=== PATIENT | male | born 1945 | race Caucasian/White ===

== ENCOUNTER 2021-05-04 02:17 | Emergency (ER) | payer MEDICARE, SELFPAY ==
[2021-05-04 02:23] VITALS: BP 150/52; PULSE 67; RESP 19; TEMP 36.2; O2SAT 97
--- NOTE | 2021-05-04 02:42 | ED.WOUNDLAC ---
HPI - Wound/Laceration General Chief Complaint: Wound/Laceration Stated Complaint: left leg lac Time Seen by Provider: 05/04/21 02:27 Source: patient Mode of arrival: ambulatory Limitations: no limitations History of Present Illness HPI narrative: This is a 75 year old male who presents for evaluation of left lower leg laceration. He states he was cleaning knives and he accidentally dropped one. The knife created a tiny laceration to his leg but he states he has been unable to get it to stop bleeding. He denies lightheadedness or dizziness. His tetanus is up to date. Related Data Allergies Allergy/AdvReac Type Severity Reaction Status Date / Time No Known Allergies Allergy Unverified 02/09/19 16:33 Review of Systems Review of Systems: All systems reviewed & are unremarkable except as noted in HPI and below PMFSH Past Medical History Medical History (Updated 05/04/21 @ 03:47 by Suzy Ford MD) Coronary artery disease Diabetes mellitus Hyperlipidemia Hypertension Myocardial infarction Exam Const: General: no acute distress and alert Orientation/consciousness: patient oriented x3 Eyes: EOM: EOMs intact bilaterally Resp: Effort & Inspection: normal respiratory effort Skin: Other: left lower anterior leg with 1 cm laceration with some bleeding. Neuro: General: patient oriented x3 Gait exam (Neuro): Normal gait present Psych: Mental Status: mental status grossly normal Affect: normal affect Course Reevaluation(s) Reevaluation #1: I placed a stitch in wound and applied dressing. He was able to ambulate and he has no bleeding after 30 minutes. Date: 05/04/21 Time: 03:31 Vital Signs Vital signs: Vital Signs Temperature 97.1 F L 05/04/21 02:23 Pulse Rate 67 05/04/21 02:23 Respiratory Rate 19 05/04/21 02:23 Blood Pressure 150/52 H 05/04/21 02:23 Pulse Oximetry 97 05/04/21 02:23 Temperature 97.1 F L 05/04/21 02:23 Pulse Rate 67 05/04/21 02:23 Respiratory Rate 19 05/04/21 02:23 Blood Pressure 150/52 H 05/04/21 02:23 Pulse Oximetry 97 05/04/21 02:23 Procedures Laceration Laceration 1: Date: 05/04/21 Time: 02:50 Site: lower extremity (left lower leg) Side (If applicable): left Size (cm): 1.5 Description: linear Depth: simple, single layer Local Anesthetic: with epi Amount of anesthesia used (mL): 1 Pre-repair: irrigated ====== Skin Level ====== Skin layer closed with: prolene Size (cm): 4-0 Number of sutures: 1 Technique: horizontal mattress ====== Subcutaneous Layer ====== ====== Muscle Layer ====== ====== Tendon Layer ====== Discharge Plan Discharge Clinical Impression: Laceration of left lower leg Qualifiers: Encounter type: initial encounter Qualified Code(s): S81.812A - Laceration without foreign body, left lower leg, initial encounter Patient Disposition: Home, Self-Care Condition: Stable Instructions: Antibiotic Form, Care For Your Stitches (ED), Laceration (ED) Additional Instructions: Today you were treated for a leg wound. Keep your dressing on for 24 hours. If you developed rebleeding change dressing and apply pressure. Your stitches will need to be removed in 10-14 days. Follow-up/Referrals: UNKNOWN,DOCTOR [Primary Care Provider] -
--- NOTE | 2021-05-04 03:09 | PC.NURSE ---
Per ERP VRBO, ambulatory assessment done with pt. No signs of hemorrhage to site.
== END 2021-05-04 03:45 | disposition home or self-care (01) ==
PROVIDERS: Emergency Provider General Practice
DX: S81.812A Laceration without foreign body, left lower leg, initial encounter (principal); I25.10 Atherosclerotic heart disease of native coronary artery without angina pectoris; E78.5 Hyperlipidemia, unspecified; E11.9 Type 2 diabetes mellitus without complications; I10 Essential (primary) hypertension; I25.2 Old myocardial infarction; W26.0XXA Contact with knife, initial encounter
CPT/HCPCS: 12001; 99282

== ENCOUNTER 2021-06-13 17:30 | Emergency (ER) | payer MEDICARE, SELFPAY ==
--- NOTE | ~2021-06-13 | XR_ITS ---
EXAMINATION: XR chest 1V portable EXAM DATE: 06/13/2021 18:05 INDICATION: Generalized weakness, slurred speech. TECHNIQUE: Portable AP frontal chest x-ray was obtained. Comparison is made to prior examination from 11/23/2017. FINDINGS: Cardiomegaly and pulmonary vascular congestion. Indistinct reticulation suspicious for pulm onary edema. Interstitial type pneumonia not excludable. Findings most consistent with CHF exacerbati on. No pneumothorax. Possible small pleural effusions. There are mild bony degenerative changes. IMPRESSION: 1. Findings consistent with mild CHF exacerbation. Reviewed, dictated and finalized at location A. AGE PICK UP MAN
--- NOTE | ~2021-06-13 | CT_ITS ---
EXAMINATION: CT brain wo con EXAM DATE: 06/13/2021 18:39 INDICATION: Stroke . Slurred speech, confusion, weakness. TECHNIQUE: Spiral CT of the head was performed without contrast. Axial, coronal and sagittal images were reviewed. The dose-length product (DLP) for this examination was 605.33 mGy-cm. The exposure w as tailored according to patient size, and iterative reconstruction (ASIR) was used as additional dos e reduction technique. There is no prior study for comparison. FINDINGS: There is no acute intraparenchymal hemorrhage. No evidence of intraparenchymal brain mass lesion. No evidence of acute infarction. Please note that initial head CT has limited sensitivity f or small or acute infarctions. There is mild to moderate periventricular and subcortical hypodensity , nonspecific but probably related to small vessel ischemic disease. There is moderate prominence o f the sulci and ventricles related to cerebral atrophy. There is intracranial carotid arteriosclero sis. There are no extra-axial collections. There is no mass effect or midline shift. Patient has h ad bilateral ocular lens surgery. Soft tissue is unremarkable. The visualized sinuses and mastoid a ir cells are well aerated. IMPRESSION: 1. No acute intracranial findings. 2. Chronic age related findings. Reviewed, dictated and finalized at location A. NQUENT TAX COLLECTOR ASSISTANT
[2021-06-13 17:35] VITALS: TEMP 36.7
[2021-06-13 17:41] VITALS: BP 175/94; PULSE 83; RESP 16; O2SAT 98
--- NOTE | 2021-06-13 17:45 | ECG_ITS ---
Measurements Intervals [place] Rate: 73 P: NE: 0 QRS: -32 QRSD: 93 T: 47 QT: 411 QTc: 455 Interpretive Statements SINUS RHYTHM WITH FIRST DEGREE AV BLOCK LEFT AXIS DEVIATION DELAYED PRECORDIAL R/S TRANSITION BASELINE ARTIFACT- I, II, III, AVR, AVL, AVF, V1-V2 ABNORMAL ECG Electronically Signed On 06-13-2021 20:22:26 ANCHORER by Aaron Smith D.O.
[2021-06-13 17:58] LABS: Glucose Point of Care 79 mg/dl (65-105)
[2021-06-13 18:18] LABS: Basophils Percent Auto 0.7 % (0.2-1.2); Eosinophils Absolute Auto 0.2 K/mm3 (0-0.3); Eosinophils Percent Auto 3.3 % (0-4.4); Hematocrit 33.1 % (42.0-52.0); Immature Granulocyte Absolute 0.02 K/mm3 (0.00-0.031); Immature Granulocyte Percent A 0.3 % (0-0.5); Lymphocytes Absolute Auto 1.28 K/mm3 (0.9-3.2); Lymphocytes Percent Auto 20.9 % (18.3-44.2); Mean Corpuscular HGB Conc 33.2 g/dl (32-36); Mean Corpuscular Hemoglobin 30.3 pg (26-34); Mean Corpuscular Volume 91.2 fl (80-100); Mean Platelet Volume 9.7 fl (7.4-10.4); Monocytes Absolute Auto 0.5 K/mm3 (0.1-0.6); Monocytes Percent Auto 8.3 % (2.6-8.5); Neutrophils Absolute Auto 4.1 K/mm3 (1.3-6.7); Neutrophils Percent Auto 66.5 % (45.5-73.1); Platelet Count Result 256 k/mm3 (150-375); Red Blood Count 3.63 M/mm3 (4.6-6.20); Red Cell Distribution Width 14.5 % (11.5-14.5); White Blood Count 6.1 K/mm3 (4.5-10.0)
[2021-06-13 18:24] LABS: Alanine Aminotransferase 22 U/L (4-50); Albumin Level 3.7 g/dL (3.5-5.1); Alkaline Phosphatase 150 U/L (38-126); Anion Gap 6 mmol/L (8-16); Aspartate Amino Transferase 25 U/L (17-59); Bilirubin,Total 0.7 mg/dL (0.2-1.3); Blood Urea Nitrogen 9 mg/dL (9-20); Calcium 8.6 mg/dL (8.4-10.2); Carbon Dioxide 23 mmol/L (22-30); Chloride 105 mmol/L (98-107); Estimated Glomerular Filt Rate > 60; Glucose 101 mg/dL (65-110); Potassium 3.2 mmol/L (3.4-5.0); Sodium 134 mmol/L (137-145)
[2021-06-13 18:35] LABS: NT Pro B Type Natriuretic Pept 1280 pg/mL (5-100); Troponin I 0.027 ng/mL (0.000-0.034)
[2021-06-13 19:24] LABS: INR 1.3; Prothrombin Time 15.8 Seconds (11.1-14.7)
--- NOTE | 2021-06-13 19:39 | ED.GENADULT ---
HPI - General Adult General Chief complaint: Recheck/Abnormal Lab/Rx Stated complaint: LOW BLOOD SUGAR Time Seen by Provider: 06/13/21 17:34 Source: patient Mode of arrival: EMS Limitations: no limitations History of Present Illness HPI narrative: 75-year-old with a history of hypertension, diabetes, CAD with few stents here with complaints of slurred speech. As per the EMS her daughter called earlier this afternoon the head that his speech was found to be slurred. Patient states that he was unable to get out of the bed this since this morning as he was feeling weak. As per the EMS his blood sugar upon their arrival was 56. Patient was given oral glucose and glucagon. Upon arrival to the ER patient is wide awake alert speech was clear. Currently denies any headache or chest pain or shortness of breath, nausea or vomiting. Onset (ago): hour(s) (4) Associated symptoms: denies other symptoms Related Data Home Medications Medication Instructions Recorded Confirmed amlodipine 06/13/21 apixaban [Eliquis] mg 06/13/21 carvedilol 06/13/21 empagliflozin [Jardiance] mg 06/13/21 fesoterodine [Toviaz] mg PO 06/13/21 fluoxetine mg 06/13/21 furosemide 06/13/21 insulin glargine [Lantus Solostar SUBCUT 06/13/21 U-100 Insulin] irbesartan mg 06/13/21 pramipexole mg 06/13/21 rosuvastatin mg 06/13/21 spironolactone 06/13/21 terazosin mg 06/13/21 ticagrelor [Brilinta] mg 06/13/21 trazodone 06/13/21 Allergies Allergy/AdvReac Type Severity Reaction Status Date / Time No Known Allergies Allergy Unverified 02/09/19 16:33 Review of Systems Review of Systems: All systems reviewed & are unremarkable except as noted in HPI and below Constitutional: Constitutional: Reports no additional constitutional complaints Eyes: Eyes: Reports no additional eye complaints ENT: Reports system reviewed and no additional complaints, except as documented Cardiovascular: Cardiovascular: Reports no additional cardiovascular complaints Respiratory: Respiratory: Reports no additional respiratory complaints Musculoskeletal: Musculoskeletal: Reports no additional musculoskeletal complaints Integumentary/Breasts: Skin/Breast: Reports system reviewed and no additional complaints, except as docu Neurologic: Reports system reviewed and no additional complaints, except as documented PMFSH Past Medical History Medical History Coronary artery disease Diabetes mellitus Hyperlipidemia Hypertension Myocardial infarction Exam Narrative: GENERAL: Well-appearing, well-nourished, and in no acute distress. Very hard of hearing HEAD: Normocephalic, atraumatic. EYES: PERRLA and EOMI. ENT: Nares clear, no rhinorrhea or epistaxis. Mucous membranes moist. NECK: Supple. CHEST: Clear to auscultation. No respiratory distress. HEART: Regular rate and rhythm. No murmur heard. Normal peripheral pulses. ABDOMEN: Soft, nontender, nondistended, normal active bowel sounds. EXTREMITIES: Normal range of motion. No edema. SKIN: Warm, dry, no rash. NEURO: No focal deficits. Alert and oriented x3. PSYCH: Normal mood and affect. Course Course Emergency Course: Patient lying comfortable on the stretcher in no discomfort. He was able to ambulate to the bathroom. I did inform him about his lab work, CT scan. Advised him to eat frequently. He does feel comfortable going home. Vital Signs Vital signs: Vital Signs Temperature 36.7 C 06/13/21 17:35 Temperature 36.7 C 06/13/21 17:35 Pulse Rate 83 06/13/21 17:41 Respiratory Rate 16 06/13/21 17:41 Blood Pressure 175/94 H 06/13/21 17:41 Pulse Oximetry 98 06/13/21 17:41 Medical Decision Making MDM Narrative Medical decision making narrative: With a history of altered mental status most likely from hypoglycemia will do CBC chemistry for the benefit of the doubt will do a CT of the head to make sure there is no stroke. Meanw
[2021-06-13 19:55] VITALS: BP 166/76; PULSE 67; RESP 19; O2SAT 96
[2021-06-13 20:04] LABS: Glucose Point of Care 112 mg/dl (65-105)
== END 2021-06-13 20:06 | disposition home or self-care (01) ==
PROVIDERS: Emergency Provider Family Medicine
DX: E11.65 Type 2 diabetes mellitus with hyperglycemia (principal); R41.82 Altered mental status, unspecified; I25.10 Atherosclerotic heart disease of native coronary artery without angina pectoris; I10 Essential (primary) hypertension; Z79.01 Long term (current) use of anticoagulants; Z79.4 Long term (current) use of insulin; I25.2 Old myocardial infarction; E78.5 Hyperlipidemia, unspecified; R94.31 Abnormal electrocardiogram [ECG] [EKG]; R91.8 Other nonspecific abnormal finding of lung field
CPT/HCPCS: 36415; 70450; 71045; 80053; 82948; 83880; 84484; 85025; 85610; 93005; 99284

== ENCOUNTER 2021-12-16 08:26 | Emergency (ER) | payer MEDICARE, SELFPAY ==
[2021-12-16 08:27] VITALS: BP 128/57; PULSE 59; RESP 18; TEMP 36.2; O2SAT 100
[2021-12-16 09:14] LABS: Hematocrit 33.5 % (42.0-52.0); Hemoglobin 10.8 g/dL (14.0-18.0)
[2021-12-16 09:31] LABS: INR 1.7; Prothrombin Time 19.4 Seconds (11.1-14.7)
--- NOTE | 2021-12-16 09:39 | ED.WOUNDLAC ---
HPI - Wound/Laceration General Chief Complaint: Wound/Laceration Stated Complaint: bleeding arms Time Seen by Provider: 12/16/21 08:34 History of Present Illness HPI narrative: 76-year-old male currently on Eliquis presents here with bleeding cuts to both arms, he had noticed it yesterday, and did seem to be getting worse today so he wrapped it up and came here. Denies any trauma that he can remember other than sometimes he will bump into the farmer, denies pain or injury anywhere else. No head lightheadedness, difficulty breathing, chest pain tetanus shot is up-to-date. Related Data Home Medications Medication Instructions Recorded Confirmed amlodipine 5 mg tablet 5 mg PO 1XD 06/13/21 12/16/21 apixaban 5 mg tablet (Eliquis) 5 mg 06/13/21 carvedilol 3.125 mg tablet 3.125 mg 06/13/21 empagliflozin 25 mg tablet 25 mg 06/13/21 (Jardiance) fesoterodine 4 mg tablet,extended 4 mg PO 06/13/21 release 24 hr (Toviaz) fluoxetine 20 mg capsule 20 mg 06/13/21 insulin glargine 100 unit/mL (3 subcut 06/13/21 mL) subcutaneous pen (Lantus Solostar U-100 Insulin) irbesartan 300 mg tablet mg 06/13/21 pramipexole 1 mg tablet 1 mg 06/13/21 rosuvastatin 20 mg tablet 20 mg 06/13/21 spironolactone 25 mg tablet 06/13/21 terazosin 5 mg capsule mg 06/13/21 ticagrelor 90 mg tablet (Brilinta) mg 06/13/21 trazodone 100 mg tablet 06/13/21 Allergies Allergy/AdvReac Type Severity Reaction Status Date / Time No Known Allergies Allergy Verified 12/16/21 08:40 Review of Systems Review of Systems: CONST: No malaise HEENT: No head trauma C/V: No chest pain RESP: No difficulty breathing GI: No nausea or vomiting : No dysuria. M/S: Bleeding/abrasions both arms SKIN: Bleeding/abrasions both forearms NEURO: [No headache or focal numbness or weakness] PSYCH: [No depression] [facility] Past Medical History Medical History Coronary artery disease Diabetes mellitus Hyperlipidemia Hypertension Myocardial infarction Exam Narrative: EXAMINATION OF ORGAN SYSTEMS/BODY AREAS: Constitutional: Vital signs per nursing GENERAL:[No acute distress, non-toxic appearing.] HEAD: Normal with no signs of head trauma. EYES: EOMI, conjunctiva normal ENT: Hearing grossly intact LUNGS: Nonlabored breathing. HEART: [Regular rate and rhythm] ABD: [Soft], nontender to palpation EXT: Normal range of motion SKIN: 2 small abrasions to right forearm, with dried blood not actively bleeding, 1 tiny abrasion to left forearm, not actively bleeding NEURO: [Alert and oriented x 3. No gross focal sensory or strength deficits.] PSYCH: Normal affect Course Vital Signs Vital signs: Vital Signs Temperature 97.2 F L 12/16/21 08:27 Pulse Rate 59 L 12/16/21 08:27 Respiratory Rate 18 12/16/21 08:27 Blood Pressure 128/57 L 12/16/21 08:27 Pulse Oximetry 100 12/16/21 08:27 Oxygen Delivery Room Air 12/16/21 08:27 Temperature 97.2 F L 12/16/21 08:27 Pulse Rate 59 L 12/16/21 08:27 Respiratory Rate 18 12/16/21 08:27 Blood Pressure 128/57 L 12/16/21 08:27 Pulse Oximetry 100 12/16/21 08:27 Oxygen Delivery Room Air 12/16/21 08:27 MDM - Wound/Laceration MDM Narrative Medical decision making narrative: 76-year-old male presenting with abrasions to both forearms, vital stable, exam shows no active bleeding at this time, clean wounds are well dressed, I will obtain H&H and coags to ensure no obvious abnormality, these are within acceptable limits, he is stable for discharge home with follow-up with his primary care doctor as needed. Lab Data Result diagrams: 12/16/21 09:08 Labs: Lab Results 12/16/21 12/16/21 Range/Units 09:08 09:09 Hgb 10.8 L (14.0-18.0) g/dL Hct 33.5 L (42.0-52.0) % PT 19.4 H (11.1-14.7) Seconds INR 1.7 APTT 40.0 H (22.3-36.8) SECONDS Discharge Plan Discharge Clinical Impression: Avulsion of s
[2021-12-16 09:56] VITALS: BP 124/84; PULSE 65; RESP 18; O2SAT 97
== END 2021-12-16 09:57 | disposition home or self-care (01) ==
PROVIDERS: Emergency Provider Emergency Medicine
DX: S50.812A Abrasion of left forearm, initial encounter (principal); S50.811A Abrasion of right forearm, initial encounter; I25.10 Atherosclerotic heart disease of native coronary artery without angina pectoris; E11.9 Type 2 diabetes mellitus without complications; E78.5 Hyperlipidemia, unspecified; I10 Essential (primary) hypertension; I25.2 Old myocardial infarction; Z79.4 Long term (current) use of insulin; Z79.01 Long term (current) use of anticoagulants; Z79.02 Long term (current) use of antithrombotics/antiplatelets; W22.01XA Walked into wall, initial encounter
CPT/HCPCS: 36415; 85014; 85018; 85610; 85730; 99283

== ENCOUNTER 2022-04-08 23:01 | Emergency (ER) | payer MEDICARE, SELFPAY ==
[2022-04-08 23:19] VITALS: BP 146/54; PULSE 67; RESP 16; TEMP 36.4; O2SAT 100
[2022-04-09 01:03] VITALS: BP 158/68; PULSE 67; RESP 20; O2SAT 99
--- NOTE | 2022-04-09 02:18 | ED.EAR ---
HPI - Ear Problem General Chief complaint: Ear <RANDAL Zhu Last Filed: 04/09/22 03:08> Stated complaint: earache <RANDAL Zhu Last Filed: 04/09/22 03:08> Time Seen by Provider: 04/09/22 01:42 <RANDAL Zhu Last Filed: 04/09/22 03:08> Source: patient <RANDAL Zhu Last Filed: 04/09/22 03:08> Mode of arrival: ambulatory <RANDAL Zhu Last Filed: 04/09/22 03:08> Limitations: no limitations <RANDAL Zhu Last Filed: 04/09/22 03:08> History of Present Illness HPI Narrative: Patient is a 76-year-old male who presents the ED with report of left ear pain. Patient reports he was at the [facility] earlier today and developed pain in his left ear around 5 PM. He took 2 Tylenol at home with minimal relief. Denies any trauma to the ear or foreign body. Denies pain in right ear, ringing in ear, fevers, drainage. <RANDAL Zhu Last Filed: 04/09/22 03:08> Related Data Home medications: Home Medications Medication Instructions Recorded Confirmed amlodipine 5 mg tablet 5 mg PO 1XD 06/13/21 12/16/21 apixaban 5 mg tablet (Eliquis) 5 mg 06/13/21 carvedilol 3.125 mg tablet 3.125 mg 06/13/21 empagliflozin 25 mg tablet 25 mg 06/13/21 (Jardiance) fesoterodine 4 mg tablet,extended 4 mg PO 06/13/21 release 24 hr (Toviaz) fluoxetine 20 mg capsule 20 mg 06/13/21 insulin glargine 100 unit/mL (3 subcut 06/13/21 mL) subcutaneous pen (Lantus Solostar U-100 Insulin) irbesartan 300 mg tablet mg 06/13/21 pramipexole 1 mg tablet 1 mg 06/13/21 rosuvastatin 20 mg tablet 20 mg 06/13/21 spironolactone 25 mg tablet 06/13/21 terazosin 5 mg capsule mg 06/13/21 ticagrelor 90 mg tablet (Brilinta) mg 06/13/21 trazodone 100 mg tablet 06/13/21 <Eugenie Briones PA-C - Last Filed: 04/09/22 03:08> Allergies/adverse reactions: Allergies Allergy/AdvReac Type Severity Reaction Status Date / Time No Known Allergies Allergy Verified 04/09/22 01:01 <Eugenie Briones PA-C - Last Filed: 04/09/22 03:08> Review of Systems Review of Systems: CONSTITUTIONAL: Denies fever, chills, or sweats. EYES: Denies visual changes. ENT: Reports left ear pain. Denies right ear pain, ear drainage, rhinorrhea, congestion, sore throat. <Eugenie Briones PA-C - Last Filed: 04/09/22 03:08> All systems reviewed & are unremarkable except as noted in HPI and below <Eugenie Briones PA-C - Last Filed: 04/09/22 03:08> ON LICENSE OF [facility] Past Medical History Medical History: Medical History (Updated 04/10/22 @ 00:00 by Yamileth Andres) Coronary artery disease Diabetes mellitus Hyperlipidemia Hypertension Myocardial infarction <Eugenie Briones PA-C - Last Filed: 04/09/22 03:08> Surgical History Surgical History: Surgical History (Updated 04/09/22 @ 02:23 by Eugenie Briones PA-C) No pertinent past surgical history <Eugenie Briones PA-C - Last Filed: 04/09/22 03:08> Social History Social History: Social History (Updated 04/09/22 @ 02:23 by Eugenie Briones PA-C) Smoking status: Never smoker <Eugenie Briones PA-C - Last Filed: 04/09/22 03:08> Exam Narrative: GENERAL: Well appearing, well-nourished, non-toxic, in no acute distress. HEAD: Normocephalic, atraumatic. EYES: PERRL/EOMI, conjunctivae clear bilaterally. NOSE: Normal, no drainage. EARS: R TM clear, with good light reflex. No erythema or bulging. Some wax present in right ear, but no impaction. L cerumen impaction. No swelling or redness of L EAC. No pain with manipulation of pinna or pressing on tragus. NECK: Supple. No adenopathy, no masses. RESPIRATORY: Airway patent, respirations nonlabored. CARDIOVASCULAR: Regular rate and rhythm without murmurs, rubs, or gallops. Radial pulses 2+ and equal bilaterally. MUSCULOSKELETAL: Moves all extremities. Strength/ROM int
--- NOTE | 2022-04-09 02:29 | PC.NURSE ---
Irrigated left ear with whole bottle of elephant ear irrigation, patient tolerated well. No cerumen removed. Patient requested to have her take it out if she can. ERP notified.
== END 2022-04-09 03:15 | disposition home or self-care (01) ==
PROVIDERS: Emergency Provider Emergency Medicine
DX: H61.22 Impacted cerumen, left ear (principal); I25.10 Atherosclerotic heart disease of native coronary artery without angina pectoris; E11.9 Type 2 diabetes mellitus without complications; E78.5 Hyperlipidemia, unspecified; I10 Essential (primary) hypertension; I25.2 Old myocardial infarction; Z79.01 Long term (current) use of anticoagulants; Z79.4 Long term (current) use of insulin; Z79.84 Long term (current) use of oral hypoglycemic drugs
CPT/HCPCS: 69210; 99282

== ENCOUNTER 2022-07-15 20:37 | Inpatient (IN) | payer MEDICARE, SELFPAY ==
[2022-07-15] VITALS (16 sets, daily range): BP systolic 116–150; BP diastolic 50–72; PULSE 80–108; RESP 13–28; TEMP 36.8; O2SAT 94–100
--- NOTE | ~2022-07-15 | XR_ITS ---
XR lumbar spine 2-3V DATE: 07/20/2022 17:29 INDICATION: Back pain TECHNIQUE: AP, lateral, coned lateral lumbosacral views COMPARISON: None FINDINGS: There is approximately 22 degrees rotatory levoscoliosis of the lower thoracic and lumbar s pine. There is diffuse idiopathic skeletal hyperostosis of the thoracolumbar spine. Lumbar interspaces are relatively preserved. Mild loss of height and moderate degenerative spurring a t L5-S1. No fracture or bone destruction is evident. The lumbar pedicles appear intact. The sacroiliac joints are preserved. There is calcification of the abdominal aorta and iliac arteries. IMPRESSION: Rotatory levoscoliosis of lumbar spine Osteopenia Multilevel moderate degenerative disc disease Reviewed, dictated and finalized at location A. N FURNISHINGS INSTALLER
--- NOTE | ~2022-07-15 | XR_ITS ---
EXAMINATION: XR hip LT 2V w AP pelvis INDICATION: Worsening left hip pain TECHNIQUE: AP view of the pelvis and two views of the left hip are obtained. COMPARISON: None available FINDINGS: Bone alignment is normal. There is no fracture. 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 Phleboliths are noted in the pelvis. IMPRESSION: 1. No acute osseous abnormality. Reviewed, dictated and finalized at location B. NESS DEVELOPMENT SALES EXECUTIVE
--- NOTE | ~2022-07-15 | MR_ITS ---
EXAMINATION: MR lumbar spine wo con DATE: 07/22/2022 11:57 INDICATION: Radiculopathy TECHNIQUE: Magnetic resonance imaging (MRI) of the lumbar spine was performed without intravenous con trast. Sequences included sagittal T2-weighted FSE, sagittal T2-weighted FS FSE, sagittal T1-weighted FSE, and axial T2-weighted FSE. COMPARISON: MR spine radiographs dated 07/20/2022 FINDINGS: 23 degree lumbar levoscoliosis. Sagittal alignment is normal. Relatively acute L2 burst fracture with 40% right-sided vertebral body height loss and 4 mm central retropulsion. There is a linear coronall y oriented fracture plane extending across the left half of the vertebral body. There is prominent as sociated marrow edema. Chronic likely physiologic wedging at T11 and T12 with 20% anterior vertebral body height loss. Marrow signal is otherwise normal. Moderate disc height loss at L5-S1. Mild disc he ight loss at T10-T11 and ADC through T12-L1 and at L4-L5. Mild Central ballooning of the L1-L2 and L2 -L3 disc space resulting from the L2 burst fracture. The conus medullaris terminates at L1-L2. There is normal signal in the caudal spinal cord. Paravertebral soft tissues are unremarkable. The followin g disc levels are specifically discussed: T12-L1: The disc does not extend beyond the endplate margin. There is mild bilateral facet joint oste oarthritis. There is mild right neural foraminal stenosis. There is no central canal stenosis. L1-L2: Disc is minimally bulging. There is also mild retropulsion of the cephalad aspect of the poste rior wall of L2. There is hypertrophy of the ligamentum flavum. There is mild bilateral facet joint osteoarthritis. There is mild left and and mild to moderate right neural foraminal stenosis. There is mild central canal stenosis. L2-L3: There are bilateral foraminal zone disc protrusions. There is hypertrophy of the ligamentum fl avum. There is mild left and moderate right facet joint osteoarthritis. There is mild to moderate lef t and moderate right neural foraminal stenosis. There is mild central canal stenosis. L3-L4: Minimal bilateral foraminal zone disc protrusions. There is mild to moderate bilateral facet j oint osteoarthritis. There is moderate bilateral neural foraminal stenosis. There is mild central can al stenosis. L4-L5: Disc is bulging. There is hypertrophy of the ligamentum flavum. There is moderate left and mod erate to severe right facet joint osteoarthritis. There is moderate to severe bilateral neural forami nal stenosis. There is mild to moderate central canal stenosis as well as at the left and right later al recesses. L5-S1: Annular fissure and posterior disc extrusion with disc material extending a few millimeters ce phalad to the level of the inferior endplate of L5. There is moderate left and severe right facet silvestre nt osteoarthritis. There is moderate right and moderate to severe left neural foraminal stenosis. The re is mild central canal stenosis as well as at the left and right lateral recesses. IMPRESSION: 1. Relatively acute L2 burst fracture with 40% right-sided vertebral body height loss and 4 mm retrop ulsion. 2. 23 degrees lumbar levoscoliosis with mild to moderate spondylosis. Reviewed, dictated and finalized at location A. YARD CRANE OPERATOR IMPRESSION: 1. Relatively acute L2 burst fracture with 40% right-sided vertebral body heigh t loss and 4 mm retropulsion. 2. 23 degrees lumbar levoscoliosis with mild to moderate spondylosis.
--- NOTE | ~2022-07-15 | XR_ITS ---
EXAMINATION: XR chest 1V portable DATE: 07/15/2022 21:41 INDICATION: Hypoglycemia. TECHNIQUE: A single frontal view of the chest was obtained. COMPARISON: Chest single view 06/13/2021, chest CT 01/01/2019 FINDINGS: The lung volumes are normal. There is an interstitial pattern in the lungs. No pleural effu ross or pneumothorax. The heart size is normal. IMPRESSION: 1. Interstitial pattern in the lungs, likely mild pulmonary edema. Reviewed, dictated and finalized at location A. ICAL EXERCISE SPECIALIST
--- NOTE | ~2022-07-15 | CT_ITS ---
EXAMINATION: CT brain wo con DATE: 07/16/2022 03:28 INDICATION: Altered mental status. Hypoglycemia. TECHNIQUE: Computed tomography (CT) of the head was performed without intravenous contrast. The mA wa s adjusted according to patient size. Iterative reconstruction technique was employed. The dose-lengt h product was 681.00 mGy-cm. COMPARISON: Head CT 06/13/2021 FINDINGS: There are scattered areas of low attenuation in the cerebral white matter. There is no intr acranial hemorrhage, acute infarction, or abnormal intracranial mass lesion. The ventricles are estuardo l in size. There are likely changes of ocular lens replacement surgeries. There is mild mucosal thick ening in the ethmoid sinuses. There is a trace left mastoid effusion. IMPRESSION: 1. Stable moderate nonspecific cerebral white matter disease, which likely represents chronic small v essel ischemic disease. Reviewed, dictated and finalized at location A. S SET UP PERSON IMPRESSION: 1. Stable moderate nonspecific cerebral white matter disease, which likely repr esents chronic small vessel ischemic disease.
--- NOTE | 2022-07-15 21:06 | ECG_ITS ---
Measurements Intervals [place] Rate: 90 P: 236 ME: 151 QRS: -53 QRSD: 96 T: 71 QT: 338 QTc: 415 Interpretive Statements SINUS RHYTHM WITH FIRST DEGREE AV BLOCK LEFT ANTERIOR FASCICULAR BLOCK BASELINE ARTIFACT- I, II, III, AVR, AVL, AVF, V1 ABNORMAL ECG COMPARED TO ECG 06/13/2021 18:55:00 LEFT ANTERIOR FASCICULAR BLOCK NOW PRESENT Electronically Signed On 07-16-2022 6:38:09 GENERAL MERCHANDISE SALESPERSON by Aaron Smith D.O.
--- NOTE | 2022-07-15 21:08 | ED.GENADULT ---
HPI - General Adult General Chief complaint: Altered Mental Status Stated complaint: low blood sugar History of Present Illness HPI narrative: this is a 76-year-old male presenting ED for low blood sugar. Patient self does not recall any events leading up to what happened. Says he last took his insulin last night. He then woke up in the hospital. He has no physical complaints at this time. Per EMS they were called for CPR. When they arrived patient had a glucose of 50 and he was given an amp of D50 with a return to his normal mental status. Related Data Home Medications Medication Instructions Recorded Confirmed amlodipine 5 mg tablet 5 mg PO 1XD 06/13/21 12/16/21 apixaban 5 mg tablet (Eliquis) 5 mg 06/13/21 carvedilol 3.125 mg tablet 3.125 mg 06/13/21 empagliflozin 25 mg tablet 25 mg 06/13/21 (Jardiance) fesoterodine 4 mg tablet,extended 4 mg PO 06/13/21 release 24 hr (Toviaz) fluoxetine 20 mg capsule 20 mg 06/13/21 insulin glargine 100 unit/mL (3 subcut 06/13/21 mL) subcutaneous pen (Lantus Solostar U-100 Insulin) irbesartan 300 mg tablet mg 06/13/21 pramipexole 1 mg tablet 1 mg 06/13/21 rosuvastatin 20 mg tablet 20 mg 06/13/21 spironolactone 25 mg tablet 06/13/21 terazosin 5 mg capsule mg 06/13/21 ticagrelor 90 mg tablet (Brilinta) mg 06/13/21 trazodone 100 mg tablet 06/13/21 Allergies Allergy/AdvReac Type Severity Reaction Status Date / Time No Known Allergies Allergy Verified 04/09/22 01:01 [facility] Past Medical History Medical History Coronary artery disease Diabetes mellitus Hyperlipidemia Hypertension Myocardial infarction Surgical History Surgical History No pertinent past surgical history Social History Social History Smoking status: Never smoker Exam Narrative: APPEARANCE: No apparent distress. A&O x3 Head: atraumatic. EYES: EOMI, NOSE: Atraumatic NECK: Trachea midline RESPIRATORY: No increased rate of breathing clear to auscultation CARDIOVASCULAR: RRR, no peripheral edema ABDOMINAL: Non-distended, no guarding or rebound MUSCULOSKELETAl: No obvious deformities, head to toe trauma assessment not reveal any injuries NEURO: Alert. Moving 4/4 extremities SKIN:: Warm, dry. Normal color PSYCHIATRIC: Normal affect Course Vital Signs Vital signs: Vital Signs Temperature 98.2 F 07/15/22 20:54 Pulse Rate 107 H 07/15/22 20:54 Respiratory Rate 18 07/15/22 20:54 Blood Pressure 131/66 07/15/22 20:54 Pulse Oximetry 99 07/15/22 20:54 Oxygen Delivery Room Air 07/15/22 20:54 Temperature 97.8 F 07/16/22 02:11 Pulse Rate 76 07/16/22 04:45 Respiratory Rate 18 07/16/22 04:45 Blood Pressure 113/66 07/16/22 04:32 Pulse Oximetry 100 07/16/22 04:45 Oxygen Delivery Room Air 07/15/22 20:54 Medical Decision Making [facility] Narrative Medical decision making narrative: Presentation: 76-year-old with low blood sugar, Found down by family after non unwitnessed fall. Patient is on Eliquis. CT head, chest x-ray EKG and lab work will be obtained. Patient has been fed food. Q.1 hour glucose checks have been obtained DDX includes but is not limited to: hypoglycemia due to improper use of insulin, decreased diet, infection, Co-morbidities complicating care: diabetes, hypertension, coronary artery disease External Chart Review: Pharmacy medication Records- Patient is on lantus. Hx from independent Sources: EMS, Family, Discussion of Management/Consultants: Gary - Hospitalist Independent interpretation of studies: CBC showed a white count of 12.9. This is of unknown etiology. No source of infection at this time. hemoglobin is 10.8 which is similar to previous values.Metabolic panel was within Acceptable limits. Urinalysis did not indicate infection. Viral
[2022-07-15] MEDS: HYDROcodone/acetaminophen (*CRX) 5-325 MG TABLET 1 TAB PO (21:25)
[2022-07-15] MEDS: SODIUM CHLORIDE 0.9% IV 2,000 ML 999 ML IV CONT (21:25)
[2022-07-15 21:35] LABS: Add Urine Microscopic? YES; Appearance Urine Clear (Clear); Bilirubin Urine Negative (Negative); Blood Urine Negative (Negative); Color Urine Yellow (Yellow); Glucose Urine UA 2+ mg/dL (Negative); Ketones Urine Negative (Negative); Leukocyte Esterase Ur Negative LEU/UL (Negative); Nitrate Urine Negative (Negative); Protein Urine Negative (Negative); Urobilinogen Urine 0.2 mg/dL (<2.0); pH Urine 5.5 (5.0-9.0)
[2022-07-15 21:36] LABS: Basophils Absolute Auto 0.1 K/mm3 (0.0-0.1); Basophils Percent Auto 0.5 % (0.2-1.2); Eosinophils Percent Auto 0.1 % (0-4.4); Hematocrit 32.8 % (42.0-52.0); Hemoglobin 10.8 g/dL (14.0-18.0); Immature Granulocyte Absolute 0.06 K/mm3 (0.00-0.031); Immature Granulocyte Percent A 0.5 % (0-0.5); Lymphocytes Absolute Auto 0.69 K/mm3 (0.9-3.2); Lymphocytes Percent Auto 5.3 % (18.3-44.2); Mean Corpuscular HGB Conc 32.9 g/dl (32-36); Mean Corpuscular Hemoglobin 30.7 pg (26-34); Mean Corpuscular Volume 93.2 fl (80-100); Mean Platelet Volume 9.7 fl (7.4-10.4); Monocytes Absolute Auto 0.4 K/mm3 (0.1-0.6); Monocytes Percent Auto 2.8 % (2.6-8.5); Neutrophils Absolute Auto 11.7 K/mm3 (1.3-6.7); Neutrophils Percent Auto 90.8 % (45.5-73.1); Platelet Count Result 341 k/mm3 (150-375); Red Blood Count 3.52 M/mm3 (4.6-6.20); Red Cell Distribution Width 14.7 % (11.5-14.5); White Blood Count 12.9 K/mm3 (4.5-10.0)
[2022-07-15 21:40] LABS: Mucus Urine Rare /lpf; RBC Urine 0-2 /hpf (0-2); WBC Urine 0-3 /hpf
[2022-07-15 21:45] LABS: Anion Gap 8 mmol/L (8-16); Blood Urea Nitrogen 20 mg/dL (9-20); Calcium 8.8 mg/dL (8.4-10.2); Carbon Dioxide 22 mmol/L (22-30); Chloride 107 mmol/L (98-107); Estimated CRCL calculation 42 ml/min; Estimated Glomerular Filt Rate 49; Glucose 117 mg/dL (65-110); Potassium 4.3 mmol/L (3.4-5.0); Sodium 137 mmol/L (137-145)
[2022-07-15 22:12] LABS: Influenza A QL RT-PCR Negative (Negative); Influenza B QL RT-PCR Negative (Negative); RSV RNA, RT-PCR Negative (Negative); SARS-CoV-2 RNA PCR Negative
[2022-07-15 22:41] LABS: Glucose Point of Care 49 mg/dl (65-105)
--- NOTE | 2022-07-15 22:41 | PC.NURSE ---
bedside glucose 49
[2022-07-15] MEDS: DEXTROSE 50% 25 GM/50 ML SYRINGE IV PUSH (22:56)
[2022-07-16] VITALS (60 sets, daily range): BP systolic 74–144; BP diastolic 33–73; PULSE 63–87; RESP 11–28; TEMP 35.9–37; O2SAT 92–100; BMI 25.2
--- NOTE | 2022-07-16 00:32 | PC.NURSE ---
bedside glucose 114
[2022-07-16 00:36] LABS: Glucose Point of Care 114 mg/dl (65-105)
[2022-07-16 02:05] LABS: Glucose Point of Care 68 mg/dl (65-105)
--- NOTE | 2022-07-16 02:05 | PC.NURSE ---
bedside glucose 68
[2022-07-16] MEDS: HYDROcodone/acetaminophen (*CRX) 5-325 MG TABLET 1 TAB PO ×2 (02:16→23:47)
[2022-07-16] MEDS: DEXTROSE 10% 1,000 ML 100 ML IV CONT (02:25)
[2022-07-16] MEDS: SODIUM CHLORIDE 0.9% IV 1,000 ML 999 ML IV CONT (03:41)
--- NOTE | 2022-07-16 04:05 | PC.NURSE ---
Bedside glucose 96
[2022-07-16 04:07] LABS: Glucose Point of Care 96 mg/dl (65-105)
[2022-07-16 06:04] LABS: Glucose Point of Care 69 mg/dl (65-105)
[2022-07-16] MEDS: GLUCAGON FOR INJ 1 MG VIAL IM (06:24)
--- NOTE | 2022-07-16 06:32 | PC.NURSE ---
Awaiting bed assignment
[2022-07-16 06:41] LABS: Glucose Point of Care 105 mg/dl (65-105)
--- NOTE | 2022-07-16 06:41 | PC.NURSE ---
bedside glucose 105
[2022-07-16 08:16] LABS: Glucose Point of Care 151 mg/dl (65-105)
--- NOTE | 2022-07-16 11:13 | ADMGEN ---
This patient, Santhosh Moore, was admitted to IMU Room 209-01 on 07/16/22 at 0725. Patient/family oriented to hospital policies and general routines including ID bracelet, bed and alarms, visiting hours, pain management, procedures, bathroom and other care routines, personal items, smoking policy, room service/diet, and visiting hours. Information on how to activate the Rapid Response Team has been discussed. Patient/Family are encouraged to report perceived risks to care and to ask questions if they do not understand what they are told or what they should do.
[2022-07-16] MEDS: DEXTROSE 10% 1,000 ML 125 ML IV CONT ×2 (11:41→20:35)
[2022-07-16 12:20] LABS: Glucose Point of Care 125 mg/dl (65-105)
[2022-07-16 13:35] LABS: Glucose Point of Care 100 mg/dl (65-105)
[2022-07-16 14:32] LABS: Glucose Point of Care 119 mg/dl (65-105)
[2022-07-16] MEDS: PRAMIPEXOLE 1 MG TABLET PO ×2 (15:02→20:35)
[2022-07-16] MEDS: GLUCOSE ORAL GEL 15 GM OF GLUCSE IN 37.5 GM TUBE PO (16:00)
[2022-07-16 16:29] LABS: Glucose Point of Care 124 mg/dl (65-105)
[2022-07-16 16:32] LABS: Glucose Point of Care 55 mg/dl (65-105)
--- NOTE | 2022-07-16 17:06 | PM.IMHP ---
H&P: HPI History of Present Illness Date/Time: 07/16/22 17:06 Chief Complaint: hypoglycemia Narrative: ED-HPI narrative: ?this is a 76-year-old male presenting ED for low blood sugar.? Patient self does not recall any events leading up to what happened.? Says he last took his insulin last night.? He then woke up in the hospital.? He has no physical complaints at this time. ? Per EMS they were called for CPR.? When they arrived patient had a glucose of 50 and he was given an amp of D50 with a return to his normal mental status. patient is 76-year-old male with history of coronary artery disease and diabetes taking insulin and patient lives alone apparently patient states took his long-acting Lantus 45 units I he did fix himself dinner but did not eat enough apparently went to sleep, this morning daughter came to visit patient was quite somnolent and not arousable and EMS was called the [place] patient may need a CPR however his blood pressure was 50 and patient was given 1 ampule of D50 which did bring his mental status to baseline, patient was also given 1 time glucagon, currently patient alert and oriented has no complaint, initially patient blood sugar was monitor q.1 hour, patient is being fed and his blood sugars monitored, we are holding patient long-acting insulin and monitoring with low sliding scale, will have perioperative educator consult the patient, it will be prudent to adult supervision to administer daily insulin, will continue to monitor will have a PT OT evaluate the patient and further recommendation to follow. patient is admitted as observation status. Review of Systems Review of Systems: CONSTITUTIONAL: Denies fever, chills, or sweats. EYES: Denies visual changes. ENT: Reports left ear pain. Denies right ear pain, ear drainage, rhinorrhea, congestion, sore throat. All systems reviewed & are unremarkable except as noted in HPI and below PMFSH Past Medical History Medical History Coronary artery disease Diabetes mellitus Hyperlipidemia Hypertension Myocardial infarction Surgical History Surgical History No pertinent past surgical history Social History Social History Smoking status: Current every day smoker Tobacco type: cigars Additional smoking assessment comments: 3 cigars/day Alcohol intake: never Substance use: never Substance use type: does not use Lack of Transportation: No Lack of Food: Never True Current Housing: I Have Housing Concerned About Future Housing: No Difficulty Paying Gas/Electric Bills: No Difficulty Paying for Meds: No Currently Unemployed: No Education: Bachelor's Degree Difficulty w/ Childcare or Family Care: No Spiritual care concerns: No Meds Home Medications and Allergies Home Medications Medication Instructions Recorded Confirmed Type trazodone 100 mg tablet 100 mg PO HS 06/13/21 07/16/22 History amlodipine 5 mg tablet 5 mg PO DAILY 07/16/22 07/16/22 History apixaban 5 mg tablet (Eliquis) 5 mg PO BID 07/16/22 07/16/22 History empagliflozin 25 mg tablet 25 mg PO DAILY 07/16/22 07/16/22 History (Jardiance) fesoterodine 4 mg tablet,extended 4 mg PO DAILY 07/16/22 07/16/22 History release 24 hr furosemide 40 mg tablet 40 mg PO DAILY 07/16/22 07/16/22 History gabapentin 300 mg capsule 300 mg PO DAILY 07/16/22 07/16/22 History hydralazine 50 mg tablet 50 mg PO BID 07/16/22 07/16/22 History insulin glargine 100 unit/mL (3 45 unit subcut BID 07/16/22 07/16/22 History mL) subcutaneous pen (Lantus Solostar U-100 Insulin) irbesartan 300 mg tablet 300 mg PO DAILY 07/16/22 07/16/22 History pramipexole 1 mg tablet 1 mg PO USEASDIRECTD 07/16/22 07/16/22 History rosuvastatin 20 mg tablet 20 mg PO DAILY 07/16/22 07/16/22 History spironolactone 25 mg tablet 25 mg PO DAILY 07/16
[2022-07-16] MEDS: hydrALAZINE HCL 50 MG TABLET PO (17:37)
[2022-07-16] MEDS: GABAPENTIN 300 MG CAPSULE PO (17:37)
[2022-07-16] MEDS: TICAGRELOR 90 MG TABLET PO (17:37)
[2022-07-16 17:57] LABS: Glucose Point of Care 173 mg/dl (65-105)
[2022-07-16 20:07] LABS: Glucose Point of Care 147 mg/dl (65-105)
[2022-07-16 20:21] LABS: Hemoglobin A1C 5.5 % (<5.7)
[2022-07-16] MEDS: traZODone HCL 50 MG TABLET 100 MG PO (20:35)
[2022-07-16] MEDS: APIXABAN 5 MG TABLET PO (20:50)
[2022-07-16 21:02] LABS: Glucose Point of Care 173 mg/dl (65-105)
[2022-07-16 21:52] LABS: Glucose Point of Care 166 mg/dl (65-105)
[2022-07-16 23:28] LABS: Glucose Point of Care 151 mg/dl (65-105)
[2022-07-17] VITALS (16 sets, daily range): BP systolic 94–141; BP diastolic 41–58; PULSE 62–103; RESP 20; TEMP 36.1–36.7; O2SAT 92–100
[2022-07-17] MEDS: DEXTROSE 10% 1,000 ML 125 ML IV CONT ×2 (05:21→20:34)
[2022-07-17] MEDS: HYDROcodone/acetaminophen (*CRX) 5-325 MG TABLET 1 TAB PO ×3 (05:21→16:27)
[2022-07-17 05:54] LABS: Anion Gap 5 mmol/L (8-16); Blood Urea Nitrogen 14 mg/dL (9-20); Calcium 8.1 mg/dL (8.4-10.2); Carbon Dioxide 22 mmol/L (22-30); Chloride 108 mmol/L (98-107); Estimated CRCL calculation 58 ml/min; Estimated Glomerular Filt Rate > 60; Glucose 155 mg/dL (65-110); Magnesium 1.8 mg/dL (1.6-2.3); Sodium 135 mmol/L (137-145)
[2022-07-17 07:29] LABS: Glucose Point of Care 136 mg/dl (65-105)
[2022-07-17 08:01] LABS: Glucose Point of Care 125 mg/dl (65-105)
[2022-07-17] MEDS: amLODIPine BESYLATE 5 MG TABLET PO (09:36)
[2022-07-17] MEDS: GABAPENTIN 300 MG CAPSULE PO ×3 (09:36→16:29)
[2022-07-17] MEDS: hydrALAZINE HCL 50 MG TABLET PO ×2 (09:36→16:29)
[2022-07-17] MEDS: ROSUVASTATIN 10 MG TABLET 20 MG PO (09:37)
[2022-07-17] MEDS: TICAGRELOR 90 MG TABLET PO ×2 (09:37→16:29)
[2022-07-17] MEDS: SPIRONOLACTONE 25 MG TABLET PO (09:37)
[2022-07-17] MEDS: IRBESARTAN 150 MG TABLET 300 MG PO (09:37)
[2022-07-17] MEDS: TOLTERODINE TARTRATE LA 4 MG CAP.ER.24H PO (09:37)
[2022-07-17] MEDS: APIXABAN 5 MG TABLET PO ×2 (09:37→20:32)
[2022-07-17] MEDS: FUROSEMIDE 40 MG TABLET PO (09:37)
[2022-07-17 12:10] LABS: Glucose Point of Care 282 mg/dl (65-105)
[2022-07-17] MEDS: INSULIN ASPART (*BKC) 100 UNITS/ML SUB-Q (12:53)
[2022-07-17 15:56] LABS: Glucose Point of Care 177 mg/dl (65-105)
[2022-07-17 17:25] LABS: Hematocrit 33.7 % (42.0-52.0); Hemoglobin 11.2 g/dL (14.0-18.0); Mean Corpuscular HGB Conc 33.2 g/dl (32-36); Mean Corpuscular Hemoglobin 31.1 pg (26-34); Mean Corpuscular Volume 93.6 fl (80-100); Mean Platelet Volume 10.4 fl (7.4-10.4); Platelet Count Result 329 k/mm3 (150-375); Red Cell Distribution Width 14.7 % (11.5-14.5); White Blood Count 13.1 K/mm3 (4.5-10.0)
--- NOTE | 2022-07-17 18:22 | PM.IMPN ---
Progress Note: A&P Assessment and Plan (1) Hypoglycemia: Code(s): E16.2 - Hypoglycemia, unspecified Status: Acute Assessment and Plan: ED-HPI narrative: ?this is a 76-year-old male presenting ED for low blood sugar.? Patient self does not recall any events leading up to what happened.? Says he last took his insulin last night.? He then woke up in the hospital.? He has no physical complaints at this time. ? Per EMS they were called for CPR.? When they arrived patient had a glucose of 50 and he was given an amp of D50 with a return to his normal mental status. patient is 76-year-old male with history of coronary artery disease and diabetes taking insulin and patient lives alone apparently patient states took his long-acting Lantus 45 units I he did fix himself dinner but did not eat enough apparently went to sleep, this morning daughter came to visit patient was quite somnolent and not arousable and EMS was called the [place] patient may need a CPR however his blood pressure was 50 and patient was given 1 ampule of D50 which did bring his mental status to baseline, patient was also given 1 time glucagon, currently patient alert and oriented has no complaint, initially patient blood sugar was monitor q.1 hour, patient is being fed and his blood sugars monitored, we are holding patient long-acting insulin and monitoring with low sliding scale, will have tobacco prevention health educator consult the patient, it will be prudent to adult supervision to administer daily insulin, will continue to monitor will have a PT OT evaluate the patient and further recommendation to follow. 07/17/2021 interval history: patient states he has type 2 diabetes, I spoke with the patient's daughter and discussed recommended the patient be taken off all the insulin and placed on oral anti diabetic medication with metformin, Jardiance and possibly low-dose Glucotrol 2.5mg daily if needed, consult dietitian and physical therapy patient will benefit going to acute rehab. (2) Altered mental status: Code(s): R41.82 - Altered mental status, unspecified Status: Acute Assessment and Plan: most likely secondary to hypoglycemia now patient is baseline will continue to monitor. Subjective Date/time seen: 07/17/22 18:22 ED-HPI narrative: ?this is a 76-year-old male presenting ED for low blood sugar.? Patient self does not recall any events leading up to what happened.? Says he last took his insulin last night.? He then woke up in the hospital.? He has no physical complaints at this time. ? Per EMS they were called for CPR.? When they arrived patient had a glucose of 50 and he was given an amp of D50 with a return to his normal mental status. patient is 76-year-old male with history of coronary artery disease and diabetes taking insulin and patient lives alone apparently patient states took his long-acting Lantus 45 units I he did fix himself dinner but did not eat enough apparently went to sleep, this morning daughter came to visit patient was quite somnolent and not arousable and EMS was called the [place] patient may need a CPR however his blood pressure was 50 and patient was given 1 ampule of D50 which did bring his mental status to baseline, patient was also given 1 time glucagon, currently patient alert and oriented has no complaint, initially patient blood sugar was monitor q.1 hour, patient is being fed and his blood sugars monitored, we are holding patient long-acting insulin and monitoring with low sliding scale, will have tobacco prevention health educator consult the patient, it will be prudent to adult supervision to administer daily insulin, will continue to monitor will have a PT OT evaluate the patient and further recommendation to follow. 07/17/2021 interval history: patient states he has type 2 diabetes, I spoke with the patient's daughter and discussed recommended the patient be taken off all the insulin and placed on oral anti diabetic medication with met
[2022-07-17 20:01] LABS: Glucose Point of Care 219 mg/dl (65-105)
[2022-07-17] MEDS: PRAMIPEXOLE 1 MG TABLET PO (20:32)
[2022-07-17] MEDS: traZODone HCL 50 MG TABLET 100 MG PO (20:32)
[2022-07-17 23:30] LABS: Glucose Point of Care 246 mg/dl (65-105)
[2022-07-18] VITALS (17 sets, daily range): BP systolic 78–121; BP diastolic 37–61; PULSE 61–102; RESP 18–20; TEMP 36.4–36.8; O2SAT 94–98
[2022-07-18 05:35] LABS: Anion Gap 4 mmol/L (8-16); Blood Urea Nitrogen 18 mg/dL (9-20); Calcium 8.1 mg/dL (8.4-10.2); Carbon Dioxide 25 mmol/L (22-30); Chloride 101 mmol/L (98-107); Estimated CRCL calculation 42 ml/min; Estimated Glomerular Filt Rate 49; Glucose 165 mg/dL (65-110); Magnesium 1.8 mg/dL (1.6-2.3); Potassium 3.6 mmol/L (3.4-5.0); Sodium 130 mmol/L (137-145)
[2022-07-18 07:45] LABS: Glucose Point of Care 136 mg/dl (65-105)
[2022-07-18] MEDS: FUROSEMIDE 40 MG TABLET PO (09:58)
[2022-07-18] MEDS: hydrALAZINE HCL 50 MG TABLET PO ×2 (09:58→18:33)
[2022-07-18] MEDS: IRBESARTAN 150 MG TABLET 300 MG PO (09:58)
[2022-07-18] MEDS: ROSUVASTATIN 10 MG TABLET 20 MG PO (09:58)
[2022-07-18] MEDS: GABAPENTIN 300 MG CAPSULE PO ×3 (09:59→18:33)
[2022-07-18] MEDS: amLODIPine BESYLATE 5 MG TABLET PO (09:59)
[2022-07-18] MEDS: metFORMIN HCL XR 500 MG TAB.SR.24H PO (09:59)
[2022-07-18] MEDS: SPIRONOLACTONE 25 MG TABLET PO (09:59)
[2022-07-18] MEDS: TICAGRELOR 90 MG TABLET PO ×2 (09:59→18:33)
[2022-07-18] MEDS: TOLTERODINE TARTRATE LA 4 MG CAP.ER.24H PO (09:59)
[2022-07-18] MEDS: APIXABAN 5 MG TABLET PO ×2 (09:59→19:58)
--- NOTE | 2022-07-18 11:53 | PM.IMPN ---
Progress Note: A&P Assessment and Plan (1) Hypoglycemia: Code(s): E16.2 - Hypoglycemia, unspecified Status: Acute Assessment and Plan: ED-HPI narrative: ?this is a 76-year-old male presenting ED for low blood sugar.? Patient self does not recall any events leading up to what happened.? Says he last took his insulin last night.? He then woke up in the hospital.? He has no physical complaints at this time. ? Per EMS they were called for CPR.? When they arrived patient had a glucose of 50 and he was given an amp of D50 with a return to his normal mental status. patient is 76-year-old male with history of coronary artery disease and diabetes taking insulin and patient lives alone apparently patient states took his long-acting Lantus 45 units I he did fix himself dinner but did not eat enough apparently went to sleep, this morning daughter came to visit patient was quite somnolent and not arousable and EMS was called the [facility] patient may need a CPR however his blood pressure was 50 and patient was given 1 ampule of D50 which did bring his mental status to baseline, patient was also given 1 time glucagon, currently patient alert and oriented has no complaint, initially patient blood sugar was monitor q.1 hour, patient is being fed and his blood sugars monitored, we are holding patient long-acting insulin and monitoring with low sliding scale, will have para educator consult the patient, it will be prudent to adult supervision to administer daily insulin, will continue to monitor will have a PT OT evaluate the patient and further recommendation to follow. 07/18/2021 interval history: patient states he has type 2 diabetes, on 07/18 I spoke with the patient's daughter and discussed recommended the patient will be taken off all the insulin and placed on oral anti diabetic medication with metformin, Jardiance and possibly low-dose Glucotrol 2.5mg daily if needed, after reviewing patient blood sugar today will continue only metformin and minimize carbohydrate intake, consult dietitian and physical therapy patient will benefit going to acute rehab. (2) Altered mental status: Code(s): R41.82 - Altered mental status, unspecified Status: Acute Assessment and Plan: most likely secondary to hypoglycemia now patient is baseline will continue to monitor. Subjective Date/time seen: 07/18/22 11:53 ED-HPI narrative: ?this is a 76-year-old male presenting ED for low blood sugar.? Patient self does not recall any events leading up to what happened.? Says he last took his insulin last night.? He then woke up in the hospital.? He has no physical complaints at this time. ? Per EMS they were called for CPR.? When they arrived patient had a glucose of 50 and he was given an amp of D50 with a return to his normal mental status. patient is 76-year-old male with history of coronary artery disease and diabetes taking insulin and patient lives alone apparently patient states took his long-acting Lantus 45 units I he did fix himself dinner but did not eat enough apparently went to sleep, this morning daughter came to visit patient was quite somnolent and not arousable and EMS was called the [facility] patient may need a CPR however his blood pressure was 50 and patient was given 1 ampule of D50 which did bring his mental status to baseline, patient was also given 1 time glucagon, currently patient alert and oriented has no complaint, initially patient blood sugar was monitor q.1 hour, patient is being fed and his blood sugars monitored, we are holding patient long-acting insulin and monitoring with low sliding scale, will have para educator consult the patient, it will be prudent to adult supervision to administer daily insulin, will continue to monitor will have a PT OT evaluate the patient and further recommendation to follow. 07/18/2021 interval history: patient states he has type 2 diabetes, on 07/18 I spoke with the patient'
[2022-07-18 12:27] LABS: Glucose Point of Care 152 mg/dl (65-105)
[2022-07-18] MEDS: HYDROcodone/acetaminophen (*CRX) 5-325 MG TABLET 1 TAB PO ×2 (13:17→21:25)
[2022-07-18] MEDS: SODIUM CHLORIDE 0.9% IV 500 ML 999 ML IV CONT (13:17)
--- NOTE | 2022-07-18 14:06 | PCPTNOTE ---
[place] RN, asks therapy to hold off on evaluation secondary to low blood pressure. Physical therapy will check again tomorrow
[2022-07-18 16:21] LABS: Glucose Point of Care 184 mg/dl (65-105)
[2022-07-18 18:07] LABS: Hematocrit 33.9 % (42.0-52.0); Hemoglobin 11.4 g/dL (14.0-18.0); Mean Corpuscular HGB Conc 33.6 g/dl (32-36); Mean Corpuscular Hemoglobin 30.3 pg (26-34); Mean Corpuscular Volume 90.2 fl (80-100); Mean Platelet Volume 9.9 fl (7.4-10.4); Platelet Count Result 315 k/mm3 (150-375); Red Blood Count 3.76 M/mm3 (4.6-6.20); Red Cell Distribution Width 14.6 % (11.5-14.5); White Blood Count 9.6 K/mm3 (4.5-10.0)
[2022-07-18 19:56] LABS: Glucose Point of Care 168 mg/dl (65-105)
[2022-07-18] MEDS: PRAMIPEXOLE 1 MG TABLET PO (19:58)
[2022-07-18] MEDS: traZODone HCL 50 MG TABLET 100 MG PO (19:58)
[2022-07-18 23:20] LABS: Glucose Point of Care 179 mg/dl (65-105)
[2022-07-19] VITALS (12 sets, daily range): BP systolic 93–115; BP diastolic 48–54; PULSE 57–88; RESP 20–22; TEMP 36.3–37.2; O2SAT 93–98
[2022-07-19] MEDS: HYDROcodone/acetaminophen (*CRX) 5-325 MG TABLET 1 TAB PO ×3 (02:41→16:26)
[2022-07-19 05:05] LABS: Glucose Point of Care 165 mg/dl (65-105)
[2022-07-19 05:27] LABS: Anion Gap 4 mmol/L (8-16); Blood Urea Nitrogen 27 mg/dL (9-20); Calcium 7.9 mg/dL (8.4-10.2); Carbon Dioxide 24 mmol/L (22-30); Chloride 102 mmol/L (98-107); Estimated CRCL calculation 40 ml/min; Estimated Glomerular Filt Rate 45; Glucose 143 mg/dL (65-110); Magnesium 1.8 mg/dL (1.6-2.3); Potassium 3.9 mmol/L (3.4-5.0); Sodium 130 mmol/L (137-145)
[2022-07-19 08:12] LABS: Glucose Point of Care 130 mg/dl (65-105)
[2022-07-19] MEDS: TICAGRELOR 90 MG TABLET PO ×2 (09:15→16:28)
[2022-07-19] MEDS: SPIRONOLACTONE 25 MG TABLET PO (09:15)
[2022-07-19] MEDS: ROSUVASTATIN 10 MG TABLET 20 MG PO (09:15)
[2022-07-19] MEDS: TOLTERODINE TARTRATE LA 4 MG CAP.ER.24H PO (09:15)
[2022-07-19] MEDS: GABAPENTIN 300 MG CAPSULE PO ×2 (09:15→12:14)
[2022-07-19] MEDS: amLODIPine BESYLATE 5 MG TABLET PO (09:16)
[2022-07-19] MEDS: IRBESARTAN 150 MG TABLET 300 MG PO (09:16)
[2022-07-19] MEDS: ACETAMINOPHEN 325 MG TABLET 650 MG PO ×2 (09:16→20:01)
[2022-07-19] MEDS: metFORMIN HCL XR 500 MG TAB.SR.24H PO (09:16)
[2022-07-19 12:06] LABS: Glucose Point of Care 154 mg/dl (65-105)
--- NOTE | 2022-07-19 14:14 | PM.IMPN ---
Progress Note: A&P Assessment and Plan (1) Hypoglycemia: Code(s): E16.2 - Hypoglycemia, unspecified Status: Acute Assessment and Plan: ED-HPI narrative: ?this is a 76-year-old male presenting ED for low blood sugar.? Patient self does not recall any events leading up to what happened.? Says he last took his insulin last night.? He then woke up in the hospital.? He has no physical complaints at this time. ? Per EMS they were called for CPR.? When they arrived patient had a glucose of 50 and he was given an amp of D50 with a return to his normal mental status. patient is 76-year-old male with history of coronary artery disease and diabetes taking insulin and patient lives alone apparently patient states took his long-acting Lantus 45 units I he did fix himself dinner but did not eat enough apparently went to sleep, this morning daughter came to visit patient was quite somnolent and not arousable and EMS was called the [facility] patient may need a CPR however his blood pressure was 50 and patient was given 1 ampule of D50 which did bring his mental status to baseline, patient was also given 1 time glucagon, currently patient alert and oriented has no complaint, initially patient blood sugar was monitor q.1 hour, patient is being fed and his blood sugars monitored, we are holding patient long-acting insulin and monitoring with low sliding scale, will have asthma educator consult the patient, it will be prudent to adult supervision to administer daily insulin, will continue to monitor will have a PT OT evaluate the patient and further recommendation to follow. 07/19/2021 interval history: patient states he has type 2 diabetes, on 07/18 I spoke with the patient's daughter and discussed recommended the patient will be taken off all the insulin and placed on oral anti diabetic medication with metformin, Jardiance and possibly low-dose Glucotrol 2.5mg daily if needed, after reviewing patient blood sugar today will continue only metformin and minimize carbohydrate intake, consult dietitian and physical therapy patient will benefit going to acute rehab. today patient blood pressure is running soft holding blood pressure medication amlodipine and hydralazine, also patient has a persistent pain in his left lower extremity he describes as a restless syndrome patient is receiving pramipexole and patient is receiving gabapentin 300 mg t.i.d. will increase to 600 mg at bedtime and continue 300 mg during the day, continue to monitor have the patient work with PT OT. (2) Altered mental status: Code(s): R41.82 - Altered mental status, unspecified Status: Acute Assessment and Plan: most likely secondary to hypoglycemia now patient is baseline will continue to monitor. Subjective Date/time seen: 07/19/22 14:14 ED-HPI narrative: ?this is a 76-year-old male presenting ED for low blood sugar.? Patient self does not recall any events leading up to what happened.? Says he last took his insulin last night.? He then woke up in the hospital.? He has no physical complaints at this time. ? Per EMS they were called for CPR.? When they arrived patient had a glucose of 50 and he was given an amp of D50 with a return to his normal mental status. patient is 76-year-old male with history of coronary artery disease and diabetes taking insulin and patient lives alone apparently patient states took his long-acting Lantus 45 units I he did fix himself dinner but did not eat enough apparently went to sleep, this morning daughter came to visit patient was quite somnolent and not arousable and EMS was called the [facility] patient may need a CPR however his blood pressure was 50 and patient was given 1 ampule of D50 which did bring his mental status to baseline, patient was also given 1 time glucagon, currently patient alert and oriented has no complaint, initially patient blood sugar was monitor q.1 hour, patient is being fed and his blood sugars monitore
[2022-07-19] MEDS: GABAPENTIN 300 MG CAPSULE 600 MG PO (16:27)
[2022-07-19 16:56] LABS: Glucose Point of Care 147 mg/dl (65-105)
[2022-07-19 17:03] LABS: Hemoglobin 9.8 g/dL (14.0-18.0); Mean Corpuscular HGB Conc 33.8 g/dl (32-36); Mean Corpuscular Hemoglobin 30.4 pg (26-34); Mean Corpuscular Volume 90.1 fl (80-100); Mean Platelet Volume 9.9 fl (7.4-10.4); Platelet Count Result 289 k/mm3 (150-375); Red Blood Count 3.22 M/mm3 (4.6-6.20); Red Cell Distribution Width 14.5 % (11.5-14.5); White Blood Count 7.7 K/mm3 (4.5-10.0)
[2022-07-19] MEDS: PRAMIPEXOLE 1 MG TABLET PO (20:00)
[2022-07-19] MEDS: traZODone HCL 50 MG TABLET 100 MG PO (20:00)
[2022-07-19] MEDS: APIXABAN 5 MG TABLET PO (20:00)
[2022-07-19 20:51] LABS: Glucose Point of Care 158 mg/dl (65-105)
[2022-07-20] VITALS (14 sets, daily range): BP systolic 86–119; BP diastolic 40–63; PULSE 56–93; RESP 14–20; TEMP 35.9–37; O2SAT 96–97
[2022-07-20] MEDS: HYDROcodone/acetaminophen (*CRX) 5-325 MG TABLET 1 TAB PO ×4 (01:13→21:40)
[2022-07-20 04:43] LABS: Anion Gap 7 mmol/L (8-16); Blood Urea Nitrogen 34 mg/dL (9-20); Calcium 8.2 mg/dL (8.4-10.2); Carbon Dioxide 21 mmol/L (22-30); Chloride 105 mmol/L (98-107); Estimated CRCL calculation 42 ml/min; Estimated Glomerular Filt Rate 49; Glucose 123 mg/dL (65-110); Magnesium 2.2 mg/dL (1.6-2.3); Potassium 4.7 mmol/L (3.4-5.0); Sodium 133 mmol/L (137-145)
[2022-07-20] MEDS: GABAPENTIN 300 MG CAPSULE PO ×2 (07:54→12:10)
[2022-07-20] MEDS: metFORMIN HCL XR 500 MG TAB.SR.24H PO (07:54)
[2022-07-20] MEDS: TOLTERODINE TARTRATE LA 4 MG CAP.ER.24H PO (07:54)
[2022-07-20] MEDS: APIXABAN 5 MG TABLET PO ×2 (07:54→20:40)
[2022-07-20] MEDS: TICAGRELOR 90 MG TABLET PO ×2 (07:54→16:10)
[2022-07-20] MEDS: IRBESARTAN 150 MG TABLET 300 MG PO (07:54)
[2022-07-20] MEDS: ROSUVASTATIN 10 MG TABLET 20 MG PO (07:54)
[2022-07-20] MEDS: ACETAMINOPHEN 325 MG TABLET 650 MG PO ×2 (07:54→16:09)
[2022-07-20 08:32] LABS: Glucose Point of Care 123 mg/dl (65-105)
[2022-07-20] MEDS: SPIRONOLACTONE 25 MG TABLET PO (09:36)
[2022-07-20] MEDS: FUROSEMIDE 40 MG TABLET PO (09:36)
[2022-07-20] MEDS: amLODIPine BESYLATE 5 MG TABLET PO (09:36)
[2022-07-20] MEDS: hydrALAZINE HCL 50 MG TABLET PO (09:36)
--- NOTE | 2022-07-20 09:59 | PCNFU ---
Nutrition Follow-Up Complete: Moderate malnutrition related to inadeaute oral intake as evidenced by less than 75% itnake of meals for greater than a month, -10% wt loss x 6 months, and pt report Goal: PO intake 75% or greater for meals and supplements -Not meeting goal. Continue same goa Pt current nutrition is Heart healthy diet. Intakes 25-75%, 45% average. Ensure Enlive BID. Nutrition recommendation: Continue same nutrition care plan, diet order and supplements. Last recorded weight is 83.9 kg. Bowel Motility: No BMs charted Labs Reviewed:Hgb 9.8, Hct 29, Na 133, BUN 34, Cre 1.4, Glu 123 Meds Noted: Zofran Skin: WNL Additional Notes: MD consult for poor intake on 07/17/21 after assessment was already done so following up early. Intakes are fair to good. Weight stable, trending up. Discharge planning for home health Monitor intake, wt, labs. Follow up in 7 days.
[2022-07-20 12:20] LABS: Glucose Point of Care 162 mg/dl (65-105)
--- NOTE | 2022-07-20 12:42 | PCOTNOTE ---
Per RN, patient's BP in 80s/40s - about to give bolus. Patient not seen at this time for OT. Will continue plan of care as appropriate for OT.
[2022-07-20] MEDS: SODIUM CHLORIDE 0.9% IV 500 ML 999 ML IV CONT (13:01)
--- NOTE | 2022-07-20 13:52 | PC.NURSE ---
1200 BP 86/40. Pt asymptomatic at this time. Notified Dr. Nava of hypotension. Per MD, 500ml NS bolus ordered.
--- NOTE | 2022-07-20 13:54 | PC.NURSE ---
Several attempts to gain peripheral access without success. Notified Dr. Nava. Per , order to place [facility].
--- NOTE | 2022-07-20 14:23 | PCPTNOTE ---
Attempted to see patient for PT, however RN advised not to see patient due to patient having hypotension.
--- NOTE | 2022-07-20 15:29 | PM.IMPN ---
Progress Note: A&P Assessment and Plan (1) Hypoglycemia: Code(s): E16.2 - Hypoglycemia, unspecified Status: Acute Assessment and Plan: ED-HPI narrative: ?this is a 76-year-old male presenting ED for low blood sugar.? Patient self does not recall any events leading up to what happened.? Says he last took his insulin last night.? He then woke up in the hospital.? He has no physical complaints at this time. ? Per EMS they were called for CPR.? When they arrived patient had a glucose of 50 and he was given an amp of D50 with a return to his normal mental status. patient is 76-year-old male with history of coronary artery disease and diabetes taking insulin and patient lives alone apparently patient states took his long-acting Lantus 45 units I he did fix himself dinner but did not eat enough apparently went to sleep, this morning daughter came to visit patient was quite somnolent and not arousable and EMS was called the [facility] patient may need a CPR however his blood pressure was 50 and patient was given 1 ampule of D50 which did bring his mental status to baseline, patient was also given 1 time glucagon, currently patient alert and oriented has no complaint, initially patient blood sugar was monitor q.1 hour, patient is being fed and his blood sugars monitored, we are holding patient long-acting insulin and monitoring with low sliding scale, will have healthcare educator consult the patient, it will be prudent to adult supervision to administer daily insulin, will continue to monitor will have a PT OT evaluate the patient and further recommendation to follow. 07/20/2021 interval history: patient states he has type 2 diabetes, on 07/18 I spoke with the patient's daughter and discussed recommended the patient will be taken off all the insulin and placed on oral anti diabetic medication with metformin, Jardiance and possibly low-dose Glucotrol 2.5mg daily if needed, after reviewing patient blood sugar today will continue only metformin and minimize carbohydrate intake, consult dietitian and physical therapy patient will benefit going to acute rehab. on 07/19 patient blood pressure was running soft holding blood pressure medication amlodipine and hydralazine, today his blood pressure is again low 86/40 will give 500cc bolus and monitor, also patient has a persistent pain in his left lower extremity he describes as a restless syndrome patient is receiving pramipexole and patient is receiving gabapentin 300 mg t.i.d. on 07/19 increased to 600 mg at bedtime and continue 300 mg during the day, today pain in the left hip is persisting, oredered hip and pelvic x-ray, no acute injury, showed OA, also discussed with patient daughter, patient not able to live alone, will need placement to a NH, also consulted spine surgeon for back pain, continue to monitor have the patient work with PT OT. (2) Altered mental status: Code(s): R41.82 - Altered mental status, unspecified Status: Acute Assessment and Plan: most likely secondary to hypoglycemia now patient is baseline will continue to monitor. Subjective Date/time seen: 07/20/22 15:29 ED-HPI narrative: ?this is a 76-year-old male presenting ED for low blood sugar.? Patient self does not recall any events leading up to what happened.? Says he last took his insulin last night.? He then woke up in the hospital.? He has no physical complaints at this time. ? Per EMS they were called for CPR.? When they arrived patient had a glucose of 50 and he was given an amp of D50 with a return to his normal mental status. patient is 76-year-old male with history of coronary artery disease and diabetes taking insulin and patient lives alone apparently patient states took his long-acting Lantus 45 units I he did fix himself dinner but did not eat enough apparently went to sleep, this morning daughter came to visit patient was quite somnolent and not arousable and EMS was called [facility]
[2022-07-20] MEDS: GABAPENTIN 300 MG CAPSULE 600 MG PO (16:10)
[2022-07-20 16:56] LABS: Glucose Point of Care 175 mg/dl (65-105)
[2022-07-20 19:12] LABS: Hematocrit 27.1 % (42.0-52.0); Hemoglobin 8.9 g/dL (14.0-18.0); Mean Corpuscular HGB Conc 32.8 g/dl (32-36); Mean Corpuscular Hemoglobin 30.2 pg (26-34); Mean Corpuscular Volume 91.9 fl (80-100); Mean Platelet Volume 9.9 fl (7.4-10.4); Platelet Count Result 313 k/mm3 (150-375); Red Blood Count 2.95 M/mm3 (4.6-6.20); Red Cell Distribution Width 14.3 % (11.5-14.5); White Blood Count 6.9 K/mm3 (4.5-10.0)
[2022-07-20 20:22] LABS: Glucose Point of Care 174 mg/dl (65-105)
[2022-07-20] MEDS: traZODone HCL 50 MG TABLET 100 MG PO (20:40)
[2022-07-20] MEDS: PRAMIPEXOLE 1 MG TABLET PO (20:40)
[2022-07-21] VITALS (13 sets, daily range): BP systolic 91–120; BP diastolic 46–56; PULSE 62–80; RESP 16–20; TEMP 36.1–36.9; O2SAT 95–100
[2022-07-21] MEDS: HYDROcodone/acetaminophen (*CRX) 5-325 MG TABLET 1 TAB PO ×3 (04:58→20:10)
[2022-07-21 05:36] LABS: Anion Gap 4 mmol/L (8-16); Blood Urea Nitrogen 37 mg/dL (9-20); Calcium 8.3 mg/dL (8.4-10.2); Carbon Dioxide 26 mmol/L (22-30); Chloride 101 mmol/L (98-107); Estimated CRCL calculation 37 ml/min; Estimated Glomerular Filt Rate 42; Glucose 119 mg/dL (65-110); Potassium 4.3 mmol/L (3.4-5.0); Sodium 131 mmol/L (137-145)
[2022-07-21] MEDS: ACETAMINOPHEN 325 MG TABLET 650 MG PO ×2 (08:04→14:36)
[2022-07-21] MEDS: TICAGRELOR 90 MG TABLET PO ×2 (08:05→17:11)
[2022-07-21] MEDS: metFORMIN HCL XR 500 MG TAB.SR.24H PO (08:05)
[2022-07-21] MEDS: IRBESARTAN 150 MG TABLET 300 MG PO (08:05)
[2022-07-21] MEDS: APIXABAN 5 MG TABLET PO ×2 (08:05→20:10)
[2022-07-21] MEDS: TOLTERODINE TARTRATE LA 4 MG CAP.ER.24H PO (08:05)
[2022-07-21] MEDS: ROSUVASTATIN 10 MG TABLET 20 MG PO (08:05)
[2022-07-21] MEDS: GABAPENTIN 300 MG CAPSULE PO (08:05)
[2022-07-21 08:09] LABS: Glucose Point of Care 130 mg/dl (65-105)
[2022-07-21 12:27] LABS: Glucose Point of Care 139 mg/dl (65-105)
--- NOTE | 2022-07-21 14:36 | PM.IMPN ---
Progress Note: A&P Assessment and Plan (1) Hypoglycemia: Code(s): E16.2 - Hypoglycemia, unspecified Status: Acute Assessment and Plan: Blood sugars improved (2) Altered mental status: Code(s): R41.82 - Altered mental status, unspecified Status: Acute Assessment and Plan: most likely secondary to hypoglycemia now patient is baseline will continue to monitor. Subjective Date/time seen: 07/21/22 14:36 No new complaints having pain in the anterior thighs bilaterally. No additional complaints Exam Narrative: Patient is comfortable, NAD HEENT: eyes are clear and none icteric LUNGS: normal respiratory effort ABD: not distended Lower extremities: no edema SKIN: nonjaundiced Neuro: grossly intact. Objective Data Vital Signs Vital Signs: Vital Signs - 24 hr 07/20/22 16:00 07/20/22 16:00 07/20/22 16:00 Temperature 96.9 F L Pulse Rate 79 80 Respiratory Rate 20 Blood Pressure 98/45 L Pulse Oximetry 97 96 Oxygen Delivery Room Air 07/20/22 16:36 07/20/22 18:00 07/20/22 19:56 Temperature 98.6 F Pulse Rate 77 83 Respiratory Rate 20 Blood Pressure 113/63 100/50 L Pulse Oximetry 97 Oxygen Delivery 07/20/22 20:00 07/21/22 00:00 07/20/22 20:00 Temperature 98.5 F Pulse Rate 79 93 Respiratory Rate 18 Blood Pressure 112/49 L Pulse Oximetry 97 97 Oxygen Delivery Room Air 07/20/22 22:00 07/21/22 00:00 07/21/22 00:00 Temperature Pulse Rate 79 69 Respiratory Rate Blood Pressure Pulse Oximetry 96 Oxygen Delivery Room Air 07/21/22 02:00 07/21/22 04:00 07/21/22 04:00 Temperature 98.2 F Pulse Rate 76 76 72 Respiratory Rate 18 Blood Pressure 110/52 L Pulse Oximetry 98 Oxygen Delivery 07/21/22 04:00 07/21/22 06:00 07/21/22 07:41 Temperature Pulse Rate 64 Respiratory Rate Blood Pressure Pulse Oximetry 97 97 Oxygen Delivery Room Air Room Air 07/21/22 08:00 07/21/22 08:45 07/21/22 08:00 Temperature 97.6 F Pulse Rate 70 80 Respiratory Rate 16 Blood Pressure 119/51 L 91/46 L Pulse Oximetry 100 Oxygen Delivery 07/21/22 12:00 07/21/22 12:00 07/21/22 12:00 Temperature 97.1 F L Pulse Rate 66 70 Respiratory Rate 20 Blood Pressure 101/49 L Pulse Oximetry 97 97 Oxygen Delivery Room Air Intake/Output Intake/Output: Intake & Output 07/18/22 07/19/22 07/20/22 07/21/22 23:59 23:59 23:59 23:59 Intake Total 1300 630 990 710 Output Total 6063 041 9723 1150 Balance -450 -70 -635 -440 Meds/Results Medications: Active Medications Generic Name Dose Route Start Last Admin Trade Name Freq PRN Reason Stop Dose Admin Acetaminophen 650 mg 07/16/22 06:01 07/21/22 08:04 Acetaminophen 325 Mg Tablet PO 650 mg Q4H PRN Administration Mild Pain (1-3) or Fever Hydrocodone Bitart/Acetaminophen 1 tab 07/16/22 06:01 07/21/22 10:47 Hydrocodone/Acetaminophen (*Crx) 5-325 Mg Tablet PO 1 tab Q4H PRN Administration Pain Rated 4-6 Amlodipine Besylate 5 mg 07/17/22 09:00 07/21/22 08:46 Amlodipine Besylate 5 Mg Tablet PO Not Given DAILY JOSE CARLOS Apixaban 5 mg 07/16/22 21:00 07/21/22 08:05 Apixaban 5 Mg Tablet PO 5 mg Q12HR JOSE CARLOS Administration Dextrose 12.5 gm 07/16/22 17:19 Dextrose 50% 25 Gm/50 Ml Syringe IV PUSH PRN PRN Hypoglycemia Protocol Empagliflozin 25 mg 07/17/22 09:00 Empagliflozin 25 Mg Tablet PO DAILY JOSE CARLOS Furosemide 40 mg 07/17/22 09:00 07/21/22 08:46 Furosemide 40 Mg Tablet PO Not Given DAILY JOSE CARLOS Gabapentin 300 mg 07/20/22 09:00 07/21/22 08:05 Gabapentin 300 Mg Capsule PO 300 mg 0900,1300 JOSE CARLOS Administration Gabapentin 600 mg 07/19/22 17:00 07/20/22 16:10 Gabapentin 300 Mg Capsule PO 600 mg 1700 JOSE CARLOS Administration Glucagon 1 mg 07/16/22 17:19 Glucagon For Inj 1 Mg Vial IM PRN PRN Hypoglycemia Protocol Glucose 15 gm
[2022-07-21] MEDS: GABAPENTIN 300 MG CAPSULE 600 MG PO (17:09)
[2022-07-21] MEDS: SODIUM CHLORIDE 0.9% IV 500 ML IV CONT (17:09)
[2022-07-21 17:33] LABS: Glucose Point of Care 146 mg/dl (65-105)
[2022-07-21 18:01] LABS: Hematocrit 26.2 % (42.0-52.0); Hemoglobin 8.6 g/dL (14.0-18.0); Mean Corpuscular HGB Conc 32.8 g/dl (32-36); Mean Corpuscular Hemoglobin 30.3 pg (26-34); Mean Corpuscular Volume 92.3 fl (80-100); Mean Platelet Volume 9.5 fl (7.4-10.4); Platelet Count Result 317 k/mm3 (150-375); Red Blood Count 2.84 M/mm3 (4.6-6.20); Red Cell Distribution Width 14.1 % (11.5-14.5); White Blood Count 7.5 K/mm3 (4.5-10.0)
[2022-07-21] MEDS: PRAMIPEXOLE 1 MG TABLET PO (20:09)
[2022-07-21] MEDS: traZODone HCL 50 MG TABLET 100 MG PO (20:09)
[2022-07-21 20:52] LABS: Glucose Point of Care 125 mg/dl (65-105)
[2022-07-22] VITALS (9 sets, daily range): BP systolic 92–106; BP diastolic 42–54; PULSE 63–78; RESP 16–20; TEMP 36.3–36.6; O2SAT 95–98
[2022-07-22] MEDS: ACETAMINOPHEN 325 MG TABLET 650 MG PO ×4 (00:54→21:06)
[2022-07-22 04:35] LABS: Anion Gap 5 mmol/L (8-16); Blood Urea Nitrogen 41 mg/dL (9-20); Calcium 8.1 mg/dL (8.4-10.2); Carbon Dioxide 27 mmol/L (22-30); Chloride 104 mmol/L (98-107); Estimated CRCL calculation 37 ml/min; Estimated Glomerular Filt Rate 42; Glucose 107 mg/dL (65-110); Magnesium 2.1 mg/dL (1.6-2.3); Potassium 4.4 mmol/L (3.4-5.0); Sodium 136 mmol/L (137-145)
[2022-07-22 08:20] LABS: Glucose Point of Care 107 mg/dl (65-105)
[2022-07-22] MEDS: TOLTERODINE TARTRATE LA 4 MG CAP.ER.24H PO (08:30)
[2022-07-22] MEDS: HYDROcodone/acetaminophen (*CRX) 5-325 MG TABLET 1 TAB PO (08:30)
[2022-07-22] MEDS: GABAPENTIN 300 MG CAPSULE PO ×2 (08:31→14:02)
[2022-07-22] MEDS: APIXABAN 5 MG TABLET PO ×2 (08:31→21:06)
[2022-07-22] MEDS: metFORMIN HCL XR 500 MG TAB.SR.24H PO (08:31)
[2022-07-22] MEDS: TICAGRELOR 90 MG TABLET PO ×2 (08:31→17:12)
[2022-07-22] MEDS: ROSUVASTATIN 10 MG TABLET 20 MG PO (08:31)
--- NOTE | 2022-07-22 14:21 | PM.IMPN ---
Progress Note: A&P Assessment and Plan (1) Hypoglycemia: Code(s): E16.2 - Hypoglycemia, unspecified Status: Acute Assessment and Plan: Blood sugars improved (2) Altered mental status: Code(s): R41.82 - Altered mental status, unspecified Status: Acute Assessment and Plan: most likely secondary to hypoglycemia now patient is baseline will continue to monitor. (3) Back pain: Code(s): M54.9 - Dorsalgia, unspecified Status: Acute Assessment and Plan: MRI performed Await MRI results Subjective Date/time seen: 07/22/22 14:21 Pain better controlled. Exam Narrative: Patient is comfortable, NAD HEENT: eyes are clear and none icteric LUNGS: normal respiratory effort ABD: not distended Lower extremities: no edema SKIN: nonjaundiced Neuro: grossly intact. Objective Data Vital Signs Vital Signs: Vital Signs - 24 hr 07/21/22 16:00 07/21/22 16:00 07/21/22 16:00 Temperature 96.9 F L Pulse Rate 62 71 Respiratory Rate 18 Blood Pressure 120/56 L Pulse Oximetry 97 96 Oxygen Delivery Room Air 07/21/22 18:00 07/21/22 20:00 07/21/22 20:00 Temperature 97.3 F L Pulse Rate 75 76 Respiratory Rate 18 Blood Pressure 117/55 L Pulse Oximetry 95 98 Oxygen Delivery Room Air 07/21/22 20:00 07/21/22 22:00 07/22/22 00:00 Temperature 97.3 F L Pulse Rate 71 69 72 Respiratory Rate 18 Blood Pressure 97/44 L Pulse Oximetry 97 Oxygen Delivery 07/22/22 00:00 07/22/22 00:00 07/22/22 02:00 Temperature Pulse Rate 72 71 Respiratory Rate Blood Pressure Pulse Oximetry 97 Oxygen Delivery Room Air 07/22/22 04:00 07/22/22 04:00 07/22/22 04:00 Temperature 97.7 F Pulse Rate 78 66 Respiratory Rate 16 Blood Pressure 102/52 L Pulse Oximetry 97 97 Oxygen Delivery Room Air 07/22/22 05:58 07/22/22 07:21 07/22/22 08:00 Temperature 97.3 F L Pulse Rate 63 63 Respiratory Rate 20 Blood Pressure 106/42 L Pulse Oximetry 96 97 Oxygen Delivery Room Air 07/22/22 08:00 07/22/22 08:00 Temperature Pulse Rate 77 Respiratory Rate Blood Pressure 106/42 L Pulse Oximetry Oxygen Delivery Intake/Output Intake/Output: Intake & Output 07/19/22 07/20/22 07/21/22 07/22/22 23:59 23:59 23:59 23:59 Intake Total 630 990 960 827 Output Total 700 1625 1900 975 [facility] -70 -635 -940 -148 Meds/Results Medications: Active Medications Generic Name Dose Route Start Last Admin Trade Name Freq PRN Reason Stop Dose Admin Acetaminophen 650 mg 07/16/22 06:01 07/22/22 14:02 Acetaminophen 325 Mg Tablet PO 650 mg Q4H PRN Administration Mild Pain (1-3) or Fever Hydrocodone Bitart/Acetaminophen 1 tab 07/16/22 06:01 07/22/22 08:30 Hydrocodone/Acetaminophen (*Crx) 5-325 Mg Tablet PO 1 tab Q4H PRN Administration Pain Rated 4-6 Apixaban 5 mg 07/16/22 21:00 07/22/22 08:31 Apixaban 5 Mg Tablet PO 5 mg Q12HR JOSE CARLOS Administration Dextrose 12.5 gm 07/16/22 17:19 Dextrose 50% 25 Gm/50 Ml Syringe IV PUSH PRN PRN Hypoglycemia Protocol Empagliflozin 25 mg 07/17/22 09:00 Empagliflozin 25 Mg Tablet PO DAILY JOSE CARLOS Gabapentin 300 mg 07/20/22 09:00 07/22/22 14:02 Gabapentin 300 Mg Capsule PO 300 mg 0900,1300 JOSE CARLOS Administration Gabapentin 600 mg 07/19/22 17:00 07/21/22 17:09 Gabapentin 300 Mg Capsule PO 600 mg 1700 JOSE CARLOS Administration Glucagon 1 mg 07/16/22 17:19 Glucagon For Inj 1 Mg Vial IM PRN PRN Hypoglycemia Protocol Glucose 15 gm 07/16/22 17:19 Glucose Oral Gel 15 Gm Of Glucse In 37.5 Gm Tube PO PRN PRN Hypoglycemia Protocol Dextrose 1,000 mls @ 100 mls/hr 07/16/22 17:19 Dextrose 5% 1,000 Ml IVPB PRN PRN Hypoglycemia Protocol Irbesartan 300 mg 07/17/22 09:00 07/22/22 08:00 Irbesartan 150 Mg Tablet PO Not Given DAILY JOSE CARLOS Metformin HC
--- NOTE | 2022-07-22 14:49 | PC.NURSE ---
This patient, Santhosh Moore, was received from IMU 209 on 07/22/22 at 1449. Patient/family oriented to unit policies and routines
--- NOTE | 2022-07-22 14:49 | PC.NURSE ---
Pt transferred with all belongings to [facility]. Report given to receiving RN. Pt oriented to room and call light. Bed is in lowest and locked position with alarm on.
[2022-07-22 16:52] LABS: Glucose Point of Care 91 mg/dl (65-105)
[2022-07-22 16:55] LABS: Hematocrit 27.6 % (42.0-52.0); Mean Corpuscular HGB Conc 32.6 g/dl (32-36); Mean Platelet Volume 9.4 fl (7.4-10.4); Platelet Count Result 364 k/mm3 (150-375); Red Cell Distribution Width 13.9 % (11.5-14.5); White Blood Count 6.9 K/mm3 (4.5-10.0)
[2022-07-22] MEDS: GABAPENTIN 300 MG CAPSULE 600 MG PO (17:12)
[2022-07-22] MEDS: PRAMIPEXOLE 1 MG TABLET PO (21:06)
[2022-07-22] MEDS: traZODone HCL 50 MG TABLET 100 MG PO (21:06)
[2022-07-22 21:13] LABS: Glucose Point of Care 100 mg/dl (65-105)
[2022-07-23] MEDS: ACETAMINOPHEN 325 MG TABLET 650 MG PO (02:37)
[2022-07-23 04:51] LABS: Anion Gap 2 mmol/L (8-16); Blood Urea Nitrogen 40 mg/dL (9-20); Carbon Dioxide 28 mmol/L (22-30); Chloride 102 mmol/L (98-107); Estimated CRCL calculation 42 ml/min; Estimated Glomerular Filt Rate 49; Glucose 100 mg/dL (65-110); Magnesium 2.1 mg/dL (1.6-2.3); Potassium 4.1 mmol/L (3.4-5.0); Sodium 132 mmol/L (137-145)
[2022-07-23 06:00] VITALS: BP 105/53; PULSE 60; RESP 22; TEMP 36.3; O2SAT 99
[2022-07-23 07:55] LABS: Glucose Point of Care 94 mg/dl (65-105)
--- NOTE | 2022-07-23 09:27 | PCPTNOTE ---
Therapy waiting on neuro consultation to see patient for PT treatment session.
[2022-07-23] MEDS: LIDOCAINE 5% PATCH 1 PATCH TRANSDERM (09:40)
[2022-07-23] MEDS: predniSONE 20 MG TABLET 40 MG PO (09:40)
[2022-07-23] MEDS: GABAPENTIN 300 MG CAPSULE PO ×2 (09:41→13:24)
[2022-07-23] MEDS: IRBESARTAN 150 MG TABLET 300 MG PO (09:42)
[2022-07-23] MEDS: TOLTERODINE TARTRATE LA 4 MG CAP.ER.24H PO (09:43)
[2022-07-23] MEDS: APIXABAN 5 MG TABLET PO ×2 (09:43→21:23)
[2022-07-23] MEDS: metFORMIN HCL XR 500 MG TAB.SR.24H PO (09:43)
[2022-07-23] MEDS: TICAGRELOR 90 MG TABLET PO ×2 (09:43→18:04)
[2022-07-23] MEDS: ROSUVASTATIN 10 MG TABLET 20 MG PO (09:43)
--- NOTE | 2022-07-23 11:25 | PM.IMPN ---
Progress Note: A&P Assessment and Plan (1) Hypoglycemia: Code(s): E16.2 - Hypoglycemia, unspecified Status: Acute Assessment and Plan: Blood sugars improved (2) Altered mental status: Code(s): R41.82 - Altered mental status, unspecified Status: Acute Assessment and Plan: most likely secondary to hypoglycemia now patient is baseline will continue to monitor. (3) Back pain: Code(s): M54.9 - Dorsalgia, unspecified Status: Acute Assessment and Plan: MRI noted. Neuro surgical evaluation pending Subjective Date/time seen: 07/23/22 11:25 Complaining of back pain and anterior thigh pain. MRI noted Exam Narrative: Patient is comfortable, NAD HEENT: eyes are clear and none icteric LUNGS: normal respiratory effort ABD: not distended Lower extremities: no edema SKIN: nonjaundiced Neuro: grossly intact. Objective Data Vital Signs Vital Signs: Vital Signs - 24 hr 07/22/22 14:55 07/22/22 16:00 07/22/22 21:21 Temperature 97.8 F 97.4 F L Pulse Rate 67 76 Respiratory Rate 20 20 Blood Pressure 92/49 L 101/54 L Pulse Oximetry 95 98 Oxygen Delivery Room Air 07/22/22 20:00 07/23/22 06:00 Temperature 97.3 F L Pulse Rate 72 60 Respiratory Rate 18 22 H Blood Pressure 105/53 L Pulse Oximetry 98 99 Oxygen Delivery Room Air Intake/Output Intake/Output: Intake & Output 07/20/22 07/21/22 07/22/22 07/23/22 23:59 23:59 23:59 23:59 Intake Total 990 960 827 300 Output Total 1625 1900 1255 550 Balance -635 -940 -428 -250 Meds/Results Medications: Active Medications Generic Name Dose Route Start Last Admin Trade Name Freq PRN Reason Stop Dose Admin Acetaminophen 650 mg 07/16/22 06:01 07/23/22 02:37 Acetaminophen 325 Mg Tablet PO 650 mg Q4H PRN Administration Mild Pain (1-3) or Fever Hydrocodone Bitart/Acetaminophen 1 tab 07/16/22 06:01 07/22/22 08:30 Hydrocodone/Acetaminophen (*Crx) 5-325 Mg Tablet PO 1 tab Q4H PRN Administration Pain Rated 4-6 Apixaban 5 mg 07/16/22 21:00 01/16/23 09:43 Apixaban 5 Mg Tablet PO 5 mg Q12HR JOSE CARLOS Administration Dextrose 12.5 gm 07/16/22 17:19 Dextrose 50% 25 Gm/50 Ml Syringe IV PUSH PRN PRN Hypoglycemia Protocol Empagliflozin 25 mg 07/17/22 09:00 Empagliflozin 25 Mg Tablet PO DAILY JOSE CARLOS Gabapentin 300 mg 07/20/22 09:00 07/23/22 09:41 Gabapentin 300 Mg Capsule PO 300 mg 0900,1300 JOSE CARLOS Administration Gabapentin 600 mg 07/19/22 17:00 07/22/22 17:12 Gabapentin 300 Mg Capsule PO 600 mg 1700 JOSE CARLOS Administration Glucagon 1 mg 07/16/22 17:19 Glucagon For Inj 1 Mg Vial IM PRN PRN Hypoglycemia Protocol Glucose 15 gm 07/16/22 17:19 Glucose Oral Gel 15 Gm Of Glucse In 37.5 Gm Tube PO PRN PRN Hypoglycemia Protocol Dextrose 1,000 mls @ 100 mls/hr 07/16/22 17:19 Dextrose 5% 1,000 Ml IVPB PRN PRN Hypoglycemia Protocol Irbesartan 300 mg 07/17/22 09:00 07/23/22 09:42 Irbesartan 150 Mg Tablet PO 300 mg DAILY JOSE CARLOS Administration Lidocaine 1 patch 07/23/22 09:00 07/23/22 09:40 Lidocaine 5% Patch TRANSDERM 1 patch DAILY JOSE CARLOS Administration Metformin HCl 500 mg 07/18/22 08:00 07/23/22 09:43 Metformin Hcl Xr 500 Mg Tab.Sr.24h PO 500 mg DAILY@0800 JOSE CARLOS Administration Ondansetron HCl 4 mg 07/16/22 06:01 Ondansetron Inj 4 Mg/2 Ml Vial IV PUSH Q4H PRN Nausea Pramipexole Dihydrochloride 1 mg 07/16/22 21:00 07/22/22 21:06 Pramipexole 1 Mg Tablet PO 1 mg HS JOSE CARLOS Administration Prednisone 40 mg 07/23/22 09:00 07/23/22 09:40 Prednisone 20 Mg Tablet PO 40 mg DAILY@0800 JOSE CARLOS Administration Rosuvastatin Calcium 20 mg 07/17/22 09:00 07/23/22 09:43 Rosuvastatin 10 Mg Tablet PO 20 mg DAILY JOSE CARLOS Administration Sodium Chloride 10 ml 07/23/22 14:00 Saline Lock Flush IV PUSH Q8HR JOSE CARLOS So
--- NOTE | 2022-07-23 11:26 | PCOTNOTE ---
Occupational therapy session not attempted at this time due to needing a neuro consult.
[2022-07-23 11:48] LABS: Glucose Point of Care 169 mg/dl (65-105)
--- NOTE | 2022-07-23 12:03 | PCOTNOTE ---
Per RN, pt is ok to resume therapy following phone call with neuro. Pt is currently eating lunch at this time. Will attempt at a later time today.
[2022-07-23 12:11] VITALS: O2SAT 92
[2022-07-23] MEDS: SALINE LOCK FLUSH 10 ML IV PUSH ×2 (13:24→21:25)
[2022-07-23 14:00] VITALS: BP 98/42; PULSE 76; RESP 26; TEMP 36.2; O2SAT 99
--- NOTE | 2022-07-23 15:05 | WPDNEUROSGCN ---
Assessment and Plan Assessment and plan (1) Lumbar burst fracture: Code(s): S32.001A - Stable burst fracture of unspecified lumbar vertebra, initial encounter for closed fracture Status: Acute Plan Mr. Moore is a 76-year-old male with a known L2 fracture who was admitted to the hospital for hypoglycemia. He is currently complaining of back and right thigh pain which have been present for several weeks. He is already established with Neurosurgery through [facility] and is already being treated for this fracture. He has been fitted for a brace which is at his home. I would recommend he wear this brace at all times unless he is in bed. He is already scheduled to have a vertebroplasty and [facility] at [facility] for this on July 27. I believe this is reasonable and recommend he keep that appointment as scheduled. In terms of the leg pain, one could consider increasing his neurontin up to 600mg TID if he can tolerate that dose. As he already is established with Neurosurgery, I recommend follow up with Ms. Pradhan. Of note, as he is scheduled to have the vertebroplasty on 07/27, he should have his Eliquis held as of now. His procedure may have to be delayed a few days to allow for the Eliquis to fully wear off. Review of Systems Review of Systems: 14-poin ROS was conducted and was negative aside from above PMFSH Past Medical History Medical History (Updated 07/23/22 @ 15:23 by Regina Musa MD) Coronary artery disease Diabetes mellitus Hyperlipidemia Hypertension Myocardial infarction Surgical History Surgical History No pertinent past surgical history Social History Social History Smoking status: Current every day smoker Tobacco type: cigars Additional smoking assessment comments: 3 cigars/day Alcohol intake: never Substance use: never Substance use type: does not use Lack of Transportation: No Lack of Food: Never True Current Housing: I Have Housing Concerned About Future Housing: No Difficulty Paying Gas/Electric Bills: No Difficulty Paying for Meds: No Currently Unemployed: No Education: Bachelor's Degree Difficulty w/ Childcare or Family Care: No Spiritual care concerns: No Meds Home Medications and Allergies Home Medications Medication Instructions Recorded Confirmed Type trazodone 100 mg tablet 100 mg PO HS 06/13/21 07/16/22 History amlodipine 5 mg tablet 5 mg PO DAILY 07/16/22 07/16/22 History apixaban 5 mg tablet (Eliquis) 5 mg PO BID 07/16/22 07/16/22 History empagliflozin 25 mg tablet 25 mg PO DAILY 07/16/22 07/16/22 History (Jardiance) fesoterodine 4 mg tablet,extended 4 mg PO DAILY 07/16/22 07/16/22 History release 24 hr furosemide 40 mg tablet 40 mg PO DAILY 07/16/22 07/16/22 History gabapentin 300 mg capsule 300 mg PO DAILY 07/16/22 07/16/22 History hydralazine 50 mg tablet 50 mg PO BID 07/16/22 07/16/22 History insulin glargine 100 unit/mL (3 45 unit subcut BID 07/16/22 07/16/22 History mL) subcutaneous pen (Lantus Solostar U-100 Insulin) irbesartan 300 mg tablet 300 mg PO DAILY 07/16/22 07/16/22 History pramipexole 1 mg tablet 1 mg PO USEASDIRECTD 07/16/22 07/16/22 History rosuvastatin 20 mg tablet 20 mg PO DAILY 07/16/22 07/16/22 History spironolactone 25 mg tablet 25 mg PO DAILY 07/16/22 07/16/22 History ticagrelor 90 mg tablet (Brilinta) 90 mg PO BID 07/16/22 07/16/22 History Allergies Allergy/AdvReac Type Severity Reaction Status Date / Time No Known Allergies Allergy Verified 04/09/22 01:01 Vital Signs Vital Signs - 24 hr 07/22/22 16:00 07/22/22 21:21 07/22/22 20:00 Temperature 97.8 F 97.4 F L Pulse Rate 67 76 72 Respiratory Rate 20 20 18 Blood Pressure 92/49 L 101/54 L Pulse Oximetry 95 98 98 Oxygen Delivery Room Air 07/23/22 06:00 07/23/22 09:50 07/23/22 12:11 Temperature 97.3 F L Pulse R
[2022-07-23 16:51] LABS: Glucose Point of Care 261 mg/dl (65-105)
--- NOTE | 2022-07-23 17:49 | PCCDE ---
I received a voice message from the RN last week that pt had questions about hypoglycemia. When I visited the pt today he said that his daughter Pricilla is an oncology dietitian and she had questions. He gave me permission to call her. I attempted to call her and left voice mail to return the call at her convenience.
[2022-07-23] MEDS: GABAPENTIN 300 MG CAPSULE 600 MG PO (18:04)
[2022-07-23] MEDS: DOCUSATE SODIUM 100 MG CAPSULE PO (18:42)
[2022-07-23 19:01] LABS: Hematocrit 30.5 % (42.0-52.0); Mean Corpuscular HGB Conc 32.8 g/dl (32-36); Mean Corpuscular Volume 94.4 fl (80-100); Mean Platelet Volume 9.7 fl (7.4-10.4); Platelet Count Result 476 k/mm3 (150-375); Red Blood Count 3.23 M/mm3 (4.6-6.20); White Blood Count 8.4 K/mm3 (4.5-10.0)
[2022-07-23 20:26] LABS: Glucose Point of Care 241 mg/dl (65-105)
[2022-07-23] MEDS: traZODone HCL 50 MG TABLET 100 MG PO (21:24)
[2022-07-23] MEDS: PRAMIPEXOLE 1 MG TABLET PO (21:37)
[2022-07-23 22:31] VITALS: BP 98/54; PULSE 71; RESP 18; TEMP 36.2; O2SAT 93
[2022-07-24 05:45] VITALS: BP 121/53; PULSE 68; RESP 16; TEMP 36.3; O2SAT 99
[2022-07-24] MEDS: SALINE LOCK FLUSH 10 ML IV PUSH ×3 (06:14→21:24)
[2022-07-24 07:37] LABS: Glucose Point of Care 123 mg/dl (65-105)
[2022-07-24] MEDS: GABAPENTIN 300 MG CAPSULE PO ×2 (09:48→13:52)
[2022-07-24] MEDS: metFORMIN HCL XR 500 MG TAB.SR.24H PO (09:48)
[2022-07-24] MEDS: predniSONE 20 MG TABLET 40 MG PO (09:48)
[2022-07-24] MEDS: IRBESARTAN 150 MG TABLET 300 MG PO (09:48)
[2022-07-24] MEDS: ROSUVASTATIN 10 MG TABLET 20 MG PO (09:49)
[2022-07-24] MEDS: TOLTERODINE TARTRATE LA 4 MG CAP.ER.24H PO (09:49)
[2022-07-24] MEDS: TICAGRELOR 90 MG TABLET PO ×2 (09:49→16:55)
[2022-07-24] MEDS: LIDOCAINE 5% PATCH 1 PATCH TRANSDERM (09:50)
[2022-07-24] MEDS: HYDROcodone/acetaminophen (*CRX) 5-325 MG TABLET 1 TAB PO (09:54)
--- NOTE | 2022-07-24 10:49 | PCPTNOTE ---
Patient refused treatment this session due to low back pain and right leg pain 04/16. RN aware.
[2022-07-24 11:35] LABS: Glucose Point of Care 175 mg/dl (65-105)
--- NOTE | 2022-07-24 11:52 | PM.IMPN ---
Progress Note: A&P Assessment and Plan (1) Hypoglycemia: Code(s): E16.2 - Hypoglycemia, unspecified Status: Acute Assessment and Plan: Blood sugars improved (2) Altered mental status: Code(s): R41.82 - Altered mental status, unspecified Status: Acute Assessment and Plan: most likely secondary to hypoglycemia now patient is baseline will continue to monitor. (3) Back pain: Code(s): M54.9 - Dorsalgia, unspecified Status: Acute Assessment and Plan: MRI noted. Neuro surgical evaluation appreciated. L2 burst fracture. Plan to have kyphoplasty. He is scheduled for this in [place] in the next week or 2. Eliquis on hold. Placement likely needed Subjective Date/time seen: 07/24/22 11:52 Still having leg pain. Also intermittent back pain. Appreciate neurosurgical evaluation. Exam Narrative: Patient is comfortable, NAD HEENT: eyes are clear and none icteric LUNGS: normal respiratory effort ABD: not distended Lower extremities: no edema SKIN: nonjaundiced Neuro: grossly intact. Objective Data Vital Signs Vital Signs: Vital Signs - 24 hr 07/23/22 12:11 07/23/22 14:00 07/23/22 22:31 Temperature 97.2 F L 97.2 F L Pulse Rate 76 71 Respiratory Rate 26 H 18 Blood Pressure 98/42 L 98/54 L Pulse Oximetry 92 99 93 Oxygen Delivery Room Air 07/23/22 21:25 07/24/22 05:45 Temperature 97.3 F L Pulse Rate 68 Respiratory Rate 16 Blood Pressure 121/53 L Pulse Oximetry 99 Oxygen Delivery Room Air Intake/Output Intake/Output: Intake & Output 07/21/22 07/22/22 07/23/22 07/24/22 23:59 23:59 23:59 23:59 Intake Total 960 827 550 400 Output Total 1900 1255 550 400 Balance -940 -428 0 0 Meds/Results Medications: Active Medications Generic Name Dose Route Start Last Admin Trade Name Freq PRN Reason Stop Dose Admin Acetaminophen 650 mg 07/16/22 06:01 07/23/22 02:37 Acetaminophen 325 Mg Tablet PO 650 mg Q4H PRN Administration Mild Pain (1-3) or Fever Hydrocodone Bitart/Acetaminophen 1 tab 07/16/22 06:01 07/24/22 09:54 Hydrocodone/Acetaminophen (*Crx) 5-325 Mg Tablet PO 1 tab Q4H PRN Administration Pain Rated 4-6 Apixaban 5 mg 07/16/22 21:00 07/23/22 21:23 Apixaban 5 Mg Tablet PO 5 mg Q12HR JOSE CARLOS Administration Dextrose 12.5 gm 07/16/22 17:19 Dextrose 50% 25 Gm/50 Ml Syringe IV PUSH PRN PRN Hypoglycemia Protocol Docusate Sodium 100 mg 07/23/22 18:10 07/23/22 18:42 Docusate Sodium 100 Mg Capsule PO 100 mg Q12H PRN Administration Constipation Empagliflozin 25 mg 07/17/22 09:00 Empagliflozin 25 Mg Tablet PO DAILY JOSE CARLOS Gabapentin 300 mg 07/20/22 09:00 07/24/22 09:48 Gabapentin 300 Mg Capsule PO 300 mg 0900,1300 JOSE CARLOS Administration Gabapentin 600 mg 07/19/22 17:00 07/23/22 18:04 Gabapentin 300 Mg Capsule PO 600 mg 1700 JOSE CARLOS Administration Glucagon 1 mg 07/16/22 17:19 Glucagon For Inj 1 Mg Vial IM PRN PRN Hypoglycemia Protocol Glucose 15 gm 07/16/22 17:19 Glucose Oral Gel 15 Gm Of Glucse In 37.5 Gm Tube PO PRN PRN Hypoglycemia Protocol Dextrose 1,000 mls @ 100 mls/hr 07/16/22 17:19 Dextrose 5% 1,000 Ml IVPB PRN PRN Hypoglycemia Protocol Irbesartan 300 mg 07/17/22 09:00 07/24/22 09:48 Irbesartan 150 Mg Tablet PO 300 mg DAILY JOSE CARLOS Administration Lidocaine 1 patch 07/23/22 09:00 07/24/22 09:50 Lidocaine 5% Patch TRANSDERM 1 patch DAILY JOSE CARLOS Administration Metformin HCl 500 mg 07/18/22 08:00 07/24/22 09:48 Metformin Hcl Xr 500 Mg Tab.Sr.24h PO 500 mg DAILY@0800 JOSE CARLOS Administration Ondansetron HCl 4 mg 07/16/22 06:01 Ondansetron Inj 4 Mg/2 Ml Vial IV PUSH Q4H PRN Nausea Pramipexole Dihydrochloride 1 mg 07/16/22 21:00 07/23/22 21:37 Pramipexole 1 Mg Tablet PO 1 mg HS JOSE CARLOS Administration Prednisone 40
--- NOTE | 2022-07-24 13:00 | PCPTNOTE ---
Attempted to see patient for PT this afternoon, however patient declined due to back and right leg pain.
[2022-07-24 14:00] VITALS: BP 102/48; PULSE 61; RESP 16; TEMP 35.9; O2SAT 96
[2022-07-24 15:47] LABS: Hematocrit 26.1 % (42.0-52.0); Hemoglobin 8.7 g/dL (14.0-18.0); Mean Corpuscular HGB Conc 33.3 g/dl (32-36); Mean Corpuscular Hemoglobin 30.6 pg (26-34); Mean Corpuscular Volume 91.9 fl (80-100); Mean Platelet Volume 9.1 fl (7.4-10.4); Platelet Count Result 427 k/mm3 (150-375); Red Blood Count 2.84 M/mm3 (4.6-6.20); Red Cell Distribution Width 13.9 % (11.5-14.5); White Blood Count 8.7 K/mm3 (4.5-10.0)
[2022-07-24 16:06] LABS: Anion Gap 5 mmol/L (8-16); Blood Urea Nitrogen 54 mg/dL (9-20); Carbon Dioxide 27 mmol/L (22-30); Chloride 102 mmol/L (98-107); Estimated CRCL calculation 37 ml/min; Estimated Glomerular Filt Rate 42; Glucose 187 mg/dL (65-110); Magnesium 2.4 mg/dL (1.6-2.3); Sodium 134 mmol/L (137-145)
[2022-07-24 16:41] LABS: Glucose Point of Care 183 mg/dl (65-105)
[2022-07-24] MEDS: GABAPENTIN 300 MG CAPSULE 600 MG PO (16:55)
[2022-07-24 20:11] LABS: Glucose Point of Care 232 mg/dl (65-105)
[2022-07-24] MEDS: traZODone HCL 50 MG TABLET 100 MG PO (21:23)
[2022-07-24] MEDS: PRAMIPEXOLE 1 MG TABLET PO (21:23)
[2022-07-24 22:00] VITALS: BP 98/58; PULSE 57; RESP 16; TEMP 36.1; O2SAT 97
[2022-07-25] MEDS: SALINE LOCK FLUSH 10 ML IV PUSH ×2 (05:09→13:27)
[2022-07-25 06:00] VITALS: BP 127/54; PULSE 67; RESP 14; TEMP 36.3; O2SAT 99
[2022-07-25 06:09] LABS: Anion Gap 6 mmol/L (8-16); Blood Urea Nitrogen 53 mg/dL (9-20); Calcium 8.1 mg/dL (8.4-10.2); Carbon Dioxide 24 mmol/L (22-30); Chloride 104 mmol/L (98-107); Estimated CRCL calculation 42 ml/min; Estimated Glomerular Filt Rate 49; Glucose 231 mg/dL (65-110); Magnesium 2.4 mg/dL (1.6-2.3); Potassium 4.9 mmol/L (3.4-5.0); Sodium 134 mmol/L (137-145)
[2022-07-25] MEDS: HYDROcodone/acetaminophen (*CRX) 5-325 MG TABLET 1 TAB PO (07:19)
[2022-07-25 08:00] LABS: Glucose Point of Care 187 mg/dl (65-105)
[2022-07-25] MEDS: LIDOCAINE 5% PATCH 1 PATCH TRANSDERM (08:18)
[2022-07-25] MEDS: GABAPENTIN 300 MG CAPSULE PO ×2 (08:19→13:27)
[2022-07-25] MEDS: ROSUVASTATIN 10 MG TABLET 20 MG PO (08:19)
[2022-07-25] MEDS: metFORMIN HCL XR 500 MG TAB.SR.24H PO (08:19)
[2022-07-25] MEDS: predniSONE 20 MG TABLET 40 MG PO (08:19)
[2022-07-25] MEDS: TICAGRELOR 90 MG TABLET PO ×2 (08:19→16:53)
[2022-07-25] MEDS: TOLTERODINE TARTRATE LA 4 MG CAP.ER.24H PO (08:19)
[2022-07-25] MEDS: IRBESARTAN 150 MG TABLET 300 MG PO (08:19)
[2022-07-25 11:35] LABS: Glucose Point of Care 254 mg/dl (65-105)
[2022-07-25 13:45] LABS: Hematocrit 28.7 % (42.0-52.0); Hemoglobin 9.5 g/dL (14.0-18.0); Mean Corpuscular HGB Conc 33.1 g/dl (32-36); Mean Corpuscular Hemoglobin 30.4 pg (26-34); Mean Platelet Volume 9.6 fl (7.4-10.4); Platelet Count Result 533 k/mm3 (150-375); Red Blood Count 3.12 M/mm3 (4.6-6.20); Red Cell Distribution Width 13.9 % (11.5-14.5); White Blood Count 11.8 K/mm3 (4.5-10.0)
--- NOTE | 2022-07-25 13:55 | PCNFU ---
Nutrition Follow-Up Complete: Moderate malnutrition related to inadeaute oral intake as evidenced by less than 75% itnake of meals for greater than a month, -10% wt loss x 6 months, and pt report Goal: PO intake 75% or greater for meals and supplements - Goal not being met Pt current nutrition is Heart healthy diet, Enlive BID. Drinking 100% supplement. Meal intake 0-50%. Nutrition recommendation: Continue same goals and care plan. May want to consider appetite stimulant. Last recorded weight is 79.1 kg. Lost -6.6 lb since admission 07/16/22 Bowel Motility: +3 BMs 07/24/22 Labs Reviewed: Hgb 8.5, Hct 28.7, Na 134, BUN 53, Cre 1.4, Glu 254. Mag 2.4 Meds Noted: Zofran Skin: WNL Additional Notes: Pt may benefit from an appetite stimulant. Drinks all of supplement but not interested in food. Monitor intake, wt, labs. Follow up in 7 days.
[2022-07-25 14:00] VITALS: BP 130/62; PULSE 65; RESP 20; TEMP 36.3; O2SAT 99
--- NOTE | 2022-07-25 14:55 | PM.IMPN ---
Progress Note: A&P Assessment and Plan (1) Hypoglycemia: Code(s): E16.2 - Hypoglycemia, unspecified Status: Acute Assessment and Plan: Blood sugars improved 07/25/2021? interval history:? patient states he has type 2 diabetes, on 07/18 I spoke with the patient's daughter and discussed recommended the patient will be taken off all the insulin and placed on oral anti diabetic medication with metformin, Jardiance? and possibly low-dose? Glucotrol 2.5mg daily? if needed, after reviewing patient blood sugar today will continue only metformin? and minimize carbohydrate intake, ? consult dietitian and physical therapy patient will benefit going to acute rehab.? on 07/19? patient blood pressure was running soft holding blood pressure medication amlodipine and hydralazine, today his blood pressure is again low 86/40? will give 500cc bolus and monitor,? also patient has a persistent pain in his left lower extremity he describes as a restless syndrome? patient is receiving pramipexole and patient is receiving gabapentin 300 mg t.i.d. on 07/19 increased to 600 mg at bedtime and continue 300 mg during the day, pain in the left hip was persisting, oredered hip and pelvic x-ray, no acute injury, showed OA, to further evaluate patient has MRI of the lumbar spine and it showed relatively acute L2 burst fracture with 40% right-sided vertebral body height loss and 4 mm retropulsion. patient is seen by Spine surgery patient is scheduled to have outpatient surgery, on 07/20 also discussed with patient daughter, patient is not able to live alone, will need placement to a NH, patient is waiting for the placement will continue to monitor. (2) Altered mental status: Code(s): R41.82 - Altered mental status, unspecified Status: Acute Assessment and Plan: most likely secondary to hypoglycemia now patient is baseline will continue to monitor. (3) Back pain: Code(s): M54.9 - Dorsalgia, unspecified Status: Acute Assessment and Plan: MRI noted. Neuro surgical evaluation appreciated. L2 burst fracture. Plan to have kyphoplasty. He is scheduled for this in [place] in the next week or 2. Eliquis on hold. Placement likely needed Subjective Date/time seen: 07/25/22 14:55 07/25/2021? interval history:? patient states he has type 2 diabetes, on 07/18 I spoke with the patient's daughter and discussed recommended the patient will be taken off all the insulin and placed on oral anti diabetic medication with metformin, Jardiance? and possibly low-dose? Glucotrol 2.5mg daily? if needed, after reviewing patient blood sugar today will continue only metformin? and minimize carbohydrate intake, ? consult dietitian and physical therapy patient will benefit going to acute rehab.? on 07/19? patient blood pressure was running soft holding blood pressure medication amlodipine and hydralazine, today his blood pressure is again low 86/40? will give 500cc bolus and monitor,? also patient has a persistent pain in his left lower extremity he describes as a restless syndrome? patient is receiving pramipexole and patient is receiving gabapentin 300 mg t.i.d. on 07/19 increased to 600 mg at bedtime and continue 300 mg during the day, pain in the left hip was persisting, oredered hip and pelvic x-ray, no acute injury, showed OA, to further evaluate patient has MRI of the lumbar spine and it showed relatively acute L2 burst fracture with 40% right-sided vertebral body height loss and 4 mm retropulsion. patient is seen by Spine surgery patient is scheduled to have outpatient surgery, on 07/20 also discussed with patient daughter, patient is not able to live alone, will need placement to a NH, patient is waiting for the placement will continue to monitor. Review of Systems Review of Systems: All systems reviewed & are unremarkable except as noted in HPI and below Exam Narrative: Patient is comfortable, NAD HEENT: eyes are clear and none icteric L
--- NOTE | 2022-07-25 15:15 | PM.IMPN ---
Subjective Date/time seen: 07/25/22 15:15 Objective Data Vital Signs Vital Signs: Vital Signs - 24 hr 07/24/22 22:00 07/24/22 20:00 07/25/22 06:00 Temperature 96.9 F L 97.3 F L Pulse Rate 57 L 67 Respiratory Rate 16 14 Blood Pressure 98/58 L 127/54 L Pulse Oximetry 97 99 Oxygen Delivery Room Air 07/25/22 08:15 Temperature Pulse Rate Respiratory Rate Blood Pressure Pulse Oximetry Oxygen Delivery Room Air Intake/Output Intake/Output: Intake & Output 07/22/22 07/23/22 07/24/22 07/25/22 23:59 23:59 23:59 23:59 Intake Total 008 270 6580 1030 Output Total 1255 000 968 2203 Balance -428 0 260 -95 Meds/Results Medications: Active Medications Generic Name Dose Route Start Last Admin Trade Name Freq PRN Reason Stop Dose Admin Acetaminophen 650 mg 07/16/22 06:01 07/23/22 02:37 Acetaminophen 325 Mg Tablet PO 650 mg Q4H PRN Administration Mild Pain (1-3) or Fever Hydrocodone Bitart/Acetaminophen 1 tab 07/16/22 06:01 07/25/22 07:19 Hydrocodone/Acetaminophen (*Crx) 5-325 Mg Tablet PO 1 tab Q4H PRN Administration Pain Rated 4-6 Apixaban 5 mg 07/16/22 21:00 07/23/22 21:23 Apixaban 5 Mg Tablet PO 5 mg Q12HR JOSE CARLOS Administration Dextrose 12.5 gm 07/16/22 17:19 Dextrose 50% 25 Gm/50 Ml Syringe IV PUSH PRN PRN Hypoglycemia Protocol Docusate Sodium 100 mg 07/23/22 18:10 07/23/22 18:42 Docusate Sodium 100 Mg Capsule PO 100 mg Q12H PRN Administration Constipation Empagliflozin 25 mg 07/17/22 09:00 Empagliflozin 25 Mg Tablet PO DAILY JOSE CARLOS Gabapentin 300 mg 07/20/22 09:00 07/25/22 13:27 Gabapentin 300 Mg Capsule PO 300 mg 0900,1300 JOSE CARLOS Administration Gabapentin 600 mg 07/19/22 17:00 07/24/22 16:55 Gabapentin 300 Mg Capsule PO 600 mg 1700 JOSE CARLOS Administration Glucagon 1 mg 07/16/22 17:19 Glucagon For Inj 1 Mg Vial IM PRN PRN Hypoglycemia Protocol Glucose 15 gm 07/16/22 17:19 Glucose Oral Gel 15 Gm Of Glucse In 37.5 Gm Tube PO PRN PRN Hypoglycemia Protocol Dextrose 1,000 mls @ 100 mls/hr 07/16/22 17:19 Dextrose 5% 1,000 Ml IVPB PRN PRN Hypoglycemia Protocol Irbesartan 300 mg 07/17/22 09:00 07/25/22 08:19 Irbesartan 150 Mg Tablet PO 300 mg DAILY JOSE CARLOS Administration Lidocaine 1 patch 07/23/22 09:00 07/25/22 08:18 Lidocaine 5% Patch TRANSDERM 1 patch DAILY JOSE CARLOS Administration Metformin HCl 500 mg 07/18/22 08:00 07/25/22 08:19 Metformin Hcl Xr 500 Mg Tab.Sr.24h PO 500 mg DAILY@0800 JOSE CARLOS Administration Miscellaneous Information 0 each 07/25/22 00:01 [place] Order Requires Renewal - It Will Automatically D/C On 07/26 XX 08/24/22 00:00 CLARIFY JOSE CARLOS Ondansetron HCl 4 mg 07/16/22 06:01 Ondansetron Inj 4 Mg/2 Ml Vial IV PUSH Q4H PRN Nausea Pramipexole Dihydrochloride 1 mg 07/16/22 21:00 07/24/22 21:23 Pramipexole 1 Mg Tablet PO 1 mg HS JOSE CARLOS Administration Prednisone 40 mg 07/23/22 09:00 07/25/22 08:19 Prednisone 20 Mg Tablet PO 40 mg DAILY@0800 JOSE CARLOS Administration Rosuvastatin Calcium 20 mg 07/17/22 09:00 07/25/22 08:19 Rosuvastatin 10 Mg Tablet PO 20 mg DAILY JOSE CARLOS Administration Sodium Chloride 10 ml 07/23/22 14:00 07/25/22 13:27 Saline Lock Flush IV PUSH 10 ml Q8HR JOSE CARLOS Administration Sodium Chloride 10 ml 07/23/22 06:48 Saline Lock Flush IV PUSH PRN PRN Flush Sodium Chloride 20 ml 07/23/22 06:48 Saline Lock Flush IV PUSH PRN PRN after blood draws Ticagrelor 90 mg 07/16/22 17:00 07/25/22 08:19 Ticagrelor 90 Mg Tablet PO 90 mg BID JOSE CARLOS Administration Tolterodine Tartrate 4 mg 07/17/22 09:00 07/25/22 08:19 Tolterodine Tartrate La 4 Mg Cap.Er.24h PO 4 mg QAM JOSE CARLOS Administration Trazodone HCl 100 mg 07/16/22 21:00 07/24/22 21:23 Trazodone Hcl 50 Mg Tablet PO 100 mg HS
[2022-07-25 15:54] LABS: EDCOVIDSCREEN Negative (Negative)
[2022-07-25 16:39] LABS: Glucose Point of Care 266 mg/dl (65-105)
[2022-07-25] MEDS: GABAPENTIN 300 MG CAPSULE 600 MG PO (16:53)
--- NOTE | 2022-08-02 16:19 | PM.DS ---
DS: Admitting Diagnosis Discharge Date 07/25/22 Admitting Diagnosis hypoglycemia DS: Discharge Diagnosis Discharge Diagnosis (1) Hypoglycemia: Code(s): E16.2 - Hypoglycemia, unspecified Status: Acute (2) Altered mental status: Code(s): R41.82 - Altered mental status, unspecified Status: Acute (3) Back pain: Code(s): M54.9 - Dorsalgia, unspecified Status: Acute DS: Summary Hospital Course Reason for hospitalization: hypoglycemia Narrative: ED-HPI narrative: ?this is a 76-year-old male presenting ED for low blood sugar.? Patient self does not recall any events leading up to what happened.? Says he last took his insulin last night.? He then woke up in the hospital.? He has no physical complaints at this time. ? Per EMS they were called for CPR.? When they arrived patient had a glucose of 50 and he was given an amp of D50 with a return to his normal mental status. ?patient is 76-year-old male with history of coronary artery disease and diabetes taking insulin and patient lives alone apparently patient states took his long-acting Lantus 45 units I he did fix himself dinner but did not eat enough apparently went to sleep, this morning daughter came to visit patient was quite somnolent and not arousable and EMS was called the [facility] patient may need a CPR however his blood pressure was 50 and patient was given 1 ampule of D50 which did bring his mental status to baseline,? patient was also given 1 time glucagon, currently patient alert and oriented has no complaint,? initially patient blood sugar was monitor q.1 hour, patient? is being fed and his blood sugars monitored,? we are holding patient long-acting insulin and monitoring with low sliding scale,? will have adult educator consult the patient, it will be prudent to adult supervision to administer daily insulin, will continue to monitor will have a PT OT evaluate the patient and further recommendation to follow. Hospital Course: patient states he has type 2 diabetes, on 07/18 I spoke with the patient's daughter and discussed recommended the patient will be taken off all the insulin and placed on oral anti diabetic medication with metformin, Jardiance? and possibly low-dose? Glucotrol 2.5mg daily? if needed, after reviewing patient blood sugar today will continue only metformin? and minimize carbohydrate intake, ? consult dietitian and physical therapy patient will benefit going to acute rehab.? on 07/19? patient blood pressure was running soft holding blood pressure medication amlodipine and hydralazine, today his blood pressure is again low 86/40? will give 500cc bolus and monitor,? also patient has a persistent pain in his left lower extremity he describes as a restless syndrome? patient is receiving pramipexole and patient is receiving gabapentin 300 mg t.i.d. on 07/19 increased to 600 mg at bedtime and continue 300 mg during the day,? pain in the left hip was persisting, oredered hip and pelvic x-ray, no acute injury, showed OA, to further evaluate patient has MRI of the lumbar spine and it showed?relatively acute L2 burst fracture with 40% right-sided vertebral body height loss and 4 mm retropulsion.? patient is seen by Spine surgery patient is scheduled to have outpatient surgery, on 07/20 also discussed with patient daughter, patient is not able to live alone, will need placement to a NH,? patient is waiting for the placement will continue to monitor. today patient has a placement will discharge the patient today. Time Spent with Patient Time attestation: Total time spent providing and/or coordinating discharge services: Exam Narrative: Patient is comfortable, NAD HEENT: eyes are clear and none icteric LUNGS: normal respiratory effort ABD: not distended Lower extremities: no edema SKIN: nonjaundiced Neuro: grossly intact. Discharge Plan Discharge Attending physician on discharge: Fercho Nava Consulting providers: Regina Musa
== END 2022-07-25 17:40 | disposition home health service (06) | DRG 639 ==
LOC: ANHED 07-16 05:58 → ANHIMU 07-16 06:45 → ANH3MEDSUR 07-25 15:28 → ANHIMU 07-26 11:55
PROVIDERS: Admitting Provider Internal Medicine; Emergency Provider Emergency Medicine; Visit Provider Family Medicine
DX: E11.649 Type 2 diabetes mellitus with hypoglycemia without coma (principal); I10 Essential (primary) hypertension; I25.10 Atherosclerotic heart disease of native coronary artery without angina pectoris; E78.5 Hyperlipidemia, unspecified; R41.82 Altered mental status, unspecified; I25.2 Old myocardial infarction; S32.021D Stable burst fracture of second lumbar vertebra, subsequent encounter for fracture with routine healing; F17.210 Nicotine dependence, cigarettes, uncomplicated; F03.90 Unspecified dementia, unspecified severity, without behavioral disturbance, psychotic disturbance, mood disturbance, and anxiety; Z20.822 Contact with and (suspected) exposure to COVID-19; Z79.4 Long term (current) use of insulin; Z79.01 Long term (current) use of anticoagulants
CPT/HCPCS: 36415; 36569; 70450; 71045; 72100; 72148; 73502; 80048; 81001; 82948; 83036; 83735; 85025; 85027; 87426; 87637; 93005; 96361; 96365; 96366; 96372; 96374; 96375; 97110; 97116; 97161; 97165; 97530; 97535; 99285; A9270; C1751; C9803; G0378; J1610; J1815; J7030; J7040; J7512

== ENCOUNTER 2022-10-05 13:55 | Outpatient (CLI) | payer MEDICARE, SELFPAY ==
--- NOTE | ~2022-10-05 | DEXA_ITS ---
Bone Density Report Name: JACKIE NEVILLE Age: 76 Sex: Male Ethnicity: White Date of : 1945 Indication: screening for osteoporosis; height loss; prior fracture; Referring Provider: UNKNOWN, UNKNOWN Study: Bone densitometry was performed. Exam Date: October 05, 2022 Accession number: [id number] Bone Density: Region BMD T-score Z-score Classification AP Spine(L1-L4) 0.999 -0.8 0.3 Normal Femoral Neck (Left) 0.564 -2.7 -1.3 Osteoporosis Total Hip (Left) 0.642 -2.6 -1.6 Osteoporosis Femoral Neck (Right) 0.590 -2.5 -1.1 Osteoporosis Total Hip (Right) 0.668 -2.4 -1.5 Osteopenia Total Hip Mean 0.655 -2.5 -1.6 Osteoporosis World Health Organization criteria for BMD impression classify patients as: Normal (T-score at or above -1.0), Osteopenia (T-score between -1.0 and -2.5), or Osteoporosis (T-score at or below -2.5). 10-year Fracture Risk: FRAX not reported because: Some T-score for Spine Total or Hip Total or Femoral Neck at or below -2.5 Prior hip or vertebral fracture Clinical Information Provided by Patient: Have had a previous hip or vertebral fracture Has had a low trauma fracture Smokes Has used the following medications: Vitamin D Patient maximum height was 70 No regular weight bearing exercise Drinks caffeinated beverages Impression: The patient has established osteoporosis, based on the Left Femoral Neck T-score and the existence of a prior fracture. The patient has risk factors, including: smoking, previous fracture. Discussion: HIGH RISK OF FRACTURE. BONE DENSITY IS UNDESIRABLY LOW AT ONE OR MORE SKELETAL SITES, CONSISTENT WITH OSTEOPOROSIS. This patient's lowest T-score, in a patient who has previously fractured, meets the World Health Organization's (WHO) criteria for severe osteoporosis. In untreated patients, the risk of osteoporotic fracture increases approximately two-fold for each 1.0 SD decrease in T-score. Low bone density is not the only risk factor for fracture; also consider factors such as patient's age, frailty or poor health, risk of falling, risk of injury, previous osteoporotic fracture, family history of osteoporosis, cigarette smoking, low body weight, etc. Not everyone with low bone mineral density has osteoporosis; osteomalacia and other metabolic bone disorders should also be considered. Patients who have osteoporosis should be evaluated for specific diseases and conditions (secondary causes) that may cause or contribute to bone loss. The National Osteoporosis Foundation (NOF) recommends pharmacologic intervention for men with BMD at this level (a T-score of -2.5 or below). The patient should follow a healthful lifestyle (good nutrition with adequate calcium and vitamin D, and appropriate weight-bearing exercise). Follow-Up: Consider a repeat BMD and Vertebra
== END 2022-10-05 13:56 | disposition home or self-care (01) ==
DX: M81.0 Age-related osteoporosis without current pathological fracture (principal); M85.851 Other specified disorders of bone density and structure, right thigh
CPT/HCPCS: 77080

== ENCOUNTER 2023-03-29 14:51 | Emergency (ER) | payer MEDICARE, SELFPAY ==
--- NOTE | ~2023-03-29 | XR_ITS ---
XR hand LT min 3V DATE: 03/29/2023 16:57 INDICATION: Painful thumb TECHNIQUE: 3 views of left hand COMPARISON: None FINDINGS: Diffuse osteopenia. There is polyarticular osteoarthritis, involving primarily the first carpometacarpal and distal inter phalangeal joints and proximal interphalangeal joint of the fifth digit. No fracture, dislocation, pe riosteal reaction or bone destruction. IMPRESSION: Osteopenia Polyarticular osteoarthritis Reviewed, dictated and finalized at location A.
[2023-03-29 15:31] VITALS: BP 123/64; PULSE 81; RESP 18; TEMP 37.2; O2SAT 98
[2023-03-29] MEDS: ACETAMINOPHEN 500 MG TABLET 1000 MG PO (17:02)
--- NOTE | 2023-03-29 17:15 | ED.GENADULT ---
HPI - General Adult General Chief complaint: Extremity Problem,Nontraumatic Stated complaint: thumb infection Time Seen by Provider: 03/29/23 16:05 History of Present Illness HPI narrative: Santhosh Moore is a 77 y/o male who presents with reports of pain to his left thumb that started two days ago. He denies any injury/ trauma to his thumb it just started to get painful and swollen. He denies any fever/chills/ Related Data Home Medications Medication Instructions Recorded Confirmed trazodone 100 mg tablet 100 mg PO HS 06/13/21 07/16/22 amlodipine 5 mg tablet 5 mg PO DAILY 07/16/22 07/16/22 apixaban 5 mg tablet (Eliquis) 5 mg PO BID 07/16/22 07/16/22 empagliflozin 25 mg tablet 25 mg PO DAILY 07/16/22 07/16/22 (Jardiance) fesoterodine 4 mg tablet,extended 4 mg PO DAILY 07/16/22 07/16/22 release 24 hr furosemide 40 mg tablet 40 mg PO DAILY 07/16/22 07/16/22 gabapentin 300 mg capsule 300 mg PO DAILY 07/16/22 07/16/22 hydralazine 50 mg tablet 50 mg PO BID 07/16/22 07/16/22 insulin glargine 100 unit/mL (3 45 unit subcut BID 07/16/22 07/16/22 mL) subcutaneous pen (Lantus Solostar U-100 Insulin) irbesartan 300 mg tablet 300 mg PO DAILY 07/16/22 07/16/22 pramipexole 1 mg tablet 1 mg PO USEASDIRECTD 07/16/22 07/16/22 rosuvastatin 20 mg tablet 20 mg PO DAILY 07/16/22 07/16/22 spironolactone 25 mg tablet 25 mg PO DAILY 07/16/22 07/16/22 ticagrelor 90 mg tablet (Brilinta) 90 mg PO BID 07/16/22 07/16/22 Allergies Allergy/AdvReac Type Severity Reaction Status Date / Time No Known Allergies Allergy Verified 04/09/22 01:01 Review of Systems Review of Systems: CONSTITUTIONAL: Denies fever, chills, or sweats. EYES: Denies visual changes, redness, or discharge. ENT: Denies rhinorrhea, congestion, sore throat, or otalgia. CARDIOVASCULAR: Denies chest pain, palpitations, or edema. RESPIRATORY: Denies cough or dyspnea. GASTROINTESTINAL: Denies abdominal pain, nausea, vomiting, or diarrhea. GENITOURINARY: Denies dysuria or hematuria. SKIN: Denies rash or itching. MUSCULOSKELETAL: Denies back pain, joint pain, or myalgia. Complains of pain to left thumb that started two day ago. NEUROLOGIC: Denies headache, numbness, dizziness, or weakness. PSYCHIATRIC: Denies anxiety or depression. PMFSH Past Medical History Medical History Coronary artery disease Diabetes mellitus Hyperlipidemia Hypertension Myocardial infarction Surgical History Surgical History No pertinent past surgical history Social History Social History Smoking status: Current every day smoker Tobacco type: cigars Additional smoking assessment comments: 3 cigars/day Alcohol intake: never Substance use: never Substance use type: does not use Lack of Transportation: No Lack of Food: Never True Current Housing: I Have Housing Concerned About Future Housing: No Difficulty Paying Gas/Electric Bills: No Difficulty Paying for Meds: No Currently Unemployed: No Education: Bachelor's Degree Difficulty w/ Childcare or Family Care: No Spiritual care concerns: No Exam Narrative: GENERAL: Well-appearing, well-nourished, and in no acute distress. HEAD: Normocephalic, atraumatic. EYES: PERRLA and EOMI. ENT: Nares clear, no rhinorrhea or epistaxis. Mucous membranes moist. Oropharynx without tonsillar hypertrophy exudate or other lesions. NECK: Supple. No adenopathy or masses. No carotid bruits or JVD CHEST: Clear to auscultation. No respiratory distress. No wheezes rales or rhonchi HEART: Regular rate and rhythm. No murmur heard. Normal peripheral pulses. ABDOMEN: Soft, nontender, nondistended, normal active bowel sounds. EXTREMITIES: Normal range of motion. swelling and noted to the lateral aspect of the nail bed of the left thumb, normal cap refill, pulses present, appears
[2023-03-29] MEDS: SULFAMETHOXAZOLE/TRIMETHOPRIM 800/160 MG DS TABLET 1 TAB PO (17:54)
[2023-03-29 18:07] VITALS: BP 149/83; PULSE 64; RESP 14; O2SAT 100
== END 2023-03-29 18:07 | disposition home or self-care (01) ==
PROVIDERS: Emergency Provider Nurse Practitioner Family
DX: L03.012 Cellulitis of left finger (principal); I25.10 Atherosclerotic heart disease of native coronary artery without angina pectoris; I10 Essential (primary) hypertension; I25.2 Old myocardial infarction; E11.9 Type 2 diabetes mellitus without complications; E78.5 Hyperlipidemia, unspecified; F17.290 Nicotine dependence, other tobacco product, uncomplicated; Z79.01 Long term (current) use of anticoagulants; Z79.4 Long term (current) use of insulin; M19.042 Primary osteoarthritis, left hand; M18.9 Osteoarthritis of first carpometacarpal joint, unspecified
CPT/HCPCS: 10060; 26010; 73130; 99283; A9270

== ENCOUNTER 2023-07-12 11:08 | Outpatient (CLI) | payer MEDICARE, SELFPAY ==
--- NOTE | ~2023-07-12 | XR_ITS ---
Thoracic spine: Clinical Indication: Back pain AP and lateral views were performed. Compression fractures of T8, as well as T12, L1, L2 are present. No definite consolidation. There is extensive mild degenerative disc change. The intervertebral disc spaces appear normal. Paravertebral soft tissues appear normal. Impression: Compression fracture deformities of T8, T12, L1, L2. Reviewed, dictated and finalized at location . TRAINER Impression: Compression fracture deformities of T8, T12, L1, L2.
--- NOTE | ~2023-07-12 | XR_ITS ---
Cervical Spine: AP, lateral, open-mouth views comment neutral, flexion, extension positioning Clinical History: Pain Findings: The normal lordotic curve is maintained. No fracture or subluxation evident. There is proba ble advanced degenerative disc narrowing at C3-C4 and C4-C5. Facet joints are preserved. No preverteb ral soft tissues along evident. Impression: Degenerative spondylosis, as above. Reviewed, dictated and finalized at location . SHOP SUPERVISOR Impression: Degenerative spondylosis, as above.
--- NOTE | ~2023-07-12 | XR_ITS ---
Lumbosacral Spine: AP and lateral views Clinical History: Pain Findings: The normal lordotic curve is maintained. There are compression fractures of T12, L1, L2. Th ere is extensive facet arthropathy. There is moderate degenerative disc change throughout the lumbar spine. The sacroiliac joints are normally outlined. Impression: Compression fractures of T12, L1, and L2. Moderate to advanced degenerative spondylosis. Reviewed, dictated and finalized at location . E MECHANIC Impression: Compression fractures of T12, L1, and L2. Moderate to advanced degenerative spondylosis.
[2023-07-12 11:55] LABS: Basophils Absolute Auto 0.1 K/mm3 (0.0-0.1); Basophils Percent Auto 1.5 % (0.2-1.2); Eosinophils Absolute Auto 0.4 K/mm3 (0-0.3); Eosinophils Percent Auto 7.1 % (0-4.4); Hematocrit 44.7 % (42.0-52.0); Hemoglobin 14.5 g/dL (14.0-18.0); Immature Granulocyte Absolute 0.01 K/mm3 (0.00-0.031); Immature Granulocyte Percent A 0.2 % (0-0.5); Lymphocytes Absolute Auto 1.96 K/mm3 (0.9-3.2); Lymphocytes Percent Auto 32.2 % (18.3-44.2); Mean Corpuscular HGB Conc 32.4 g/dl (32-36); Mean Corpuscular Hemoglobin 30.7 pg (26-34); Mean Corpuscular Volume 94.7 fl (80-100); Mean Platelet Volume 9.7 fl (7.4-10.4); Monocytes Absolute Auto 0.4 K/mm3 (0.1-0.6); Monocytes Percent Auto 6.4 % (2.6-8.5); Neutrophils Absolute Auto 3.2 K/mm3 (1.3-6.7); Neutrophils Percent Auto 52.6 % (45.5-73.1); Platelet Count Result 271 k/mm3 (150-375); Red Blood Count 4.72 M/mm3 (4.6-6.20); Red Cell Distribution Width 13.8 % (11.5-14.5); White Blood Count 6.1 K/mm3 (4.5-10.0)
[2023-07-12 12:02] LABS: Hemoglobin A1C 6.2 % (<5.7)
[2023-07-12 12:08] LABS: Appearance Urine Clear (Clear); Bacteria Urine None Seen /hpf; Bilirubin Urine Negative (Negative); Blood Urine Negative (Negative); Color Urine Yellow (Yellow); Glucose Urine UA 3+ mg/dL (Negative); Ketones Urine Negative (Negative); Leukocyte Esterase Ur Negative LEU/UL (Negative); Nitrate Urine Negative (Negative); Non Pathogenic Casts 0-2; Protein Urine Trace mg/dL (Negative); RBC Urine 0-2 /hpf (0-2); Specific Grav Ur 1.021 (1.001-1.035); Squamous Epithelial Cell Urine None seen /hpf (Few); Urobilinogen Urine 0.2 mg/dL (<2.0); WBC Urine 0-5 /hpf; pH Urine 5.5 (5.0-9.0)
[2023-07-12 12:12] LABS: Alanine Aminotransferase 20 U/L (6-50); Albumin Level 4.2 g/dL (3.5-5.1); Alkaline Phosphatase 131 U/L (38-126); Anion Gap 8 mmol/L (8-16); Aspartate Amino Transferase 23 U/L (17-59); Bilirubin,Total 0.3 mg/dL (0.2-1.3); Blood Urea Nitrogen 17 mg/dL (9-20); Calcium 9.3 mg/dL (8.4-10.2); Carbon Dioxide 27 mmol/L (22-30); Chloride 104 mmol/L (98-107); Cholesterol 148 mg/dL (0-200); Estimated Glomerular Filt Rate > 60; Glucose 110 mg/dL (65-110); HDL Direct 70 mg/dL; Potassium 4.4 mmol/L (3.4-5.0); Sodium 139 mmol/L (137-145); Triglycerides 65 mg/dL (<150)
[2023-07-12 12:15] LABS: Add Urine Microscopic? YES
[2023-07-12 12:23] LABS: LDL Cholesterol Direct 65 mg/dL
[2023-07-12 12:26] LABS: Free T4 Free Thyroxine 1.26 ng/mL (0.78-2.19)
[2023-07-12 13:21] LABS: Folic Acid > 20.0 ng/mL (2.76->20)
[2023-07-16 12:32] LABS: Vitamin B6 19.4 ng/mL (2.1-21.7)
[2023-07-17 10:08] LABS: Vitamin B1 29 nmol/L (8-30)
[2023-07-18 00:49] LABS: Vitamin B2 112.8 nmol/L (6.2-39.0)
== END 2023-07-12 11:09 | disposition home or self-care (01) ==
PROVIDERS: PCP Internal Medicine; Visit Provider Internal Medicine
DX: M54.9 Dorsalgia, unspecified (principal); G89.29 Other chronic pain; M54.50 Low back pain, unspecified; M81.0 Age-related osteoporosis without current pathological fracture; M54.2 Cervicalgia; E11.9 Type 2 diabetes mellitus without complications; R41.82 Altered mental status, unspecified; E78.5 Hyperlipidemia, unspecified; I10 Essential (primary) hypertension; E55.9 Vitamin D deficiency, unspecified; Z79.899 Other long term (current) drug therapy; Z13.29 Encounter for screening for other suspected endocrine disorder; M48.56XA Collapsed vertebra, not elsewhere classified, lumbar region, initial encounter for fracture; M43.06 Spondylolysis, lumbar region
CPT/HCPCS: 36415; 72050; 72072; 72110; 80053; 80061; 81001; 82306; 82607; 82746; 83036; 84207; 84252; 84425; 84439; 84443; 85025

== ENCOUNTER → 2023-07-30 14:17 | Outpatient (CLI) | payer MEDICARE, SELFPAY ==
--- NOTE | ~2023-07-30 | MR_ITS ---
MRI of the thoracic spine Clinical History: Compression fracture Technique: Axial T2-weighted and gradient images, and sagittal T1-weighted, T2-weighted, and STIR gualberto ges were acquired. Following intravenous administration of 14 cc MultiHance gadolinium, T1-weighted f at-sat imaging was performed in the axial set planes. Findings: There is acute, moderate compression fracture of T8, with loss of height, hypointense fract ure line, and marrow edema. No other fracture or subluxation seen in the thoracic spine. There is rel ative kyphosis and thoracic spine. No other suspicious bone marrow signal abnormality seen. No significant disc bulge or herniation clearly identified in the thoracic spine. Possible mild canal stenosis at the level of the compression fracture due to minimal retropulsion. No cord compression. No other areas of canal stenosis evident. No epidural mass or collection evident. No abnormal signal seen in the spinal cord. Paravertebral soft tissues are unremarkable. No definite abnormal postcontrast enhancement identified. Impression: Acute, moderate T8 compression fracture. Reviewed, dictated and finalized at [facility]. TIONAL CONSULTANT Impression: Acute, moderate T8 compression fracture.
--- NOTE | ~2023-07-30 | MR_ITS ---
MRI of the lumbar spine Clinical History: Back pain Technique: Axial T2-weighted images, and sagittal T1-weighted, T2-weighted, and T2 fat-sat images wer e acquired. Following intravenous administration of 14 cc MultiHance gadolinium, T1-weighted fat-sat imaging was performed in the axial and sagittal planes. COMPARISON: 07/22/2022 Findings: Exam is markedly degraded by motion artifact. There is a chronic mild compression deformity of L2. No acute fracture or sublocation. No suspicious bone marrow signal abnormality identified. At L1-L2, there is probable disc bulge and facet arthropathy with probable mild central canal stenosi s. Probable advanced right neural foraminal narrowing. At L2-L3, there is no definite disc bulge or herniation. Probable mild facet arthropathy. No definite central canal stenosis. Probable moderate right neural foraminal narrowing, and mild left neural for aminal narrowing. At L3-L4, evaluation is markedly limited. No gross spinal canal stenosis. There is probable advanced bilateral neural foraminal narrowing, left worse than right. At L4-L5, there is suspected moderate to severe central canal stenosis. There is severe bilateral atd ral foraminal, right. At L5-S1, there is suspected moderate central canal stenosis and severe bilateral neural foraminal na rrowing. Paravertebral soft tissues are grossly unremarkable. No gross abnormal postcontrast enhancement ident ified. Impression: Exam is markedly degraded by motion artifact. No acute fracture or sublocation evident. Mild chronic compression fracture of L2. Probable advanced degenerative spondylosis, especially the lower lumbar spine, as detailed above. Reviewed, dictated and finalized at [facility]. RGLASSER Impression: Exam is markedly degraded by motion artifact. No acute fracture or sublocation evident. Mild chronic compression fracture of L2. Probable advanced degenerative spondylosis, especially the lower lumbar spine, as detailed above.
== END ==
PROVIDERS: PCP Internal Medicine; Visit Provider Internal Medicine
DX: S22.060A Wedge compression fracture of T7-T8 vertebra, initial encounter for closed fracture (principal); S32.020A Wedge compression fracture of second lumbar vertebra, initial encounter for closed fracture; R93.89 Abnormal findings on diagnostic imaging of other specified body structures; X58.XXXA Exposure to other specified factors, initial encounter
CPT/HCPCS: 72157; 72158; A9577

== ENCOUNTER → 2023-08-14 14:56 | Outpatient (CLI) | payer MEDICARE, SELFPAY ==
--- NOTE | ~2023-08-14 | XR_ITS ---
EXAMINATION: XR scoliosis survey DATE: 08/14/2023 15:33 INDICATION: Scoliosis, unspecified. TECHNIQUE: Anteroposterior and lateral views of the entire spine were obtained. COMPARISON: Thoracic and lumbar spine radiographs 07/12/2023, MRI 07/30/2023 FINDINGS: Right femoral head stands 2 mm higher than left. There is thoracic kyphosis. There is 45 de grees levoscoliosis of thoracolumbar spine. There are 12 pairs of ribs. There are 5 nonrib-bearing bonnie mbar segments. There is a chronic burst fracture of L2. There is severe lumbar spondylosis. The thora cic vertebral body heights are not well evaluated due to the scoliosis. There are bridging endplate o steophytes at multiple levels in the thoracic spine, consistent with diffuse idiopathic skeletal hype rostosis (DISH). IMPRESSION: 1. 45 degrees levoscoliosis of thoracolumbar spine. Thoracic kyphosis. Reviewed, dictated and finalized at location E. AL COMPENSATION ANALYST
== END ==
PROVIDERS: PCP Internal Medicine; Visit Provider Physician Assistant
DX: M41.85 Other forms of scoliosis, thoracolumbar region (principal)
CPT/HCPCS: 72082

== ENCOUNTER 2023-10-09 12:43 | Outpatient (CLI) | payer MEDICARE, SELFPAY | END 2023-10-09 12:44 | disposition home or self-care (01) | LOC: ANHBWCAUD 12:44 | PROVIDERS: PCP Internal Medicine; Visit Provider Internal Medicine | DX: H90.3 Sensorineural hearing loss, bilateral (principal) | CPT/HCPCS: 92557; 92567 ==

== ENCOUNTER 2023-10-16 13:41 | Outpatient (RCR) | payer MEDICARE, SELFPAY | END 2024-01-14 23:59 | disposition home or self-care (01) | LOC: ANHBWCAUD 13:41 | PROVIDERS: PCP Internal Medicine; Visit Provider Internal Medicine | DX: Z46.1 Encounter for fitting and adjustment of hearing aid (principal) | CPT/HCPCS: 99199 ==

== ENCOUNTER 2023-12-24 10:44 | Outpatient (CLI) | payer MEDICARE, SELFPAY ==
[2023-12-24 11:20] LABS: Alanine Aminotransferase 12 U/L (6-50); Albumin Level 4.1 g/dL (3.5-5.1); Alkaline Phosphatase 107 U/L (38-126); Anion Gap 6 mmol/L (4-12); Aspartate Amino Transferase 21 U/L (17-59); Bilirubin,Total 0.6 mg/dL (0.2-1.3); Blood Urea Nitrogen 16 mg/dL (9-20); Carbon Dioxide 28 mmol/L (22-30); Chloride 106 mmol/L (98-107); Cholesterol 141 mg/dL (0-200); Estimated Glomerular Filt Rate 53; Glucose 106 mg/dL (65-110); HDL Direct 52 mg/dL; Potassium 4.4 mmol/L (3.4-5.0); Sodium 140 mmol/L (137-145); Triglycerides 85 mg/dL (<150)
[2023-12-24 11:27] LABS: Hemoglobin A1C 5.8 % (<5.7)
[2023-12-24 11:31] LABS: LDL Cholesterol Direct 82 mg/dL
== END 2023-12-24 10:45 | disposition home or self-care (01) ==
PROVIDERS: PCP Internal Medicine; Visit Provider Internal Medicine
DX: E78.5 Hyperlipidemia, unspecified (principal); E11.9 Type 2 diabetes mellitus without complications; I10 Essential (primary) hypertension
CPT/HCPCS: 36415; 80053; 80061; 83036

== ENCOUNTER 2024-01-06 09:51 | Outpatient (CLI) | payer MEDICARE, SELFPAY ==
--- NOTE | 2024-01-28 17:49 | WPDSLEEPSTUD ---
Sleep Study Date of Study: 01/06/24 Ordering Provider: Alexandre Smith MD Interpreting Physician: Judy Ruiz DO Sleep Study Type: Split Polysomnogram Height: 1.75 m Weight: 72.575 kg Body Mass Index: 23.6 Neck Circumference (inches): 16 [place]: 3 Reason for Sleep Study Loud snoring Sleep History The patient is a 78-year-old male that had a sleep study ordered by his primary care physician for evaluation of sleep apnea. The patient denies awakening from sleep short breath. He denies awakening at night with heartburn, belching. Constantly snores loudly enough others complain. He constantly has trouble sleeping when he has a cold. He denies waking gasping for air throughout the night. Denies having breathing problems at night observed by or others. He occasionally sweats excessively at night. He denies having heart palpitations or irregular heartbeats during the night. He denies falling asleep during the day and while driving. He denies sleep paralysis, cataplexy and hypnagogic / hypnopompic hallucinations. He denies having trouble school work due to sleepiness. Denies feeling afraid of going to sleep. He denies having nightmares. He denies remembering his dreams. He occasionally has thoughts racing through his mind. He denies feeling sad or depressed. He denies having anxiety. He denies having muscular tension. He constantly notices parts of his body jerk. He constantly kicks during night. He constantly has crawling and aching feelings in his legs and constantly has leg pain during the night. He has denies grinding his teeth during sleep and rarely awakens with morning jaw pain. He denies being bothered by pain during the day and denies being awakened by pain during the night. He occasionally wakes up feeling stiff the morning. He occasionally wakes up sore or edema. Denies waking up with pain in the neck, spine and other joints. He goes bed at around a.m. on both weekdays and weekends. It takes him 2-3 hours to fall asleep. He wakes up 3 times throughout the night to urinate and sometimes is unable fall back asleep. He wakes up at 6:30 a.m. on weekdays and at 7:00 a.m. on weekends. He typically gets 5-7 hours sleep per night. He currently lives alone. Denies consuming any caffeinated beverages within 2 hours of bedtime. He denies engaging in exercise before bedtime. He will read watch television before falling asleep. He denies taking naps in afternoon or the evening. He denies consuming any caffeinated beverages throughout the day. He denies tobacco, alcohol and recreational drug use. 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 MARIMAR (obstructive sleep apnea) Osteoporosis Overactive bladder Pedal edema Surgical History Surgical History No pertinent past surgical history Social History Social History Smoking status: Current every day smoker Tobacco type: cigars Additional smoking assessment comments: 3 cigars/day Alcohol intake: never Substance use: never Substance use type: does not use Do You Feel Safe in your Home?: Yes Lack of Transportation: No Lack of Food: Never True Current Housing: I Have Housing Concerned About Future Housing: No Difficulty Paying Gas/Electric Bills: No Difficulty Paying for Meds: No Currently Unemployed: No Educati
[2024-01-28 19:09] VITALS: BMI 23.6
== END 2024-01-07 06:48 | disposition home or self-care (01) ==
LOC: ANHCSM 09:52
PROVIDERS: PCP Internal Medicine; Visit Provider Internal Medicine
DX: G47.33 Obstructive sleep apnea (adult) (pediatric) (principal); I10 Essential (primary) hypertension; I25.9 Chronic ischemic heart disease, unspecified
CPT/HCPCS: 95811

== ENCOUNTER 2024-01-08 08:46 | Emergency (ER) | payer MEDICARE, SELFPAY ==
--- NOTE | ~2024-01-08 | XR_ITS ---
EXAMINATION: XR foot LT min 3V DATE: 01/08/2024 09:50 INDICATION: Left toe injury. TECHNIQUE: 4 views of left foot were obtained. COMPARISON: None. FINDINGS: Bone alignment is normal. No fracture. There is severe osteoarthritis of first metatarsopha langeal joint and mild osteoarthritis of some of the interphalangeal joints and midfoot joints. There is moderate osteoarthritis of first interphalangeal joint. There are enthesophytes at the posterior and plantar aspects of calcaneal tuberosity. IMPRESSION: 1. Polyarticular osteoarthritis. Reviewed, dictated and finalized at location A.
[2024-01-08 08:50] VITALS: BP 153/64; PULSE 60; RESP 18; TEMP 36.4; O2SAT 97
--- NOTE | 2024-01-08 09:05 | ED.GENADULT ---
HPI - General Adult General Chief complaint: Unspecified Stated complaint: BLACK TOES Time Seen by Provider: 01/08/24 08:59 History of Present Illness HPI narrative: Santhosh Moore is a 78 y/o male who presents with reports of noticing bruising to the top of his third, fourth toe and the inner side of this second toe. He denies any known injury - no open wound / no hx of DM / He has feeling to his toes/ ROM intact Related Data Home Medications Medication Instructions Recorded Confirmed apixaban 5 mg tablet (Eliquis) 5 mg PO BID 07/16/22 12/24/23 rosuvastatin 20 mg tablet 20 mg PO DAILY 07/16/22 12/24/23 aspirin 81 mg tablet,delayed 81 mg PO DAILY 07/12/23 12/24/23 release (Adult Low Dose Aspirin) carisoprodol 250 mg tablet 250 mg PO TID 07/12/23 12/24/23 cholecalciferol (vitamin D3) 25 25 mcg PO DAILY 07/12/23 12/24/23 mcg (1,000 unit) capsule fish oil 1,200 mg BYORUTH 07/12/23 12/24/23 lactobacillus combo no.11 15 1 cap PO DAILY 07/12/23 12/24/23 billion cell sprinkle capsule (Probiotic) mirabegron 50 mg tablet,extended 50 mg PO DAILY 07/12/23 12/24/23 release 24 hr (Myrbetriq) trazodone 100 mg tablet 300 mg PO HS 01/01/24 Allergies Allergy/AdvReac Type Severity Reaction Status Date / Time No Known Allergies Allergy Verified 10/10/23 09:25 Review of Systems Review of Systems: All systems reviewed & are unremarkable except as noted in HPI and below PMFSH Past Medical History Medical History BMI 32.0-32.9,adult BMI 33.0-33.9,adult BMI 34.0-34.9,adult Compression fracture of lumbar spine, non-traumatic Compression fracture of thoracic spine, non-traumatic Coronary artery disease Diabetes mellitus Encounter for Medicare annual wellness exam Encounter to establish care Follow up Hyperlipidemia Hypertension Impaired functional mobility, balance, gait, and endurance Kyphoscoliosis and scoliosis Myocardial infarction 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 MARIMAR (obstructive sleep apnea) Osteoporosis Overactive bladder Pedal edema Surgical History Surgical History No pertinent past surgical history Social History Social History Smoking status: Current every day smoker Tobacco type: cigars Additional smoking assessment comments: 3 cigars/day Alcohol intake: never Substance use: never Substance use type: does not use Do You Feel Safe in your Home?: Yes Lack of Transportation: No Lack of Food: Never True Current Housing: I Have Housing Concerned About Future Housing: No Difficulty Paying Gas/Electric Bills: No Difficulty Paying for Meds: No Currently Unemployed: No Education: Associate Degree Difficulty w/ Childcare or Family Care: No Spiritual care concerns: No Exam Narrative: GENERAL: Well-appearing, well-nourished, and in no acute distress. HEAD: Normocephalic, atraumatic. EYES: PERRLA and EOMI. ENT: Nares clear, no rhinorrhea or epistaxis. Mucous membranes moist. Oropharynx without tonsillar hypertrophy exudate or other lesions. Bilateral TMs pearly marquez nonbulging NECK: Supple. No adenopathy or masses. No carotid bruits or JVD CHEST: Clear to auscultation. No respiratory distress. No wheezes rales or rhonchi HEART: Regular rate and rhythm. No murmur heard. Normal peripheral pulses. ABDOMEN: Soft, nontender, nondistended, normal active bowel sounds. EXTREMITIES: Normal range of motion. No edema. + ecchymosis to his third, fourth and side of his 2nd toe + pedal pulses SKIN: Warm, dry, no rash. NEURO: No focal deficits. Alert and oriented x3. PSYCH: Normal mood and affect. Course Vital Signs Vital signs: Vital Signs Temperature 36.4 C 01/08/24 08:50 Pulse Rate 60 01/08/24 08:50 Respiratory Rate 18 01/08/24 08:50 Blood Pressure 153/64 H 01/08/24 08:50 Pulse Oximetry 97 01/08/24 0
== END 2024-01-08 10:25 | disposition home or self-care (01) ==
PROVIDERS: Emergency Provider Nurse Practitioner Family; PCP Internal Medicine
DX: S90.122A Contusion of left lesser toe(s) without damage to nail, initial encounter (principal); Z79.82 Long term (current) use of aspirin; I25.10 Atherosclerotic heart disease of native coronary artery without angina pectoris; E11.9 Type 2 diabetes mellitus without complications; E78.5 Hyperlipidemia, unspecified; I10 Essential (primary) hypertension; G47.33 Obstructive sleep apnea (adult) (pediatric); F17.290 Nicotine dependence, other tobacco product, uncomplicated
CPT/HCPCS: 73630; 99283

== ENCOUNTER 2024-02-01 12:24 | Outpatient (CLI) | payer MEDICARE, SELFPAY ==
[2024-02-01 14:10] LABS: Iron 112 ug/dL (49-181)
[2024-02-01 14:19] LABS: Percent Iron Saturation 43 % (20-50)
== END 2024-02-01 12:25 | disposition home or self-care (01) ==
PROVIDERS: PCP Internal Medicine; Visit Provider Internal Medicine
DX: G47.61 Periodic limb movement disorder (principal); R53.83 Other fatigue; E11.9 Type 2 diabetes mellitus without complications
CPT/HCPCS: 36415; 82728; 83540; 83550

== ENCOUNTER 2024-05-06 12:11 | Outpatient (CLI) | payer MEDICARE, SELFPAY ==
[2024-05-06 12:41] LABS: Basophils Absolute Auto 0.1 K/mm3 (0.0-0.1); Eosinophils Absolute Auto 0.3 K/mm3 (0-0.3); Eosinophils Percent Auto 4.3 % (0-4.4); Hematocrit 38.6 % (42.0-52.0); Hemoglobin 12.8 g/dL (14.0-18.0); Immature Granulocyte Absolute 0.01 K/mm3 (0.00-0.031); Immature Granulocyte Percent A 0.2 % (0-0.5); Lymphocytes Absolute Auto 1.75 K/mm3 (0.9-3.2); Lymphocytes Percent Auto 28.2 % (18.3-44.2); Mean Corpuscular HGB Conc 33.2 g/dl (32-36); Mean Corpuscular Hemoglobin 31.5 pg (26-34); Mean Corpuscular Volume 95.1 fl (80-100); Mean Platelet Volume 9.6 fl (7.4-10.4); Monocytes Absolute Auto 0.6 K/mm3 (0.1-0.6); Monocytes Percent Auto 9.8 % (2.6-8.5); Neutrophils Absolute Auto 3.5 K/mm3 (1.3-6.7); Neutrophils Percent Auto 56.5 % (45.5-73.1); Platelet Count Result 214 k/mm3 (150-375); Red Blood Count 4.06 M/mm3 (4.6-6.20); Red Cell Distribution Width 13.2 % (11.5-14.5); White Blood Count 6.2 K/mm3 (4.5-10.0)
[2024-05-06 12:56] LABS: Alanine Aminotransferase 12 U/L (6-50); Alkaline Phosphatase 120 U/L (38-126); Anion Gap 8 mmol/L (4-12); Aspartate Amino Transferase 18 U/L (17-59); Bilirubin,Total 0.5 mg/dL (0.2-1.3); Blood Urea Nitrogen 22 mg/dL (9-20); Calcium 8.6 mg/dL (8.4-10.2); Carbon Dioxide 26 mmol/L (22-30); Chloride 107 mmol/L (98-107); Cholesterol 131 mg/dL (0-200); Estimated Glomerular Filt Rate 53; Glucose 108 mg/dL (65-110); HDL Direct 60 mg/dL; Potassium 3.6 mmol/L (3.4-5.0); Sodium 141 mmol/L (137-145); Triglycerides 85 mg/dL (<150)
[2024-05-06 12:59] LABS: Hemoglobin A1C 5.9 % (<5.7)
[2024-05-06 13:09] LABS: LDL Cholesterol Direct 50 mg/dL
[2024-05-06 13:18] LABS: Creatinine Urine 55.2 mg/dL
[2024-05-06 13:22] LABS: MALB Creatinine Ratio 255.4 mg/g (0-30)
[2024-05-06 14:32] LABS: Free T4 Free Thyroxine 1.32 ng/mL (0.78-2.19); Vitamin D 25 Hydroxy 72.1 ng/mL
== END 2024-05-06 12:12 | disposition home or self-care (01) ==
LOC: ANHLAB 12:13
PROVIDERS: PCP Internal Medicine; Visit Provider Internal Medicine
DX: E03.9 Hypothyroidism, unspecified (principal); Z79.899 Other long term (current) drug therapy; E78.5 Hyperlipidemia, unspecified; I10 Essential (primary) hypertension; E55.9 Vitamin D deficiency, unspecified; E11.9 Type 2 diabetes mellitus without complications; Z13.29 Encounter for screening for other suspected endocrine disorder
CPT/HCPCS: 36415; 80053; 80061; 82043; 82306; 83036; 84439; 84443; 85025

== ENCOUNTER 2024-06-03 13:14 | Outpatient (RCR) | payer MEDICARE, SELFPAY ==
[2024-06-03 13:37] VITALS: BMI 24.7
--- NOTE | 2024-06-17 13:58 | PCWOUND ---
WOCN NOTE Patient did not show up for appointment.
== END 2024-08-17 09:19 | disposition home or self-care (01) ==
LOC: ANHWOC 13:14
PROVIDERS: PCP Internal Medicine; Visit Provider Internal Medicine
DX: S81.801A Unspecified open wound, right lower leg, initial encounter (principal)
CPT/HCPCS: 99213; G0463

== ENCOUNTER 2024-07-06 12:09 | Emergency (ER) | payer MEDICARE, SELFPAY ==
[2024-07-06 12:27] VITALS: BP 130/57; PULSE 50; RESP 16; TEMP 36.9
--- NOTE | 2024-07-06 13:13 | ED_ITS ---
HPI - URI/Sore Throat General Chief Complaint: Upper Respiratory Infection Stated Complaint: Cough/Congestion Time Seen by Provider: 07/06/24 12:55 Source: patient and RN notes reviewed Mode of arrival: ambulatory (With walker) Limitations: no limitations History of Present Illness HPI Narrative: Patient presents today complaining of 3 day history of severe cough and rhinorrhea. Denies shortness of breath, chest pain, fever, sore throat. He has tried no [id number] treatment prior to arrival. No history of asthma or COPD. He is a nonsmoker. Patient also requesting evaluation of his right shoulder. Approximately 1 week ago he struck his shoulder into a door frame and has been having pain ever since. Denies numbness or tingling. Reports some decreased range of motion due to pain. Related Data Home Medications ?Medication ?Instructions ?Recorded ?Confirmed ?Last Taken ?Type apixaban 5 mg tablet (Eliquis) 5 mg PO BID 07/16/22 07/06/24 Unknown History rosuvastatin 20 mg tablet 20 mg PO DAILY 07/16/22 07/06/24 Unknown History aspirin 81 mg tablet,delayed 81 mg PO DAILY 07/12/23 07/06/24 Unknown History release (Adult Low Dose Aspirin) carisoprodol 250 mg tablet 250 mg PO TID 07/12/23 07/06/24 Unknown History cholecalciferol (vitamin D3) 25 25 mcg PO DAILY 07/12/23 07/06/24 Unknown History mcg (1,000 unit) capsule fish oil 1,200 mg BYMOUTH DAILY 07/12/23 07/06/24 Unknown History lactobacillus combo no.11 15 1 cap PO DAILY 07/12/23 07/06/24 Unknown History billion cell sprinkle capsule (Probiotic) trazodone 100 mg tablet 300 mg PO HS 01/01/24 07/06/24 Unknown History ferrous sulfate 325 mg (65 mg 325 mg PO BID 02/04/24 07/06/24 Unknown History iron) tablet Allergies Allergy/AdvReac Type Severity Reaction Status Date / Time No Known Allergies Allergy Verified 07/06/24 12:21 Review of Systems Review of Systems: CONSTITUTIONAL: Denies body aches, fever, chills, or sweats. EYES: Denies visual changes, redness, or discharge. ENT: Denies congestion, sore throat, or otalgia.+ rhinorrhea CARDIOVASCULAR: Denies chest pain, palpitations, or edema. RESPIRATORY: Denies dyspnea.+ cough GASTROINTESTINAL: Denies abdominal pain, nausea, vomiting, or diarrhea. GENITOURINARY: Denies dysuria or hematuria. SKIN: Denies rash, itching, or wounds. MUSCULOSKELETAL: Denies back pain,or myalgia.+ right shoulder pain NEUROLOGIC: Denies headache, numbness, tingling, or weakness. PSYCH: Denies depression or anxiety. 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 Encounter to establish care Overactive bladder BMI 34.0-34.9,adult Coronary artery disease Hyperlipidemia Myocardial infarction Diabetes mellitus Hypertension Surgical History Surgical History No pertinent past surgical history Social History Social History Smoking status: Current every day smoker Tobacco type: cigars Additional smoking assessment comments: 3 cigars/day Alcohol intake: never Substance use: never Substance use type: does not use Do You Feel Safe in your Home?: Yes Lack of Transportation: No Lack of Food: Never True Current Housing: I Have Housing Concerned About Future Housing: No Difficulty Paying Gas/Electric Bills: No Difficulty Paying for Meds: No Currently Unemployed: No Education: Associate Degree Difficulty w/ Childcare or Family Care: No Spiritual care concerns: No Comments At time of signature, I have reviewed and agree with nursing past medical, surgical, social and family history unless otherwise noted. Please see nursing chart for further information. There is no relevant family history pertinent to the presenting complaint Exam Narrative: GENERAL: Well-appearing, well-nourished, and in no acute distress. HEAD: Normocephalic, atraumatic. EYES: EOMI. No redness or drainage. Conjunctivae normal. ENT: Mucous membranes pink and moist. Nares clear. + rhinorrhea. TMs normal bilaterally. Throat normal. Uvula midline. Hard of hearing NECK: Normal AROM. Supple. No lymphadenopathy. CHEST: No respiratory distress. Harsh cough noted. Expiratory wheezing in the left upper lobe. Slight crackling in the right lower.. HEART: Regular rate and rhythm. No murmur appreciated. EXTREMITIES: Right shoulder: Arm and shoulder is nontender. Range of motion limited to 90? due to pain. Distal sensation intact. Capillary refill normal. Radial pulse normal. SKIN: Warm, dry, no rash. Capillary refill normal. Normal skin turgor. NEURO: No focal deficits. Alert and oriented x3. Gait steady. PSYCH: Normal affect. No signs of depression or anxiety. Course Course Level of Care: Express Care Visit Vital Signs Vital signs: Vital Signs Temperature 98.4 F 07/06/24 12:27 Pulse Rate 50 L 07/06/24 12:27 Respiratory Rate 16 07/06/24 12:27 Blood Pressure 130/57 L 07/06/24 12:27 Oxygen Delivery Room Air 07/06/24 12:27 Temperature 98.4 F 07/06/24 12:27 Pulse Rate 50 L 07/06/24 12:27 Respiratory Rate 16 07/06/24 12:27 Blood Pressure 130/57 L 07/06/24 12:27 Oxygen Delivery Room Air 07/06/24 12:32 Reviewed MDM - URI/Sore Throat MDM Narrative Medical decision making narrative: Patient will be started on a course of Augmentin, Medrol Dosepak, and albuterol for his upper respiratory symptoms. X-rays currently unavailable. Recommend patient follow-up with his PCP next week as scheduled for further evaluation of his shoulder. Patient agrees with plan. Anticipatory guidance given. Differential Diagnosis Differential diagnosis: Likely upper respiratory infection, viral infection, bronchitis and other (Pneumonia, rotator cuff injury) Critical Care Time Critical Care Time Critical Care Time: No Discharge Plan Discharge Clinical Impression: Acute lower respiratory infection Injury of right shoulder Qualifiers: Encounter type: initial encounter Qualified Code(s): S49.91XA - Unspecified injury of right shoulder and upper arm, initial encounter Patient Disposition: Home, Self-Care Condition: Stable Instructions: Antibiotic Form, Acute Bronchitis (ED) Additional Instructions: Please take all medications as prescribed. Follow-up with your PCP next week as scheduled. If symptoms worsen to include shortness of breath or chest pain, please go to the ER immediately for further evaluation. Your blood pressure was elevated above 120/80 today at Urgent Care. This puts you above the threshold for follow up. Please schedule a followup visit with your personal physician as soon as possible, for further evaluation and treatment. Even blood pressure exceeding 120/80 may indicate pre-hypertension. Patient Language: Albanian Prescriptions: New albuterol sulfate 90 mcg/actuation HFA aerosol inhaler 2 inh inhalation Q4-6H PRN (Reason: shortness of breath or wheezing) Qty: 8.5 0RF (DME) BreatheRite MDI Spacer Spacer See Rx Instructions .ROUTE .MEDSUPPLY Qty: 1 0RF Rx Instructions: As directed amoxicillin-pot clavulanate 875-125 mg tablet 1 tablet PO Q12H 7 Days Qty: 14 0RF prednisone 10 mg tablet 30 mg PO DAILY 5 Days Qty: 15 0RF No Action aspirin [Adult Low Dose Aspirin] 81 mg tablet,delayed release (DR/EC) 81 mg PO DAILY carisoprodol 250 mg tablet 250 mg PO TID cholecalciferol (vitamin D3) 25 mcg (1,000 unit) capsule 25 mcg PO DAILY mecobalamin (vitamin B12) 1,000 mcg tablet,disintegrating 1,000 mcg sublingual DAILY Qty: 90 1RF Rx Instructions: place tablet under tongue and allow to dissolve for at least30 secs before swallowing fish oil 1,200 mg BYMOUTH DAILY Probiotic 15 billion cell capsule, sprinkle 1 cap PO DAILY Rx Instructions: do not crush/chew/cut; swallow whole OR may open and sprinkle in cold drink/food nebivolol [Bystolic] 10 mg tablet 10 mg PO DAILY Qty: 90 1RF Rx Instructions: Please D/C the Amlodipine. Thank you irbesartan 300 mg tablet 300 mg PO DAILY Qty: 90 1RF Rx Instructions: Please D/C the Irbesartan HCTZ. Thank you furosemide 40 mg tablet 40 mg PO QAM Qty: 90 1RF potassium chloride 10 mEq capsule, extended release 10 meq PO DAILY Qty: 90 1RF mirabegron [Myrbetriq] 50 mg tablet extended release 24 hr 50 mg PO DAILY Qty: 90 1RF rosuvastatin 20 mg tablet 20 mg PO DAILY Eliquis 5 mg tablet 5 mg PO BID docusate sodium 100 mg Capsule 100 mg PO Q12H PRN (Reason: Constipation) Qty: 30 0RF lidocaine [Lidoderm] 5 % Adhesive Patch,Medicated 1 patch transdermal DAILY Qty: 5 0RF Jardiance 25 mg tablet 25 mg PO DAILY Qty: 90 2RF trazodone 100 mg tablet 300 mg PO HS risedronate 35 mg tablet See Rx Instructions .ROUTE .COMPLEX Qty: 12 2RF Dose Instruction: TAKE 1 TABLET BY MOUTH EVERY WEEK. ADMINISTER 30 MINUTES BEFORE FIRST FOOD OR DRINK OTHER THAN WATER Rx Instructions: TAKE 1 TABLET BY MOUTH EVERY WEEK. ADMINISTER 30 MINUTES BEFORE FIRST FOOD OR DRINK OTHER THAN WATER ferrous sulfate 325 mg (65 mg iron) tablet 325 mg PO BID pramipexole 1 mg tablet 2 mg PO QHS Qty: 180 1RF Follow-up/Referrals: Alexandre Smith MD [Primary Care Provider] - Time of Disposition: 13:20
== END 2024-07-06 13:30 | disposition home or self-care (01) ==
PROVIDERS: Emergency Provider Nurse Practitioner; PCP Internal Medicine
DX: J22 Unspecified acute lower respiratory infection (principal); S49.91XA Unspecified injury of right shoulder and upper arm, initial encounter; W22.09XA Striking against other stationary object, initial encounter; I25.10 Atherosclerotic heart disease of native coronary artery without angina pectoris; E11.9 Type 2 diabetes mellitus without complications; I10 Essential (primary) hypertension; E78.5 Hyperlipidemia, unspecified; I25.2 Old myocardial infarction; M81.0 Age-related osteoporosis without current pathological fracture; F17.290 Nicotine dependence, other tobacco product, uncomplicated
CPT/HCPCS: 99213; G0463

== ENCOUNTER 2024-07-08 15:31 | Emergency (ER) | payer MEDICARE, SELFPAY ==
--- NOTE | ~2024-07-08 | XR_ITS ---
EXAMINATION: XR chest 1V Exam Date/Time: 07/08/2024 17:20 [employer] HISTORY: cough acute, PT SITTING, SEVERE KYPHOSIS, SCOLIOSIS Comparison: 07/15/2022; CT cap 01/01/2019. RESULT: Lines, tubes, and devices: None. Lungs and pleura: Rightward rotation. Granulomatous calcifications Otherwise clear lungs. Cardiomediastinal silhouette: Stable. Dilated central pulmonary arteries as can be seen with pulmona ry arterial hypertension. Other: No acute osseous or upper abdominal finding. IMPRESSION: No acute cardiopulmonary process. Reviewed, dictated and finalized at location [facility]
[2024-07-08 16:34] VITALS: BP 131/62; PULSE 59; RESP 16; TEMP 36.5; O2SAT 100
--- NOTE | 2024-07-08 17:18 | ED.URI ---
HPI - URI/Sore Throat General Chief Complaint: Upper Respiratory Infection Stated Complaint: COUGH Time Seen by Provider: 07/08/24 17:18 Source: patient, RN notes reviewed and old records reviewed Mode of arrival: ambulatory Limitations: no limitations History of Present Illness HPI Narrative: 78 year old male presents to [facility] care with complaints of increased cough Patient reports that he was seen here on the and received antibiotics and medrol dose pack, and also Albuterol inhaler for his symptoms. Xr ay was unavailable at time of his initial visit. Patient reports that he has about 8 days of symptoms now and cough just doesn't seem better. MD elicited complaint: cough, rhinorrhea and nasal congestion Onset (ago): day(s) (8 days) Severity: moderate Treatments prior to arrival: antibiotics and other (inhaler and steroid) Related Data Home Medications ?Medication ?Instructions ?Recorded ?Confirmed ?Last Taken ?Type apixaban 5 mg tablet (Eliquis) 5 mg PO BID 07/16/22 07/06/24 Unknown History rosuvastatin 20 mg tablet 20 mg PO DAILY 07/16/22 07/06/24 Unknown History aspirin 81 mg tablet,delayed 81 mg PO DAILY 07/12/23 07/06/24 Unknown History release (Adult Low Dose Aspirin) carisoprodol 250 mg tablet 250 mg PO TID 07/12/23 07/06/24 Unknown History cholecalciferol (vitamin D3) 25 25 mcg PO DAILY 07/12/23 07/06/24 Unknown History mcg (1,000 unit) capsule fish oil 1,200 mg BYMOUTH DAILY 07/12/23 07/06/24 Unknown History lactobacillus combo no.11 15 1 cap PO DAILY 07/12/23 07/06/24 Unknown History billion cell sprinkle capsule (Probiotic) trazodone 100 mg tablet 300 mg PO HS 01/01/24 07/06/24 Unknown History ferrous sulfate 325 mg (65 mg 325 mg PO BID 02/04/24 07/06/24 Unknown History iron) tablet Allergies Allergy/AdvReac Type Severity Reaction Status Date / Time No Known Allergies Allergy Verified 07/06/24 12:21 Review of Systems Review of Systems: CONSTITUTIONAL: Reports malaise, no chills, sweats, or fever.denies any body aches EYES: Denies visual changes, redness, or discharge. ENT: Reports rhinorrhea, congestion, sinus pain, no otalgia and no sore throat. CARDIOVASCULAR: Denies chest pain, palpitations, or edema. RESPIRATORY: Reports cough.? Denies dyspnea. GASTROINTESTINAL: Denies abdominal pain, nausea, vomiting, diarrhea SKIN: Denies rash or itching. MUSCULOSKELETAL: Denies myalgia. NEUROLOGIC: Denies headache. All systems reviewed & are unremarkable except as noted in HPI and below PMFSH Past Medical History Medical History Non-healing wound of right lower extremity BMI 30.0-30.9,adult Encounter for routine adult health examination without abnormal findings BMI 31.0-31.9,adult Pedal edema MARIMAR (obstructive sleep apnea) BMI 32.0-32.9,adult Encounter for Medicare annual wellness exam Follow up Compression fracture of thoracic spine, non-traumatic Compression fracture of lumbar spine, non-traumatic BMI 33.0-33.9,adult Kyphoscoliosis and scoliosis Impaired functional mobility, balance, gait, and endurance Osteoporosis 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 Encounter to establish care Overactive bladder BMI 34.0-34.9,adult Coronary artery disease Hyperlipidemia Myocardial infarction Diabetes mellitus Hypertension Surgical History Surgical History No pertinent past surgical history Social History Social History Smoking status: Current every day smoker Tobacco type: cigars Additional smoking assessment comments: 3 cigars/day Alcohol intake: never Substance use: never Substance use type: does not use Do You Feel Safe in your Home?: Yes Lack of Transportation: No Lack of Food: Never True Current Housing: I Have Housing Concerned About Future Housing: No Difficulty Paying Gas/Electric Bills: No Difficulty Paying for Meds: No Currently Unemployed: No Education: Associate Degree Difficulty w/ Childcare or Family Care: No Spiritual care concerns: No Comments At time of signature, agree with nursing past medical, surgical, social and family history. There is no relevant family history pertinent to the presenting complaint Exam Narrative: GENERAL:chronic ill -appearing, well-nourished, and in no acute distress. HEAD: Normocephalic EYES: PERRLA, conjunctivae clear ENT: Nares clear, turbinates edematous and erythematous, clear discharge. Mucous membranes moist. TM pearly marquez with dull light reflex bilaterally; no tragal tenderness. Oropharynx erythematous without lesions. Tonsils not enlarged and without exudate, no drooling, no hoarseness, no trismus, uvula midline.PND NECK: Supple. No lymphadenopathy CHEST: right lower lobe crackles on auscultation, breath sounds equal. No wheezing, rhonchi, + rales, or stridor. No respiratory distress, speaks in full sentences.harsh cough SAO2 100% on room air, severe kyphosis and scoliosis HEART: Regular rate and rhythm. No murmur heard. SKIN: Warm, dry, no rash. NEURO: Alert and oriented x3. PSYCH: Normal mood and affect Course Course Emergency Course: Patient is aware of diagnosis, understands and agrees to treatment plan.? Anticipatory guidance given.? Patient agrees to follow-up as directed and is aware of reasons to seek care at the emergency department. Portions of this record may have been created with voice recognition software Level of Care: Express Care Visit Vital Signs Vital signs: Vital Signs Temperature 36.5 C 07/08/24 16:34 Pulse Rate 59 L 07/08/24 16:34 Respiratory Rate 16 07/08/24 16:34 Blood Pressure 131/62 07/08/24 16:34 Pulse Oximetry 100 07/08/24 16:34 Temperature 36.5 C 07/08/24 16:34 Pulse Rate 59 L 07/08/24 16:34 Respiratory Rate 16 07/08/24 16:34 Blood Pressure 131/62 07/08/24 16:34 Pulse Oximetry 100 07/08/24 16:34 Oxygen Delivery Room Air 07/08/24 16:40 Reviewed MDM - URI/Sore Throat MDM Narrative Medical decision making narrative: Differential diagnosis considered: Dewitt virus, strep pharyngitis, allergic rhinitis, upper respiratory tract infection, sinusitis, rhinosinusitis, nasopharyngitis. viral pharyngitis, otitis media, otitis externa, pneumonia, bronchitis, viral cough syndrome, viral syndrome, and influenza.? Exam findings show no acute concerns or changes; patient is non-toxic appearing and is in no distress.? Patient is appropriate for outpatient treatment and follow-up. Differential Diagnosis Differential diagnosis: Likely upper respiratory infection, viral infection, bronchitis and other (acute cough, respiratory infection) Medical Records Attestation: I reviewed the patient's medical records. Lab Data Attestation: I reviewed the patient's lab results. Imaging Data Attestation: I personally reviewed and interpreted this imaging study as follows: My impression: no acute cardiopulmonary disease PAH, kyphosis and scoliosis Radiologist's impression: [address] [place] [address] XRay Report Signed Patient: Santhosh Moore : 1945 MR#: [id number] Age: 78 Acct:[id number] Loc: [facility] ADM Date: 07/08/24Attending Dr: Ordering Physician: Farheen Garcia APRN Date of Service: 07/08/24 Procedure(s): XR chest 1V Accession Number(s): [id number] cc: Alexandre Smith MD; Farheen Garcia APRN~ EXAMINATION: XR chest 1V Exam Date/Time: 07/08/2024 17:20 [employer] HISTORY: cough acute, PT SITTING, SEVERE KYPHOSIS, SCOLIOSIS Comparison: 07/15/2022; CT cap 01/01/2019. RESULT: Lines, tubes, and devices: None. Lungs and pleura: Rightward rotation. Granulomatous calcifications Otherwise clear lungs. Cardiomediastinal silhouette: Stable. Dilated central pulmonary arteries as can be seen with pulmonary arterial hypertension. Other: No acute osseous or upper abdominal finding. IMPRESSION: No acute cardiopulmonary process. Reviewed, dictated and finalized at location [facility] Please be advised this is a medical document. It is intended for ahxp-se-eawv communication. It is written in medical language and may contain unfamiliar abbreviations or verbiage. Medical documents are intended to carry relevant information, facts as evident, and the clinical opinion of the practitioner at the time of the encounter. This report may have been done utilizing a voice recognition system. Attempts have been made to correct errors. However, there may be uncorrected grammatical, spelling, and recognition errors present. The file time of this note does not necessarily represent the time the patient was seen. Dictated By: Jasiel Huerta MD 07/08/24 4014 Signed By: <Electronically signed by Jasiel Huerta MD in OV> Critical Care Time Critical Care Time Critical Care Time: No Discharge Plan Discharge Clinical Impression: Acute cough Patient Disposition: Home, Self-Care Condition: Stable Instructions: Antibiotic Form, Acute Cough (ED) Additional Instructions: Increase fluids especially juices and water [id number] cough and cold medicine of your choice for your symptoms Continue your inhaler/nebulizer as directed Steroids as directed--take with food heat to the face 20-30 minutes 4-6 times a day for pain Salt water gargles, throat lozenges or throat sprays as desired Antibiotic as directed--finished the medication follow-up with Dr. Smith If your symptoms persist, change or worsen significantly before you can contact your personal physician then please, without delay, go to the emergency department for further evaluation. Follow-up with PCP in 7-10 days or sooner if needed Follow up with PCP soon in regards to your blood pressure which is elevated above threshold for referral. Blood pressure above 120/80 may indicate pre-hypertension. 131/62 Patient Language: Amharic Prescriptions: New benzonatate 200 mg capsule 200 mg PO TID PRN (Reason: cough) Qty: 20 0RF No Action albuterol sulfate 90 mcg/actuation HFA aerosol inhaler 2 inh inhalation Q4-6H PRN (Reason: shortness of breath or wheezing) Qty: 8.5 0RF (DME) BreatheRite MDI Spacer Spacer See Rx Instructions .ROUTE .MEDSUPPLY Qty: 1 0RF Rx Instructions: As directed amoxicillin-pot clavulanate 875-125 mg tablet 1 tablet PO Q12H 7 Days Qty: 14 0RF prednisone 10 mg tablet 30 mg PO DAILY 5 Days Qty: 15 0RF aspirin [Adult Low Dose Aspirin] 81 mg tablet,delayed release (DR/EC) 81 mg PO DAILY carisoprodol 250 mg tablet 250 mg PO TID cholecalciferol (vitamin D3) 25 mcg (1,000 unit) capsule 25 mcg PO DAILY mecobalamin (vitamin B12) 1,000 mcg tablet,disintegrating 1,000 mcg sublingual DAILY Qty: 90 1RF Rx Instructions: place tablet under tongue and allow to dissolve for at least30 secs before swallowing fish oil 1,200 mg BYMOUTH DAILY Probiotic 15 billion cell capsule, sprinkle 1 cap PO DAILY Rx Instructions: do not crush/chew/cut; swallow whole OR may open and sprinkle in cold drink/food nebivolol [Bystolic] 10 mg tablet 10 mg PO DAILY Qty: 90 1RF Rx Instructions: Please D/C the Amlodipine. Thank you irbesartan 300 mg tablet 300 mg PO DAILY Qty: 90 1RF Rx Instructions: Please D/C the Irbesartan HCTZ. Thank you furosemide 40 mg tablet 40 mg PO QAM Qty: 90 1RF potassium chloride 10 mEq capsule, extended release 10 meq PO DAILY Qty: 90 1RF mirabegron [Myrbetriq] 50 mg tablet extended release 24 hr 50 mg PO DAILY Qty: 90 1RF rosuvastatin 20 mg tablet 20 mg PO DAILY Eliquis 5 mg tablet 5 mg PO BID docusate sodium 100 mg Capsule 100 mg PO Q12H PRN (Reason: Constipation) Qty: 30 0RF lidocaine [Lidoderm] 5 % Adhesive Patch,Medicated 1 patch transdermal DAILY Qty: 5 0RF Jardiance 25 mg tablet 25 mg PO DAILY Qty: 90 2RF trazodone 100 mg tablet 300 mg PO HS risedronate 35 mg tablet See Rx Instructions .ROUTE .COMPLEX Qty: 12 2RF Dose Instruction: TAKE 1 TABLET BY MOUTH EVERY WEEK. ADMINISTER 30 MINUTES BEFORE FIRST FOOD OR DRINK OTHER THAN WATER Rx Instructions: TAKE 1 TABLET BY MOUTH EVERY WEEK. ADMINISTER 30 MINUTES BEFORE FIRST FOOD OR DRINK OTHER THAN WATER ferrous sulfate 325 mg (65 mg iron) tablet 325 mg PO BID pramipexole 1 mg tablet 2 mg PO QHS Qty: 180 1RF Follow-up/Referrals: Alexandre Smith MD [Primary Care Provider] - Time of Disposition: 18:05 Quality Ayah Coma Scale Eyes: Open Verbal: Oriented and Alert Motor: Follows Commands [place] Coma Total Score: 15
== END 2024-07-08 18:13 | disposition home or self-care (01) ==
PROVIDERS: Emergency Provider Registered Nurse; PCP Internal Medicine
DX: R05.1 Acute cough (principal); Z79.82 Long term (current) use of aspirin; G47.33 Obstructive sleep apnea (adult) (pediatric); M81.0 Age-related osteoporosis without current pathological fracture; Z79.899 Other long term (current) drug therapy; I25.10 Atherosclerotic heart disease of native coronary artery without angina pectoris; E78.5 Hyperlipidemia, unspecified; E11.9 Type 2 diabetes mellitus without complications; I10 Essential (primary) hypertension; Z79.01 Long term (current) use of anticoagulants; I25.2 Old myocardial infarction
CPT/HCPCS: 71045; 99213; G0463

== ENCOUNTER 2024-10-08 11:18 | Outpatient (CLI) | payer MEDICARE, SELFPAY ==
--- OUTSIDE RECORDS SUMMARY | 2024-10-08 12:09 | XMS_ITS | Encounter Summary ---
Author Organization [facility] Address [address] [place] [address] Phone Care Team Providers Care Election Supervisor Name Role Phone Rod Ann MD Unavailable Fabián Stanley MD Primary Care Provider Natalio Esparza MD Unavailable [phone] Yvan George MD Primary Care Provider [phone] Fabián Stanley MD Primary Care Provider Alexandre Smith MD Primary Care Provider [phone] Encounter Details Date Type Department Care Team (Late st Contact Info) Description 05/18/2021 Telephone [facility] Otolaryngology [address] [facility] [address] [place] [address] Radha Culver Au.D. [address] [facility] [address] [place] [address] Social History Tobacco Use Types Packs/Day Years Used Date Smoking Tobacco: Former Smokeless Tobacco: Never Comments:Smoking History Pac ks/day: 15 Cigarettes Alcohol Use Standard Drinks/Week Comments No 0 (1 standard drink = 0.6 oz pur e alcohol) PHQ-2 Answer Date Recorded PHQ-2 Total Score (If total score is 3 or more points, staff should administer the PHQ-9) 0 08/31/2020 Sex and Gender Information Value Date Recorded Sex Assigned at Not on file Legal Sex Male 8:15 PM CLERICAL MANAGER Gender Identity Male 04/18/2019 11:33 AM CDT Sexual Orientation Straight 04/18/2019 11 :33 AM CDT documented as of this encounter Plan of Treatment Not on file documented as of this encounter Visit Diagnoses Not on filedocumented in this encounter Additional Health Concerns Infection Onset Date Last Indicated Resolved Time COVID: Suspected 07/03/2022 07/03/2022 07/03/2022 2:45 PM CLERICAL MANAGER documented as of this encounter Care Teams Election Supervisor Relationship Specialty Start Date End Date Fabián Stanley MD [address] [place] [address] [address] [place] [address] PCP - General 10/08/17 09/30/22 Yvan George MD [facility] [place] [address] PCP - General Family Medicine 10/01/22 12/26/22 Fabián Stanley MD [address] [place] [address] [address] [place] [address] PCP - General Internal Medicine 12/27/22 09/07/24 Alexandre Smith MD [address] [facility] [address] [place] [address] PCP - General Internal Medicine 09/08/24 Rod Ann MD 12/25/16 06/26/22 Natalio Esparza MD [address] [place] [address] [address] [place] [address] Referring Physician Surgery 12/23/19 documented as of this encounter
--- OUTSIDE RECORDS SUMMARY | 2024-10-08 12:09 | XMS_ITS | Continuity of Care Document ---
Author Organization [facility] Address [address] [facility] [address] [place] [address] Phone Care Team Providers Care Manager Search Name Role Phone Faustino Carvajal MD Unavailable [...] - Active Procedures Procedure Date OFFICE/OUTPATIENT VISIT [facility] Advance Directives Directive Yes / No Effective Date File Name No Information Encounters Encounter Description Practice Location Reason(s) For Visit Diagnoses Date Provider Providers Copied on Encounter [facility], [address] [place] [address], [address], tel:[phone] [facility] No Information Sep-0 3 5 Alena Harmon. [address] [place], [place], [id number] . tel: [phone] OFFICE/OUTPAT IENT VISIT [facility] Surgery, [address] [place] [address] [address], [place], [address], tel:[phone] [facility] Primary localized osteoarthros is, lower leg Sep-0 3-201 5 Alena Rodarte. [address] [facility] [address], [place], [place], [id number] . tel: [phone] Family History Family Member Type Diagnosis Age At Onset Daughter Problem (finding) Alive and well Payers Payer name Insurance type Covered alliance party ID Authoriza tion(s) No Information Social [...]
--- OUTSIDE RECORDS SUMMARY | 2024-10-08 12:09 | XMS_ITS | Encounter Summary ---
Author Organization [facility] Healthcare Address [address] [place] [address] Care Team Providers Care Collection Systems Administrator Name Role Phone Rod Ann MD Unavailable Fabián Stanley MD Primary Care Provider Natalio Esparza MD Unavailable [phone] Yvan George MD Primary Care Provider [phone] Fabián Stanley MD Primary Care Provider Alexandre Smith MD Primary Care Provider [phone] Encounter Details Date Type Department Care Team (Late st Contact Info) Description 08/04/2021 Telephone [facility] Center [address] [place] [address] [address] [place] [address] Sanket Griffiths MD [address] [facility] [address] [place] [address] Social History Tobacco Use Types [...] on file 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 Gender Identity Male 04/18/2019 11:33 AM CDT Sexual Orientation Straight 04/18/2019 11 :33 AM CDT documented as of this encounter Plan of Treatment Not on file documented as of this encounter Visit Diagnoses Diagnosis Obstructive sleep apnea- Primary Obstructive sleep apnea (adult) (pediatric) documented in this encounter Additional Health Concerns Infection Onset Date Last Indicated Resolved Time COVID: Suspected 07/03/2022 07/03/2022 07/03/2022 2:45 PM CONVENIENCE STORE CLERK documented as of this encounter Care Teams Collection Systems Administrator Relationship Specialty Start Date End Date Fabián Stanley MD [address] [place] [address] [address] [place] [address] PCP - General 10/08/17 09/30/22 Yvan George MD [address] [place] [address] PCP - General Family Medicine 10/01/22 12/26/22 Fabián Stanley MD [address] [place] [address] [address] [place] [address] PCP - General Internal Medicine 12/27/22 09/07/24 Alexandre Smith MD [address] [facility] [address] [place] [address] PCP - General Internal Medicine 09/08/24 Rod Ann MD 12/25/16 06/26/22 Natalio Esparza MD [facility] [address] [facility] [address] [place] [address] Referring Physician Surgery 12/23/19 documented as of this encounter
--- OUTSIDE RECORDS SUMMARY | 2024-10-08 12:09 | XMS_ITS | Encounter Summary ---
Author Organization [facility] Healthcare Address [address] [place] [address] Care Team Providers Care Material Handler Name Role Phone Rod Ann MD Unavailable Fabián Stanley MD Primary Care Provider Natalio Esparza MD Unavailable [phone] Yvan George MD Primary Care Provider [phone] Fabián Stanley MD Primary Care Provider Alexandre Smith MD Primary Care Provider Encounter Details Date Type Department Care Team (Late st Contact Info) Description 09/08/2020 Documentation [facility] [address] [place] [address] Belle Treadwell RN Social History Tobacco Use Types Packs/Day Years [...] on file Legal 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 CUTTER 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 Gender Identity Male 04/18/2019 11:33 AM CDT Sexual Orientation Straight 04/18/2019 11 :33 AM CDT documented as of this encounter Plan of Treatment Not on file documented as of this encounter Visit Diagnoses Not on filedocumented in this encounter Additional Health Concerns Infection Onset Date Last Indicated Resolved Time COVID: Suspected 07/03/2022 07/03/2022 07/03/2022 2:45 PM CABLE CUTTER AND SWAGER documented as of this encounter Care Teams Material Handler Relationship Specialty Start Date End Date Fabián Stanley MD [address] [place] [address] [address] [place] [address] PCP - General 10/08/17 09/30/22 Yvan George MD [address] [place] [address] PCP - General Family Medicine 10/01/22 12/26/22 Fabián Stanley MD [address] [place] [address] [address] [place] [address] PCP - General Internal Medicine 12/27/22 09/07/24 Alexandre Smith MD [address] [facility] [address] [place] [address] PCP - General Internal Medicine 09/08/24 Rod Ann MD 12/25/16 06/26/22 Natalio Esparza MD [address] [place] [address] [address] [place] [address] Referring Physician Surgery 12/23/19 documented as of this encounter
--- OUTSIDE RECORDS SUMMARY | 2024-10-08 12:09 | XMS_ITS | Encounter Summary ---
Author Organization [facility] Address [address] [place] [address] Phone Care Team Providers Care Co Founder And Director Name Role Phone Natalio Esparza MD Unavailable [phone] Alexandre Smith MD Primary Care Provider [phone] Encounter Details Date Type Department Care Team (Late st Contact Info) Description 09/09/2024 Telephone [facility] Cardiology [address] [facility] Advanced Medicine 8th [place] [address] [place] [address] Shelley Talbert, KENO WRITER/RUNNER [address] [facility] [address] [place] [address] Social History Tobacco Use Types Packs/Day Years Used Date Smoking Tobacco: Every Day Cigars Smokeless Tobacco: Never Comments:Smoking History Pac ks/day: 15 Cigarettes Alcohol Use Standard Drinks/Week Comments No 0 (1 standard drink = 0.6 oz pur e alcohol) OASIS D0700: Social Isolation Answer Da te Recorded Frequency of experiencing loneliness or isolatio n Never 09/28/2022 OASIS A1250: Transportation Answer Date Recorded Lack of Transportation (Medical) No 09/28/2022 Lack of Transportation (Non-Medical) No 09/28/2022 Patient Unable or Declines to Respond No 09/28/2022 OASIS B1300: Health Literacy Answer Justen e Recorded Frequency of needing help to read materials from doctor or pharmacy Never 09/28/2022 AUDIT-C Answer Date Recorded Q1: How often do you have a drink containing alcohol? Never 02/18/2024 Q2: How many drinks containi ng alcohol do you have on a typical day when you are drinking? Patient does not drink Q3: How often do you have si x or more drinks on one occasion? 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 Unable to leave voicemail. MBLER DECK AND HULL * Telephone Encounter - Ayleen Borja - 09/09/2024 12:54 PM CST Nitish Patient returning missed call. He can be reached at [phone] MBLER DECK AND HULL documented in this encounter Plan of Treatment Not on file documented as of this encounter Goals Goal Patient Goal Type Associated Problems Recent Progress Patient-Stated? Author CCM Chronic Pain Care Plan Chronic Care Management Nan Howell RN Note: Problem: Chronic Pain Goals: 1. Minimize further functional decline 2. Maximize quality of life 3. Control pain Strategies: - Activity/exercise program recommendation - Conservative stepwise pain medicine strategy with multi-disciplinary approach - Recommend healthy lifestyle strategies and compensatory methods as needed documented as of this encounter Visit Diagnoses Not on filedocumented in this encounter Care Teams Co Founder And Director Relationship Specialty Start Date End Date Alexandre Smith MD [address] [facility] [address] [place] [address] [address] [place] [id number] PCP - General Internal Medicine 09/08/24 Natalio Esparza MD [address] [place] [address] [place] [address] Referring Physician Surgery 12/23/19 documented as of this encounter
--- OUTSIDE RECORDS SUMMARY | 2024-10-08 12:09 | XMS_ITS | Encounter Summary ---
Author Organization [facility] Healthcare Address [address] [place] [address] Care Team Providers Care Mobile Ui Developer Name Role Phone Rod Ann MD Unavailable Fabián Stanley MD Primary Care Provider Natalio Esparza MD Unavailable [phone] Yvan George MD Primary Care Provider [phone] Fabián Stanley MD Primary Care Provider Alexandre Smith MD Primary Care Provider [phone] Encounter Details Date Type Department Care Team (Late st Contact Info) Description 04/21/2021 Documentation [facility] OP Physical Therapy [facility] [address] [address] Cayden Jacobo, PT Social History Tobacco Use Types Packs/Day Years [...] on file Legal Sex Male 8:15 PM MULTICULTURAL MANAGER Gender Identity Male 04/18/2019 11:33 AM CDT Sexual Orientation Straight 04/18/2019 11 :33 AM CDT documented as of this encounter Plan of Treatment Not on file documented as of this encounter Visit Diagnoses Not on filedocumented in this encounter Additional Health Concerns Infection Onset Date Last Indicated Resolved Time COVID: Suspected 07/03/2022 07/03/2022 07/03/2022 2:45 PM MULTICULTURAL MANAGER documented as of this encounter Care Teams Mobile Ui Developer Relationship Specialty Start Date End Date Fabián Stanley MD [address] [place] [address] [address] [place] [address] PCP - General 10/08/17 09/30/22 Yvan George MD [address] [place] [address] PCP - General Family Medicine 10/01/22 12/26/22 Fabián Stanley MD [address] [place] [address] [address] [place] [address] PCP - General Internal Medicine 12/27/22 09/07/24 Alexandre Smith MD [address] [facility] [address] [place] [address] PCP - General Internal Medicine 09/08/24 Rod Ann MD 12/25/16 06/26/22 Natalio Esparza MD [address] [place] [address] [address] [place] [address] Referring Physician Surgery 12/23/19 documented as of this encounter
--- OUTSIDE RECORDS SUMMARY | 2024-10-08 12:09 | XMS_ITS | Encounter Summary ---
Author Organization [facility] Address [address] [place] [address] Phone Care Team Providers Care Flatwork Ironer Name Role Phone Natalio Esparza MD Unavailable [phone] Alexandre Smith MD Primary Care Provider [phone] Encounter Details Date Type Department Care Team (Late st Contact Info) Description 09/15/2024 Results Follow-Up [facility] [address] [facility] [address] [place] [address] Lois Will MD [address] [facility] [address] [place] [address] Social History Tobacco Use Types Packs/Day Years [...] No 09/28/2022 OASIS B1300: Health Literacy Answer Justne e Recorded Frequency of needing help to [...] on file Legal 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 Therapy Plan in the chart. Pete Trevizo We reviewed your labs. It is okay to go ahead with Reclast infusion. documented in this encounter Plan of Treatment Not on file documented as of this encounter Goals Goal Patient Goal Type Associated Problems Recent Progress Patient-Stated? Author CCM Chronic Pain Care Plan Chronic Care Management Nan Howell, LAURI Note: Problem: Chronic Pain Goals: 1. Minimize further functional decline 2. Maximize quality of life 3. Control pain Strategies: - Activity/exercise program recommendation - Conservative stepwise pain medicine strategy with multi-disciplinary approach - Recommend healthy lifestyle strategies and compensatory methods as needed documented as of this encounter Visit Diagnoses Not on filedocumented in this encounter Care Teams Flatwork Ironer Relationship Specialty Start Date End Date Alexandre Smith MD [address] [facility] [address] [place] [address] PCP - General Internal Medicine 09/08/24 Natalio Esparza MD [address] [facility] [address] [place] [address] Referring Physician Surgery 12/23/19 documented as of this encounter
--- OUTSIDE RECORDS SUMMARY | 2024-10-08 12:10 | XMS_ITS | Clinical Summary ---
Author Organization [facility] Address [address] [place] [address] Care Team Providers Care Dairy Consultant Name Role Phone Natalio Esparza MD Unavailable [phone] Alexandre Smith MD Primary Care Provider [phone] Allergies No known active allergies Medications nitroglycerin (NITROSTAT) 0.4 mg SL tabletIndications :acute episode of anginal pain Place 1 tablet (0.4 mg total) under the tongue every 5 (five) minutes as needed for chest pain Active carisoprodoL (SOMA) 250 mg tabletIndications :Muscle Spasm Take 1 tablet (250 mg total) by mouth nightly as needed 2 Active pramipexole (MIRAPEX) 1 mg tabletIndications :Idiopathic Parkinsonism TAKE 1 TABLET BY MOUTH AT 9 PM AND 1 TABLET BY MOUTH EVERY NIGHT AT BEDTIME 180 tablet 2 2 Active folic acid (FOLVITE) 1 mg tabletIndications :Folate Deficiency Take 1 tablet (1 mg total) by mouth daily Active fish oil-dha-epa 1,200-144-216 mg capsuleIndication s:Vitamin deficiencies Take 1 capsule by mouth outdoor fitness trainer before breakfast Active vit D3-vit V-ztjyzoulr-miyz [id number] jxmp-hne-gb-mg tabletIndications :Vitamin Deficiency Prevention Take 1 tablet by mouth daily Active traZODone (DESYREL) 100 mg tabletIndications :insomnia associated with depression One p.o. at HS 90 tablet 1 3 Active Additional Information Patient not taking.Reported on 09/08/2024 aspirin 81 mg enteric coated tablet Take 1 tablet (81 mg total) by mouth daily Active L. gasseri-B. bifidum-B longum 1.5 billion cell capsule Take by mouth Active rosuvastatin (CRESTOR) 20 mg tabletIndications :hyperlipidemia Take 1 tablet (20 mg total) by mouth daily 90 tablet 3 3 Active sildenafiL (VIAGRA) 100 mg tablet Take 1 tablet (100 mg total) by mouth as needed for erectile dysfunction 10 tablet 11 3 Active Additional Information Patient not taking.Reported on 09/08/2024 zolpidem (AMBIEN) 5 mg tablet 3 Active mirabegron ER (MYRBETRIQ) 50 mg tablet extended release 24 hrIndications:Tanner dder Hyperactivity Take 1 tablet (50 mg total) by mouth daily 30 tablet 3 3 Active amLODIPine (NORVASC) 5 mg tablet Take 1 tablet (5 mg total) by mouth daily 90 tablet 3 4 Active Jardiance 25 mg tablet Take 1 tablet (25 mg total) by mouth daily Active irbesartan-hydroc hlorothiazide (AVALIDE) 150-12.5 mg per tablet Take 1 tablet by mouth daily 4 Active risedronate (ACTONEL) 35 mg tablet TAKE 1 TABLET BY MOUTH EVERY WEEK. ADMINISTER 30 MINUTES BEFORE FIRST FOOD OR DRINK OTHER THAN WATER 4 Active Eliquis 5 mg tablet TAKE 1 TABLET(5 MG) BY MOUTH TWICE DAILY 180 tablet 3 4 Active Active Problems Problem Noted Date Diagnosed Date Other osteoporosis without current pathological fracture 09/09/2024 Sensorineural hearing loss ( SNHL) of left ear with restricted hearing of right ear 02/18/2024 Bilateral impacted cerumen 02/18/2024 Lumbar radiculopathy 08/02/2022 Sciatica of left side 07/03/2022 Assessment & Plan (07/05/2022 11:02 AM WORKFORCE CONSULTANT): -PT/OT -pain control -MRI with new compression fracture, severe neuroforaminal narrowing - pain management consult for possible injection/procedure given that pain isn't controlled with conservative management Assessment & Plan (07/04/2022 11:32 AM WORKFORCE CONSULTANT): -PT/OT -pain control -I d/w NSGY DIRECTOR [employer] whom patient was supposed to see today. Will order L-spine MRI Assessment & Plan (07/03/2022 5:40 PM WORKFORCE CONSULTANT): -PT/OT -pain control -Consider MRI while here -f/u neurosurgery Diverticular disease of colon 04/19/2022 Presence of coronary angioplasty implant and gra ft 04/19/2022 Sleep related eating disorder 09/21/2020 Inadequate sleep hygiene 09/21/2020 Chest pain 08/20/2020 Assessment & Plan (08/21/2020 11:17 AM WORKFORCE CONSULTANT): History of CAD with multiple PCI and medical non-compliance. -NSTEMI -Initial ECG not diagnostic for an acute ischemic event -troponin continues to uptrend: 15207->61003->31515->89490 -c/o some chest discomfort and shortness of breath this AM; BP dropped to 70 when sitting at side of bed -serial EKGs without acute changes -plan for [facility] today -continue heparin drip -continue nitroglycerin drip -continue irbesartan -continue aspirin/brillinta Unstable angina pectoris 08/20/2020 Overview (08/21/2020): Added automatically from request for surgery [id number] Diastolic heart failure 12/08/2019 Assessment & Plan (07/05/2022 11:03 AM WORKFORCE CONSULTANT): -chronic diastolic heart failure -euvolemic -holding ARB, diuretics for SABAS Assessment & Plan (07/04/2022 11:31 AM WORKFORCE CONSULTANT): -chronic diastolic heart failure -euvolemic -holding ARB, diuretics for SABAS Insufficient treatment with nasal CPAP 9 Circadian rhythm sleep disorder, 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 Chronic systolic congestive heart failure 2018 Ischemic cardiomyopathy 03/23/2019 Cardiogenic shock 09/02/2018 Assessment & Plan (09/03/2018 4:56 PM WORKFORCE CONSULTANT): 2/2 junctional bradycardia P/w BP 82/49, HR 35-41, lactate 2.7, Cr 1.9 from baseline 0.8 -improved to 100s/50s with IVF in ED -lactate 2.7->2.5->2.1 -IVF Symptomatic bradycardia 09/02/2018 Assessment & Plan (09/03/2018 4:51 PM WORKFORCE CONSULTANT): P/w dizziness, unsteadiness EKG with junctional bradycardia HR 40, CT head with no ICH Unsure if he took both metoprolol and carvedilol -hold home antihypertensives and beta blockers -tele -EP c/s if kavya does not self resolve -09/03 HR improved to 80s Paroxysmal A-fib 09/02/2018 Assessment & Plan (08/21/2020 11:02 AM WORKFORCE CONSULTANT): -currently in sinus rhythm -holing Eliquis for [facility] -continue heparin gtt Assessment & Plan (09/02/2018 4:22 PM WORKFORCE CONSULTANT): Per records -not seen on prior EKG -hold home Eliquis 5 b.i.d. -tele SABAS (acute kidney injury) 09/02/2018 Assessment & Plan (09/02/2018 4:25 PM WORKFORCE CONSULTANT): b/l 0.8, presents with Cr 1.9, likely prerenal 2/2 cardiogenic shock, -continue IVF as tolerated by cardiac function. -Address underlying bradycardia as above. Diabetes 08/31/2015 Overview (10/11/2016): Type 2 diabetes mellitus with complication Assessment & Plan (10/16/2022 9:03 AM CDT): Patient reports improvement in blood sugars; recently started on Jardiance Continue Jardiance 25 mg daily; will continue to monitor and adjust medications as needed Assessment & Plan (07/05/2022 11:03 AM WORKFORCE CONSULTANT): -type 2 diabetes, on lantus 45 BID, Jardiance at home -Received only 35 units last night with hypoglycemia overnight despite improving SABAS -Hold insulin for now; will likely need much lower lantus dose Assessment & Plan (07/04/2022 11:32 AM WORKFORCE CONSULTANT): -type 2 diabetes, on lantus 45 BID, Jardiance at home -Dose reduced insulin here to 45 units daily + SSI Assessment & Plan (07/03/2022 5:43 PM WORKFORCE CONSULTANT): -type 2 diabetes, on lantus 45 BID, Jardiance at home -Dose reduced insulin here given SABAS Assessment & Plan (08/21/2020 11:04 AM WORKFORCE CONSULTANT): Hgb A1C 8.4; home regimen lantus 45u BID -continue reduced dose lantus 20u BID -cont lispro SSI -consistent carb diet Assessment & Plan (09/05/2018 6:40 PM WORKFORCE CONSULTANT): a1c-12.5 -glucose at 563 at presentation improved to 221 after 10 u insulin in the ED -Hold home metformin 1g BID, planned to dose reduce home detemir from 15 to 10, LDSSI while in hospital 2/2 questionable adherence and robust response to low dose insulin -Pt continued to have poor glucose control in the 300s overnight and the morning of 09/03 requiring an additional 9 U lispro -adjusted TDD to 0.3U/kg given SABAS and BMI <30, likely insulin naive 2/2 poor adherence, split into basal and preprandial: 29U TTD as 14U glargine/5U lispro TID, continue LDSSI -09/04-09/05 pt required 11 U insulin to be slid even to maintain poor glucose control in the high 200s. Pt also recovered from SABAS, so a TDD of 0.4U/kg would be appropriate: 40U TTD as 20U glargine/7U lispro TID, continue LDSSI Hypertension 05/30/2015 Assessment & Plan (10/16/2022 9:02 AM CDT): Stable, generally well controlled; blood pressure above target for CAD No chest pain, no dyspnea; patient reports low energy levels, can walk around house but has frustration with walking further Patient reports he is up and down every day, symptoms are worse with stairs, has safety concerns regarding climbing stairs Continue Avapro 300 mg daily, spironolactone 25 mg daily Assessment & Plan (08/21/2020 11:07 AM WORKFORCE CONSULTANT): Recently seen in CHF clinic and multiple medications (norvasc, lasix, coreg) had been recently stopped for orthostasis. At that clinic visit, his irbesartan was reduced from 300mg to 150mg. -BP 191/107 on presentation to ED -currently controlled with nitro gtt -continue irbesartan -plan to resume previous anti-HTN meds as BP allows Assessment & Plan (09/02/2018 4:26 PM WORKFORCE CONSULTANT): -hold home antihypertensives for symptomatic kavya CAD (coronary artery disease) 12/30/2014 Overview (10/11/2016): Coronary heart disease Assessment & Plan (07/05/2022 11:03 AM WORKFORCE CONSULTANT): -continue ASA, statin -stable Assessment & Plan (07/04/2022 11:32 AM WORKFORCE CONSULTANT): -continue ASA, statin -stable Assessment & Plan (07/03/2022 5:41 PM WORKFORCE CONSULTANT): -continue ASA, statin -stable Assessment & Plan (09/02/2018 4:21 PM WORKFORCE CONSULTANT): C 05/19/2013 and 05/27/2013, showed 99% subtotal occlusion of the LAD s/p MARIELA x2, 75% occlusion of the circumflex s/p MARIELA x1 -10/2013 normal rest and stress NM MPI SPECT -hold home (as noted on most recent oupt cards note) metoprolol extended release 50, losartan 100 mg, HCTZ 12.5, Cartia 240, Coreg 6.25 bid -continue home aspirin 81 mg, rosuva 10 -f/u Dr. Suresh Obstructive sleep apnea syndrome 09/30/2014 Overview (10/11/2016): Sleep apnea, obstructive Assessment & Plan (09/02/2018 4:23 PM WORKFORCE CONSULTANT): Sleep study 05/2015 recommended CPAP nightly with ASV titration completed with EPAP requirements of 6 cm of water, pressure support of 4, ramp time 10 minutes suggested. -NPPV nightly -BMI 29.3, weight loss Assessment & Plan (10/15/2017 4:19 PM CDT): Reviewed the risk of untreated sleep apnea with the patient to include increased risk of heart attack, stroke, congestive heart failure and arrhythmia. He will try to replace his mask when he returns from the restroom so he uses his machine nightly for 7-8 hours. He was refit and given an Airfit F 10 medium fullface mask. 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 and 1 as needed for breakthrough symptoms. Hyperlipidemia 05/05/2009 Assessment & Plan (10/16/2022 9:02 AM CDT): Stable, tolerating medications; will check lipid panel today Continue rosuvastatin 20 mg daily Assessment & Plan (09/03/2018 12:19 AM WORKFORCE CONSULTANT): -hold home rosuvastatin 10 Acute congestive heart failure Shortness of breath Status post insertion of drug eluting coronary a rtery stent SABAS (acute kidney injury) Assessment & Plan (10/16/2022 9:03 AM CDT): Stable, continue to monitor, check CMP to evaluate current renal function Continue to monitor PTH and vitamin-D level Assessment & Plan (07/05/2022 11:01 AM WORKFORCE CONSULTANT): -suspect related to high doses of ibuprofen over the last week -Cr trending down Assessment & Plan (07/04/2022 11:31 AM WORKFORCE CONSULTANT): -suspect related to high doses of ibuprofen over the last week -check UA -Gentle IVF -Renal US if not improving Assessment & Plan (07/03/2022 5:42 PM WORKFORCE CONSULTANT): -suspect related to high doses of ibuprofen over the last week -check UA -Gentle IVF -Renal US if not improving Resolved Problems Problem Noted Date Diagnosed Date Resolved Date 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 CVA, now improved -CT head in ED negative for ICH -bMRI to eval for CVA -carotid u/s -TTE negative for thrombus Impacted cerumen 03/29/2016 03/23/2019 Unspecified urinary incontinence 12/01/2015 03/23/2019 Obesity with body mass index 30 or greater 11/28/2015 03/23/2019 Mixed sleep apnea 05/05/2015 03/23/2019 Overview (10/11/2016): Treatment emergent central sleep apnea Persistent insomnia 12/30/2014 03/23/20 19 Overview (10/11/2016): Persistent disorder of initiating or maintaining sleep Short sleeper syndrome 12/30/201403/23 Overview (10/11/2016): Short sleeper Assessment & Plan (10/15/2017 4:19 PM CDT): Trazodone 50 mg 1 tablet at bedtime. Sleep apnea 09/30/2014 04/17/2019 Overview (10/11/2016): Central sleep apnea in conditions classified elsewhere Adiposity 09/30/2014 03/23/2019 Overview (10/11/2016): Obesity Unknown and unspecified causes of morbidity 09/30/2014 03/23/2019 Overview (10/11/2016): Insufficient treatment with nasal CPAP Asymmetrical sensorineural hearing loss 02/19/2014 03/23/2019 Atherosclerosis of coronary artery 05/20/2013 03/23/2019 Abnormal result of cardiovas cular function study 05/14/2013 03/23/2019 Fatigue 05/06/2013 03/23/2019 Sensory hearing loss 02/13/2013 019 Presbycusis 02/13/2013 03/23/2019 Polyuria 11/19/2011 03/23/2019 Diabetes mellitus 05/05/2009 03/23/2019 Troponin level elevated 03/08 Encounters Date Type Department Care Team Description 10/06/2024 Telephone [facility] [address] [place] [phone] Hesham Hernandez RMA 10/06/2024 Orders Only [facility] [facility] Floor [address] [place] [address] Rod Montes MD Memory loss (Primary Dx) 10/05/2024 12:15 PM CDT - 10/05/2024 11:59 PM CDT Hospital Encounter [facility] [address] [place] [address] Arrived Discharge Disposition: Discharge to home or self care 10/05/2024 12:14 PM CDT - 10/05/2024 11:59 PM CDT Hospital Encounter [facility] ([facility]) [address] [place] [address] Memory loss Discharge Disposition: Discharge to home or self care 09/15/2024 Results Follow-Up [address] [place] [phone] Lois Will MD 09/09/2024 Telephone [facility] [address] [facility] 8[address] [place] [address] [place] [address] Shelley Talbert NP 09/08/2024 4:44 PM WORKFORCE CONSULTANT - 09/08/2024 11:59 PM WORKFORCE CONSULTANT Hospital Encounter [facility] Imaging [address] [place] [address] Osteoporosis, unspecified osteoporosis type, unspecified pathological fracture presence Discharge Disposition: Discharge to home or self care 09/08/2024 4:20 PM WORKFORCE CONSULTANT Lab [facility] [address] [place] [address] Osteoporosis, unspecified osteoporosis type, unspecified pathological fracture presence 09/08/2024 2:40 PM WORKFORCE CONSULTANT Office Visit [address] [place] [address] Lois Will MD Osteoporosis, unspecified osteoporosis type, unspecified pathological fracture presence (Primary Dx) 09/08/2024 2:10 PM WORKFORCE CONSULTANT Clinical Support [address] Building [address] [place] [address] Osteoporosis, unspecified osteoporosis type, unspecified pathological fracture presence (Primary Dx); Age-related osteoporosis without current pathological fracture 09/08/[address] [place] [address] Lois Will MD Treatment Plan Update (New reclast) 09/08/2024 Documentation [facility] [address] [facility] 6th [place] [address] [place] [address] oRd Montes MD 08/14/[address] [place] [phone] Lois Will MD 08/06/2024 Orders Only [place] [id number] [facility] 5th [place] [address] [place] [address] Lois Will MD Age-related osteoporosis without current pathological fracture (Primary Dx) from Last 3 Months Immunizations Immunization Administration Dates Next Due Influenza, Trivalent, High D ose, Split, Preservative Free, Intramuscular 05/11/2019,09/03/2018,03/11/2015 Influenza, Trivalent, Preser vative Free, Intramuscular 04/12/2014,05/05/2013,03/29/2011 Influenza, Unspecified 04/07/2022,2021(Deferred: Patient Refused) Pneumococcal Conjugate, Unspecified 05/20/2013 Pneumococcal Polysaccharide PPV23 05/20/2013, Surgical History Surgery Date Site/Laterality Comments TONSILLECTOMY tonsillectomy CARDIAC STENT PLACEMENT Medical History Medical History Date Comments Type 2 diabetes mellitus (HCC) D iabetes type 2; Comments: [facility] 09/20/2014 - Hypertension Hypertension Restless legs syndrome Restless legs syndrome Adiposity Obesity CAD (coronary artery disease) Hyperlipidemia hyperlipidemia; Comments: [facility] 09/20/2014 - Hypothyroidism hypothyroidism; Comments: [facility] 09/20/2014 - Memory loss memory difficult ies; Comments: [facility] 09/20/2014 - Ear problems Scoliosis Family History Medical History Relation Name Comments Diabetes Father Diabetes type II Father Diabetes me llitus type 2; Cause of : Diabetes mellitus type 2 Hypertension Father Cancer Mother Diabetes Mother Broken bones Neg Hx Hip fracture Neg Hx Kyphosis Neg Hx Osteoporosis Neg Hx Scoliosis Neg Hx Relation Name Status Comments Father Mother Social History Tobacco Use Types Packs/Day Years Used Date Smoking Tobacco: Every Day Cigars Smokeless Tobacco: Never Tobacco Cessation:Ready to Q uit: Not Asked; Counseling Given: Not Answered Comments:Smoking History Packs/day: 15 Cigarettes Alcohol Use Standard Drinks/Week Comments [...] on file Legal Sex Male 8:15 PM WORKFORCE CONSULTANT Gender Identity Male 04/18/2019 11:33 AM CDT Sexual Orientation Straight 04/18/2019 11 :33 AM CDT Obstetrics History Last Filed Vital Signs Vital Sign Reading Time Taken Comments Blood Pressure 134/74 11/22/2023 10:33 AM CDT Pulse 66 11/22/2023 10:33 AM CDT Temperature 36.8 C (98.3 F) 10/01/2022 3:36 PM CDT Respiratory Rate 20 02/18/2024 3:46 PM CDT Oxygen Saturation 98% 11/22/2023 10: 33 AM CDT Inhaled Oxygen Concentration - - Weight 77.1 kg (169 lb 14.4 oz) 09/08/2024 2:12 PM WORKFORCE CONSULTANT Height 154.9 cm (5' 1 ) 09/08/2024 2:12 PM WORKFORCE CONSULTANT Body Mass Index 32.1 09/08/2024 2:12 PM WORKFORCE CONSULTANT Plan of Treatment Health Maintenance Due Date Last Done Comments Albumin Creatinine Ratio, Urine 1945 Hepatitis C Screening 1945 Dilated Eye Exam 1944 Foot Exam 1945 DTaP/Tdap/Td Vaccine (1 - Tdap) 11/16/1955 Hepatitis B Screening 1962 Zoster Vaccine (1 of 2) 1994 Abdominal Aortic Aneurysm (A AA) Screen 2009 Well Visit 65+ 2009 Hemoglobin A1C 01/02/2023 07/04/2022, 08/08, 09/02/2018 Lipid Panel 06/05/2023 06/05/2022, 08/08, 02/14/2019, Additional history exists Depression Screening 10/02/2023 10/01/2022, 08/31/19 21 Fall Risk Assessment 10/02/2023 10/01/2022, 07/05/20 22 Influenza Vaccine (Season Ended) 2025 04/07/2022, 05/11/2019, 09/03/2018, Additional history exists eGFR 09/08/2025 09/08/2024, 11/2022, 07/05/2022, Additional history exists Pneumococcal vaccine 65+ Completed 013, 05/20/2013, 09/19/2011 Goals Goal Patient Goal Type Associated Problems Recent Progress Patient-Stated? Author CCM Chronic Pain Care Plan Chronic Care Management Nan Howell, RN Note: Problem: Chronic Pain Goals: 1. Minimize further functional decline 2. Maximize quality of life 3. Control pain Strategies: - Activity/exercise program recommendation - Conservative stepwise pain medicine strategy with multi-disciplinary approach - Recommend healthy lifestyle strategies and compensatory methods as needed Medical Devices Implanted Type Area Azure Architect Device Identifier Shelf Expiration Date Model / Serial / Lot Daig [place]/St [employer] [id number] Angio-Seal Evolution 6fr .035in Guidewire Bypass Tube Suture - [id number] Implanted:Qty: 1 on 08/21/2020 by Wale Maria MD at [facility] Collagen [employer] [place] 05/07/2021 [id number] / / [id number] [employer] [id number] Resolute [place] 2mm 26mm 140cm Rapid Exchange Delivery System - [id number] Implanted:Qty: 1 on 08/21/2020 by Wale Maria MD at [facility] Stent Med[employer] Inc 12/22/2021 [id number] / / [id number] Cardiac Stent X 3 Heart Procedures Procedure Name Priority Date/Time Associated Diagnosis Comments PET/CT TAU BRAIN IMAGING Schedule Routine, Read Routine (OP Routine) 10/05/2024 4:55 PM CDT Memory loss XR SPINE THORACIC 2 VIEWS Schedule Routine, Read Routine (OP Routine) 09/08/2024 5:09 PM WORKFORCE CONSULTANT Osteoporosis, unspecified osteoporosis type, unspecified pathological fracture presence XR SPINE LUMBAR 2 OR 3 VIEWS Schedule Routine, Read Routine (OP Routine) 09/08/2024 5:09 PM WORKFORCE CONSULTANT Osteoporosis, unspecified osteoporosis type, unspecified pathological fracture presence IMMUNOTYPING Routine 09/08/2024 4:35 PM WORKFORCE CONSULTANT Osteoporosis, unspecified osteoporosis type, unspecified pathological fracture presence EGFR Routine 09/08/2024 4:35 PM WORKFORCE CONSULTANT Osteoporosis, unspecified osteoporosis type, unspecified pathological fracture presence PROTEIN ELECTROPHORESIS, WITH REFLEX, SERUM Routine 09/08/2024 4:35 PM WORKFORCE CONSULTANT Osteoporosis, unspecified osteoporosis type, unspecified pathological fracture presence PTH Routine 09/08/2024 4:35 PM WORKFORCE CONSULTANT Osteoporosis, unspecified osteoporosis type, unspecified pathological fracture presence VITAMIN D 25 HYDROXY Routine 09/08/2024 4:35 PM WORKFORCE CONSULTANT Osteoporosis, unspecified osteoporosis type, unspecified pathological fracture presence PHOSPHORUS Routine 09/08/2024 4:35 PM WORKFORCE CONSULTANT Osteoporosis, unspecified osteoporosis type, unspecified pathological fracture presence COMPREHENSIVE METABOLIC PANEL Routine 09/08/2024 4:35 PM WORKFORCE CONSULTANT Osteoporosis, unspecified osteoporosis type, unspecified pathological fracture presence DEXA TBS AXIAL SKELETON BONE DENSITY 1 OR MORE SITES Schedule Routine, Read Routine (OP Routine) 09/08/2024 2:36 PM WORKFORCE CONSULTANT Age-related osteoporosis without current pathological fracture HEMOGLOBIN A1C Routine 07/04/2022 4:51 AM WORKFORCE CONSULTANT LIPID PANEL Routine 06/05/2022 12:02 PM WORKFORCE CONSULTANT Chronic systolic congestive heart failure (HCC) Moderate mixed hyperlipidemia not requiring statin therapy from Last 3 Months or Most Recently Relevant to Health Maintenance Results * Tau PET Brain Imaging for [facility] Research Study (REQUIRED) (10/05/2024 4:55 PM CDT) Anatomical Region Laterality Modality Positron Emissio n Tomography (PET) 10/06/2024 8:36 AM CDT Impressions 10/06/2024 9:54 AM CDT Nondiagnostic exam due to motion/clinical status despite several attempts to acquire the scan.. Dictated by: Santiago Gaffney MD The radiology attending physician has personally reviewed this study, and had reviewed and/or edited this written report and agrees with it. Electronically signed by: Tiarra Villaseñor M.D. Narrative 10/06/2024 9:54 AM CDT EXAMINATION: BRAIN TAU-PET/CT IMAGING DATE OF STUDY: 10/05/2024 SCANNER: [employer] RADIOPHARMACEUTICAL: 10.9 mCi F-18 Flortaucipir i.v. HISTORY: 78-year-old man enrolled in the [facility] study. No significant cognitive impairment was observed based on the MOCA and clinical dementia rating. TECHNIQUE: At 108 minutes after injection of F-18 Flortaucipir, noncontrast CT images of the head were obtained for attenuation correction and for fusion with emission PET images to allow for anatomical localization of PET findings. Standard emission PET imaging of the brain was then performed. Subsequent acquisition was performed at 140 minutes due to the patient's clinical status and inability to lay flat and multiple motions due to scoliosis. COMPARISON: MRI brain from 09/04/2018. FINDINGS: The patient was scanned multiple times due to multiple motion-degraded exams and the inability to lie flat. All attempts were nondiagnostic due to significant motion. Incidental CT findings. Diffuse age-related volume loss and ex vacuo dilatation of ventricles. Bilateral lens replacements. Procedure Note Tiarra Villaseñor MD - 10/06/2024 EXAMINATION: BRAIN TAU-PET/CT IMAGING DATE OF STUDY: 10/05/2024 SCANNER: [employer] RADIOPHARMACEUTICAL: 10.9 mCi F-18 Flortaucipir i.v. HISTORY: 78-year-old man enrolled in the [facility] study. No significant cognitive impairment was observed based on the MOCA and clinical dementia rating. TECHNIQUE: At 108 minutes after injection of F-18 Flortaucipir, noncontrast CT images of the head were obtained for attenuation correction and for fusion with emission PET images to allow for anatomical localization of PET findings. Standard emission PET imaging of the brain was then performed. Subsequent acquisition was performed at 140 minutes due to the patient's clinical status and inability to lay flat and multiple motions due to scoliosis. COMPARISON: MRI brain from 09/04/2018. FINDINGS: The patient was scanned multiple times due to multiple motion-degraded exams and the inability to lie flat. All attempts were nondiagnostic due to significant motion. Incidental CT findings. Diffuse age-related volume loss and ex vacuo dilatation of ventricles. Bilateral lens replacements. IMPRESSION: Nondiagnostic exam due to motion/clinical status despite several attempts to acquire the scan.. Dictated by: Santiago Gaffney MD The radiology attending physician has personally reviewed this study, and had reviewed and/or edited this written report and agrees with it. Electronically signed by: Tiarra Villaseñor M.D. Rod Montes MD IMG PET PROCEDURES Final Result * XR Spine Lumbar 2 or 3 Views (09/08/2024 5:09 PM WORKFORCE CONSULTANT) Anatomical Region Laterality Modality Spine N/A Computed Radiogr aphy 09/09/2024 6:02 AM WORKFORCE CONSULTANT Impressions 09/09/2024 6:02 AM WORKFORCE CONSULTANT 1. Progressive severe long segment rotatory lumbar levoscoliosis and thoracic hyperkyphosis with severe multilevel degenerative disc disease 2. Diffuse demineralization with unchanged chronic mild L2 and likely multiple mid and lower thoracic compression fractures with limited evaluation due to patient's alignment Electronically signed by: Lucien Mack MD, PHD Narrative 09/09/2024 6:02 AM WORKFORCE CONSULTANT EXAMINATION: Thoracic spine 2 views; lumbar spine 2 or 3 views HISTORY: spondylosis; scoliosis; osteoporosis; depression fractures FINDINGS: 3 thoracic and lumbar spine radiographs are compared to prior MRI from 07/04/2022 and radiographs from 04/19/2022. There is progression of the severe long segment rotatory lumbar levoscoliosis centered at L3 and thoracic hyperkyphosis with severe multilevel thoracic and lumbar degenerative disc disease with bridging osteophytes. Diffuse demineralization is noted. Vertebral bodies are not well profiled given patient's positioning and marked right coronal imbalance, however the L2 compression fracture with mild height loss appears unchanged. There are likely multiple chronic mid to lower thoracic compression fractures with mild height loss which appear unchanged. Aortic atherosclerosis is noted. Procedure Note Lucien Mack MD PhD - 09/09/2024 EXAMINATION: Thoracic spine 2 views; lumbar spine 2 or 3 views HISTORY: spondylosis; scoliosis; osteoporosis; depression fractures FINDINGS: 3 thoracic and lumbar spine radiographs are compared to prior MRI from 07/04/2022 and radiographs from 04/19/2022. There is progression of the severe long segment rotatory lumbar levoscoliosis centered at L3 and thoracic hyperkyphosis with severe multilevel thoracic and lumbar degenerative disc disease with bridging osteophytes. Diffuse demineralization is noted. Vertebral bodies are not well profiled given patient's positioning and marked right coronal imbalance, however the L2 compression fracture with mild height loss appears unchanged. There are likely multiple chronic mid to lower thoracic compression fractures with mild height loss which appear unchanged. Aortic atherosclerosis is noted. IMPRESSION: 1. Progressive severe long segment rotatory lumbar levoscoliosis and thoracic hyperkyphosis with severe multilevel degenerative disc disease 2. Diffuse demineralization with unchanged chronic mild L2 and likely multiple mid and lower thoracic compression fractures with limited evaluation due to patient's alignment Electronically signed by: Lucien Mack MD, PHD Bola Craft MD IMG XR PROCEDURES Final Result * XR Spine Thoracic 2 Views (09/08/2024 5:09 PM WORKFORCE CONSULTANT) Anatomical Region Laterality Modality Spine N/A Computed Radiogr aphy 09/09/2024 6:02 AM WORKFORCE CONSULTANT Impressions 09/09/2024 6:02 AM WORKFORCE CONSULTANT 1. Progressive severe long segment rotatory lumbar levoscoliosis and thoracic hyperkyphosis with severe multilevel degenerative disc disease 2. Diffuse demineralization with unchanged chronic mild L2 and likely multiple mid and lower thoracic compression fractures with limited evaluation due to patient's alignment Electronically signed by: Lucien Mack MD, PHD Narrative 09/09/2024 6:02 AM WORKFORCE CONSULTANT EXAMINATION: Thoracic spine 2 views; lumbar spine 2 or 3 views HISTORY: spondylosis; scoliosis; osteoporosis; depression fractures FINDINGS: 3 thoracic and lumbar spine radiographs are compared to prior MRI from 07/04/2022 and radiographs from 04/19/2022. There is progression of the severe long segment rotatory lumbar levoscoliosis centered at L3 and thoracic hyperkyphosis with severe multilevel thoracic and lumbar degenerative disc disease with bridging osteophytes. Diffuse demineralization is noted. Vertebral bodies are not well profiled given patient's positioning and marked right coronal imbalance, however the L2 compression fracture with mild height loss appears unchanged. There are likely multiple chronic mid to lower thoracic compression fractures with mild height loss which appear unchanged. Aortic atherosclerosis is noted. Procedure Note Lucien Mack MD PhD - 09/09/2024 EXAMINATION: Thoracic spine 2 views; lumbar spine 2 or 3 views HISTORY: spondylosis; scoliosis; osteoporosis; depression fractures FINDINGS: 3 thoracic and lumbar spine radiographs are compared to prior MRI from 07/04/2022 and radiographs from 04/19/2022. There is progression of the severe long segment rotatory lumbar levoscoliosis centered at L3 and thoracic hyperkyphosis with severe multilevel thoracic and lumbar degenerative disc disease with bridging osteophytes. Diffuse demineralization is noted. Vertebral bodies are not well profiled given patient's positioning and marked right coronal imbalance, however the L2 compression fracture with mild height loss appears unchanged. There are likely multiple chronic mid to lower thoracic compression fractures with mild height loss which appear unchanged. Aortic atherosclerosis is noted. IMPRESSION: 1. Progressive severe long segment rotatory lumbar levoscoliosis and thoracic hyperkyphosis with severe multilevel degenerative disc disease 2. Diffuse demineralization with unchanged chronic mild L2 and likely multiple mid and lower thoracic compression fractures with limited evaluation due to patient's alignment Electronically signed by: Lucien Mack MD, PHD Bola Craft MD IMG XR PROCEDURES Final Result * Immunotyping, serum with interpretation (09/08/2024 4:35 PM WORKFORCE CONSULTANT) Immunosubtraction See Comment Comment: IMMUNOTYPING INTERPRETATION: No Monoclonal Protein Detected Testing performed by: [facility], [facility], [place]., [address] Blood 09/08/2024 4:35 PM WORKFORCE CONSULTANT 09/08/2024 9:43 PM WORKFORCE CONSULTANT Narrative CRISTI RODRIGUEZCH - 09/09/2024 11:42 AM WORKFORCE CONSULTANT Reflex Immunotyping, Ser Bola Craft MD LAB BLOOD ORDERABLES Final Resul t Performing Organization Address [facility] Co de Phone Number CRISTI YOUCH [id number] [email or web address] [place] [place] [address] * (ABNORMAL) eGFR (09/08/2024 4:35 PM WORKFORCE CONSULTANT) eGFR 59(L) >=60 mL/min/1. 73 m2 Comment: Interpretive Data Reference Interval Normal >/= 90 mL/min/1.73m2 Mildly decreased* 60 - 89 mL/min/1.73m2 Mildly to moderately decreased 45 - 59 mL/min/1.73m2 Moderately to severely decreased 30 - 44 mL/min/1.73m2 Severely decreased 15 - 29 mL/min/1.73m2 Kidney Failure < 15 mL/min/1.73m2 *Relative to young adult level Estimated glomerular filtration rate is determined by the 2020 CKD-EPI equation recommended by the National Kidney Foundation (A Unifying Approach to GFR Estimation: Recommendations of the NKF-ASK Task Force on Reassessing the Inclusion of Race in Diagnosing Kidney Disease, JASN 2020). The CKD-EPI equation should not be used for patients with unstable renal function and has not been validated in children and those over 70. Current interpretive data was last reviewed 2021. Blood 09/08/2024 4:35 PM WORKFORCE CONSULTANT 09/08/2024 4:42 PM WORKFORCE CONSULTANT Bola Craft MD LAB BLOOD ORDERABLES Final Resul t Performing Organization Address [facility] Co de Phone Number CRISTI RODRIGUEZCH [address] [email or web address] [place] [place] [address] * Vitamin D 25 hydroxy (09/08/2024 4:35 PM WORKFORCE CONSULTANT) Vitamin D 25-OH 46 30 - 80 ng/mL Blood 09/08/2024 4:35 PM WORKFORCE CONSULTANT 09/08/2024 4:42 PM WORKFORCE CONSULTANT us Bola Craft MD LAB BLOOD ORDERABLES Final Resul t CRISTI PLASCENCIA [address] [facility] Department [place] [address] * Protein electrophoresis with reflex, serum with interpretation (09/08/2024 4:35 PM WORKFORCE CONSULTANT) Protein, sr 6.8 6.2 - 8.2 g/dL Comment:Testing performed by : [facility], [address] [place] [address]., [id number] Albumin 3.8 3.2 - 5.0 g/dL CRISTI PLASCENCIA Comment:Testing performed by : [facility], [address] [place] [address]., [id number] Alpha-1 globulin 0.3 0.2 - 0.4 g/dL CRISTI PLASCENCIA Comment:Testing performed by : [facility], [address] [place] [address]., [id number] Alpha-2 globulin 0.9 0.5 - 1.0 g/dL CRISTI PLASCENCIA Comment:Testing performed by : [facility], [address] [place] [address]., [id number] Beta-1 globulin 0.5 0.3 - 0.6 g/dL CRISTI PLASCENCIA Comment:Testing performed by : [facility], [address] [place] [address]., [address] Beta-2 globulin 0.5 0.2 - 0.6 g/dL CRISTI PLASCENCIA Comment:Testing performed by : [facility], [address] [place] [address]., [id number] Gamma globulin 0.9 0.5 - 1.7 g/dL CRISTI PLASCENCIA Comment:Testing performed by : [facility], [address] [place] [address]., [id number] SPEP interp See Comment CRISTI PLASCENCIA Comment: SPEP INTERPRETATION: No apparent monoclonal peak Testing performed by: [facility], [address] [place] [address]., [id number] Immunotyping See Immunotyping Results CRISTI PLASCENCIA Comment:Testing performed by : [facility], [address] [place] [address]., [id number] Blood 09/08/2024 4:35 PM WORKFORCE CONSULTANT 09/08/2024 9:43 PM WORKFORCE CONSULTANT Bola Craft MD LAB BLOOD ORDERABLES Final Resul t Performing Organization Address City/[facility] Co de Phone Number CRISTI [facility] [email or web address] [facility] [place] [employer] [place] [address] * Phosphorus (09/08/2024 4:35 PM WORKFORCE CONSULTANT) Phosphorus, pl 3.4 2.3 - 4.5 mg/dL Blood 09/08/2024 4:35 PM WORKFORCE CONSULTANT 09/08/2024 4:42 PM WORKFORCE CONSULTANT Bola Craft MD LAB BLOOD ORDERABLES Final Resul t Performing Organization Address [facility] Co de Phone Number [facility] [id number] [email or web address] Department [employer] [place], [place] [id number] * PTH (09/08/2024 4:35 PM WORKFORCE CONSULTANT) PTH 57 15 - 65 pg/mL Blood 09/08/2024 4:35 PM WORKFORCE CONSULTANT 09/08/2024 4:42 PM WORKFORCE CONSULTANT Bola Craft MD LAB BLOOD ORDERABLES Final Resul t Performing Organization Address [facility] Co de Phone Number CRISTI YOUCH [phone] [email or web address] [facility] [employer] [place], [place] [id number] * Comprehensive metabolic panel (09/08/2024 4:35 PM WORKFORCE CONSULTANT) Sodium 140 135 - 145 mmol/L Potassium, pl 4.4 3.3 - 4.9 mmol/L CERNER [facility] Chloride 108 97 - 110 mmol/L [facility] CO2 22 22 - 32 mmol/L [facility] Anion gap 10 2 - 15 mmol/L [facility] BUN 23 6 - 25 mg/dL [facility] Creatinine 1.24 0.80 - 1.30 mg/dL [facility] Glucose 107 70 - 199 mg/dL [facility] Comment: Interpretive Data Fasting glucose >/= 126 mg/dl is diagnostic for diabetes. Fasting is defined as no caloric intake for at least 8 hours. Fasting glucose between 100 mg/dl to 125 mg/dl is diagnostic of prediabetes. In a patient with classic symptoms of hyperglycemia or hyperglycemic crisis, a random glucose >/= 200 mg/dl is diagnostic for diabetes. In the absence of unequivocal hyperglycemia, results should be confirmed by repeat testing. The classification and Diagnosis of Diabetes Diabetes Care 2021; 46: S19-S40. Current interpretive data was last revised 2022. Calcium 9.4 8.5 - 10.3 mg/dL [facility] Bilirubin, total 0.3 0.1 - 1.2 mg/dL [facility] Protein, pl 7.1 6.5 - 8.5 g/dL [facility] Albumin 3.8 3.5 - 5.0 g/dL [facility] Alk phos 122 40 - 130 Units/L [facility] ALT 14 7 - 55 Units/L [facility] AST 17 10 - 50 Units/L [facility] Comment:Hemolyzed; result ma y be falsely elevated. Blood 09/08/2024 4:35 PM WORKFORCE CONSULTANT 09/08/2024 4:42 PM WORKFORCE CONSULTANT us Bola Craft MD LAB BLOOD ORDERABLES Final Resul t CRISTI PLASCENCIA [address] [facility]. Department [place] [address] * Dexa TBS Axial Skeleton Bone Density 1 or more sites (09/08/2024 2:36 PM WORKFORCE CONSULTANT) Anatomical Region Laterality Modality Wrist, Body N/A Radiographic Park ging Narrative 09/09/2024 12:37 PM WORKFORCE CONSULTANT Patient Name: Jackie Neville Date of : 1945 Date of scan: 09/08/2024 Bone mineral density was performed on a [employer] Densitometer. Based on machine cross-calibration and precision studies the least significant changes of this densitometer is 0.024 g/cm2 at the spine, 0.020 g/cm2 at the total proximal femur, and 0.014g/cm2 at the forearm. HISTORY: This is a 78 y.o. male with a history of multiple fractures. He reports that he has been smoking cigars. He has never used smokeless tobacco. Currently on treatment with calcium, vitamin D, risedronate (Actonel), anticoagulants, and diuretics. INDICATIONS: Treatment monitoring, history of prior vertebral fracture, and male over age 70. FINDINGS: BONE MINERAL DENSITY OF THE LUMBAR SPINE Bone Mineral Density (BMD) of the lumbar spine was measured from L3-L4 and the average density was calculated to be 0.978 gm/cm2. This corresponds to a T-score (standard deviations from the mean of young adults) of -1.3. There is no previous study available for comparison. BONE MINERAL DENSITY OF THE PROXIMAL FEMUR Bone Mineral Density (BMD) of the left hip total was found to be 0.623 gm/cm2. This corresponds to a T-score standard deviations from the mean of young adults of -2.7. Femoral neck is 0.658 gm/cm2 with a T-score (standard deviations from the mean of young adults) of -2.0. There is no previous study available for comparison. BONE MINERAL DENSITY OF THE FOREARM Bone Mineral density (BMD) of the right proximal 1/3 of the radius measures 0.649 gm/cm2. This corresponds to a T-score (standard deviations from the mean of young adults) of -3.2. There is no previous study available for comparison. A forearm bone density study was performed in addition to the routine study due to history of vertebral compression fracture. SUMMARY: Bone mineral density shows evidence of osteoporosis and marked increase risk of fracture. L1 and L2 excluded from bone mineral density analysis of the lumbar spine due to history of compression deformity. The lumbar spine Trabecular Bone Score is 1.175 which suggests degraded bone microarchitecture compared to the general population. Final decisions regarding diagnostic or therapeutic recommendations should include BMD, TBS, additional clinical risk factors as well the clinical context of the patient. Please see attached TBS results for further details. ADDITIONAL COMMENTS: Postmenopausal Women and Men Over 50: Diagnostic criteria: Osteoporosis: BMD at or below -2.5 T-score; Osteopenia (low bone mass): BMD between -1.0 and -2.5 T-score. If the patient has a history of a fragility fracture, a fracture that occurred with trauma equivalent to a fall from a standing position or less, then the diagnosis is osteoporosis regardless of bone density. The history and data sections of the bone mineral density scan were prepared by Pricilla Contreras (R)(CBDT) who is accredited by the International Society of Clinical Densitometry. The overall patient assessment and scan interpretation were performed by Lois Will M.D. who is certified by the International Society of Clinical Densitometry. [id number] us Lois Will MD IMG DXA PROCEDURES Final Resu lt * Hemoglobin A1c (07/04/2022 4:51 AM WORKFORCE CONSULTANT) Pathologist [facility] Hgb A1C 5.5 4.0 - 5.6 % [facility] Estimated Average Glucose 111 mg/dL [facility] Comment: The ADA recommends reporting an estimated Average Glucose (eAG) with all Hemoglobin A1c results using the equation derived from a study of 507 normal and diabetic adults. Minority populations were underrepresented and children were not included. (Diabetes Care 2020; 43(S1): S66-S76). The eAG is not equivalent to a fasting glucose. Blood 07/04/2022 4:51 AM WORKFORCE CONSULTANT 07/04/2022 5:04 AM WORKFORCE CONSULTANT us Eva Landeros MD LAB BLOOD ORDERABLES Leyda brady Result [facility] Department [place] [address] * Lipid panel (06/05/2022 12:02 PM WORKFORCE CONSULTANT) [facility] Cholesterol 96 30 - 199 mg/dL [facility] Comment: Interpretive Data Ages < or = 19 years Acceptable: <170 mg/dL Borderline high: 170-199 mg/dL High: >or= 200 mg/dL Ages > or = 20 years Desirable: <200 mg/dL Borderline high: 200-239 mg/dL High: >or= 240 mg/dL Literature References: 1. Expert Panel on Integrated Guidelines for Cardiovascular Health and Risk Reduction in Children and Adolescents. Pediatrics 2011;128:S213 2. NCEP Expert Panel. Circulation 2004;110:227 Current Interpretive Data was last revised on 2018. Triglycerides 98 <=149 mg/dL [facility] Comment: Interpretive Data Ages < or = 9 years Acceptable: <75 mg/dL Borderline high: 75-99 mg/dL High: >or= 100 mg/dL Ages 10 to 20 years Acceptable: <90 mg/dL Borderline high: 90-129 mg/dL High: >or= 130 mg/dL Ages > or = 20 years Desirable: <150 mg/dL Borderline high: 150-199 mg/dL High: 200-499 mg/dL Very high: >or= 499 mg/dL Literature References: 1. Expert Panel on Integrated Guidelines for Cardiovascular Health and Risk Reduction in Children and Adolescents. Pediatrics 2011;128:S213 2. NCEP Expert Panel. Circulation 2004;110:227 Current Interpretive Data was last revised on 2018. HDL 49 >=40 mg/dL [facility] Comment: Interpretive Data Ages < or = 19 years Acceptable: >45 mg/dL Borderline low: 40-45 mg/dL Low: <40 mg/dL Ages > or = 20 years Desirable: >or= 60 mg/dL Low: <40 mg/dL Literature References: 1. Expert Panel on Integrated Guidelines for Cardiovascular Health and Risk Reduction in Children and Adolescents. Pediatrics 2011;128:S213 2. NCEP Expert Panel. Circulation 2004;110:227 Current Interpretive Data was last revised on 2018. LDL, calculated 27 <=129 mg/dL [facility] Comment: Interpretive Data Ages < or = 19 years Acceptable: <110 mg/dL Borderline high: 110-129 mg/dL High: >or= 130 mg/dL Ages > or = 20 years Optimal: <100 mg/dL Near optimal: 100-129 mg/dL Borderline high: 130-159 mg/dL High: >160 mg/dL Literature References: 1. Expert Panel on Integrated Guidelines for Cardiovascular Health and Risk Reduction in Children and Adolescents. Pediatrics 2011;128:S213 2. NCEP Expert Panel. Circulation 2004;110:227 Current Interpretive Data was last revised on 2018. Non-HDL Cholesterol 47 mg/dL [facility]STI YOU Comment: Interpretive Data Ages < or = 19 years Acceptable: <120 mg/dL Borderline high: 120-144 mg/dL High: >145 mg/dL Ages > or = 20 years When triglycerides are >200 mg/dL, Non-HDL cholesterol is a secondary target of therapy with treatment goals that are 30 mg/dL greater than the LDL cholesterol target. Literature References: 1. Expert Panel on Integrated Guidelines for Cardiovascular Health and Risk Reduction in Children and Adolescents. Pediatrics 2011;128:S213 2. NCEP Expert Panel. Circulation 2004;110:227 Current Interpretive Data was last revised on 2018. Chol/HDL ratio 2 CRISTI YOU Blood 06/05/2022 12:0 2 PM WORKFORCE CONSULTANT 06/05/2022 12:37 PM WORKFORCE CONSULTANT us Dylan Beal MD LAB BLOOD ORDERABLES Final R esult [facility] [place] [address] from Last 3 Months or Most Recently Relevant to Health Maintenance Insurance MEDICARE [facility], [facility] MEDICARE [facility] MEDICARE SUPPLEMENT MEDICARE MEDICARE BLUE CROSS MEDICARE SUPPLEMENT MEDICARE [facility], [facility] Advance Directives For more information, please contact: [phone] * Full Code (Latest Code Status on File) Date Activated Date Inactivated Comments 07/03/2022 6:22 PM 07/05/2022 8:57 PM * Full Code Date Activated Date Inactivated Comments 08/20/2020 11:29 AM 08/22/2020 6:41 PM * Full Code Date Activated Date Inactivated Comments 02/15/2019 1:48 AM 02/16/2019 7:25 PM * Full Code Date Activated Date Inactivated Comments 09/02/2018 8:14 PM 09/06/2018 7:30 PM Care Teams Dairy Consultant Relationship Specialty Start Date End Date Alexandre Smith MD [address] [address] [place] [address] PCP - General Internal Medicine 09/08/24 Natalio Esparza MD [address] [facility] [address] [place] [address] Referring Physician Surgery 12/23/19
--- OUTSIDE RECORDS SUMMARY | 2024-10-08 12:10 | XMS_ITS | Patient Health Record ---
Author Organization [facility] Address [address] [facility] [facility] [address] [facility]. [address] [place] [id number] Care Team Providers Care Od Grinder Operator Name Role Phone Fabián Stanley MD Primary Care Provider Unavail able Teodoro Doan Unavailable [phone] Reason For Referral No Information Medications Medication SIG (Take, Route, Frequency, Duration) Notes Start Date End Date Status Lasix Active Prevagen Active traZODone HCl Active Jardiance Active OTC/Vitamins Fish Oil, Potassium, Vitamin D, Vitamin B12, Folic Acid Active Irbesartan Active Lantus Active Xanax Active Terazosin HCl Active Eliquis Active Spironolactone Activ e Carvedilol Active Soma Active Brilinta Active Mirapex Active oxyBUTYnin Active [place] Active Rosuvastatin Calcium Active Prozac Active Social History Tobacco Use: Social History Observation Description Date Details (start date - stop date) Former Smoker NA - NA Tobacco Use/Smoking Question Answer Notes Are you a former smoker How long has it been since you last smoked? > 10 years Problems Problem Type SNOMED Code ICD Code Onset Dates Problem Status W/U Status Risk Notes Problem 994325780 Diverticulosis o f large intestine without perforation or abscess without bleeding (K57.30) Active confirmed Problem 851722059 Personal history of colonic polyps (Z86.010) Active confirmed Problem 699407099 Colon cancer screening (Z12.11) Active confirmed It has been 10 years since his last colonosco py, which by his report was normal. His stools are usually soft or loose. He denies having any blood in the stool. Problem 713140778 History of heart artery stent (Z95.5) Active confirmed Problem 025389146846585 High risk medication use (Z79.899) Active confirmed He has a history of cardiac stents. It has been a few years since his most recent stent was placed. He takes Eliquis and Brilinta. Plan Of Treatment Pending Test Test Name Order Date Colonoscopy 04/05/2020 Insurance Providers Payer Name Payer Address Payer Phone Subscriber Number Group Number Insured Name Patient Relationship to Insured Coverage Start Date Coverage End Date Medicare E2 [address] [address] [place] [phone] [id number] OscarSanthosh han Self - patient is the insured [employer] PPO E2 [address] [place] [phone] [id number] Santhosh Moore Self - patient is the insured Medical (General) History Medical History History ICD Code Restless Leg Syndrome Depression Hypertension Hypercholesterolemia Diabetes Sleep Apnea Hearing Loss Heart Disease Surgical History Surgery Date(Month/Year) Cardiac stents Colonoscopy 2009
--- OUTSIDE RECORDS SUMMARY | 2024-10-08 12:10 | XMS_ITS | Referral Summary ---
Author Organization [facility] Address [address] [place] [address] Care Team Providers Care Environmental Conflict Manager Name Role Phone Natalio Esparza MD Unavailable [phone] Alexandre Smith MD Primary Care Provider [phone] Encounters Date Type Department Care Team Description 10/06/2024 Telephone [facility] Diagnostic [facility] [place] First Floor [address] [place] [address] Hesham Hernandez RMA 10/06/2024 Orders Only [facility] Diagnostic [place] [id number] [facility] [place] First Floor [address] [place] [address] Rod Montes MD Memory loss (Primary Dx) 10/05/2024 12:15 PM CDT - 10/05/2024 11:59 PM CDT Hospital Encounter [facility] Critical access hospital5 [place] [address] Arrived Discharge Disposition: Discharge to home or self care 10/05/2024 12:14 PM CDT - 10/05/2024 11:59 PM CDT Hospital Encounter [facility] [address] [place] [address] Memory loss Discharge Disposition: Discharge to home or self care 09/15/2024 Results Follow-Up [facility] Medical Office Building 2 [address] [place] [address] Lois Will MD 09/09/2024 Telephone [facility] Cardiology [address] [facility] 8th [place] [address] [place] [address] Shelley Talbert NP 09/08/2024 4:44 PM HEATING SYSTEMS INSTALLER - 09/08/2024 11:59 PM HEATING SYSTEMS INSTALLER Hospital Encounter [facility] [address] [place] [address] Osteoporosis, unspecified osteoporosis type, unspecified pathological fracture presence Discharge Disposition: Discharge to home or self care 09/08/2024 4:20 PM HEATING SYSTEMS INSTALLER Lab [facility] [address] [place] [address] Osteoporosis, unspecified osteoporosis type, unspecified pathological fracture presence 09/08/[address] Medical Office Building [address] [place] [id number] Lois Will MD Treatment Plan Update (New reclast) 09/08/2024 Documentation [facility] Critical access hospital1 [facility] 6th [place] [address] [place] [address] Rod Montes MD 09/08/2024 2:10 PM HEATING SYSTEMS INSTALLER Clinical Support [address] Medical Office Building [address] [place] [id number] Osteoporosis, unspecified osteoporosis type, unspecified pathological fracture presence (Primary Dx); Age-related osteoporosis without current pathological fracture 09/08/2024 2:40 PM HEATING SYSTEMS INSTALLER Office Visit [address] Medical Office Building [address] [place] [address] Lois Will MD Osteoporosis, unspecified osteoporosis type, unspecified pathological fracture presence (Primary Dx) 08/14/[address] Medical Office Building [address] [place] [address] Lois Will MD 08/06/2024 Orders Only [address] 5th [place] [address] [place] [address] Lois Will MD Age-related osteoporosis without current pathological fracture (Primary Dx) from Last 3 Months Allergies No known active allergies Medications nitroglycerin [...] s:Vitamin deficiencies Take 1 capsule by mouth deck supervisor before breakfast Active vit D3-vit C-swagnzfwh-bxyd [id number] iyrm-adx-gh-mg tabletIndications :Vitamin Deficiency Prevention Take 1 tablet [...] 07/03/2022 Assessment & Plan (07/05/2022 11:02 AM HEATING SYSTEMS INSTALLER): -PT/OT -pain control -MRI with new compression fracture, severe neuroforaminal narrowing - pain management consult for possible injection/procedure given that pain isn't controlled with conservative management Assessment & Plan (07/04/2022 11:32 AM HEATING SYSTEMS INSTALLER): -PT/OT -pain control -I d/w NSGY LEATHER PATCHER whom patient was supposed to see today. 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 -NSTEMI -Initial ECG not diagnostic for an acute ischemic event -troponin continues to uptrend: 64616->66944->38841->28156 -c/o some chest discomfort and shortness of breath this AM; BP dropped to 70 when sitting at side of bed -serial EKGs without acute changes -plan for [facility] today -continue heparin drip -continue nitroglycerin drip -continue irbesartan -continue aspirin/brillinta Unstable angina pectoris 08/20/2020 Overview (08/21/2020): Added automatically from request for surgery [id number] Diastolic heart failure 12/08/2019 Assessment & Plan (07/05/2022 11:03 AM HEATING SYSTEMS INSTALLER): -chronic diastolic heart failure -euvolemic -holding ARB, diuretics for SABAS Assessment & Plan (07/04/2022 11:31 AM HEATING SYSTEMS INSTALLER): -chronic diastolic heart failure -euvolemic -holding ARB, diuretics for SABAS Insufficient treatment with nasal CPAP 9 Circadian rhythm sleep disorder, 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 Chronic systolic congestive heart failure 2018 Ischemic cardiomyopathy 03/23/2019 Cardiogenic shock 09/02/2018 Assessment & Plan (09/03/2018 4:56 PM HEATING SYSTEMS INSTALLER): 2/2 junctional bradycardia P/w BP 82/49, HR 35-41, lactate 2.7, Cr 1.9 from baseline 0.8 -improved to 100s/50s with IVF in ED -lactate 2.7->2.5->2.1 -IVF Symptomatic bradycardia 09/02/2018 Assessment & Plan (09/03/2018 4:51 PM HEATING SYSTEMS INSTALLER): P/w dizziness, unsteadiness EKG with junctional bradycardia HR 40, CT head with no ICH Unsure if he took both metoprolol and carvedilol -hold home antihypertensives and beta blockers -tele -EP c/s if kavya does not self resolve -09/03 HR improved to 80s Paroxysmal A-fib 09/02/2018 Assessment & Plan (08/21/2020 11:02 AM HEATING SYSTEMS INSTALLER): -currently in sinus rhythm -holing Eliquis for [facility] -continue heparin gtt Assessment & Plan (09/02/2018 4:22 PM HEATING SYSTEMS INSTALLER): Per records -not seen on prior EKG -hold home Eliquis 5 b.i.d. -tele SABAS (acute kidney injury) 09/02/2018 Assessment & Plan (09/02/2018 4:25 PM HEATING SYSTEMS INSTALLER): b/l 0.8, presents with Cr 1.9, likely [...] needed Assessment & Plan (07/05/2022 11:03 AM HEATING SYSTEMS INSTALLER): -type 2 diabetes, on lantus 45 BID, Jardiance at home -Received only 35 units last night with hypoglycemia overnight despite improving SABAS -Hold insulin for now; will likely need much lower lantus dose Assessment & Plan (07/04/2022 11:32 AM HEATING SYSTEMS INSTALLER): -type 2 diabetes, on lantus 45 BID, Jardiance at home -Dose reduced insulin here to 45 units daily + SSI Assessment & Plan (07/03/2022 5:43 PM HEATING SYSTEMS INSTALLER): -type 2 diabetes, on lantus 45 BID, Jardiance at home -Dose reduced insulin here given SABAS Assessment & Plan (08/21/2020 11:04 AM HEATING SYSTEMS INSTALLER): Hgb A1C 8.4; home regimen lantus 45u BID -continue reduced dose lantus 20u BID -cont lispro SSI -consistent carb diet Assessment & Plan (09/05/2018 6:40 PM HEATING SYSTEMS INSTALLER): a1c-12.5 -glucose at 563 at presentation improved [...] daily Assessment & Plan (08/21/2020 11:07 AM HEATING SYSTEMS INSTALLER): Recently seen in CHF clinic and multiple medications (norvasc, lasix, coreg) had been recently stopped for orthostasis. At that clinic visit, his irbesartan was reduced from 300mg to 150mg. -BP 191/107 on presentation to ED -currently controlled with nitro gtt -continue irbesartan -plan to resume previous anti-HTN meds as BP allows Assessment & Plan (09/02/2018 4:26 PM HEATING SYSTEMS INSTALLER): -hold home antihypertensives for symptomatic kavya CAD (coronary artery disease) 12/30/2014 Overview (10/11/2016): Coronary heart disease Assessment & Plan (07/05/2022 11:03 AM HEATING SYSTEMS INSTALLER): -continue ASA, statin -stable Assessment & Plan (07/04/2022 11:32 AM HEATING SYSTEMS INSTALLER): -continue ASA, statin -stable Assessment & Plan (07/03/2022 5:41 PM HEATING SYSTEMS INSTALLER): -continue ASA, statin -stable Assessment & Plan (09/02/2018 4:21 PM HEATING SYSTEMS INSTALLER): [facility] 05/19/2013 and 05/27/2013, showed 99% subtotal occlusion [...] obstructive Assessment & Plan (09/02/2018 4:23 PM HEATING SYSTEMS INSTALLER): Sleep study 05/2015 recommended CPAP nightly with [...] daily Assessment & Plan (09/03/2018 12:19 AM HEATING SYSTEMS INSTALLER): -hold home rosuvastatin 10 Acute congestive heart failure Shortness of breath Status post insertion of drug eluting coronary a rtery stent SABAS (acute kidney injury) Assessment & Plan (10/16/2022 9:03 AM CDT): Stable, continue to monitor, check CMP to evaluate current renal function Continue to monitor PTH and vitamin-D level Assessment & Plan (07/05/2022 11:01 AM HEATING SYSTEMS INSTALLER): -suspect related to high doses of ibuprofen over the last week -Cr trending down Assessment & Plan (07/04/2022 11:31 AM HEATING SYSTEMS INSTALLER): -suspect related to high doses of ibuprofen over the last week -check UA -Gentle IVF -Renal US if not improving Assessment & Plan (07/03/2022 5:42 PM HEATING SYSTEMS INSTALLER): -suspect related to high doses of ibuprofen over the last week -check UA -Gentle IVF -Renal US if not improving Resolved Problems Problem Noted Date Diagnosed Date Resolved Date 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/06/2021 TIA (transient ischemic attack) 09/03/2018 03/23/2019 Assessment & Plan (09/03/2018 4:53 PM HEATING SYSTEMS INSTALLER): Hx of several TIA in the past, [...] mellitus 05/05/2009 03/23/2019 Troponin level elevated 03/08 Immunizations Immunization Administration Dates Next Due Influenza, Trivalent, High D ose, Split, Preservative Free, Intramuscular 05/11/2019,09/03/2018,03/11/2015 Influenza, Trivalent, Preser vative Free, Intramuscular 04/12/2014,05/05/2013,03/29/2011 Influenza, Unspecified 04/07/2022,2021(Deferred: Patient Refused) Pneumococcal Conjugate, Unspecified 05/20/2013 Pneumococcal Polysaccharide PPV23 05/20/2013, Social History Tobacco Use Types Packs/Day Years [...] on file Legal Sex Male 8:15 PM HEATING SYSTEMS INSTALLER Gender Identity Male 04/18/2019 11:33 AM CDT Sexual Orientation Straight 04/18/2019 11 :33 AM CDT Last Filed Vital Signs Vital Sign Reading Time Taken Comments Blood Pressure 134/74 11/22/2023 10:33 AM CDT Pulse 66 11/22/2023 10:33 AM CDT Temperature 36.8 C (98.3 F) 10/01/2022 3:36 PM CDT Respiratory Rate 20 02/18/2024 3:46 PM CDT Oxygen Saturation 98% 11/22/2023 10: 33 AM CDT Inhaled Oxygen Concentration - - Weight 77.1 kg (169 lb 14.4 oz) 09/08/2024 2:12 PM HEATING SYSTEMS INSTALLER Height 154.9 cm (5' 1 ) 09/08/2024 2:12 PM HEATING SYSTEMS INSTALLER Body Mass Index 32.1 09/08/2024 2:12 PM HEATING SYSTEMS INSTALLER Plan of Treatment Not on file Goals Goal Patient Goal Type Associated Problems [...] as needed Medical Devices Implanted Type Area Machine Shop Inspector Device Identifier Shelf Expiration Date Model / Serial / Lot DaiMatter.io Dale/St [employer] [id number] Angio-Seal Evolution 6fr .035in Guidewire Bypass Tube Suture - [id number] Implanted:Qty: 1 on 08/21/2020 by Wale Maria MD at [facility] Collagen [employer] Dale 05/07/2021 [id number] / / [id number] Med[employer] [id number] Resolute Tennga 2mm 26mm 140cm Rapid Exchange Delivery System - [id number] Implanted:Qty: 1 on 08/21/2020 by Wale Maria MD at [facility] Stent Med[employer] Inc 12/22/2021 [id number] / / [id number] Cardiac Stent X 3 Heart Procedures Procedure Name Priority Date/Time Associated Diagnosis Comments PET/CT TAU BRAIN IMAGING Schedule Routine, Read Routine (OP Routine) 10/05/2024 4:55 PM CDT Memory loss XR SPINE THORACIC 2 VIEWS Schedule Routine, Read Routine (OP Routine) 09/08/2024 5:09 PM HEATING SYSTEMS INSTALLER Osteoporosis, unspecified osteoporosis type, unspecified pathological fracture presence XR SPINE LUMBAR 2 OR 3 VIEWS Schedule Routine, Read Routine (OP Routine) 09/08/2024 5:09 PM HEATING SYSTEMS INSTALLER Osteoporosis, unspecified osteoporosis type, unspecified pathological fracture presence IMMUNOTYPING Routine 09/08/2024 4:35 PM HEATING SYSTEMS INSTALLER Osteoporosis, unspecified osteoporosis type, unspecified pathological fracture presence EGFR Routine 09/08/2024 4:35 PM HEATING SYSTEMS INSTALLER Osteoporosis, unspecified osteoporosis type, unspecified pathological fracture presence PROTEIN ELECTROPHORESIS, WITH REFLEX, SERUM Routine 09/08/2024 4:35 PM HEATING SYSTEMS INSTALLER Osteoporosis, unspecified osteoporosis type, unspecified pathological fracture presence PTH Routine 09/08/2024 4:35 PM HEATING SYSTEMS INSTALLER Osteoporosis, unspecified osteoporosis type, unspecified pathological fracture presence VITAMIN D 25 HYDROXY Routine 09/08/2024 4:35 PM HEATING SYSTEMS INSTALLER Osteoporosis, unspecified osteoporosis type, unspecified pathological fracture presence PHOSPHORUS Routine 09/08/2024 4:35 PM HEATING SYSTEMS INSTALLER Osteoporosis, unspecified osteoporosis type, unspecified pathological fracture presence COMPREHENSIVE METABOLIC PANEL Routine 09/08/2024 4:35 PM HEATING SYSTEMS INSTALLER Osteoporosis, unspecified osteoporosis type, unspecified pathological fracture presence DEXA TBS AXIAL SKELETON BONE DENSITY 1 OR MORE SITES Schedule Routine, Read Routine (OP Routine) 09/08/2024 2:36 PM HEATING SYSTEMS INSTALLER Age-related osteoporosis without current pathological fracture HEMOGLOBIN A1C Routine 07/04/2022 4:51 AM HEATING SYSTEMS INSTALLER LIPID PANEL Routine 06/05/2022 12:02 PM HEATING SYSTEMS INSTALLER Chronic systolic congestive heart failure (HCC) Moderate mixed hyperlipidemia not requiring statin therapy from Last 3 Months or Most Recently Relevant to Health Maintenance Results * [facility] (REQUIRED) (10/05/2024 4:55 PM CDT) [...] TAU-PET/CT IMAGING DATE OF STUDY: 10/05/2024 SCANNER: [employer] RADIOPHARMACEUTICAL: 10.9 mCi F-18 Flortaucipir i.v. HISTORY: [...] TAU-PET/CT IMAGING DATE OF STUDY: 10/05/2024 SCANNER: [employer] RADIOPHARMACEUTICAL: 10.9 mCi F-18 Flortaucipir i.v. HISTORY: [...] to acquire the scan.. Dictated by: Santiago Gafnfey MD The radiology attending physician has personally reviewed this study, and had reviewed and/or edited this written report and agrees with it. Electronically signed by: Tiarra Villaseñor M.D. Rod Montes MD IMG PET PROCEDURES Final Result * XR Spine Lumbar 2 or 3 Views (09/08/2024 5:09 PM HEATING SYSTEMS INSTALLER) Anatomical Region Laterality Modality Spine N/A Computed Radiogr aphy 09/09/2024 6:02 AM HEATING SYSTEMS INSTALLER Impressions 09/09/2024 6:02 AM HEATING SYSTEMS INSTALLER 1. Progressive severe long segment rotatory lumbar levoscoliosis and thoracic hyperkyphosis with severe multilevel degenerative disc disease 2. Diffuse demineralization with unchanged chronic mild L2 and likely multiple mid and lower thoracic compression fractures with limited evaluation due to patient's alignment Electronically signed by: Lucien Mack MD, PHD Narrative 09/09/2024 6:02 AM HEATING SYSTEMS INSTALLER EXAMINATION: Thoracic spine 2 views; lumbar spine [...] Spine Thoracic 2 Views (09/08/2024 5:09 PM HEATING SYSTEMS INSTALLER) Anatomical Region Laterality Modality Spine N/A Computed Radiogr aphy 09/09/2024 6:02 AM HEATING SYSTEMS INSTALLER Impressions 09/09/2024 6:02 AM HEATING SYSTEMS INSTALLER 1. Progressive severe long segment rotatory lumbar levoscoliosis and thoracic hyperkyphosis with severe multilevel degenerative disc disease 2. Diffuse demineralization with unchanged chronic mild L2 and likely multiple mid and lower thoracic compression fractures with limited evaluation due to patient's alignment Electronically signed by: Lucien Mack MD, PHD Narrative 09/09/2024 6:02 AM HEATING SYSTEMS INSTALLER EXAMINATION: Thoracic spine 2 views; lumbar spine [...] Immunotyping, serum with interpretation (09/08/2024 4:35 PM HEATING SYSTEMS INSTALLER) Immunosubtraction See Comment Comment: IMMUNOTYPING INTERPRETATION: No Monoclonal Protein Detected Testing performed by: [facility], [address] [facility], [place]., [address] Blood 09/08/2024 4:35 PM HEATING SYSTEMS INSTALLER 09/08/2024 9:43 PM HEATING SYSTEMS INSTALLER Narrative CRISTI RODRIGUEZCH - 09/09/2024 11:42 AM HEATING SYSTEMS INSTALLER Reflex Immunotyping, Ser Bola Craft MD LAB BLOOD ORDERABLES Final Resul t CRISTI YOUCH [id number] [place] [address] * (ABNORMAL) eGFR (09/08/2024 4:35 PM HEATING SYSTEMS INSTALLER) eGFR 59(L) >=60 mL/min/1. 73 m2 Comment: [...] last reviewed 2021. Blood 09/08/2024 4:35 PM HEATING SYSTEMS INSTALLER 09/08/2024 4:42 PM HEATING SYSTEMS INSTALLER us Bola Craft MD LAB BLOOD ORDERABLES Final Resul t [facility]STI YOUWCH [id number] [place] [address] * Vitamin D 25 hydroxy (09/08/2024 4:35 PM HEATING SYSTEMS INSTALLER) Pathologist [facility] Vitamin D 25-OH 46 30 - 80 ng/mL Blood 09/08/2024 4:35 PM HEATING SYSTEMS INSTALLER 09/08/2024 4:42 PM HEATING SYSTEMS INSTALLER us Bola Craft MD LAB BLOOD ORDERABLES Final Resul t [facility] [address] [facility] Department [place] [address] * Protein electrophoresis with reflex, serum with interpretation (09/08/2024 4:35 PM HEATING SYSTEMS INSTALLER) [facility] Protein, sr 6.8 6.2 - 8.2 g/dL Comment:Testing performed by : [facility], [address] [place] [address]., [address] Albumin 3.8 3.2 - 5.0 g/dL CRISTI PLASCENCIA Comment:Testing performed by : [facility], [address] [place] [address]., [id number] Alpha-1 globulin 0.3 0.2 - 0.4 g/dL CRISTI PLASCENCIA Comment:Testing performed by : [facility], [address] [place] [address]., [id number] Alpha-2 globulin 0.9 0.5 - 1.0 g/dL CRISTI RODRIGUEZCH Comment:Testing performed by : [facility], [address] [place] [address]., [id number] Beta-1 globulin 0.5 0.3 - 0.6 g/dL CRISTI BJWCH Comment:Testing performed by : [facility], [address] [place] [address]., [address] Beta-2 globulin 0.5 0.2 - 0.6 g/dL CERNER BJWCH Comment:Testing performed by : [facility], [address] [place] [address]., [address] Gamma globulin 0.9 0.5 - 1.7 g/dL CERNER BJWCH Comment:Testing performed by : [facility], [address] [place] [address]., [id number] SPEP interp See Comment CRISTI PLASCENCIA Comment: SPEP INTERPRETATION: No apparent monoclonal peak Testing performed by: [facility], [address] [place] [address]., [id number] Immunotyping See Immunotyping Results CRISTI PLASCENCIA Comment:Testing performed by : [facility], [address] [place] [address]., [id number] Blood 09/08/2024 4:35 PM HEATING SYSTEMS INSTALLER 09/08/2024 9:43 PM HEATING SYSTEMS INSTALLER us Bola Craft MD LAB BLOOD ORDERABLES Final Resul t Performing Organization Address [facility] de Phone Number [facility] [address] [address] [facility] [place] [address] * Phosphorus (09/08/2024 4:35 PM HEATING SYSTEMS INSTALLER) Phosphorus, pl 3.4 2.3 - 4.5 mg/dL Blood 09/08/2024 4:35 PM HEATING SYSTEMS INSTALLER 09/08/2024 4:42 PM HEATING SYSTEMS INSTALLER Bola Craft MD LAB BLOOD ORDERABLES Final Resul t Performing Organization Address [facility] de Phone Number [facility] [address] [place] [address] [facility] [place] [address] * PTH (09/08/2024 4:35 PM HEATING SYSTEMS INSTALLER) PTH 57 15 - 65 pg/mL Blood 09/08/2024 4:35 PM HEATING SYSTEMS INSTALLER 09/08/2024 4:42 PM HEATING SYSTEMS INSTALLER us Bola Craft MD LAB BLOOD ORDERABLES Final Resul t Performing Organization Address [facility] de Phone Number [facility] [address] [place] [address] [facility] [place] [address] * Comprehensive metabolic panel (09/08/2024 4:35 PM HEATING SYSTEMS INSTALLER) Sodium 140 135 - 145 mmol/L Potassium, [...] be falsely elevated. Blood 09/08/2024 4:35 PM HEATING SYSTEMS INSTALLER 09/08/2024 4:42 PM HEATING SYSTEMS INSTALLER us Bola Craft MD LAB BLOOD ORDERABLES Final Resul t CRISTI RODRIGUEZ [address] [facility]. Department [place] [address] * Dexa TBS Axial Skeleton Bone Density 1 or more sites (09/08/2024 2:36 PM HEATING SYSTEMS INSTALLER) Anatomical Region Laterality Modality Wrist, Body N/A Radiographic Park ging Narrative 09/09/2024 12:37 PM HEATING SYSTEMS INSTALLER Patient Name: Jackie Neville Date of : 1945 Date of scan: 09/08/2024 Bone mineral density was performed on a HoloInstant AV Discovery Densitometer. Based on machine cross-calibration and [...] by the International Society of Clinical Densitometry. [id number] Lois Will MD IMG DXA PROCEDURES Final Resu lt * Hemoglobin A1c (07/04/2022 4:51 AM HEATING SYSTEMS INSTALLER) [facility] Hgb A1C 5.5 4.0 - 5.6 % [facility] Estimated Average Glucose 111 mg/dL [facility]RIST[facility] Comment: The ADA recommends reporting an estimated Average Glucose (eAG) with all Hemoglobin A1c results using the equation derived from a study of 507 normal and diabetic adults. Minority populations were underrepresented and children were not included. (Diabetes Care 2020; 43(S1): S66-S76). The eAG is not equivalent to a fasting glucose. Blood 07/04/2022 4:51 AM HEATING SYSTEMS INSTALLER 07/04/2022 5:04 AM HEATING SYSTEMS INSTALLER Eva Landeros MD LAB BLOOD ORDERABLES Leyda brady Result [facility] [address] [facility] [place] [address] * Lipid panel (06/05/2022 12:02 PM HEATING SYSTEMS INSTALLER) Cholesterol 96 30 - 199 mg/dL CRISTI [facility] Comment: Interpretive Data Ages < [...] revised on 2018. Triglycerides 98 <=149 mg/dL C[facility]ST[facility] Comment: Interpretive Data Ages < [...] revised on 2018. HDL 49 >=40 mg/dL CRI[facility] Comment: Interpretive Data Ages < [...] on 2018. LDL, calculated 27 <=129 mg/dL CRIST[facility] Comment: Interpretive Data Ages < [...] revised on 2018. Non-HDL Cholesterol 47 mg/dL [facility] Comment: Interpretive Data Ages < [...] last revised on 2018. Chol/HDL ratio 2 [facility] Blood 06/05/2022 12:0 2 PM HEATING SYSTEMS INSTALLER 06/05/2022 12:37 PM HEATING SYSTEMS INSTALLER us Dylan Beal MD LAB BLOOD ORDERABLES Final R esult [facility] [address] [facility] [place] [address] from Last 3 Months or Most Recently Relevant to Health Maintenance Insurance MEDICARE [facility] MEDICARE BLUE CROSS MEDICARE SUPPLEMENT MEDICARE MEDICARE BLUE CROSS MEDICARE SUPPLEMENT MEDICARE [facility] Advance Directives For more information, please contact: [phone] * Full Code (Latest Code Status on File) Date Activated Date Inactivated Comments 07/03/2022 6:22 PM 07/05/2022 8:57 PM * Full Code Date Activated Date Inactivated Comments 08/20/2020 11:29 AM 08/22/2020 6:41 PM * Full Code Date Activated Date Inactivated Comments 02/15/2019 1:48 AM 02/16/2019 7:25 PM * Full Code Date Activated Date Inactivated Comments 09/02/2018 8:14 PM 09/06/2018 7:30 PM Care Teams Environmental Conflict Manager Relationship Specialty Start Date End Date Alexandre Smith MD [address] [facility] [address] [place] [address] PCP - General Internal Medicine 09/08/24 Natalio Esparza MD [address] [place] [address] [address] [place] [address] Referring Physician Surgery 12/23/19
[2024-10-08 13:03] LABS: Basophils Absolute Auto 0.1 K/mm3 (0.0-0.1); Basophils Percent Auto 1.4 % (0.2-1.2); Eosinophils Absolute Auto 0.4 K/mm3 (0-0.3); Hematocrit 42.6 % (42.0-52.0); Immature Granulocyte Absolute 0.01 K/mm3 (0.00-0.031); Immature Granulocyte Percent A 0.2 % (0-0.5); Lymphocytes Absolute Auto 1.84 K/mm3 (0.9-3.2); Lymphocytes Percent Auto 32.4 % (18.3-44.2); Mean Corpuscular HGB Conc 32.9 g/dl (32-36); Mean Corpuscular Hemoglobin 31.1 pg (26-34); Mean Corpuscular Volume 94.7 fl (80-100); Mean Platelet Volume 10.5 fl (7.4-10.4); Monocytes Absolute Auto 0.5 K/mm3 (0.1-0.6); Monocytes Percent Auto 8.3 % (2.6-8.5); Neutrophils Absolute Auto 2.9 K/mm3 (1.3-6.7); Neutrophils Percent Auto 50.7 % (45.5-73.1); Platelet Count Result 208 k/mm3 (150-375); Red Cell Distribution Width 13.4 % (11.5-14.5); White Blood Count 5.7 K/mm3 (4.5-10.0)
[2024-10-08 13:08] LABS: Add Urine Microscopic? YES; Appearance Urine Clear (Clear); Bacteria Urine None Seen /hpf; Bilirubin Urine Negative (Negative); Blood Urine Negative (Negative); Color Urine Yellow (Yellow); Glucose Urine UA 3+ mg/dL (Negative); Ketones Urine Negative (Negative); Leukocyte Esterase Ur Negative LEU/UL (Negative); Nitrate Urine Negative (Negative); Non Pathogenic Casts 0-2; Protein Urine Trace mg/dL (Negative); RBC Urine 0-2 /hpf (0-2); Specific Grav Ur 1.014 (1.001-1.035); Squamous Epithelial Cell Urine None Seen /hpf (Few); Urobilinogen Urine 0.2 mg/dL (<2.0); WBC Urine 0-5 /hpf (0-3); pH Urine 5.5 (5.0-9.0)
[2024-10-08 13:17] LABS: Alanine Aminotransferase 17 U/L (6-50); Albumin Level 4.5 g/dL (3.5-5.1); Alkaline Phosphatase 137 U/L (38-126); Anion Gap 10 mmol/L (4-12); Aspartate Amino Transferase 22 U/L (17-59); Bilirubin,Total 0.6 mg/dL (0.2-1.3); Blood Urea Nitrogen 35 mg/dL (9-20); Calcium 9.3 mg/dL (8.4-10.2); Carbon Dioxide 26 mmol/L (22-30); Chloride 103 mmol/L (98-107); Cholesterol 134 mg/dL (0-200); Estimated Glomerular Filt Rate 36; Glucose 96 mg/dL (65-110); HDL Direct 59 mg/dL; Potassium 4.7 mmol/L (3.4-5.0); Sodium 139 mmol/L (137-145); Triglycerides 147 mg/dL (<150)
[2024-10-08 13:19] LABS: Hemoglobin A1C 6.2 % (<5.7)
[2024-10-08 13:28] LABS: LDL Cholesterol Direct 48 mg/dL
[2024-10-08 14:00] LABS: Vitamin D 25 Hydroxy 69.4 ng/mL
== END 2024-10-08 11:19 | disposition home or self-care (01) ==
LOC: ANHLAB 11:19
PROVIDERS: PCP Internal Medicine; Visit Provider Internal Medicine
DX: E55.9 Vitamin D deficiency, unspecified (principal); E78.5 Hyperlipidemia, unspecified; I10 Essential (primary) hypertension; E11.9 Type 2 diabetes mellitus without complications; Z79.899 Other long term (current) drug therapy
CPT/HCPCS: 36415; 80053; 80061; 81001; 82306; 83036; 85025

== ENCOUNTER 2025-01-20 16:19 | Outpatient (CLI) | payer MEDICARE, SELFPAY ==
--- NOTE | ~2025-01-20 | XR_ITS ---
3 VIEWS LUMBAR SPINE Ordering provider: Alexandre Smith MD History: . M54.9 - Dorsalgia, unspecified . Comparison: None. FINDINGS: VERTEBRAL BODIES:Levoscoliosis. Compression fracture of L1 and L2 which is most likely chronic. No vi sible subluxation. Degenerative changes of the spine. DISK SPACES: Narrowing of all the disc spaces. Bilateral severe hip osteoarthritic changes. SOFT TISSUES: Aortic atherosclerotic changes. IMPRESSION: Compression fracture of L1 and L2 which is most likely chronic. Levoscoliosis. Multilevel degenerativ e disc disease. Reviewed, dictated and finalized at location A. IMPRESSION: Compression fracture of L1 and L2 which is most likely chronic. Levoscoliosis. Multilevel degenerative disc disease.
--- NOTE | ~2025-01-20 | XR_ITS ---
Thoracic spine: Clinical Indication: Pain COMPARISON: 08/14/2023 AP and lateral views were performed. No fracture is seen. Kyphoscoliosis is similar to prior exam. Probable multilevel moderate to advance d degenerative disc narrowing the thoracic spine. Paravertebral soft tissues appear normal. Impression: Kyphoscoliosis is similar to prior exam. Multilevel degenerative disc narrowing. Reviewed, dictated and finalized at [facility]. Impression: Kyphoscoliosis is similar to prior exam. Multilevel degenerative disc narrowing.
--- OUTSIDE RECORDS SUMMARY | 2025-01-20 16:22 | XMS_ITS | Encounter Summary ---
Author Organization [facility] Healthcare Address [address] [place] [address] Care Team Providers Care Early Childhood Associate Teacher Name Role Phone Rod Ann MD Unavailable [phone] Fabián Stanley MD Primary Care Provider Natalio Esparza MD Unavailable [phone] Yvan George MD Primary Care Provider [phone] Fabián Stanley MD Primary Care Provider Alexandre Smith MD Primary Care Provider [phone] Encounter Details Date Type Department Care Team (Late st Contact Info) Description 04/21/2021 Documentation [facility] OP Physical Therapy [facility] [address] [address] Cayden Jacobo, PT Social History Tobacco Use [...] on file Legal 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 Male 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 Gender Identity Male 04/18/2019 11:33 AM CDT Sexual Orientation Straight 04/18/2019 11 :33 AM CDT documented as of this encounter Plan of Treatment Not on file documented as of this encounter Visit Diagnoses Not on filedocumented in this encounter Additional Health Concerns Infection Onset Date Last Indicated Resolved Time COVID: Suspected 07/03/2022 07/03/2022 07/03/2022 2:45 PM STATUARY PAINTER documented as of this encounter Care Teams Early Childhood Associate Teacher Relationship Specialty Start Date End Date Fabián Stanley MD [address] [place] [address] [address] [place] [address] PCP - General 10/08/17 09/30/22 Yvan George MD [address] [place] [address] PCP - General Family Medicine 10/01/22 12/26/22 Fabián Stanley MD [address] [place] [address] [address] [place] [address] PCP - General Internal Medicine 12/27/22 09/07/24 Alexandre Smith MD [address] [facility] [address] [place] [address] PCP - General Internal Medicine 09/08/24 Rod Ann MD 12/25/16 06/26/22 Natalio Esparza MD [address] [place] [address] [address] [place] [address] Referring Physician Surgery 12/23/19 documented as of this encounter
--- OUTSIDE RECORDS SUMMARY | 2025-01-20 16:22 | XMS_ITS | Continuity of Care Document ---
Author Organization [facility] Address [address] [facility] [address] [place] [address] Phone Care Team Providers Care Slate Mixer Name Role Phone Faustino Carvajal MD Unavailable [...] - Active Procedures Procedure Date OFFICE/OUTPATIENT VISIT [facility] Advance Directives Directive Yes / No Effective Date File Name No Information Encounters Encounter Description Practice Location Reason(s) For Visit Diagnoses Date Provider Providers Copied on Encounter [facility], [address] [place] [address], [address], tel:[phone] [facility] No Information Sep-0 3 5 Alena Harmon. [address] [place], [place], [id number] . tel: [phone] OFFICE/OUTPAT IENT VISIT [facility], [address] [place] [address] [address], [place], [address], tel:[phone] [facility] Primary localized osteoarthros is, lower leg Sep-0 3-201 5 Alena Rodarte. [address] [facility] [address], [place], [place], [id number] . tel: [phone] Family History Family Member Type Diagnosis Age At Onset Daughter Problem (finding) Alive and well Payers Payer name Insurance type Covered democrat ID Authoriza tion(s) No Information Social History [...]
--- OUTSIDE RECORDS SUMMARY | 2025-01-20 16:22 | XMS_ITS | Patient Health Record ---
Author Organization [facility] Address [address] [facility]. [address] [place] [address] Care Team Providers Care Trestle Mechanic Name Role Phone z(Retired) Jaden ROMERO, [place] Primary [facility] Provi maribel Unavailable Teodoro Doan Unavailable [phone] Reason For Referral No Information Medications Medication [...] Problem Status W/U Status Risk Notes Problem 909255693 Diverticulosis o f large intestine without perforation or abscess without bleeding (K57.30) Active confirmed Problem 875616479 Personal history of colonic polyps (Z86.010) Active confirmed Problem 370540095 Colon cancer screening (Z12.11) Active confirmed It has been 10 years since his last colonosco py, which by his report was normal. His stools are usually soft or loose. He denies having any blood in the stool. Problem 712767403 History of heart artery stent (Z95.5) Active confirmed Problem [id number] High risk medication use (Z79.899) Active confirmed [...] Coverage End Date Medicare E2 [address] [address] [place] [address] [id number] OscarSanthosh han Self - patient is the insured Blue Access PPO E2 [address] [place] [phone] [id number] OscarSanthosh han Self - patient is the insured Medical (General) History Medical History History ICD Code Restless Leg Syndrome Depression Hypertension Hypercholesterolemia Diabetes Sleep Apnea Hearing Loss Heart Disease Surgical History Surgery Date(Month/Year) Cardiac stents Colonoscopy 2009
--- OUTSIDE RECORDS SUMMARY | 2025-01-20 16:22 | XMS_ITS | Encounter Summary ---
Author Organization [facility] Address [address] [place] [address] Phone Care Team Providers Care Chemical Process Engineer Name Role Phone Rod Ann MD Unavailable Fabián Stanley MD Primary Care Provider Natalio Esparza MD Unavailable [phone] Yvan George MD Primary Care Provider [phone] Fabián Stanley MD Primary Care Provider Alexandre Smith MD Primary Care Provider [phone] Encounter Details Date Type Department Care Team (Late st Contact Info) Description 05/18/2021 Telephone [facility] Otolaryngology [address] [facility] [address] [place] [address] Radha Culver Au.D. 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 Gender Identity Male 04/18/2019 11:33 AM CDT Sexual Orientation Straight 04/18/2019 11 :33 AM CDT documented as of this encounter Plan of Treatment Not on file documented as of this encounter Visit Diagnoses Not on filedocumented in this encounter Additional Health Concerns Infection Onset Date Last Indicated Resolved Time COVID: Suspected 07/03/2022 07/03/2022 07/03/2022 2:45 PM CRYOGENICS ENGINEER documented as of this encounter Care Teams Chemical Process Engineer Relationship Specialty Start Date End Date Fabián Stanley MD [address] [place] [address] [address] [place] [address] PCP - General 10/08/17 09/30/22 Yvan George MD [facility] [place] [address] PCP - General Family Medicine 10/01/22 12/26/22 Fabián Stanley MD [address] [place] [address] [address] [place] [address] PCP - General Internal Medicine 12/27/22 09/07/24 Alexandre Smith MD [address] [facility] [address] [place] [address] PCP - General Internal Medicine 09/08/24 Rod Ann MD 12/25/16 06/26/22 Natalio Esparza MD [address] [place] [address] [address] [place] [address] Referring Physician Surgery 12/23/19 documented as of this encounter
--- OUTSIDE RECORDS SUMMARY | 2025-01-20 16:22 | XMS_ITS | Encounter Summary ---
Author Organization [facility] Healthcare Address [address] [place] [address] Care Team Providers Care Pattern Assembler Name Role Phone Rod Ann MD Unavailable Fabián Stanley MD Primary Care Provider Natalio Esparza MD Unavailable [phone] Yvan George MD Primary Care Provider [phone] Fabián Stanley MD Primary Care Provider Alexandre Smith MD Primary Care Provider [phone] Encounter Details Date Type Department Care Team (Late st Contact Info) Description 09/08/2020 Documentation [facility] [address] [place] [address] Belle Treadwell RN Social History Tobacco Use [...] on file 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 Gender Identity Male 04/18/2019 11:33 AM CDT Sexual Orientation Straight 04/18/2019 11 :33 AM CDT documented as of this encounter Plan of Treatment Not on file documented as of this encounter Visit Diagnoses Not on filedocumented in this encounter Additional Health Concerns Infection Onset Date Last Indicated Resolved Time COVID: Suspected 07/03/2022 07/03/2022 07/03/2022 2:45 PM BRANCH LIBRARY CLERK documented as of this encounter Care Teams Pattern Assembler Relationship Specialty Start Date End Date Fabián Stanley MD [address] [place] [address] [address] [place] [address] PCP - General 10/08/17 09/30/22 Yvan George MD [address] [place] [address] PCP - General Family Medicine 10/01/22 12/26/22 Fabián Stanley MD [address] [place] [address] [address] [place] [address] PCP - General Internal Medicine 12/27/22 09/07/24 Alexandre Smith MD [address] [facility] [address] [place] [address] PCP - General Internal Medicine 09/08/24 Rod Ann MD 12/25/16 06/26/22 Natalio Esparza MD [address] [place] [address] [address] [place] [address] Referring Physician Surgery 12/23/19 documented as of this encounter
--- OUTSIDE RECORDS SUMMARY | 2025-01-20 16:22 | XMS_ITS | Encounter Summary ---
Author Organization [facility] Healthcare Address [address] [place] [address] Care Team Providers Care Director Of Community Services Name Role Phone Rod Ann MD Unavailable Fabián Stanley MD Primary Care Provider Natalio Esparza MD Unavailable [phone] Yvan George MD Primary Care Provider [phone] Fabián Stanley MD Primary Care Provider Alexandre Smith MD Primary Care Provider [phone] Encounter Details Date Type Department Care Team (Late st Contact Info) Description 08/04/2021 Telephone [facility] [address] [place] [address] [address] [place] [address] Sanket Griffiths MD [address] [facility] [address] [place] [address] Social History Tobacco Use Types [...] on file Legal Sex Male 8:15 PM LICENSED INSURANCE AGENT Gender Identity Male 04/18/2019 11:33 AM CDT [...] COVID: Suspected 07/03/2022 07/03/2022 07/03/2022 2:45 PM LICENSED INSURANCE AGENT documented as of this encounter Care Teams Director Of Community Services Relationship Specialty Start Date End Date Fabián Stanley MD [address] [place] [address] [address] [place] [address] PCP - General 10/08/17 09/30/22 Yvan George MD [address] [place] [address] PCP - General Family Medicine 10/01/22 12/26/22 Fabián Stanley MD [address] [place] [address] [address] [place] [address] PCP - General Internal Medicine 12/27/22 09/07/24 Alexandre Smith MD [address] [facility] [address] [place] [address] PCP - General Internal Medicine 09/08/24 Rod Ann MD 12/25/16 06/26/22 Natalio Esparza MD [facility] [address] [place] [address] Referring Physician Surgery 12/23/19 documented as of this encounter
--- OUTSIDE RECORDS SUMMARY | 2025-01-20 16:23 | XMS_ITS | Clinical Summary ---
Author Organization [facility] Address [address] [place] [address] Care Team Providers Care Training Officer Name Role Phone Natalio Esparza MD Unavailable [phone] Alexandre Smith MD Primary Care Provider [phone] Allergies No known active allergies Medications nitroglycerin [...] s:Vitamin deficiencies Take 1 capsule by mouth manager hotel before breakfast Active vit D3-vit T-uxywuiacy-twbu [id number] ywfq-ktt-gi-mg tabletIndications :Vitamin Deficiency Prevention Take 1 tablet [...] 07/03/2022 Assessment & Plan (07/05/2022 11:02 AM MANAGER CASE): -PT/OT -pain control -MRI with new compression fracture, severe neuroforaminal narrowing - pain management consult for possible injection/procedure given that pain isn't controlled with conservative management Assessment & Plan (07/04/2022 11:32 AM MANAGER CASE): -PT/OT -pain control -I d/w [facility] whom patient was supposed to see today. 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 -NSTEMI -Initial ECG not diagnostic for an acute ischemic event -troponin continues to uptrend: 68847->22450->05798->12969 -c/o some chest discomfort and shortness of breath this AM; BP dropped to 70 when sitting at side of bed -serial EKGs without acute changes -plan for [facility] today -continue heparin drip -continue nitroglycerin drip -continue irbesartan -continue aspirin/brillinta Unstable angina pectoris 08/20/2020 Overview (08/21/2020): Added automatically from request for surgery [id number] Diastolic heart failure 12/08/2019 Assessment & Plan (07/05/2022 11:03 AM MANAGER CASE): -chronic diastolic heart failure -euvolemic -holding ARB, diuretics for SABAS Assessment & Plan (07/04/2022 11:31 AM MANAGER CASE): -chronic diastolic heart failure -euvolemic -holding ARB, diuretics for SABAS Insufficient treatment with nasal CPAP 9 Circadian rhythm sleep disorder, 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 Chronic systolic congestive heart failure 2018 Ischemic cardiomyopathy 03/23/2019 Cardiogenic shock 09/02/2018 Assessment & Plan (09/03/2018 4:56 PM MANAGER CASE): 2/2 junctional bradycardia P/w BP 82/49, HR 35-41, lactate 2.7, Cr 1.9 from baseline 0.8 -improved to 100s/50s with IVF in ED -lactate 2.7->2.5->2.1 -IVF Symptomatic bradycardia 09/02/2018 Assessment & Plan (09/03/2018 4:51 PM MANAGER CASE): P/w dizziness, unsteadiness EKG with junctional bradycardia HR 40, CT head with no ICH Unsure if he took both metoprolol and carvedilol -hold home antihypertensives and beta blockers -tele -EP c/s if kavya does not self resolve -09/03 HR improved to 80s Paroxysmal A-fib 09/02/2018 Assessment & Plan (08/21/2020 11:02 AM MANAGER CASE): -currently in sinus rhythm -holing Eliquis for [facility] -continue heparin gtt Assessment & Plan (09/02/2018 4:22 PM MANAGER CASE): Per records -not seen on prior EKG -hold home Eliquis 5 b.i.d. -tele SABAS (acute kidney injury) 09/02/2018 Assessment & Plan (09/02/2018 4:25 PM MANAGER CASE): b/l 0.8, presents with Cr 1.9, likely [...] needed Assessment & Plan (07/05/2022 11:03 AM MANAGER CASE): -type 2 diabetes, on lantus 45 BID, Jardiance at home -Received only 35 units last night with hypoglycemia overnight despite improving SABAS -Hold insulin for now; will likely need much lower lantus dose Assessment & Plan (07/04/2022 11:32 AM MANAGER CASE): -type 2 diabetes, on lantus 45 BID, Jardiance at home -Dose reduced insulin here to 45 units daily + SSI Assessment & Plan (07/03/2022 5:43 PM MANAGER CASE): -type 2 diabetes, on lantus 45 BID, Jardiance at home -Dose reduced insulin here given SABAS Assessment & Plan (08/21/2020 11:04 AM MANAGER CASE): Hgb A1C 8.4; home regimen lantus 45u BID -continue reduced dose lantus 20u BID -cont lispro SSI -consistent carb diet Assessment & Plan (09/05/2018 6:40 PM MANAGER CASE): a1c-12.5 -glucose at 563 at presentation improved [...] daily Assessment & Plan (08/21/2020 11:07 AM MANAGER CASE): Recently seen in CHF clinic and multiple medications (norvasc, lasix, coreg) had been recently stopped for orthostasis. At that clinic visit, his irbesartan was reduced from 300mg to 150mg. -BP 191/107 on presentation to ED -currently controlled with nitro gtt -continue irbesartan -plan to resume previous anti-HTN meds as BP allows Assessment & Plan (09/02/2018 4:26 PM MANAGER CASE): -hold home antihypertensives for symptomatic kavya CAD (coronary artery disease) 12/30/2014 Overview (10/11/2016): Coronary heart disease Assessment & Plan (07/05/2022 11:03 AM MANAGER CASE): -continue ASA, statin -stable Assessment & Plan (07/04/2022 11:32 AM MANAGER CASE): -continue ASA, statin -stable Assessment & Plan (07/03/2022 5:41 PM MANAGER CASE): -continue ASA, statin -stable Assessment & Plan (09/02/2018 4:21 PM MANAGER CASE): C 05/19/2013 and 05/27/2013, showed 99% subtotal [...] obstructive Assessment & Plan (09/02/2018 4:23 PM MANAGER CASE): Sleep study 05/2015 recommended CPAP nightly with [...] daily Assessment & Plan (09/03/2018 12:19 AM MANAGER CASE): -hold home rosuvastatin 10 Acute congestive heart failure Shortness of breath Status post insertion of drug eluting coronary a rtery stent SABAS (acute kidney injury) Assessment & Plan (10/16/2022 9:03 AM CDT): Stable, continue to monitor, check CMP to evaluate current renal function Continue to monitor PTH and vitamin-D level Assessment & Plan (07/05/2022 11:01 AM MANAGER CASE): -suspect related to high doses of ibuprofen over the last week -Cr trending down Assessment & Plan (07/04/2022 11:31 AM MANAGER CASE): -suspect related to high doses of ibuprofen over the last week -check UA -Gentle IVF -Renal US if not improving Assessment & Plan (07/03/2022 5:42 PM MANAGER CASE): -suspect related to high doses of ibuprofen over the last week -check UA -Gentle IVF -Renal US if not improving Resolved Problems Problem Noted Date Diagnosed Date Resolved Date 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 Fitting and adjustment of hearing aid (Primary Dx) 12/14/2024 2:30 PM CDT Procedure visit [facility] [address] [place] [address] [phone] Mihaela Erickson Au.D. Fitting and adjustment of hearing aid (Primary Dx); Sensorineural hearing loss, asymmetrical from Last 3 Months Immunizations Immunization Administration [...] mellitus (HCC) D iabetes type 2; Comments: [facility] 09/20/2014 - Hypertension Hypertension Restless legs syndrome Restless legs syndrome Adiposity Obesity CAD (coronary artery disease) Hyperlipidemia hyperlipidemia; Comments: [facility] 09/20/2014 - Hypothyroidism hypothyroidism; Comments: [facility] 09/20/2014 - Memory loss memory difficult ies; Comments: [facility] 09/20/2014 - Ear problems Scoliosis Family History [...] on file Legal Sex Male 8:15 PM MANAGER CASE Gender Identity Male 04/18/2019 11:33 AM CDT [...] (169 lb 14.4 oz) 09/08/2024 2:12 PM MANAGER CASE Height 154.9 cm (5' 1) 09/08/2024 2:12 PM MANAGER CASE Body Mass Index 32.1 09/08/2024 2:12 PM MANAGER CASE Plan of Treatment Health Maintenance Due Date Last Done Comments Albumin Creatinine Ratio, Urine 1945 Dilated Eye Exam 1945 Foot Exam [...] Assessment 10/02/2023 10/01/2022, 07/05/20 22 Influenza Vaccine (#1) 2025 , 05/11/2019, 09/03/2018, Additional history exists eGFR 09/08/2025 09/08/2024, 0 11/2022, 07/05/2022, Additional history exists Pneumococcal vaccine [...] as needed Medical Devices Implanted Type Area Fashion Patternmaker Device Identifier Shelf Expiration Date Model / Serial / Lot OPS [place]/St [employer] [id number] Angio-Seal Evolution 6fr .035in Guidewire Bypass Tube Suture - [id number] Implanted:Qty: 1 on 08/21/2020 by Wale Maria MD at [facility] Collagen [employer] [place] 05/07/2021 [id number] / / [id number] [employer] [id number] Resolute Antonio 2mm 26mm 140cm Rapid Exchange Delivery System - [id number] Implanted:Qty: 1 on 08/21/2020 by Wale Maria MD at [facility] Stent [employer] 12/22/2021 [id number] / / [id number] Cardiac Stent X 3 Heart Procedures Procedure Name Priority Date/Time Associated Diagnosis Comments EGFR Routine 09/08/2024 4:35 PM MANAGER CASE Osteoporosis, unspecified osteoporosis type, unspecified pathological fracture presence HEMOGLOBIN A1C Routine 07/04/2022 4:51 AM MANAGER CASE LIPID PANEL Routine 06/05/2022 12:02 PM MANAGER CASE Chronic systolic congestive heart failure (HCC) Moderate mixed hyperlipidemia not requiring statin therapy from Last 3 Months or Most Recently Relevant to Health Maintenance Results * (ABNORMAL) eGFR (09/08/2024 4:35 PM MANAGER CASE) eGFR 59(L) >=60 mL/min/1. 73 m2 Comment: [...] last reviewed 2021. Blood 09/08/2024 4:35 PM MANAGER CASE 09/08/2024 4:42 PM MANAGER CASE us Bola Craft MD LAB BLOOD ORDERABLES Final Resul t Performing Organization Address City/[facility]/ZIP Co de Phone Number [facility] [address] [facility] [place] [address] * Hemoglobin A1c (07/04/2022 4:51 AM MANAGER CASE) [facility] Hgb A1C 5.5 4.0 - 5.6 % [facility] Estimated Average Glucose 111 mg/dL [facility] Comment: The ADA recommends reporting an estimated Average Glucose (eAG) with all Hemoglobin A1c results using the equation derived from a study of 507 normal and diabetic adults. Minority populations were underrepresented and children were not included. (Diabetes Care 2020; 43(S1): S66-S76). The eAG is not equivalent to a fasting glucose. Blood 07/04/2022 4:51 AM MANAGER CASE 07/04/2022 5:04 AM MANAGER CASE us Eva Landeros MD LAB BLOOD ORDERABLES Leyda l Result [facility] [place] [address] * Lipid panel (06/05/2022 12:02 PM MANAGER CASE) [facility] Signature Cholesterol 96 30 - 199 mg/dL [facility] Comment: Interpretive Data Ages < or = [...] revised on 2018. Triglycerides 98 <=149 mg/dL [facility] Comment: Interpretive Data Ages < or = [...] revised on 2018. HDL 49 >=40 mg/dL [facility] Comment: Interpretive Data Ages < or = [...] 2018. LDL, calculated 27 <=129 mg/dL [facility] Comment: Interpretive Data Ages < or = [...] revised on 2018. Non-HDL Cholesterol 47 mg/dL [facility] Comment: Interpretive Data Ages < or = [...] last revised on 2018. Chol/HDL ratio 2 [facility] Blood 06/05/2022 12:0 2 PM MANAGER CASE 06/05/2022 12:37 PM MANAGER CASE Dylan Beal MD LAB BLOOD ORDERABLES Final R esult [facility] [place] [address] from Last 3 Months or Most Recently Relevant to Health Maintenance Insurance MEDICARE [facility] MEDICARE [facility] MEDICARE SUPPLEMENT MEDICARE MEDICARE [employer]OSS MEDICARE SUPPLEMENT MEDICARE [facility] Advance Directives For more information, please contact: [phone] * Full Code (Latest Code Status on File) Date Activated Date Inactivated Comments 07/03/2022 6:22 PM 07/05/2022 8:57 PM * Full Code Date Activated Date Inactivated Comments 08/20/2020 11:29 AM 08/22/2020 6:41 PM * Full Code Date Activated Date Inactivated Comments 02/15/2019 1:48 AM 02/16/2019 7:25 PM * Full Code Date Activated Date Inactivated Comments 09/02/2018 8:14 PM 09/06/2018 7:30 PM Care Teams Training Officer Relationship Specialty Start Date End Date Alexandre Smith MD [address] [facility] [address] [place] [address] PCP - General Internal Medicine 09/08/24 Natalio Esparza MD [address] [facility] [address] [place] [address] Referring Physician Surgery 12/23/19
--- OUTSIDE RECORDS SUMMARY | 2025-01-20 16:23 | XMS_ITS | Referral Summary ---
Author Organization [facility] Address [address] [place] [address] Care Team Providers Care Cut Off [employer] Name Role Phone Natalio Esparza MD Unavailable [phone] Alexandre Smith MD Primary Care Provider [phone] Encounters Date Type Department Care Team Description 12/28/2024 Documentation [facility] [address] [place] [address] [address] Floor [address] [place] [id number] Hesham Hernandez RMA Precivity 12/23/2024 3:30 PM CDT Procedure visit [facility] Otolaryngology [address] [place] [id number] Mihaela Erickson Au.D. Fitting and adjustment of hearing aid (Primary Dx) 12/14/2024 2:30 PM CDT Procedure visit [facility] Otolaryngology [address] [place] [id number] Mihaela Erickson Au.D. Fitting and adjustment of hearing aid (Primary Dx); Sensorineural hearing loss, asymmetrical from Last 3 Months Allergies No known [...] s:Vitamin deficiencies Take 1 capsule by mouth early intervention school psychologist before breakfast Active vit D3-vit Y-ipudxqiew-epvw [id number] lyxd-ohr-zb-mg tabletIndications :Vitamin Deficiency Prevention Take 1 tablet [...] 07/03/2022 Assessment & Plan (07/05/2022 11:02 AM FRONTLOAD DRIVER): -PT/OT -pain control -MRI with new compression fracture, severe neuroforaminal narrowing - pain management consult for possible injection/procedure given that pain isn't controlled with conservative management Assessment & Plan (07/04/2022 11:32 AM FRONTLOAD DRIVER): -PT/OT -pain control -I d/w NSGY JEEP DRIVER whom patient was supposed to see today. 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 -NSTEMI -Initial ECG not diagnostic for an acute ischemic event -troponin continues to uptrend: 22820->53143->27926->13840 -c/o some chest discomfort and shortness of breath this AM; BP dropped to 70 when sitting at side of bed -serial EKGs without acute changes -plan for [facility] today -continue heparin drip -continue nitroglycerin drip -continue irbesartan -continue aspirin/brillinta Unstable angina pectoris 08/20/2020 Overview (08/21/2020): Added automatically from request for surgery [id number] Diastolic heart failure 12/08/2019 Assessment & Plan (07/05/2022 11:03 AM FRONTLOAD DRIVER): -chronic diastolic heart failure -euvolemic -holding ARB, diuretics for SABAS Assessment & Plan (07/04/2022 11:31 AM FRONTLOAD DRIVER): -chronic diastolic heart failure -euvolemic -holding ARB, diuretics for SABAS Insufficient treatment with nasal CPAP 9 Circadian rhythm sleep disorder, 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 Chronic systolic congestive heart failure 2018 Ischemic cardiomyopathy 03/23/2019 Cardiogenic shock 09/02/2018 Assessment & Plan (09/03/2018 4:56 PM FRONTLOAD DRIVER): 2/ junctional bradycardia P/w BP 82/49, HR 35-41, lactate 2.7, Cr 1.9 from baseline 0.8 -improved to 100s/50s with IVF in ED -lactate 2.7->2.5->2.1 -IVF Symptomatic bradycardia 09/02/2018 Assessment & Plan (09/03/2018 4:51 PM FRONTLOAD DRIVER): P/w dizziness, unsteadiness EKG with junctional bradycardia HR 40, CT head with no ICH Unsure if he took both metoprolol and carvedilol -hold home antihypertensives and beta blockers -tele -EP c/s if kavya does not self resolve -09/03 HR improved to 80s Paroxysmal A-fib 09/02/2018 Assessment & Plan (08/21/2020 11:02 AM FRONTLOAD DRIVER): -currently in sinus rhythm -holing Eliquis for [facility] -continue heparin gtt Assessment & Plan (09/02/2018 4:22 PM FRONTLOAD DRIVER): Per records -not seen on prior EKG -hold home Eliquis 5 b.i.d. -tele SABAS (acute kidney injury) 09/02/2018 Assessment & Plan (09/02/2018 4:25 PM FRONTLOAD DRIVER): b/l 0.8, presents with Cr 1.9, likely [...] needed Assessment & Plan (07/05/2022 11:03 AM FRONTLOAD DRIVER): -type 2 diabetes, on lantus 45 BID, Jardiance at home -Received only 35 units last night with hypoglycemia overnight despite improving SABAS -Hold insulin for now; will likely need much lower lantus dose Assessment & Plan (07/04/2022 11:32 AM FRONTLOAD DRIVER): -type 2 diabetes, on lantus 45 BID, Jardiance at home -Dose reduced insulin here to 45 units daily + SSI Assessment & Plan (07/03/2022 5:43 PM FRONTLOAD DRIVER): -type 2 diabetes, on lantus 45 BID, Jardiance at home -Dose reduced insulin here given SABAS Assessment & Plan (08/21/2020 11:04 AM FRONTLOAD DRIVER): Hgb A1C 8.4; home regimen lantus 45u BID -continue reduced dose lantus 20u BID -cont lispro SSI -consistent carb diet Assessment & Plan (09/05/2018 6:40 PM FRONTLOAD DRIVER): a1c-12.5 -glucose at 563 at presentation improved [...] daily Assessment & Plan (08/21/2020 11:07 AM FRONTLOAD DRIVER): Recently seen in CHF clinic and multiple medications (norvasc, lasix, coreg) had been recently stopped for orthostasis. At that clinic visit, his irbesartan was reduced from 300mg to 150mg. -BP 191/107 on presentation to ED -currently controlled with nitro gtt -continue irbesartan -plan to resume previous anti-HTN meds as BP allows Assessment & Plan (09/02/2018 4:26 PM FRONTLOAD DRIVER): -hold home antihypertensives for symptomatic kavya CAD (coronary artery disease) 12/30/2014 Overview (10/11/2016): Coronary heart disease Assessment & Plan (07/05/2022 11:03 AM FRONTLOAD DRIVER): -continue ASA, statin -stable Assessment & Plan (07/04/2022 11:32 AM FRONTLOAD DRIVER): -continue ASA, statin -stable Assessment & Plan (07/03/2022 5:41 PM FRONTLOAD DRIVER): -continue ASA, statin -stable Assessment & Plan (09/02/2018 4:21 PM FRONTLOAD DRIVER): [facility] 05/19/2013 and 05/27/2013, showed 99% subtotal occlusion [...] obstructive Assessment & Plan (09/02/2018 4:23 PM FRONTLOAD DRIVER): Sleep study 05/2015 recommended CPAP nightly with [...] daily Assessment & Plan (09/03/2018 12:19 AM FRONTLOAD DRIVER): -hold home rosuvastatin 10 Acute congestive heart failure Shortness of breath Status post insertion of drug eluting coronary a rtery stent SABAS (acute kidney injury) Assessment & Plan (10/16/2022 9:03 AM CDT): Stable, continue to monitor, check CMP to evaluate current renal function Continue to monitor PTH and vitamin-D level Assessment & Plan (07/05/2022 11:01 AM FRONTLOAD DRIVER): -suspect related to high doses of ibuprofen over the last week -Cr trending down Assessment & Plan (07/04/2022 11:31 AM FRONTLOAD DRIVER): -suspect related to high doses of ibuprofen over the last week -check UA -Gentle IVF -Renal US if not improving Assessment & Plan (07/03/2022 5:42 PM FRONTLOAD DRIVER): -suspect related to high doses of ibuprofen over the last week -check UA -Gentle IVF -Renal US if not improving Resolved Problems Problem Noted Date Diagnosed Date Resolved Date 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/06/2021 TIA (transient ischemic attack) 09/03/2018 03/23/2019 Assessment & Plan (09/03/2018 4:53 PM FRONTLOAD DRIVER): Hx of several TIA in the past, [...] on file Legal Sex Male 8:15 PM FRONTLOAD DRIVER Gender Identity Male 04/18/2019 11:33 AM CDT [...] (169 lb 14.4 oz) 09/08/2024 2:12 PM FRONTLOAD DRIVER Height 154.9 cm (5' 1) 09/08/2024 2:12 PM FRONTLOAD DRIVER Body Mass Index 32.1 09/08/2024 2:12 PM FRONTLOAD DRIVER Plan of Treatment Not on file Goals [...] as needed Medical Devices Implanted Type Area Word Processing Machine Operator Device Identifier Shelf Expiration Date Model / Serial / Lot [place]/[employer] [id number] Angio-Seal Evolution 6fr .035in Guidewire Bypass Tube Suture - [id number] Implanted:Qty: 1 on 08/21/2020 by Wale Maria MD at [facility] Collagen [employer] [place] 05/07/2021 [id number] / / [id number] [employer] [id number] Resolute [place] 2mm 26mm 140cm Rapid Exchange Delivery System - [id number] Implanted:Qty: 1 on 08/21/2020 by Wale Maria MD at [facility] Stent Med[employer] Inc 12/22/2021 [id number] / / [id number] Cardiac Stent X 3 Heart Procedures Procedure Name Priority Date/Time Associated Diagnosis Comments EGFR Routine 09/08/2024 4:35 PM FRONTLOAD DRIVER Osteoporosis, unspecified osteoporosis type, unspecified pathological fracture presence HEMOGLOBIN A1C Routine 07/04/2022 4:51 AM FRONTLOAD DRIVER LIPID PANEL Routine 06/05/2022 12:02 PM FRONTLOAD DRIVER Chronic systolic congestive heart failure (HCC) Moderate mixed hyperlipidemia not requiring statin therapy from Last 3 Months or Most Recently Relevant to Health Maintenance Results * (ABNORMAL) eGFR (09/08/2024 4:35 PM FRONTLOAD DRIVER) eGFR 59(L) >=60 mL/min/1. 73 m2 Comment: [...] last reviewed 2021. Blood 09/08/2024 4:35 PM FRONTLOAD DRIVER 09/08/2024 4:42 PM FRONTLOAD DRIVER us Bola Craft MD LAB BLOOD ORDERABLES Final Resul t [facility] [address] [facility]. [place] [address] * Hemoglobin A1c (07/04/2022 4:51 AM FRONTLOAD DRIVER) Pathologist [facility] Hgb A1C 5.5 4.0 - 5.6 % [facility] Estimated Average Glucose 111 mg/dL [facility] Comment: The ADA recommends reporting an estimated Average Glucose (eAG) with all Hemoglobin A1c results using the equation derived from a study of 507 normal and diabetic adults. Minority populations were underrepresented and children were not included. (Diabetes Care 2020; 43(S1): S66-S76). The eAG is not equivalent to a fasting glucose. Blood 07/04/2022 4:51 AM FRONTLOAD DRIVER 07/04/2022 5:04 AM FRONTLOAD DRIVER us Eva Landeros MD LAB BLOOD ORDERABLES Leyda brady Result [facility] Department [place] [address] * Lipid panel (06/05/2022 12:02 PM FRONTLOAD DRIVER) Cholesterol 96 30 - 199 mg/dL [facility] Comment: Interpretive Data Ages < [...] on 2018. Triglycerides 98 <=149 mg/dL [facility] Comment: Interpretive Data Ages < [...] revised on 2018. HDL 49 >=40 mg/dL [facility] Comment: Interpretive Data Ages < [...] on 2018. LDL, calculated 27 <=129 mg/dL [facility] Comment: Interpretive Data Ages < [...] revised on 2018. Non-HDL Cholesterol 47 mg/dL [facility] Comment: Interpretive Data Ages < [...] last revised on 2018. Chol/HDL ratio 2 [facility] Blood 06/05/2022 12:0 2 PM FRONTLOAD DRIVER 06/05/2022 12:37 PM FRONTLOAD DRIVER us Dylan Beal MD LAB BLOOD ORDERABLES Final R esult [facility] [place] [address] from Last 3 Months or Most Recently Relevant to Health Maintenance Insurance MEDICARE [facility] MEDICARE [facility] MEDICARE SUPPLEMENT MEDICARE MEDICARE Member Subscriber Plan / Payer ( fective 2009-Present) Name:JACKIE NEVILLE Member ID:[id number] Relation to Subscriber:Self Name:Jackie Neville Subscriber ID:[id number] Payer ID:[id number] Group ID:Not on file Type:MEDICARE TRADITIONAL Address: [place] [id number] [facility] MEDICARE SUPPLEMENT MEDICARE [facility] Advance Directives For more information, please contact: [phone] * Full Code (Latest Code Status on File) Date Activated Date Inactivated Comments 07/03/2022 6:22 PM 07/05/2022 8:57 PM * Full Code Date Activated Date Inactivated Comments 08/20/2020 11:29 AM 08/22/2020 6:41 PM * Full Code Date Activated Date Inactivated Comments 02/15/2019 1:48 AM 02/16/2019 7:25 PM * Full Code Date Activated Date Inactivated Comments 09/02/2018 8:14 PM 09/06/2018 7:30 PM Care Teams [employer] Relationship Specialty Start Date End Date Alexandre Smith MD [address] [facility] [address] [place] [address] PCP - General Internal Medicine 09/08/24 Natalio Esparza MD [address] [facility] [address] [place] [address] Referring Physician Surgery 12/23/19
== END 2025-01-20 16:20 | disposition home or self-care (01) ==
LOC: ANHIMG 16:20
PROVIDERS: PCP Internal Medicine; Visit Provider Internal Medicine
DX: M41.84 Other forms of scoliosis, thoracic region (principal); M51.360 Other intervertebral disc degeneration, lumbar region with discogenic back pain only; S32.010A Wedge compression fracture of first lumbar vertebra, initial encounter for closed fracture; S32.020A Wedge compression fracture of second lumbar vertebra, initial encounter for closed fracture; X58.XXXA Exposure to other specified factors, initial encounter; M41.86 Other forms of scoliosis, lumbar region; M51.369 Other intervertebral disc degeneration, lumbar region without mention of lumbar back pain or lower extremity pain
CPT/HCPCS: 72072; 72100

== ENCOUNTER 2025-01-26 10:17 | Emergency (ER) | payer MEDICARE, SELFPAY ==
[2025-01-26] VITALS (7 sets, daily range): BP systolic 151–197; BP diastolic 59–108; PULSE 60–86; RESP 13–20; TEMP 36.4; O2SAT 96–99
--- NOTE | ~2025-01-26 | CT_ITS ---
CLINICAL INDICATION: Urinary retention with overflow incontinence suspected COMPARISON: Reference is made to an MRI examination of the thoracic and lumbar spines dated 07/30/2023 . TECHNIQUE: Multiple contiguous axial images of the chest, abdomen and pelvis were performed without t he administration of intravenous contrast The dose-length product (DLP) was 812.56 mGy-cm. Automated exposure control and iterative reconstruction technique were employed. The patient has significant kyphosis and contractures, rendering positioning rather challenging. FINDINGS/OBSERVATIONS: LUNG:No discrete pulmonary nodules or suspicious pulmonary masses are identified. The lungs are clear. MEDIASTINUM: Limited evaluation without intravenous contrast. HEART: The heart is borderline enlarged, with a small pericardial effusion. SOFT TISSUES OF THE CHEST: Unremarkable. Liver: The liver demonstrates homogeneous attenuation and is not enlarged. Gallbladder and biliary system: The gallbladder is distended, and otherwise unremarkable. Pancreas: Limited evaluation of the pancreas secondary to the lack of intravenous contrast. Spleen: The spleen demonstrates homogeneous attenuation and is not enlarged. Kidneys: 5 mm nonobstructing stone within the lower pole of the right kidney. The remainder of the bilateral kidneys are otherwise unremarkable, without hydronephrosis or addition al renal calculi. Adrenal glands: Unremarkable. Gastrointestinal tract: Large hiatal hernia. Significant fecal stasis within the distal colon, with trace mural thickening and surrounding inflamm atory change for which fecal impaction is suspected. No free fluid within the abdomen or pelvis. Vasculature: Densely calcified atherosclerotic disease. Fusiform aneurysmal dilatation of the infrarenal abdominal aorta measuring 30.5 x 31 mm in greatest d imension. Lymph nodes: Limited evaluation without intravenous contrast. Pelvic structures: The bladder is distended, and otherwise unremarkable. The prostate gland is not enlarged. Body wall: Fat-containing left inguinal hernia. Thoracic and lumbar spines: Redemonstration of L2 burst fracture, unchanged from prior. Diffuse bony demineralization. 35 degrees of levoscoliotic curvature is identified within the lumbar spine (increased from 23 degree s on the 2023 examination of the lumbar spine. Anterior wedge compression of the T8 vertebral body is also demonstrated, unchanged from 07/30/2023 ex amination Marked kyphosis is noted within the thoracic spine. There are bridging endplate osteophytes at multiple levels in the cervical and thoracic spines, consi stent with diffuse idiopathic skeletal hyperostosis (DISH). IMPRESSION: Significant bladder distention. Marked kyphosis with worsening of the degenerative disease within the thoracic and lumbosacral spines , without acute fracture. Fusiform aneurysmal dilatation of the infrarenal abdominal aorta measuring 31 mm in greatest dimensio n. Findings for which fecal impaction is suspected. Reviewed, dictated and finalized at location A. IMPRESSION: Significant bladder distention. Marked kyphosis with worsening of the degenerative disease within the thoracic and lumbosacral spines, without acute fracture. Fusiform aneurysmal dilatation of the infrarenal abdominal aorta measuring 31 m m in greatest dimension. Findings for which fecal impaction is suspected.
--- OUTSIDE RECORDS SUMMARY | 2025-01-26 11:04 | XMS_ITS | Encounter Summary ---
Author Organization [facility] Healthcare Address [address] [place] [address] Care Team Providers Care Audio Visual Project Manager Name Role Phone Rod Ann MD Unavailable [phone] Fabián Stanley MD Primary Care Provider Natalio Esparza MD Unavailable [phone] Yvan George MD Primary Care Provider [phone] Fabián Stanley MD Primary Care Provider Alexandre Smith MD Primary Care Provider [phone] Encounter Details Date Type Department Care Team (Late st Contact Info) Description 08/04/2021 Telephone [facility] [address] [facility] [address] [place] [address] Sanket Griffiths MD [address] [facility] [address] [place] [address] Social History Tobacco Use Types [...] on file Legal Sex Male 8:15 PM ACADEMIC GUIDANCE SPECIALIST Gender Identity Male 04/18/2019 11:33 AM CDT [...] COVID: Suspected 07/03/2022 07/03/2022 07/03/2022 2:45 PM ACADEMIC GUIDANCE SPECIALIST documented as of this encounter Care Teams Audio Visual Project Manager Relationship Specialty Start Date End Date Fabián Stanley MD [address] [place] [address] [address] [place] [address] PCP - General 10/08/17 09/30/22 Yvan George MD [address] [place] [place] [address] PCP - General Family Medicine 10/01/22 12/26/22 Fabián Stanley MD [address] [place] [address] [address] [place] [address] PCP - General Internal Medicine 12/27/22 09/07/24 Alexandre Smith MD [address] [facility] [address] [place] [address] PCP - General Internal Medicine 09/08/24 Rod Ann MD 12/25/16 06/26/22 Natalio Esparza MD [facility] [address] [facility] [address] [place] [address] Referring Physician Surgery 12/23/19 documented as of this encounter
--- OUTSIDE RECORDS SUMMARY | 2025-01-26 11:04 | XMS_ITS | Encounter Summary ---
Author Organization [facility] Healthcare Address [address] [place] [address] Care Team Providers Care Manager Warehouse Name Role Phone Rod Ann MD Unavailable [phone] Fabián Stanley MD Primary Care Provider Natalio Esparza MD Unavailable [phone] Yvan George MD Primary Care Provider [phone] Fabián Stanley MD Primary Care Provider Alexandre Smith MD Primary Care Provider Encounter Details Date Type Department Care Team (Late st Contact Info) Description 09/08/2020 Documentation [facility] [address] [place] [address] Belle Treadwell RN Social History Tobacco Use [...] on file Legal Sex Male 8:15 PM TAX SERVICES PROFESSIONAL Gender Identity Male 04/18/2019 11:33 AM CDT Sexual Orientation Straight 04/18/2019 11 :33 AM CDT documented as of this encounter Plan of Treatment Not on file documented as of this encounter Visit Diagnoses Not on filedocumented in this encounter Additional Health Concerns Infection Onset Date Last Indicated Resolved Time COVID: Suspected 07/03/2022 07/03/2022 07/03/2022 2:45 PM TAX SERVICES PROFESSIONAL documented as of this encounter Care Teams Manager Warehouse Relationship Specialty Start Date End Date Fabián Stanley MD [address] [place] [address] [address] [place] [address] PCP - General 10/08/17 09/30/22 Yvan George MD [address] [place] [address] PCP - General Family Medicine 10/01/22 12/26/22 Fabián Stanley MD [address] [place] [address] [address] [place] [address] PCP - General Internal Medicine 12/27/22 09/07/24 Alexandre Smith MD [address] [facility] [address] [place] [address] PCP - General Internal Medicine 09/08/24 Rod Ann MD 12/25/16 06/26/22 Natalio Esparza MD [address] [place] [address] [address] [place] [address] Referring Physician Surgery 12/23/19 documented as of this encounter
--- OUTSIDE RECORDS SUMMARY | 2025-01-26 11:04 | XMS_ITS | Referral Summary ---
Author Organization [facility] Address [address] [place] [address] Care Team Providers Care Rivet Thrower Name Role Phone Natalio Esparza MD Unavailable [phone] Alexandre Smith MD Primary Care Provider [phone] Encounters Date Type Department Care Team Description 12/28/2024 Documentation [facility] [address] [place] [address] First Floor [address] [place] [id number] Hesham Hernandez RMA Precivity 12/23/2024 3:30 PM CDT Procedure visit [facility] Ot[facility] [address] [place] [id number] Mihaela Erickson Au.D. Fitting and adjustment of hearing aid (Primary Dx) 12/14/2024 2:30 PM CDT Procedure visit [facility] Ot[facility] [address] [place] [id number] Mihaela Erickson Au.D. Fitting and adjustment [...] s:Vitamin deficiencies Take 1 capsule by mouth binder sorter before breakfast Active vit D3-vit E-ureptnirj-evxd [id number] sllq-ezo-yl-mg tabletIndications :Vitamin Deficiency Prevention Take 1 tablet [...] 07/03/2022 Assessment & Plan (07/05/2022 11:02 AM NEEDLE LEADER): -PT/OT -pain control -MRI with new compression fracture, severe neuroforaminal narrowing - pain management consult for possible injection/procedure given that pain isn't controlled with conservative management Assessment & Plan (07/04/2022 11:32 AM NEEDLE LEADER): -PT/OT -pain control -I d/w [employer] DATA WAREHOUSE ADMINISTRATOR whom patient was supposed to see today. 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 -NSTEMI -Initial ECG not diagnostic for an acute ischemic event -troponin continues to uptrend: 93338->60667->61870->85688 -c/o some chest discomfort and shortness of breath this AM; BP dropped to 70 when sitting at side of bed -serial EKGs without acute changes -plan for [facility] today -continue heparin drip -continue nitroglycerin drip -continue irbesartan -continue aspirin/brillinta Unstable angina pectoris 08/20/2020 Overview (08/21/2020): Added automatically from request for surgery [id number] Diastolic heart failure 12/08/2019 Assessment & Plan (07/05/2022 11:03 AM NEEDLE LEADER): -chronic diastolic heart failure -euvolemic -holding ARB, diuretics for SABAS Assessment & Plan (07/04/2022 11:31 AM NEEDLE LEADER): -chronic diastolic heart failure -euvolemic -holding ARB, diuretics for SABAS Insufficient treatment with nasal CPAP 9 Circadian rhythm sleep disorder, 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 Chronic systolic congestive heart failure 2018 Ischemic cardiomyopathy 03/23/2019 Cardiogenic shock 09/02/2018 Assessment & Plan (09/03/2018 4:56 PM NEEDLE LEADER): 2/ junctional bradycardia P/w BP 82/49, HR 35-41, lactate 2.7, Cr 1.9 from baseline 0.8 -improved to 100s/50s with IVF in ED -lactate 2.7->2.5->2.1 -IVF Symptomatic bradycardia 09/02/2018 Assessment & Plan (09/03/2018 4:51 PM NEEDLE LEADER): P/w dizziness, unsteadiness EKG with junctional bradycardia HR 40, CT head with no ICH Unsure if he took both metoprolol and carvedilol -hold home antihypertensives and beta blockers -tele -EP c/s if kavya does not self resolve -09/03 HR improved to 80s Paroxysmal A-fib 09/02/2018 Assessment & Plan (08/21/2020 11:02 AM NEEDLE LEADER): -currently in sinus rhythm -holing Eliquis for [facility] -continue heparin gtt Assessment & Plan (09/02/2018 4:22 PM NEEDLE LEADER): Per records -not seen on prior EKG -hold home Eliquis 5 b.i.d. -tele SABAS (acute kidney injury) 09/02/2018 Assessment & Plan (09/02/2018 4:25 PM NEEDLE LEADER): b/l 0.8, presents with Cr 1.9, likely [...] needed Assessment & Plan (07/05/2022 11:03 AM NEEDLE LEADER): -type 2 diabetes, on lantus 45 BID, Jardiance at home -Received only 35 units last night with hypoglycemia overnight despite improving SABAS -Hold insulin for now; will likely need much lower lantus dose Assessment & Plan (07/04/2022 11:32 AM NEEDLE LEADER): -type 2 diabetes, on lantus 45 BID, Jardiance at home -Dose reduced insulin here to 45 units daily + SSI Assessment & Plan (07/03/2022 5:43 PM NEEDLE LEADER): -type 2 diabetes, on lantus 45 BID, Jardiance at home -Dose reduced insulin here given SABAS Assessment & Plan (08/21/2020 11:04 AM NEEDLE LEADER): Hgb A1C 8.4; home regimen lantus 45u BID -continue reduced dose lantus 20u BID -cont lispro SSI -consistent carb diet Assessment & Plan (09/05/2018 6:40 PM NEEDLE LEADER): a1c-12.5 -glucose at 563 at presentation improved [...] daily Assessment & Plan (08/21/2020 11:07 AM NEEDLE LEADER): Recently seen in CHF clinic and multiple medications (norvasc, lasix, coreg) had been recently stopped for orthostasis. At that clinic visit, his irbesartan was reduced from 300mg to 150mg. -BP 191/107 on presentation to ED -currently controlled with nitro gtt -continue irbesartan -plan to resume previous anti-HTN meds as BP allows Assessment & Plan (09/02/2018 4:26 PM NEEDLE LEADER): -hold home antihypertensives for symptomatic kavya CAD (coronary artery disease) 12/30/2014 Overview (10/11/2016): Coronary heart disease Assessment & Plan (07/05/2022 11:03 AM NEEDLE LEADER): -continue ASA, statin -stable Assessment & Plan (07/04/2022 11:32 AM NEEDLE LEADER): -continue ASA, statin -stable Assessment & Plan (07/03/2022 5:41 PM NEEDLE LEADER): -continue ASA, statin -stable Assessment & Plan (09/02/2018 4:21 PM NEEDLE LEADER): [facility] 05/19/2013 and 05/27/2013, showed 99% subtotal occlusion [...] obstructive Assessment & Plan (09/02/2018 4:23 PM NEEDLE LEADER): Sleep study 05/2015 recommended CPAP nightly with [...] daily Assessment & Plan (09/03/2018 12:19 AM NEEDLE LEADER): -hold home rosuvastatin 10 Acute congestive heart failure Shortness of breath Status post insertion of drug eluting coronary a rtery stent SABAS (acute kidney injury) Assessment & Plan (10/16/2022 9:03 AM CDT): Stable, continue to monitor, check CMP to evaluate current renal function Continue to monitor PTH and vitamin-D level Assessment & Plan (07/05/2022 11:01 AM NEEDLE LEADER): -suspect related to high doses of ibuprofen over the last week -Cr trending down Assessment & Plan (07/04/2022 11:31 AM NEEDLE LEADER): -suspect related to high doses of ibuprofen over the last week -check UA -Gentle IVF -Renal US if not improving Assessment & Plan (07/03/2022 5:42 PM NEEDLE LEADER): -suspect related to high doses of ibuprofen over the last week -check UA -Gentle IVF -Renal US if not improving Resolved Problems Problem Noted Date Diagnosed Date Resolved Date 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/06/2021 TIA (transient ischemic attack) 09/03/2018 03/23/2019 Assessment & Plan (09/03/2018 4:53 PM NEEDLE LEADER): Hx of several TIA in the past, [...] on file Legal Sex Male 8:15 PM NEEDLE LEADER Gender Identity Male 04/18/2019 11:33 AM CDT [...] (169 lb 14.4 oz) 09/08/2024 2:12 PM NEEDLE LEADER Height 154.9 cm (5' 1) 09/08/2024 2:12 PM NEEDLE LEADER Body Mass Index 32.1 09/08/2024 2:12 PM NEEDLE LEADER Plan of Treatment Not on file Goals [...] as needed Medical Devices Implanted Type Area Flatbed Driver Device Identifier Shelf Expiration Date Model / Serial / Lot [employer] [id number] Angio-Seal Evolution 6fr .035in Guidewire Bypass Tube Suture - [id number] Implanted:Qty: 1 on 08/21/2020 by Wale Maria MD at [facility] Collagen [employer] [place] 05/07/2021 [id number] / / [id number] [employer] [id number] Resolute [place] 2mm 26mm 140cm Rapid Exchange Delivery System - [id number] Implanted:Qty: 1 on 08/21/2020 by Wale Maria MD at [facility] Stent [employer] Inc 12/22/2021 [id number] / / [id number] Cardiac Stent X 3 Heart Procedures Procedure Name Priority Date/Time Associated Diagnosis Comments EGFR Routine 09/08/2024 4:35 PM NEEDLE LEADER Osteoporosis, unspecified osteoporosis type, unspecified pathological fracture presence HEMOGLOBIN A1C Routine 07/04/2022 4:51 AM NEEDLE LEADER LIPID PANEL Routine 06/05/2022 12:02 PM NEEDLE LEADER Chronic systolic congestive heart failure (HCC) Moderate mixed hyperlipidemia not requiring statin therapy from Last 3 Months or Most Recently Relevant to Health Maintenance Results * (ABNORMAL) eGFR (09/08/2024 4:35 PM NEEDLE LEADER) eGFR 59(L) >=60 mL/min/1. 73 m2 Comment: [...] last reviewed 2021. Blood 09/08/2024 4:35 PM NEEDLE LEADER 09/08/2024 4:42 PM NEEDLE LEADER us Bola Craft MD LAB BLOOD ORDERABLES Final Resul t [facility] [address] [facility]. [place] [address] * Hemoglobin A1c (07/04/2022 4:51 AM NEEDLE LEADER) Pathologist [facility] Hgb A1C 5.5 4.0 - 5.6 % [facility] Estimated Average Glucose 111 mg/dL [facility] Comment: The ADA recommends reporting an estimated Average Glucose (eAG) with all Hemoglobin A1c results using the equation derived from a study of 507 normal and diabetic adults. Minority populations were underrepresented and children were not included. (Diabetes Care 2020; 43(S1): S66-S76). The eAG is not equivalent to a fasting glucose. Blood 07/04/2022 4:51 AM NEEDLE LEADER 07/04/2022 5:04 AM NEEDLE LEADER us Eva Landeros MD LAB BLOOD ORDERABLES Leyda brady Result [facility] Department [place] [address] * Lipid panel (06/05/2022 12:02 PM NEEDLE LEADER) Cholesterol 96 30 - 199 mg/dL [facility] Comment: Interpretive Data Ages < or [...] on 2018. Triglycerides 98 <=149 mg/dL [facility] Comment: Interpretive Data Ages < or [...] revised on 2018. HDL 49 >=40 mg/dL [facility] Comment: Interpretive Data Ages < or [...] on 2018. LDL, calculated 27 <=129 mg/dL [facility] Comment: Interpretive Data Ages < or [...] revised on 2018. Non-HDL Cholesterol 47 mg/dL [facility] Comment: Interpretive Data Ages < or [...] last revised on 2018. Chol/HDL ratio 2 [facility] Blood 06/05/2022 12:0 2 PM NEEDLE LEADER 06/05/2022 12:37 PM NEEDLE LEADER us Dylan Beal MD LAB BLOOD ORDERABLES Final R esult [facility] Department [place] [address] from Last 3 Months or Most Recently Relevant to Health Maintenance Insurance MEDICARE [facility] MEDICARE [facility] MEDICARE SUPPLEMENT MEDICARE MEDICARE Member Subscriber Plan / Payer ( fective 2009-Present) Name:JACKIE NEVILLE Member ID:[id number] Relation to Subscriber:Self Name:Jackie Neville Subscriber ID:[id number] Payer ID:[id number] Group ID:Not on file Type:MEDICARE TRADITIONAL Address: [place] [phone] [facility] MEDICARE SUPPLEMENT MEDICARE [facility] Advance Directives For more information, please contact: [phone] * Full Code (Latest Code Status on File) Date Activated Date Inactivated Comments 07/03/2022 6:22 PM 07/05/2022 8:57 PM * Full Code Date Activated Date Inactivated Comments 08/20/2020 11:29 AM 08/22/2020 6:41 PM * Full Code Date Activated Date Inactivated Comments 02/15/2019 1:48 AM 02/16/2019 7:25 PM * Full Code Date Activated Date Inactivated Comments 09/02/2018 8:14 PM 09/06/2018 7:30 PM Care Teams Rivet Thrower Relationship Specialty Start Date End Date Alexandre Smith MD [address] [facility] [address] [place] [address] PCP - General Internal Medicine 09/08/24 Natalio Esparza MD [address] [facility] [address] [place] [address] Referring Physician Surgery 12/23/19
--- OUTSIDE RECORDS SUMMARY | 2025-01-26 11:04 | XMS_ITS | Encounter Summary ---
Author Organization [facility] Address [address] [place] [address] Care Team Providers Care Safety Spec Name Role Phone Rod Ann MD Unavailable [phone] Fabián Stanley MD Primary Care Provider Natalio Esparza MD Unavailable [phone] Yvan George MD Primary Care Provider [phone] Fabián Stanley MD Primary Care Provider Alexandre Smith MD Primary Care Provider [phone] Encounter Details Date Type Department Care Team (Late st Contact Info) Description 04/21/2021 Documentation [facility] Physical [facility] [address] [address] Cayden Jacobo, PT Social History Tobacco Use [...] on file Legal Sex Male 8:15 PM STAFFING COORDINATOR Gender Identity Male 04/18/2019 11:33 AM CDT Sexual Orientation Straight 04/18/2019 11 :33 AM CDT documented as of this encounter Plan of Treatment Not on file documented as of this encounter Visit Diagnoses Not on filedocumented in this encounter Additional Health Concerns Infection Onset Date Last Indicated Resolved Time COVID: Suspected 07/03/2022 07/03/2022 07/03/2022 2:45 PM STAFFING COORDINATOR documented as of this encounter Care Teams Safety Spec Relationship Specialty Start Date End Date Fabián Stanley MD [address] [place] [address] [address] [place] [address] PCP - General 10/08/17 09/30/22 Yvan George MD [address] [place] [address] PCP - General Family Medicine 10/01/22 12/26/22 Fabián Stanley MD [address] [place] [address] [address] [place] [address] PCP - General Internal Medicine 12/27/22 09/07/24 Alexandre Smith MD [address] [facility] [address] [place] [address] PCP - General Internal Medicine 09/08/24 Rod Ann MD 12/25/16 06/26/22 Natalio Esparza MD [address] [place] [address] [address] [place] [address] Referring Physician Surgery 12/23/19 documented as of this encounter
--- OUTSIDE RECORDS SUMMARY | 2025-01-26 11:04 | XMS_ITS | Clinical Summary ---
Author Organization [facility] Address [address] [place] [address] Care Team Providers Care Operations Trainer Name Role Phone Natalio Esparza MD Unavailable [phone] Alexandre Smith MD Primary Care Provider [phone] Allergies No known active allergies Medications nitroglycerin [...] s:Vitamin deficiencies Take 1 capsule by mouth commercial lines account manager before breakfast Active vit D3-vit K-nkixqrnxw-rxxz [id number] drnc-sex-kj-mg tabletIndications :Vitamin Deficiency Prevention Take 1 tablet [...] 07/03/2022 Assessment & Plan (07/05/2022 11:02 AM HANDLE MACHINE OPERATOR): -PT/OT -pain control -MRI with new compression fracture, severe neuroforaminal narrowing - pain management consult for possible injection/procedure given that pain isn't controlled with conservative management Assessment & Plan (07/04/2022 11:32 AM HANDLE MACHINE OPERATOR): -PT/OT -pain control -I d/w NSGY [facility] whom patient was supposed to see today. Will order L-spine MRI Assessment & Plan (07/03/2022 5:40 PM HANDLE MACHINE OPERATOR): -PT/OT -pain control -Consider MRI while here -f/u neurosurgery Diverticular disease of colon 04/19/2022 Presence of coronary angioplasty implant and gra ft 04/19/2022 Sleep related eating disorder 09/21/2020 Inadequate sleep hygiene 09/21/2020 Chest pain 08/20/2020 Assessment & Plan (08/21/2020 11:17 AM HANDLE MACHINE OPERATOR): History of CAD with multiple PCI and medical non-compliance. -NSTEMI -Initial ECG not diagnostic for an acute ischemic event -troponin continues to uptrend: 22624->25435->50038->10266 -c/o some chest discomfort and shortness of breath this AM; BP dropped to 70 when sitting at side of bed -serial EKGs without acute changes -plan for [facility] today -continue heparin drip -continue nitroglycerin drip -continue irbesartan -continue aspirin/brillinta Unstable angina pectoris 08/20/2020 Overview (08/21/2020): Added automatically from request for surgery [id number] Diastolic heart failure 12/08/2019 Assessment & Plan (07/05/2022 11:03 AM HANDLE MACHINE OPERATOR): -chronic diastolic heart failure -euvolemic -holding ARB, diuretics for SABAS Assessment & Plan (07/04/2022 11:31 AM HANDLE MACHINE OPERATOR): -chronic diastolic heart failure -euvolemic -holding ARB, diuretics for SABAS Insufficient treatment with nasal CPAP 9 Circadian rhythm sleep disorder, 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 Chronic systolic congestive heart failure 2018 Ischemic cardiomyopathy 03/23/2019 Cardiogenic shock 09/02/2018 Assessment & Plan (09/03/2018 4:56 PM HANDLE MACHINE OPERATOR): 2/2 junctional bradycardia P/w BP 82/49, HR 35-41, lactate 2.7, Cr 1.9 from baseline 0.8 -improved to 100s/50s with IVF in ED -lactate 2.7->2.5->2.1 -IVF Symptomatic bradycardia 09/02/2018 Assessment & Plan (09/03/2018 4:51 PM HANDLE MACHINE OPERATOR): P/w dizziness, unsteadiness EKG with junctional bradycardia HR 40, CT head with no ICH Unsure if he took both metoprolol and carvedilol -hold home antihypertensives and beta blockers -tele -EP c/s if kavya does not self resolve -09/03 HR improved to 80s Paroxysmal A-fib 09/02/2018 Assessment & Plan (08/21/2020 11:02 AM HANDLE MACHINE OPERATOR): -currently in sinus rhythm -holing Eliquis for [facility] -continue heparin gtt Assessment & Plan (09/02/2018 4:22 PM HANDLE MACHINE OPERATOR): Per records -not seen on prior EKG -hold home Eliquis 5 b.i.d. -tele SABAS (acute kidney injury) 09/02/2018 Assessment & Plan (09/02/2018 4:25 PM HANDLE MACHINE OPERATOR): b/l 0.8, presents with Cr 1.9, likely [...] needed Assessment & Plan (07/05/2022 11:03 AM HANDLE MACHINE OPERATOR): -type 2 diabetes, on lantus 45 BID, Jardiance at home -Received only 35 units last night with hypoglycemia overnight despite improving SABAS -Hold insulin for now; will likely need much lower lantus dose Assessment & Plan (07/04/2022 11:32 AM HANDLE MACHINE OPERATOR): -type 2 diabetes, on lantus 45 BID, Jardiance at home -Dose reduced insulin here to 45 units daily + SSI Assessment & Plan (07/03/2022 5:43 PM HANDLE MACHINE OPERATOR): -type 2 diabetes, on lantus 45 BID, Jardiance at home -Dose reduced insulin here given SABAS Assessment & Plan (08/21/2020 11:04 AM HANDLE MACHINE OPERATOR): Hgb A1C 8.4; home regimen lantus 45u BID -continue reduced dose lantus 20u BID -cont lispro SSI -consistent carb diet Assessment & Plan (09/05/2018 6:40 PM HANDLE MACHINE OPERATOR): a1c-12.5 -glucose at 563 at presentation improved [...] daily Assessment & Plan (08/21/2020 11:07 AM HANDLE MACHINE OPERATOR): Recently seen in CHF clinic and multiple medications (norvasc, lasix, coreg) had been recently stopped for orthostasis. At that clinic visit, his irbesartan was reduced from 300mg to 150mg. -BP 191/107 on presentation to ED -currently controlled with nitro gtt -continue irbesartan -plan to resume previous anti-HTN meds as BP allows Assessment & Plan (09/02/2018 4:26 PM HANDLE MACHINE OPERATOR): -hold home antihypertensives for symptomatic kavya CAD (coronary artery disease) 12/30/2014 Overview (10/11/2016): Coronary heart disease Assessment & Plan (07/05/2022 11:03 AM HANDLE MACHINE OPERATOR): -continue ASA, statin -stable Assessment & Plan (07/04/2022 11:32 AM HANDLE MACHINE OPERATOR): -continue ASA, statin -stable Assessment & Plan (07/03/2022 5:41 PM HANDLE MACHINE OPERATOR): -continue ASA, statin -stable Assessment & Plan (09/02/2018 4:21 PM HANDLE MACHINE OPERATOR): C 05/19/2013 and 05/27/2013, showed 99% subtotal [...] obstructive Assessment & Plan (09/02/2018 4:23 PM HANDLE MACHINE OPERATOR): Sleep study 05/2015 recommended CPAP nightly with [...] daily Assessment & Plan (09/03/2018 12:19 AM HANDLE MACHINE OPERATOR): -hold home rosuvastatin 10 Acute congestive heart failure Shortness of breath Status post insertion of drug eluting coronary a rtery stent SABAS (acute kidney injury) Assessment & Plan (10/16/2022 9:03 AM CDT): Stable, continue to monitor, check CMP to evaluate current renal function Continue to monitor PTH and vitamin-D level Assessment & Plan (07/05/2022 11:01 AM HANDLE MACHINE OPERATOR): -suspect related to high doses of ibuprofen over the last week -Cr trending down Assessment & Plan (07/04/2022 11:31 AM HANDLE MACHINE OPERATOR): -suspect related to high doses of ibuprofen over the last week -check UA -Gentle IVF -Renal US if not improving Assessment & Plan (07/03/2022 5:42 PM HANDLE MACHINE OPERATOR): -suspect related to high doses of ibuprofen over the last week -check UA -Gentle IVF -Renal US if not improving Resolved Problems Problem Noted Date Diagnosed Date Resolved Date 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 Fitting and adjustment of hearing aid (Primary Dx) 12/14/2024 2:30 PM CDT Procedure visit [facility] [address] [place] [address] [phone] Mihaela Erickson Au.D. Fitting and adjustment of [...] (HCC) D iabetes type 2; Comments: [facility] 09/20/2014 - Hypertension Hypertension Restless legs syndrome Restless legs syndrome Adiposity Obesity CAD (coronary artery disease) Hyperlipidemia hyperlipidemia; Comments: [facility] 09/20/2014 - Hypothyroidism hypothyroidism; Comments: [facility] 09/20/2014 - Memory loss memory difficult ies; Comments: [facility] 09/20/2014 - Ear problems Scoliosis Family History [...] on file Legal Sex Male 8:15 PM HANDLE MACHINE OPERATOR Gender Identity Male 04/18/2019 11:33 AM [...] (169 lb 14.4 oz) 09/08/2024 2:12 PM HANDLE MACHINE OPERATOR Height 154.9 cm (5' 1) 09/08/2024 2:12 PM HANDLE MACHINE OPERATOR Body Mass Index 32.1 09/08/2024 2:12 PM HANDLE MACHINE OPERATOR Plan of Treatment Health Maintenance Due Date [...] as needed Medical Devices Implanted Type Area Bladder Cleaner Device Identifier Shelf Expiration Date Model / Serial / Lot REPUCOM/St [employer] [id number] Angio-Seal Evolution 6fr .035in Guidewire Bypass Tube Suture - [id number] Implanted:Qty: 1 on 08/21/2020 by Wale Maria MD at [facility] Collagen [employer] Dale 05/07/2021 [id number] / / [id number] [employer] [id number] Resolute Antonio 2mm 26mm 140cm Rapid Exchange Delivery System - [id number] Implanted:Qty: 1 on 08/21/2020 by Wale Maria MD at [facility] Stent Med[employer] Inc 12/22/2021 [id number] / / [id number] Cardiac Stent X 3 Heart Procedures Procedure Name Priority Date/Time Associated Diagnosis Comments EGFR Routine 09/08/2024 4:35 PM HANDLE MACHINE OPERATOR Osteoporosis, unspecified osteoporosis type, unspecified pathological fracture presence HEMOGLOBIN A1C Routine 07/04/2022 4:51 AM HANDLE MACHINE OPERATOR LIPID PANEL Routine 06/05/2022 12:02 PM HANDLE MACHINE OPERATOR Chronic systolic congestive heart failure (HCC) Moderate mixed hyperlipidemia not requiring statin therapy from Last 3 Months or Most Recently Relevant to Health Maintenance Results * (ABNORMAL) eGFR (09/08/2024 4:35 PM HANDLE MACHINE OPERATOR) eGFR 59(L) >=60 mL/min/1. 73 m2 Comment: [...] last reviewed 2021. Blood 09/08/2024 4:35 PM HANDLE MACHINE OPERATOR 09/08/2024 4:42 PM HANDLE MACHINE OPERATOR us Bola Craft MD LAB BLOOD ORDERABLES Final Resul t Performing Organization Address City/[facility]/ZIP Co de Phone Number [facility] [address] [facility] [place] [address] * Hemoglobin A1c (07/04/2022 4:51 AM HANDLE MACHINE OPERATOR) [facility] Hgb A1C 5.5 4.0 - 5.6 % [facility] Estimated Average Glucose 111 mg/dL [facility] Comment: The ADA recommends reporting an estimated Average Glucose (eAG) with all Hemoglobin A1c results using the equation derived from a study of 507 normal and diabetic adults. Minority populations were underrepresented and children were not included. (Diabetes Care 2020; 43(S1): S66-S76). The eAG is not equivalent to a fasting glucose. Blood 07/04/2022 4:51 AM HANDLE MACHINE OPERATOR 07/04/2022 5:04 AM HANDLE MACHINE OPERATOR us Eva Landeros MD LAB BLOOD ORDERABLES Leyda l Result [facility] Department [place] [address] * Lipid panel (06/05/2022 12:02 PM HANDLE MACHINE OPERATOR) [facility] Signature Cholesterol 96 30 - 199 mg/dL [facility] Comment: Interpretive Data Ages < or = [...] revised on 2018. Triglycerides 98 <=149 mg/dL [facility] Comment: Interpretive Data Ages < or = [...] revised on 2018. HDL 49 >=40 mg/dL [facility] Comment: Interpretive Data Ages < or = [...] 2018. LDL, calculated 27 <=129 mg/dL [facility] Comment: Interpretive Data Ages < or = [...] revised on 2018. Non-HDL Cholesterol 47 mg/dL [facility] Comment: Interpretive Data Ages < or = [...] last revised on 2018. Chol/HDL ratio 2 [facility] Blood 06/05/2022 12:0 2 PM HANDLE MACHINE OPERATOR 06/05/2022 12:37 PM HANDLE MACHINE OPERATOR Dylan Beal MD LAB BLOOD ORDERABLES Final R esult [facility] Department [place] [address] from Last 3 Months or Most Recently Relevant to Health Maintenance Insurance MEDICARE [facility] MEDICARE [facility] MEDICARE SUPPLEMENT MEDICARE MEDICARE [employer] MEDICARE SUPPLEMENT MEDICARE [facility] Advance Directives For more information, please contact: [phone] * Full Code (Latest Code Status on File) Date Activated Date Inactivated Comments 07/03/2022 6:22 PM 07/05/2022 8:57 PM * Full Code Date Activated Date Inactivated Comments 08/20/2020 11:29 AM 08/22/2020 6:41 PM * Full Code Date Activated Date Inactivated Comments 02/15/2019 1:48 AM 02/16/2019 7:25 PM * Full Code Date Activated Date Inactivated Comments 09/02/2018 8:14 PM 09/06/2018 7:30 PM Care Teams Operations Trainer Relationship Specialty Start Date End Date Alexandre Smith MD [address] [facility] [address] [place] [address] PCP - General Internal Medicine 09/08/24 Natalio Esparza MD [address] [facility] [address] [place] [address] Referring Physician Surgery 12/23/19
--- OUTSIDE RECORDS SUMMARY | 2025-01-26 11:04 | XMS_ITS | Continuity of Care Document ---
Author Organization [facility] Address [address] [place] [address] Phone Care Team Providers Care Safety Spec Name Role Phone Faustino Carvajal MD Unavailable [...] Active Procedures Procedure Date OFFICE/OUTPATIENT VISIT [facility] Advance Directives Directive Yes / No Effective Date File Name No Information Encounters Encounter Description Practice Location Reason(s) For Visit Diagnoses Date Provider Providers Copied on Encounter [facility], [address] [place] [address], [address], tel:[phone] [facility] No Information Sep-0 3 5 Alena Harmon. [address] [place], [place], [id number] . tel: [phone] OFFICE/OUTPAT IENT VISIT [facility], [address] [place] [address] [address], [place], [address], tel:[phone] [facility] Primary localized osteoarthros is, lower leg Sep-0 3-201 5 Alena Rodarte. [address] [facility] [address], [place], [place], [id number] . tel: [phone] Family History Family Member Type Diagnosis Age [...]
--- OUTSIDE RECORDS SUMMARY | 2025-01-26 11:04 | XMS_ITS | Encounter Summary ---
Author Organization [facility] Address [address] [place] [address] Phone Care Team Providers Care Dock Operations Supervisor Name Role Phone Rod Ann MD Unavailable [phone] Fabián Stanley MD Primary Care Provider Natalio Esparza MD Unavailable [phone] Yvan George MD Primary Care Provider [phone] Fabián Stanley MD Primary Care Provider Alexandre Smith MD Primary Care Provider [phone] Encounter Details Date Type Department Care Team (Late st Contact Info) Description 05/18/2021 Telephone [facility] Otolaryngology [address] [facility] Medical Office [address] [place] [address] Radha Culver Au.D. [address] [facility] [address] [place] [address] Social History Tobacco Use Types [...] on file Legal Sex Male 8:15 PM DIRECTOR ONLINE MARKETING Gender Identity Male 04/18/2019 11:33 AM CDT Sexual Orientation Straight 04/18/2019 11 :33 AM CDT documented as of this encounter Plan of Treatment Not on file documented as of this encounter Visit Diagnoses Not on filedocumented in this encounter Additional Health Concerns Infection Onset Date Last Indicated Resolved Time COVID: Suspected 07/03/2022 07/03/2022 07/03/2022 2:45 PM DIRECTOR ONLINE MARKETING documented as of this encounter Care Teams Dock Operations Supervisor Relationship Specialty Start Date End Date Fabián Stanley MD [address] [place] [address] [address] [place] [address] PCP - General 10/08/17 09/30/22 Yvan George MD [facility] [place] [address] PCP - General Family Medicine 10/01/22 12/26/22 Fabián Stanley MD [address] [place] [address] [address] [place] [address] PCP - General Internal Medicine 12/27/22 09/07/24 Alexandre Smith MD [address] [facility] [address] [place] [address] PCP - General Internal Medicine 09/08/24 Rod Ann MD 12/25/16 06/26/22 Natalio Esparza MD [address] [place] [address] [address] [place] [address] Referring Physician Surgery 12/23/19 documented as of this encounter
--- OUTSIDE RECORDS SUMMARY | 2025-01-26 11:04 | XMS_ITS | Patient Health Record ---
Author Organization [facility] Address [address] [facility]. [address] [place] [address] Care Team Providers Care Skid Road Man Name Role Phone z(Retired) Jaden ROMERO, [facility] Provi maribel Unavailable Teodoro Doan Unavailable [phone] Reason For Referral No Information Medications Medication [...] Problem Status W/U Status Risk Notes Problem 837602637 Diverticulosis o f large intestine without perforation or abscess without bleeding (K57.30) Active confirmed Problem 150560753 Personal history of colonic polyps (Z86.010) Active confirmed Problem 317888898 Colon cancer screening (Z12.11) Active confirmed It has been 10 years since his last colonosco py, which by his report was normal. His stools are usually soft or loose. He denies having any blood in the stool. Problem 542200069 History of heart artery stent (Z95.5) Active confirmed Problem [id number] High risk medication use (Z79.899) Active confirmed [...] Coverage End Date Medicare E2 [address] [address] [place] [address] [id number] OscarSanthosh han Self - patient is the insured Blue Access PPO E2 [address] [place] [address] [phone] [id number] OscarSanthosh han Self - patient is the insured Medical (General) History Medical History History ICD Code Restless Leg Syndrome Depression Hypertension Hypercholesterolemia Diabetes Sleep Apnea Hearing Loss Heart Disease Surgical History Surgery Date(Month/Year) Cardiac stents Colonoscopy 2009
--- NOTE | 2025-01-26 12:09 | ED.BACK ---
HPI - Back Pain/Injury General Chief Complaint: Back Pain/Injury Stated Complaint: low back pain Time Seen by Provider: 01/26/25 10:56 Source: patient History of Present Illness HPI Narrative: Patient presents with report low back pain. He initially states this pain started 2 days but then as given he underwent imaging somewhat recently in these areas, he states maybe is been going long for further states that he has been pain for about a year or longer. His PCP Dr Smith gave him pain pills. He has a history reportedly of scoliosis. He has not taking his home medications. Patient does not know if he is on anticoagulation or steroids. He notes that he has been incontinent of urine lately but not bowel. No paresthesias or saddle anesthesia. He reports he slipped out his room lying does chair awhile ago denies any other interim trauma/injury/falls. Denies any fevers chills, diarrhea. No abdominal pain, syncope. No loss of consciousness. Denies any previous back surgery. No history of cancer. Related Data Home Medications ?Medication ?Instructions ?Recorded ?Confirmed ?Last Taken ?Type apixaban 5 mg tablet (Eliquis) 5 mg PO BID 07/16/22 12/03/24 Unknown History rosuvastatin 20 mg tablet 20 mg PO DAILY 07/16/22 12/03/24 Unknown History aspirin 81 mg tablet,delayed 81 mg PO DAILY 07/12/23 12/03/24 Unknown History release (Adult Low Dose Aspirin) carisoprodol 250 mg tablet 250 mg PO TID 07/12/23 12/03/24 Unknown History cholecalciferol (vitamin D3) 25 25 mcg PO DAILY 07/12/23 12/03/24 Unknown History mcg (1,000 unit) capsule fish oil 1,200 mg BYMOUTH DAILY 07/12/23 12/03/24 Unknown History lactobacillus combo no.11 15 1 cap PO DAILY 07/12/23 12/03/24 Unknown History billion cell sprinkle capsule (Probiotic) trazodone 100 mg tablet 300 mg PO HS 01/01/24 12/03/24 Unknown History ferrous sulfate 325 mg (65 mg 325 mg PO BID 02/04/24 12/03/24 Unknown History iron) tablet amlodipine 5 mg tablet 5 mg PO DAILY 09/15/24 12/03/24 Unknown History irbesartan 150 mg tablet 150 mg PO DAILY 09/15/24 12/03/24 Unknown History folic acid 1 mg tablet 1 mg PO DAILY 10/06/24 12/03/24 Unknown History sildenafil 100 mg tablet (Viagra) 100 mg PO DAILY PRN 10/06/24 12/03/24 Unknown History Allergies Allergy/AdvReac Type Severity Reaction Status Date / Time No Known Allergies Allergy Verified 01/26/25 10:23 [facility] Past Medical History Medical History BMI 29.0-29.9,adult Non-healing wound of right lower extremity BMI 30.0-30.9,adult BMI 31.0-31.9,adult Pedal edema MARIMAR (obstructive sleep apnea) BMI 32.0-32.9,adult Follow up Compression fracture of thoracic spine, non-traumatic Compression fracture of lumbar spine, non-traumatic BMI 33.0-33.9,adult Kyphoscoliosis and scoliosis Impaired functional mobility, balance, gait, and endurance Osteoporosis On termination clerk drug therapy Encounter to establish care Overactive bladder BMI 34.0-34.9,adult Coronary artery disease Hyperlipidemia Myocardial infarction Diabetes mellitus Hypertension Surgical History Surgical History No pertinent past surgical history Social History Social History Social History: Exercises 3x/week Smoking status: Current every day smoker Tobacco type: cigars Second hand tobacco smoke exposure: Yes Additional smoking assessment comments: 3 cigars/day Alcohol intake: never Substance use: never Substance use type: does not use Do You Feel Safe in your Home?: Yes Lack of Transportation: No Lack of Food: Never True Current Housing: I Have Housing Concerned About Future Housing: No Difficulty Paying Gas/Electric Bills: No Difficulty Paying for Meds: No Currently Unemployed: No Education: Associate Degree Difficulty w/ Childcare or Family Care: No Living arrangements: alone Occupation/Education: retired Gender identity (if verbalized by the patient): Male Spiritual care concerns: No Exam Narrative: GENERAL: Well-appearing, well-nourished, and in no acute distress. HEAD: Normocephalic, atraumatic. EYES: Non injected, non icteric ENT: Nares clear, no rhinorrhea or epistaxis. Gross auditory acuity intact. NECK: Supple. No meningismus. CHEST: Speaking in full sentences. No respiratory distress. HEART: Regular rate and rhythm. . ABDOMEN/Rectal: Soft, nondistended. No rigidity or guarding. Not peritoneal. No tenderness to palpation throughout. Digital rectal exam performed with 2 techs present as chaperones/assistants. Normal sphincter tone w/o palpable masses or significant stool burden in rectal vault. No grossly bloody stool on gloved finger. External nonthrombosed hemorrhoid versus skin tag visualized. EXTREMITIES: No lower extremity edema. 5/5 strength with bilateral ankle plantar flexion and dorsiflexion. Back: Kyphotic. No tenderness is noted on palpation of the spinous processes which are midline. SKIN: Warm, dry, no rash. NEURO: No focal deficits. Alert and oriented. Answering questions. Following commands. Normal speech without aphasia or dysarthria. Sensation intact throughout bilateral lower extremities. PSYCH: Normal mood and affect. Course Vital Signs Vital signs: Vital Signs Temperature 97.6 F 01/26/25 10:18 Pulse Rate 71 01/26/25 10:18 Respiratory Rate 18 01/26/25 10:18 Blood Pressure 197/85 H 01/26/25 10:18 Pulse Oximetry 98 01/26/25 10:18 Oxygen Delivery Room Air 01/26/25 10:18 Temperature 97.6 F 01/26/25 10:18 Pulse Rate 68 01/26/25 23:07 Respiratory Rate 18 01/26/25 23:07 Blood Pressure 160/108 H 01/26/25 23:07 Pulse Oximetry 99 01/26/25 23:07 Oxygen Delivery Room Air 01/26/25 10:18 MDM - Back Pain/Injury [facility] Narrative Medical decision making narrative: Exceedingly pleasant 79 yo male Patient presents with report of low back pain. Was initially reported that he has been experiencing this pain for 2 days but he states perhaps this been longer, initially states 1-2 weeks but then says he has dealt with back pain for a year or more. He also reports that he has bladder recently; overactive bladder is noted per review of the EMR. Patient recently had Xrays performed (see below). In the emergency department he is afebrile with vital signs notable for hypertension. Patient's medication list is reviewed and does show that he is on Eliquis. Physical exam is in reassuring intact and moving extremities. Normal rectal tone. Urinalysis without obvious infection. After it was obtained, bladder scan performed which demonstrates [id number], however it was performed after UA had resulted and the timing of when he produced the sample was unclear. After patient urinates again (he states he got a lot out, 300cc in urinal), he does still have urinary retention, 231-260cc on bedside bladder scan. CBC unremarkable. Renal function essentially at his baseline consistent with CKD. CT with distended bladder. Patient is otherwise able to urinate so there does not seem to be an indication for [place] catheter placement. I do believe he would benefit from seeing a urologist however. He also has an infrarenal abdominal aortic aneurysm that was otherwise asymptomatic and the size is only 3.1cm thus reasonable to follow up outpatient with PCP/surgery. Although there was mention of possible fecal impaction on CT imaging, rectal exam did not demonstrate this. I ordered Metamucil, MiraLax, and a suppository to assist with the stool burden. This is likely exacerbating his issues so Rx provided for bowel regimen. He is also prescribed acetaminophen and lidocaine patches. Unable to take NSAIDs due to being on Eliquis. Initial thought was to provide a short course of opiate/narcotic medication however per review of prescription monitoring, PCP just did. Provided return precautions. Differential Diagnosis Differential diagnosis: Likely lumbar radiculopathy, sciatica, strain of lumbar region, thoracic back pain, AAA, discitis and other (scoliosis, compression fractures; considered spinal epidural abscess and aortic/vascular; considered cauda equina/cord compression) Medical Records Attestation: I reviewed the patient's medical records. Medical records narrative: 01/21/25 Impression: Kyphoscoliosis is similar to prior exam. Multilevel degenerative disc narrowing. 01/22/25 IMPRESSION: Compression fracture of L1 and L2 which is most likely chronic. Levoscoliosis. Multilevel degenerative disc disease. Lab Data Attestation: I reviewed the patient's lab results. 01/26/25 14:09 01/26/25 14:09 Labs: Lab Results 01/26/25 01/26/25 Range/Units 12:25 14:09 WBC 7.4 (4.5-10.0) K/mm3 RBC 5.35 (4.6-6.20) M/mm3 Hgb 16.5 (14.0-18.0) g/dL Hct 48.8 (42.0-52.0) % MCV 91.2 (80-100) fl MCH 30.8 (26-34) pg MCHC 33.8 (32-36) g/dl RDW 13.2 (11.5-14.5) % Plt Count 247 (150-375) k/mm3 MPV 10.0 (7.4-10.4) fl Immature Gran % (Auto) 0.3 (0-0.5) % Neut % (Auto) 66.8 (45.5-73.1) % Lymph % (Auto) 22.7 (18.3-44.2) % [place] % (Auto) 6.3 (2.6-8.5) % Eos % (Auto) 3.0 (0-4.4) % Baso % (Auto) 0.9 (0.2-1.2) % Lymph # (Auto) 1.68 (0.9-3.2) K/mm3 [place] # (Auto) 0.5 (0.1-0.6) K/mm3 Eos # (Auto) 0.2 (0-0.3) K/mm3 Baso # (Auto) 0.1 (0.0-0.1) K/mm3 Abs Immat Gran (auto) 0.02 (0.00-0.031) K/mm3 Absolute Neuts (auto) 5.0 (1.3-6.7) K/mm3 Absolute Nucleated RBC 0.000 (0.0-0.012) K/mm3 Nucleated RBC % 0.0 (0.0-0.2) % Sodium 141 (137-145) mmol/L Potassium 3.9 (3.4-5.0) mmol/L Chloride 102 (98-107) mmol/L Carbon Dioxide 28 (22-30) mmol/L Anion Gap 11 (4-12) mmol/L BUN 21 H D (9-20) mg/dL Creatinine 1.33 H (0.7-1.3) mg/dL Estim Creat Clear Calc 39 ml/min Estimated GFR 52 L (59 - ) Glucose 99 (65-110) mg/dL Calcium 9.7 (8.4-10.2) mg/dL Total Bilirubin 0.8 (0.2-1.3) mg/dL AST 26 (17-59) U/L ALT 15 (6-50) U/L Alkaline Phosphatase 132 H (38-126) U/L Total Protein 8.5 H (6.3-8.2) g/dL Albumin 4.5 (3.5-5.1) g/dL Urine Color Yellow (Yellow) Urine Appearance Clear (Clear) Urine pH 6.5 (5.0-9.0) Ur Specific [place] 1.009 (1.001-1.035) Urine Protein 1+ H (Negative) mg/dL Urine Glucose (UA) Negative (Negative) mg/dL Urine Ketones Trace H (Negative) mg/dL Ur Blood (Man) Trace (Negative) Urine Nitrate Negative (Negative) Urine Bilirubin Negative (Negative) Urine Urobilinogen 0.2 (<2.0) mg/dL Leukocyte Esterase Rfl Negative (Negative) SOFIYA/UL Urine RBC 0-2 (0-2) /hpf Urine WBC 0-5 (0-3) /hpf Ur Squamous Epith Cells None seen (Few) /hpf Urine Bacteria None seen /hpf Urine Casts 0-2 Imaging Data Radiologist's impression: Impressions Chest/Abdomen/Pelvis/Spine CT 01/26/25 14:36 IMPRESSION: Significant bladder distention. Marked kyphosis with worsening of the degenerative disease within the thoracic and lumbosacral spines, without acute fracture. Fusiform aneurysmal dilatation of the infrarenal abdominal aorta measuring 31 mm in greatest dimension. Findings for which fecal impaction is suspected. Discharge Plan Discharge Clinical Impression: Acute on chronic back pain, Urinary retention, CKD (chronic kidney disease), Bladder distension, Kyphosis, Degenerative disc disease, Aneurysm of infrarenal abdominal aorta, Constipation Patient Disposition: Home Condition: Stable Instructions: Antibiotic Form, Constipation (ED), Urinary Retention in Men (ED), Urinary Incontinence (ED), Chronic Kidney Disease (ED), High Fiber Diet (ED), Nonruptured Abdominal Aortic Aneurysm (DC), Chronic Back Pain (DC), Degenerative Disc Disease (ED), Lower Back Exercises (ED) Additional Instructions: Given your urinary retention and occasional incontinence which I believe is due to overflow incontinence given your bladder was distended on imaging, I do believe you would benefit from seeing a urologist. The name of a doctor is listed below. You have an aneurysm of abdominal aorta (a giant blood vessel) below the level of your kidneys. Based on the size of this, follow-up with your primary care physician for continued monitoring/management. Return to the emergency department immediately if you experience sudden abdominal pain, blood in your urine, fainting/passing out, dizziness, or pain in your legs , etc. The goal of back pain is multimodal pain management to allow you to have your pain better under control to a degree to allow you to balance some rest with staying active and moving to perform stretching and strengthening exercises. Acetaminophen/Tylenol (maximum 4000 mg per day) is safe to take. The topica lidocaine patches can help as well. Given you are on Elliquis you can not take NSAIDs (meds like ibuprofen, Motrin/advil/aleve). For breakthrough pain, you can use the tramadol your primary care physician ordered (for this reason, the oxycodone listed below Was NOT sent as this would be duplicate therapy). Follow-up with your primary care physician to discuss alternative/additional medications. You also had significant constipation and this can worsen pain and bladder issues. Especially on tramadol (which can worsen constipation), drink plenty of water and incorporate more fiber in diet. You can also use a bowel regimen of fiber / psyllium/metamucil supplemental by Miralax and, as needed, a laxative (magnesium citrate). Return to the ER if you have increased pain in your back, you develop lower extremity weakness/numbness/paralysis, you have numbness or tingling in your private parts, or you are unable to control your ability to stool. Patient Language: Romanian Prescriptions: New acetaminophen 500 mg capsule 1,000 mg PO Q6H PRN (Reason: pain) Qty: 30 0RF lidocaine 4 % adhesive patch,medicated 1 patch topical DAILY PRN (Reason: pain) Qty: 10 0RF oxycodone 5 mg tablet 5 mg PO .Qday PRN (Reason: pain) Qty: 7 0RF Metamucil 3.4 gram/5.4 gram powder 1 tbsp PO DAILY Qty: 660 0RF Rx Instructions: mix into at least 8 oz of water or juice before administering polyethylene glycol 3350 [Miralax] 17 gram/dose powder 17 g PO DAILY Qty: 119 0RF magnesium citrate Solution 150 ml PO DAILY PRN (Reason: constipation) Qty: 296 0RF No Action (DME) BreatheRite MDI Spacer Spacer See Rx Instructions .ROUTE .MEDSUPPLY Qty: 1 0RF Rx Instructions: As directed aspirin [Adult Low Dose Aspirin] 81 mg tablet,delayed release (DR/EC) 81 mg PO DAILY carisoprodol 250 mg tablet 250 mg PO TID cholecalciferol (vitamin D3) 25 mcg (1,000 unit) capsule 25 mcg PO DAILY mecobalamin (vitamin B12) 1,000 mcg tablet,disintegrating 1,000 mcg sublingual DAILY Qty: 90 1RF Rx Instructions: place tablet under tongue and allow to dissolve for at least30 secs before swallowing fish oil 1,200 mg BYMOUTH DAILY Probiotic 15 billion cell capsule, sprinkle 1 cap PO DAILY Rx Instructions: do not crush/chew/cut; swallow whole OR may open and sprinkle in cold drink/food furosemide 40 mg tablet 40 mg PO QAM Qty: 90 1RF potassium chloride 10 mEq capsule, extended release 10 meq PO DAILY Qty: 90 1RF sildenafil [Viagra] 100 mg tablet 100 mg PO DAILY PRN Rx Instructions: administer 30 minutes to 4 hours before activity folic acid 1 mg tablet 1 mg PO DAILY rosuvastatin 20 mg tablet 20 mg PO DAILY Eliquis 5 mg tablet 5 mg PO BID docusate sodium 100 mg Capsule 100 mg PO Q12H PRN (Reason: Constipation) Qty: 30 0RF lidocaine [Lidoderm] 5 % Adhesive Patch,Medicated 1 patch transdermal DAILY Qty: 5 0RF Jardiance 25 mg tablet 25 mg PO DAILY Qty: 90 2RF trazodone 100 mg tablet 300 mg PO HS risedronate 35 mg tablet See Rx Instructions .ROUTE .COMPLEX Qty: 12 2RF Dose Instruction: TAKE 1 TABLET BY MOUTH EVERY WEEK. ADMINISTER 30 MINUTES BEFORE FIRST FOOD OR DRINK OTHER THAN WATER Rx Instructions: TAKE 1 TABLET BY MOUTH EVERY WEEK. ADMINISTER 30 MINUTES BEFORE FIRST FOOD OR DRINK OTHER THAN WATER ferrous sulfate 325 mg (65 mg iron) tablet 325 mg PO BID amlodipine 5 mg tablet 5 mg PO DAILY irbesartan 150 mg tablet 150 mg PO DAILY mirabegron [Myrbetriq] 50 mg tablet extended release 24 hr 50 mg PO DAILY Qty: 90 1RF pramipexole 1 mg tablet See Rx Instructions .ROUTE .COMPLEX Qty: 180 0RF Dose Instruction: TAKE 2 TABLETS BY MOUTH EVERY DAY AT BEDTIME Rx Instructions: TAKE 2 TABLETS BY MOUTH EVERY DAY AT BEDTIME tizanidine 2 mg tablet 2 mg PO TID PRN (Reason: muscle spasticity) Qty: 30 0RF tramadol 50 mg tablet 50 mg PO Q4-6H PRN (Reason: pain) Qty: 35 0RF Follow-up/Referrals: Case Mosley MD [Physician] - (urology) Alexandre Smith MD [Primary Care Provider] - Time of Disposition: 18:48
[2025-01-26 12:37] LABS: Add Urine Microscopic? YES; Appearance Urine Clear (Clear); Glucose Urine UA Negative (Negative); Leukocyte Esterase Ur Negative LEU/UL (Negative); Nitrate Urine Negative (Negative); Non Pathogenic Casts 0-2; Specific Grav Ur 1.009 (1.001-1.035)
[2025-01-26] MEDS: HYDROcodone/acetaminophen (*CRX) 5-325 MG TABLET 1 TAB PO (13:10)
[2025-01-26 14:23] LABS: Hematocrit 48.8 % (42.0-52.0); Hemoglobin 16.5 g/dL (14.0-18.0); Immature Granulocyte Percent A 0.3 % (0-0.5); Lymphocytes Absolute Auto 1.68 K/mm3 (0.9-3.2); Mean Corpuscular HGB Conc 33.8 g/dl (32-36); Mean Corpuscular Hemoglobin 30.8 pg (26-34); Mean Corpuscular Volume 91.2 fl (80-100); Nucleated Red Blood Cells Absolute Auto 0.000 K/mm3 (0.0-0.012); Nucleated Red Blood Cells Perc 0.0 % (0.0-0.2); Platelet Count Result 247 k/mm3 (150-375); Red Blood Count 5.35 M/mm3 (4.6-6.20); White Blood Count 7.4 K/mm3 (4.5-10.0)
[2025-01-26 14:43] LABS: Alanine Aminotransferase 15 U/L (6-50); Albumin Level 4.5 g/dL (3.5-5.1); Alkaline Phosphatase 132 U/L (38-126); Anion Gap 11 mmol/L (4-12); Aspartate Amino Transferase 26 U/L (17-59); Bilirubin,Total 0.8 mg/dL (0.2-1.3); Blood Urea Nitrogen 21 mg/dL (9-20); Calcium 9.7 mg/dL (8.4-10.2); Carbon Dioxide 28 mmol/L (22-30); Chloride 102 mmol/L (98-107); Estimated CRCL calculation 39 ml/min; Estimated Glomerular Filt Rate 52; Glucose 99 mg/dL (65-110); Potassium 3.9 mmol/L (3.4-5.0); Sodium 141 mmol/L (137-145); Total Protein 8.5 g/dL (6.3-8.2)
[2025-01-26] MEDS: BISACODYL 10 MG SUPPOSITORY RECTAL (15:57)
[2025-01-26] MEDS: PSYLLIUM POWDER PACKET 1 PACKET PO (15:57)
[2025-01-26] MEDS: LIDOCAINE 5% PATCH 1 PATCH TRANSDERM (16:00)
[2025-01-26] MEDS: ACETAMINOPHEN 325 MG TABLET 650 MG PO (16:01)
[2025-01-26] MEDS: diazePAM (*CRX) 2 MG TABLET PO (16:01)
== END 2025-01-26 23:09 | disposition home or self-care (01) ==
PROVIDERS: Emergency Provider Student in an Organized Health Care Education/Training Program; PCP Internal Medicine
DX: M54.50 Low back pain, unspecified (principal); G89.29 Other chronic pain; M51.379 Other intervertebral disc degeneration, lumbosacral region without mention of lumbar back pain or lower extremity pain; M51.34 Other intervertebral disc degeneration, thoracic region; E11.22 Type 2 diabetes mellitus with diabetic chronic kidney disease; I12.9 Hypertensive chronic kidney disease with stage 1 through stage 4 chronic kidney disease, or unspecified chronic kidney disease; N18.9 Chronic kidney disease, unspecified; I71.43 Infrarenal abdominal aortic aneurysm, without rupture; N32.89 Other specified disorders of bladder; K59.00 Constipation, unspecified; I25.2 Old myocardial infarction; I25.10 Atherosclerotic heart disease of native coronary artery without angina pectoris; E78.5 Hyperlipidemia, unspecified; N32.81 Overactive bladder; M81.0 Age-related osteoporosis without current pathological fracture; G47.33 Obstructive sleep apnea (adult) (pediatric); F17.290 Nicotine dependence, other tobacco product, uncomplicated; Z79.82 Long term (current) use of aspirin; Z79.01 Long term (current) use of anticoagulants; Z79.899 Other long term (current) drug therapy; Z79.84 Long term (current) use of oral hypoglycemic drugs
CPT/HCPCS: 36415; 71250; 72128; 72131; 74176; 80053; 81001; 85025; 99284; A9270

== ENCOUNTER 2025-01-28 02:32 | Inpatient (IN) | payer MEDICARE, SELFPAY ==
[2025-01-28] VITALS (15 sets, daily range): BP systolic 104–152; BP diastolic 39–63; PULSE 69–74; RESP 16–18; TEMP 36.4; O2SAT 96–100; BMI 23.1
--- NOTE | 2025-01-28 07:21 | ECG_ITS ---
Test Date: 2025-01-28 08:02:09 Measurements Intervals [place] Rate: 69 P: 31 SC: 309 QRS: -59 QRSD: 104 T: 57 QT: 410 QTc: 440 Interpretive Statements SINUS RHYTHM WITH FIRST DEGREE AV BLOCK PATTERN CONSISTENT WITH PULMONARY DISEASE LEFT ANTERIOR FASCICULAR BLOCK [QRS AXIS <= -45, QR IN I, RS IN II] No previous ECG available for comparison Electronically Signed On 01-29-2025 15:44:18 CDT by Suman Eddy M.D.
--- OUTSIDE RECORDS SUMMARY | 2025-01-28 07:31 | XMS_ITS | Encounter Summary ---
Author Organization [facility] Healthcare Address [address] [place] [address] Care Team Providers Care Health Services Information Specialist Name Role Phone Rod Ann MD Unavailable Fabián Stanley MD Primary Care Provider Natalio Esparza MD Unavailable [phone] Yvan George MD Primary Care Provider [phone] Fabián Stanley MD Primary Care Provider Alexandre Smith MD Primary Care Provider [phone] Encounter Details Date Type Department Care Team (Late st Contact Info) Description 08/04/2021 Telephone [facility] [address] [place] [address] [address] [place] [address] Sanket Griffiths MD [address] [facility] [address] [place] [address] Social History Tobacco Use Types [...] on file 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 Gender Identity Male 04/18/2019 11:33 AM [...] COVID: Suspected 07/03/2022 07/03/2022 07/03/2022 2:45 PM 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 documented as of this encounter Care Teams Health Services Information Specialist Relationship Specialty Start Date End Date Fabián Stanley MD [address] [place] [address] [address] [place] [address] PCP - General 10/08/17 09/30/22 Yvan George MD [address] [place] [address] PCP - General Family Medicine 10/01/22 12/26/22 Fabián Stanley MD [address] [place] [address] [address] [place] [address] PCP - General Internal Medicine 12/27/22 09/07/24 Alexandre Smith MD [address] [facility] [address] [place] [address] PCP - General Internal Medicine 09/08/24 Rod Ann MD 12/25/16 06/26/22 Natalio Esparza MD [facility] [address] [facility] [address] [place] [address] Referring Physician Surgery 12/23/19 documented as of this encounter
--- OUTSIDE RECORDS SUMMARY | 2025-01-28 07:32 | XMS_ITS | Encounter Summary ---
Author Organization [facility] Healthcare Address [address] [place] [address] Care Team Providers Care Payroll Director Name Role Phone Rod Ann MD Unavailable [phone] Fabián Stanley MD Primary Care Provider Natalio Esparza MD Unavailable [phone] Yvan George MD Primary Care Provider [phone] Fabián Stanley MD Primary Care Provider Alexandre Smith MD Primary Care Provider [phone] Encounter Details Date Type Department Care Team (Late st Contact Info) Description 04/21/2021 Documentation [facility] OP Physical Therapy [facility] [address] [address] Cayden Jacobo, PT Social History Tobacco Use [...] on file 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 Gender Identity Male 04/18/2019 11:33 AM CDT Sexual Orientation Straight 04/18/2019 11 :33 AM CDT documented as of this encounter Plan of Treatment Not on file documented as of this encounter Visit Diagnoses Not on filedocumented in this encounter Additional Health Concerns Infection Onset Date Last Indicated Resolved Time COVID: Suspected 07/03/2022 07/03/2022 07/03/2022 2: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 as of this encounter Care Teams Payroll Director Relationship Specialty Start Date End Date Fabián Stanley MD [address] [place] [address] [address] [place] [address] PCP - General 10/08/17 09/30/22 Yvan George MD [address] [place] [address] PCP - General Family Medicine 10/01/22 12/26/22 Fabián Stanley MD [address] [place] [address] [address] [place] [address] PCP - General Internal Medicine 12/27/22 09/07/24 Alexandre Smith MD [address] [facility] [address] [place] [address] PCP - General Internal Medicine 09/08/24 Rod Ann MD 12/25/16 06/26/22 Natalio Esparza MD [address] [place] [address] [address] [place] [address] Referring Physician Surgery 12/23/19 documented as of this encounter
--- OUTSIDE RECORDS SUMMARY | 2025-01-28 07:32 | XMS_ITS | Continuity of Care Document ---
Author Organization [facility] Address [address] [place] [address] Phone Care Team Providers Care Poultry Grader Name Role Phone Faustino Carvajal MD Unavailable [...] Active Procedures Procedure Date OFFICE/OUTPATIENT VISIT [facility] Advance Directives Directive Yes / No Effective Date File Name No Information Encounters Encounter Description Practice Location Reason(s) For Visit Diagnoses Date Provider Providers Copied on Encounter [facility], [address] [place] [address], [address], tel:[phone] [facility] No Information Sep-0 3 5 Alena Harmon. [address] [place], [place], [id number] . tel: [phone] OFFICE/OUTPAT IENT VISIT [facility], [address] [place] [address] [address], [place], [address], tel:[phone] [facility] Primary localized osteoarthros is, lower leg Sep-0 3-201 5 Alena Rodarte. [address] [facility] [address], [place], [place], [id number] . tel: [phone] Family History Family Member Type Diagnosis Age [...]
--- OUTSIDE RECORDS SUMMARY | 2025-01-28 07:32 | XMS_ITS | Encounter Summary ---
Author Organization [facility] Address [address] [place] [address] Care Team Providers Care Gasoline Catalyst Operator Name Role Phone Rod Ann MD Unavailable Fabián Stanley MD Primary Care Provider Natalio Esparza MD Unavailable [phone] Yvan George MD Primary Care Provider [phone] Fabián Stanley MD Primary Care Provider Alexandre Smith MD Primary Care Provider [phone] Encounter Details Date Type Department Care Team (Late st Contact Info) Description 09/08/2020 Documentation [facility] [address] [place] [address] Belle Treadwell RN Social History Tobacco Use [...] on file Legal Sex Male 8:15 PM FOREPART REDUCER Gender Identity Male 04/18/2019 11:33 AM CDT Sexual Orientation Straight 04/18/2019 11 :33 AM CDT documented as of this encounter Plan of Treatment Not on file documented as of this encounter Visit Diagnoses Not on filedocumented in this encounter Additional Health Concerns Infection Onset Date Last Indicated Resolved Time COVID: Suspected 07/03/2022 07/03/2022 07/03/2022 2:45 PM FOREPART REDUCER documented as of this encounter Care Teams Gasoline Catalyst Operator Relationship Specialty Start Date End Date Fabián Stanley MD [address] [place] [address] [address] [place] [address] PCP - General 10/08/17 09/30/22 Yvan George MD [address] [place] [address] PCP - General Family Medicine 10/01/22 12/26/22 Fabián Stanley MD [address] [place] [address] [address] [place] [address] PCP - General Internal Medicine 12/27/22 09/07/24 Alexandre Smith MD [address] [facility] [address] [place] [address] PCP - General Internal Medicine 09/08/24 Rod Ann MD 12/25/16 06/26/22 Natalio Esparza MD [address] [place] [address] [address] [place] [address] Referring Physician Surgery 12/23/19 documented as of this encounter
--- OUTSIDE RECORDS SUMMARY | 2025-01-28 07:32 | XMS_ITS | Encounter Summary ---
Author Organization [facility] Address [address] [place] [address] Phone Care Team Providers Care Barrel Brander Name Role Phone Rod Ann MD Unavailable [phone] Fabián Stanley MD Primary Care Provider Natalio Esparza MD Unavailable [phone] Yvan George MD Primary Care Provider [phone] Fabián Stanley MD Primary Care Provider Alexandre Smith MD Primary Care Provider [phone] Encounter Details Date Type Department Care Team (Late st Contact Info) Description 05/18/2021 Telephone [facility] Otolaryngology [address] [facility] [address] [place] [address] Radha Culver Au.D. [address] [place] [address] Social History Tobacco Use Types [...] on file Legal Sex Male 8:15 PM FINISH REMOVER Gender Identity Male 04/18/2019 11:33 AM CDT Sexual Orientation Straight 04/18/2019 11 :33 AM CDT documented as of this encounter Plan of Treatment Not on file documented as of this encounter Visit Diagnoses Not on filedocumented in this encounter Additional Health Concerns Infection Onset Date Last Indicated Resolved Time COVID: Suspected 07/03/2022 07/03/2022 07/03/2022 2:45 PM FINISH REMOVER documented as of this encounter Care Teams Barrel Brander Relationship Specialty Start Date End Date Fabián Stanley MD [address] [place] [address] [address] [place] [address] PCP - General 10/08/17 09/30/22 Yvan George MD [facility] [place] [address] PCP - General Family Medicine 10/01/22 12/26/22 Fabián Stanley MD [address] [place] [address] [address] [place] [address] PCP - General Internal Medicine 12/27/22 09/07/24 Alexandre Smith MD [address] [facility] [address] [place] [address] PCP - General Internal Medicine 09/08/24 Rod Ann MD 12/25/16 06/26/22 Natalio Esparza MD [address] [place] [address] [address] [place] [address] Referring Physician Surgery 12/23/19 documented as of this encounter
--- OUTSIDE RECORDS SUMMARY | 2025-01-28 07:32 | XMS_ITS | Clinical Summary ---
Author Organization [facility] Address [address] [place] [address] Care Team Providers Care Escort Patients Name Role Phone Natalio Esparza MD Unavailable [phone] Alexandre Smith MD Primary Care Provider [phone] Allergies No known active allergies Medications nitroglycerin [...] s:Vitamin deficiencies Take 1 capsule by mouth plate preparer before breakfast Active vit D3-vit R-pklaeklyr-rdma [id number] riqc-mkb-ov-mg tabletIndications :Vitamin Deficiency Prevention Take 1 tablet [...] 07/03/2022 Assessment & Plan (07/05/2022 11:02 AM JIGMAKER): -PT/OT -pain control -MRI with new compression fracture, severe neuroforaminal narrowing - pain management consult for possible injection/procedure given that pain isn't controlled with conservative management Assessment & Plan (07/04/2022 11:32 AM JIGMAKER): -PT/OT -pain control -I d/w NSGY CATEGORY SPECIALIST whom patient was supposed to see today. 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 -NSTEMI -Initial ECG not diagnostic for an acute ischemic event -troponin continues to uptrend: 46923->33284->28212->28792 -c/o some chest discomfort and shortness of breath this AM; BP dropped to 70 when sitting at side of bed -serial EKGs without acute changes -plan for [facility] today -continue heparin drip -continue nitroglycerin drip -continue irbesartan -continue aspirin/brillinta Unstable angina pectoris 08/20/2020 Overview (08/21/2020): Added automatically from request for surgery [id number] Diastolic heart failure 12/08/2019 Assessment & Plan (07/05/2022 11:03 AM JIGMAKER): -chronic diastolic heart failure -euvolemic -holding ARB, diuretics for SABAS Assessment & Plan (07/04/2022 11:31 AM JIGMAKER): -chronic diastolic heart failure -euvolemic -holding ARB, diuretics for SABAS Insufficient treatment with nasal CPAP 9 Circadian rhythm sleep disorder, 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 Chronic systolic congestive heart failure 2018 Ischemic cardiomyopathy 03/23/2019 Cardiogenic shock 09/02/2018 Assessment & Plan (09/03/2018 4:56 PM JIGMAKER): 2/2 junctional bradycardia P/w BP 82/49, HR 35-41, lactate 2.7, Cr 1.9 from baseline 0.8 -improved to 100s/50s with IVF in ED -lactate 2.7->2.5->2.1 -IVF Symptomatic bradycardia 09/02/2018 Assessment & Plan (09/03/2018 4:51 PM JIGMAKER): P/w dizziness, unsteadiness EKG with junctional bradycardia HR 40, CT head with no ICH Unsure if he took both metoprolol and carvedilol -hold home antihypertensives and beta blockers -tele -EP c/s if kavya does not self resolve -09/03 HR improved to 80s Paroxysmal A-fib 09/02/2018 Assessment & Plan (08/21/2020 11:02 AM JIGMAKER): -currently in sinus rhythm -holing Eliquis for [facility] -continue heparin gtt Assessment & Plan (09/02/2018 4:22 PM JIGMAKER): Per records -not seen on prior EKG -hold home Eliquis 5 b.i.d. -tele SABAS (acute kidney injury) 09/02/2018 Assessment & Plan (09/02/2018 4:25 PM JIGMAKER): b/l 0.8, presents with Cr 1.9, likely [...] needed Assessment & Plan (07/05/2022 11:03 AM JIGMAKER): -type 2 diabetes, on lantus 45 BID, Jardiance at home -Received only 35 units last night with hypoglycemia overnight despite improving SABAS -Hold insulin for now; will likely need much lower lantus dose Assessment & Plan (07/04/2022 11:32 AM JIGMAKER): -type 2 diabetes, on lantus 45 BID, Jardiance at home -Dose reduced insulin here to 45 units daily + SSI Assessment & Plan (07/03/2022 5:43 PM JIGMAKER): -type 2 diabetes, on lantus 45 BID, Jardiance at home -Dose reduced insulin here given SABAS Assessment & Plan (08/21/2020 11:04 AM JIGMAKER): Hgb A1C 8.4; home regimen lantus 45u BID -continue reduced dose lantus 20u BID -cont lispro SSI -consistent carb diet Assessment & Plan (09/05/2018 6:40 PM JIGMAKER): a1c-12.5 -glucose at 563 at presentation improved [...] daily Assessment & Plan (08/21/2020 11:07 AM JIGMAKER): Recently seen in CHF clinic and multiple medications (norvasc, lasix, coreg) had been recently stopped for orthostasis. At that clinic visit, his irbesartan was reduced from 300mg to 150mg. -BP 191/107 on presentation to ED -currently controlled with nitro gtt -continue irbesartan -plan to resume previous anti-HTN meds as BP allows Assessment & Plan (09/02/2018 4:26 PM JIGMAKER): -hold home antihypertensives for symptomatic kavya CAD (coronary artery disease) 12/30/2014 Overview (10/11/2016): Coronary heart disease Assessment & Plan (07/05/2022 11:03 AM JIGMAKER): -continue ASA, statin -stable Assessment & Plan (07/04/2022 11:32 AM JIGMAKER): -continue ASA, statin -stable Assessment & Plan (07/03/2022 5:41 PM JIGMAKER): -continue ASA, statin -stable Assessment & Plan (09/02/2018 4:21 PM JIGMAKER): C 05/19/2013 and 05/27/2013, showed 99% subtotal [...] obstructive Assessment & Plan (09/02/2018 4:23 PM JIGMAKER): Sleep study 05/2015 recommended CPAP nightly with [...] daily Assessment & Plan (09/03/2018 12:19 AM JIGMAKER): -hold home rosuvastatin 10 Acute congestive heart failure Shortness of breath Status post insertion of drug eluting coronary a rtery stent SABAS (acute kidney injury) Assessment & Plan (10/16/2022 9:03 AM CDT): Stable, continue to monitor, check CMP to evaluate current renal function Continue to monitor PTH and vitamin-D level Assessment & Plan (07/05/2022 11:01 AM JIGMAKER): -suspect related to high doses of ibuprofen over the last week -Cr trending down Assessment & Plan (07/04/2022 11:31 AM JIGMAKER): -suspect related to high doses of ibuprofen over the last week -check UA -Gentle IVF -Renal US if not improving Assessment & Plan (07/03/2022 5:42 PM JIGMAKER): -suspect related to high doses of ibuprofen over the last week -check UA -Gentle IVF -Renal US if not improving Resolved Problems Problem Noted Date Diagnosed Date Resolved Date 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 Fitting and adjustment of hearing aid (Primary Dx) 12/14/2024 2:30 PM CDT Procedure visit [facility] Otol[facility]ology [address] [place] [address] [phone] Mihaela Erickson Au.D. Fitting and adjustment of [...] mellitus (HCC) D iabetes type 2; Comments: [facility] 09/20/2014 - Hypertension Hypertension Restless legs syndrome Restless legs syndrome Adiposity Obesity CAD (coronary artery disease) Hyperlipidemia hyperlipidemia; Comments: [facility] 09/20/2014 - Hypothyroidism hypothyroidism; Comments: [facility] 09/20/2014 - Memory loss memory difficult ies; Comments: [facility] 09/20/2014 - Ear problems Scoliosis [...] on file Legal Sex Male 8:15 PM JIGMAKER Gender Identity Male 04/18/2019 11:33 AM CDT [...] (169 lb 14.4 oz) 09/08/2024 2:12 PM JIGMAKER Height 154.9 cm (5' 1) 09/08/2024 2:12 PM JIGMAKER Body Mass Index 32.1 09/08/2024 2:12 PM JIGMAKER Plan of Treatment Health Maintenance Due Date [...] as needed Medical Devices Implanted Type Area Painter And Body Mechanic Apprentice Device Identifier Shelf Expiration Date Model / Serial / Lot Globitel/St [employer] [id number] Angio-Seal Evolution 6fr .035in Guidewire Bypass Tube Suture - [id number] Implanted:Qty: 1 on 08/21/2020 by Wale Maria MD at [facility] Collagen [employer] 05/07/2021 [id number] / / [id number] [employer] [id number] Resolute Antonio 2mm 26mm 140cm Rapid Exchange Delivery System - [id number] Implanted:Qty: 1 on 08/21/2020 by Wale Maria MD at [facility] Stent [employer] 12/22/2021 [id number] / / [id number] Cardiac Stent X 3 Heart Procedures Procedure Name Priority Date/Time Associated Diagnosis Comments EGFR Routine 09/08/2024 4:35 PM JIGMAKER Osteoporosis, unspecified osteoporosis type, unspecified pathological fracture presence HEMOGLOBIN A1C Routine 07/04/2022 4:51 AM JIGMAKER LIPID PANEL Routine 06/05/2022 12:02 PM JIGMAKER Chronic systolic congestive heart failure (HCC) Moderate mixed hyperlipidemia not requiring statin therapy from Last 3 Months or Most Recently Relevant to Health Maintenance Results * (ABNORMAL) eGFR (09/08/2024 4:35 PM JIGMAKER) eGFR 59(L) >=60 mL/min/1. 73 m2 Comment: [...] last reviewed 2021. Blood 09/08/2024 4:35 PM JIGMAKER 09/08/2024 4:42 PM JIGMAKER us Bola Craft MD LAB BLOOD ORDERABLES Final Resul t Performing Organization Address City/[facility]/ZIP Co de Phone Number [facility] [address] [facility] [place] [address] * Hemoglobin A1c (07/04/2022 4:51 AM JIGMAKER) [facility] Hgb A1C 5.5 4.0 - 5.6 % [facility] Estimated Average Glucose 111 mg/dL [facility] Comment: The ADA recommends reporting an estimated Average Glucose (eAG) with all Hemoglobin A1c results using the equation derived from a study of 507 normal and diabetic adults. Minority populations were underrepresented and children were not included. (Diabetes Care 2020; 43(S1): S66-S76). The eAG is not equivalent to a fasting glucose. Blood 07/04/2022 4:51 AM JIGMAKER 07/04/2022 5:04 AM JIGMAKER us Eva Landeros MD LAB BLOOD ORDERABLES Leyda l Result [facility] Department [place] [address] * Lipid panel (06/05/2022 12:02 PM JIGMAKER) [facility] Signature Cholesterol 96 30 - 199 mg/dL [facility] Comment: Interpretive Data Ages < [...] revised on 2018. Triglycerides 98 <=149 mg/dL [facility] Comment: Interpretive Data Ages < [...] revised on 2018. HDL 49 >=40 mg/dL [facility] Comment: Interpretive Data Ages < [...] 2018. LDL, calculated 27 <=129 mg/dL [facility] Comment: Interpretive Data Ages < [...] revised on 2018. Non-HDL Cholesterol 47 mg/dL [facility] Comment: Interpretive Data Ages < [...] last revised on 2018. Chol/HDL ratio 2 [facility] Blood 06/05/2022 12:0 2 PM JIGMAKER 06/05/2022 12:37 PM JIGMAKER Dylan Beal MD LAB BLOOD ORDERABLES Final R esult [facility] Department [place] [address] from Last 3 Months or Most Recently Relevant to Health Maintenance Insurance MEDICARE [facility] MEDICARE [facility] MEDICARE SUPPLEMENT MEDICARE MEDICARE BLUE CROSS MEDICARE SUPPLEMENT MEDICARE [facility] Advance Directives For more information, please contact: [phone] * Full Code (Latest Code Status on File) Date Activated Date Inactivated Comments 07/03/2022 6:22 PM 07/05/2022 8:57 PM * Full Code Date Activated Date Inactivated Comments 08/20/2020 11:29 AM 08/22/2020 6:41 PM * Full Code Date Activated Date Inactivated Comments 02/15/2019 1:48 AM 02/16/2019 7:25 PM * Full Code Date Activated Date Inactivated Comments 09/02/2018 8:14 PM 09/06/2018 7:30 PM Care Teams Escort Patients Relationship Specialty Start Date End Date Alexandre Smith MD [address] [facility] [address] [place] [address] PCP - General Internal Medicine 09/08/24 Natalio Esparza MD [address] [facility] [address] [place] [address] Referring Physician Surgery 12/23/19
--- OUTSIDE RECORDS SUMMARY | 2025-01-28 07:32 | XMS_ITS | Referral Summary ---
Author Organization [facility] Address [address] [place] [address] Care Team Providers Care Aerospace Project Engineer Name Role Phone Natalio Esparza MD Unavailable Alexandre Smith MD Primary Care Provider [phone] Encounters Date Type Department Care Team Description 12/28/2024 Documentation [facility] [address] [place] [address] First Floor [address] [place] [id number] Hesham Hernandez RMA Precivity 12/23/2024 3:30 PM CDT Procedure visit [facility] Ot[facility] [address] [place] [id number] Mihaela Erickson Au.D. Fitting and adjustment of hearing aid (Primary Dx) 12/14/2024 2:30 PM CDT Procedure visit [facility] Otolaryngology [address] [place] [id number] Mhiaela Erickson Au.D. Fitting and adjustment of hearing [...] s:Vitamin deficiencies Take 1 capsule by mouth chemistry lecturer before breakfast Active vit D3-vit B-ivlcpwknt-made [phone] qdqm-gtb-xj-mg tabletIndications :Vitamin Deficiency Prevention Take 1 tablet [...] 07/03/2022 Assessment & Plan (07/05/2022 11:02 AM TURN LASTER): -PT/OT -pain control -MRI with new compression fracture, severe neuroforaminal narrowing - pain management consult for possible injection/procedure given that pain isn't controlled with conservative management Assessment & Plan (07/04/2022 11:32 AM TURN LASTER): -PT/OT -pain control -I d/w NSGY MARINE SUPERINTENDENT whom patient was supposed to see today. 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 -NSTEMI -Initial ECG not diagnostic for an acute ischemic event -troponin continues to uptrend: 13135->54237->97058->81284 -c/o some chest discomfort and shortness of breath this AM; BP dropped to 70 when sitting at side of bed -serial EKGs without acute changes -plan for [facility] today -continue heparin drip -continue nitroglycerin drip -continue irbesartan -continue aspirin/brillinta Unstable angina pectoris 08/20/2020 Overview (08/21/2020): Added automatically from request for surgery [id number] Diastolic heart failure 12/08/2019 Assessment & Plan (07/05/2022 11:03 AM TURN LASTER): -chronic diastolic heart failure -euvolemic -holding ARB, diuretics for SABAS Assessment & Plan (07/04/2022 11:31 AM TURN LASTER): -chronic diastolic heart failure -euvolemic -holding ARB, diuretics for SABAS Insufficient treatment with nasal CPAP 9 Circadian rhythm sleep disorder, 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 Chronic systolic congestive heart failure 2018 Ischemic cardiomyopathy 03/23/2019 Cardiogenic shock 09/02/2018 Assessment & Plan (09/03/2018 4:56 PM TURN LASTER): 2/ junctional bradycardia P/w BP 82/49, HR 35-41, lactate 2.7, Cr 1.9 from baseline 0.8 -improved to 100s/50s with IVF in ED -lactate 2.7->2.5->2.1 -IVF Symptomatic bradycardia 09/02/2018 Assessment & Plan (09/03/2018 4:51 PM TURN LASTER): P/w dizziness, unsteadiness EKG with junctional bradycardia HR 40, CT head with no ICH Unsure if he took both metoprolol and carvedilol -hold home antihypertensives and beta blockers -tele -EP c/s if kavya does not self resolve -09/03 HR improved to 80s Paroxysmal A-fib 09/02/2018 Assessment & Plan (08/21/2020 11:02 AM TURN LASTER): -currently in sinus rhythm -holing Eliquis for [facility] -continue heparin gtt Assessment & Plan (09/02/2018 4:22 PM TURN LASTER): Per records -not seen on prior EKG -hold home Eliquis 5 b.i.d. -tele SABAS (acute kidney injury) 09/02/2018 Assessment & Plan (09/02/2018 4:25 PM TURN LASTER): b/l 0.8, presents with Cr 1.9, likely [...] needed Assessment & Plan (07/05/2022 11:03 AM TURN LASTER): -type 2 diabetes, on lantus 45 BID, Jardiance at home -Received only 35 units last night with hypoglycemia overnight despite improving SABAS -Hold insulin for now; will likely need much lower lantus dose Assessment & Plan (07/04/2022 11:32 AM TURN LASTER): -type 2 diabetes, on lantus 45 BID, Jardiance at home -Dose reduced insulin here to 45 units daily + SSI Assessment & Plan (07/03/2022 5:43 PM TURN LASTER): -type 2 diabetes, on lantus 45 BID, Jardiance at home -Dose reduced insulin here given SABAS Assessment & Plan (08/21/2020 11:04 AM TURN LASTER): Hgb A1C 8.4; home regimen lantus 45u BID -continue reduced dose lantus 20u BID -cont lispro SSI -consistent carb diet Assessment & Plan (09/05/2018 6:40 PM TURN LASTER): a1c-12.5 -glucose at 563 at presentation improved [...] daily Assessment & Plan (08/21/2020 11:07 AM TURN LASTER): Recently seen in CHF clinic and multiple medications (norvasc, lasix, coreg) had been recently stopped for orthostasis. At that clinic visit, his irbesartan was reduced from 300mg to 150mg. -BP 191/107 on presentation to ED -currently controlled with nitro gtt -continue irbesartan -plan to resume previous anti-HTN meds as BP allows Assessment & Plan (09/02/2018 4:26 PM TURN LASTER): -hold home antihypertensives for symptomatic kavya CAD (coronary artery disease) 12/30/2014 Overview (10/11/2016): Coronary heart disease Assessment & Plan (07/05/2022 11:03 AM TURN LASTER): -continue ASA, statin -stable Assessment & Plan (07/04/2022 11:32 AM TURN LASTER): -continue ASA, statin -stable Assessment & Plan (07/03/2022 5:41 PM TURN LASTER): -continue ASA, statin -stable Assessment & Plan (09/02/2018 4:21 PM TURN LASTER): [facility] 05/19/2013 and 05/27/2013, showed 99% subtotal occlusion [...] obstructive Assessment & Plan (09/02/2018 4:23 PM TURN LASTER): Sleep study 05/2015 recommended CPAP nightly with [...] daily Assessment & Plan (09/03/2018 12:19 AM TURN LASTER): -hold home rosuvastatin 10 Acute congestive heart failure Shortness of breath Status post insertion of drug eluting coronary a rtery stent SABAS (acute kidney injury) Assessment & Plan (10/16/2022 9:03 AM CDT): Stable, continue to monitor, check CMP to evaluate current renal function Continue to monitor PTH and vitamin-D level Assessment & Plan (07/05/2022 11:01 AM TURN LASTER): -suspect related to high doses of ibuprofen over the last week -Cr trending down Assessment & Plan (07/04/2022 11:31 AM TURN LASTER): -suspect related to high doses of ibuprofen over the last week -check UA -Gentle IVF -Renal US if not improving Assessment & Plan (07/03/2022 5:42 PM TURN LASTER): -suspect related to high doses of ibuprofen over the last week -check UA -Gentle IVF -Renal US if not improving Resolved Problems Problem Noted Date Diagnosed Date Resolved Date 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/06/2021 TIA (transient ischemic attack) 09/03/2018 03/23/2019 Assessment & Plan (09/03/2018 4:53 PM TURN LASTER): Hx of several TIA in the past, [...] on file Legal Sex Male 8:15 PM TURN LASTER Gender Identity Male 04/18/2019 11:33 AM CDT [...] (169 lb 14.4 oz) 09/08/2024 2:12 PM TURN LASTER Height 154.9 cm (5' 1) 09/08/2024 2:12 PM TURN LASTER Body Mass Index 32.1 09/08/2024 2:12 PM TURN LASTER Plan of Treatment Not on file Goals [...] as needed Medical Devices Implanted Type Area Recorder Of Deeds Device Identifier Shelf Expiration Date Model / Serial / Lot Xencor/St Satya Medical [id number] Angio-Seal Evolution 6fr .035in Guidewire Bypass Tube Suture - [id number] Implanted:Qty: 1 on 08/21/2020 by Wale Maria MD at [facility] Collagen Terum[employer] Dale 05/07/2021 [id number] / / [id number] [employer] [id number] Resolute Maryneal 2mm 26mm 140cm Rapid Exchange Delivery System - [id number] Implanted:Qty: 1 on 08/21/2020 by Wale Maria MD at [facility] Stent Med[employer] Inc 12/22/2021 [id number] / / [id number] Cardiac Stent X 3 Heart Procedures Procedure Name Priority Date/Time Associated Diagnosis Comments EGFR Routine 09/08/2024 4:35 PM TURN LASTER Osteoporosis, unspecified osteoporosis type, unspecified pathological fracture presence HEMOGLOBIN A1C Routine 07/04/2022 4:51 AM TURN LASTER LIPID PANEL Routine 06/05/2022 12:02 PM TURN LASTER Chronic systolic congestive heart failure (HCC) Moderate mixed hyperlipidemia not requiring statin therapy from Last 3 Months or Most Recently Relevant to Health Maintenance Results * (ABNORMAL) eGFR (09/08/2024 4:35 PM TURN LASTER) eGFR 59(L) >=60 mL/min/1. 73 m2 Comment: [...] last reviewed 2021. Blood 09/08/2024 4:35 PM TURN LASTER 09/08/2024 4:42 PM TURN LASTER us Bola Craft MD LAB BLOOD ORDERABLES Final Resul t [facility] [id number] [facility]. Department [place] [address] * Hemoglobin A1c (07/04/2022 4:51 AM TURN LASTER) Pathologist [facility] Hgb A1C 5.5 4.0 - 5.6 % [facility] Estimated Average Glucose 111 mg/dL [facility] Comment: The ADA recommends reporting an estimated Average Glucose (eAG) with all Hemoglobin A1c results using the equation derived from a study of 507 normal and diabetic adults. Minority populations were underrepresented and children were not included. (Diabetes Care 2020; 43(S1): S66-S76). The eAG is not equivalent to a fasting glucose. Blood 07/04/2022 4:51 AM TURN LASTER 07/04/2022 5:04 AM TURN LASTER us Eva Landeros MD LAB BLOOD ORDERABLES Leyda brady Result [facility] Department [place] [address] * Lipid panel (06/05/2022 12:02 PM TURN LASTER) Cholesterol 96 30 - 199 mg/dL [facility] Comment: Interpretive Data Ages < or = [...] on 2018. Triglycerides 98 <=149 mg/dL [facility] Comment: Interpretive Data Ages < or = [...] revised on 2018. HDL 49 >=40 mg/dL [facility] Comment: Interpretive Data Ages < or = [...] on 2018. LDL, calculated 27 <=129 mg/dL [facility] Comment: Interpretive Data Ages < or = [...] revised on 2018. Non-HDL Cholesterol 47 mg/dL [facility] Comment: Interpretive Data Ages < or = [...] last revised on 2018. Chol/HDL ratio 2 [facility] Blood 06/05/2022 12:0 2 PM TURN LASTER 06/05/2022 12:37 PM TURN LASTER us Dylan Beal MD LAB BLOOD ORDERABLES Final R esult [facility] Department [place] [address] from Last 3 Months or Most Recently Relevant to Health Maintenance Insurance MEDICARE [facility] MEDICARE [facility] MEDICARE SUPPLEMENT MEDICARE MEDICARE Member Subscriber Plan / Payer ( fective 2009-Present) Name:JACKIE NEVILLE Member ID:[id number] Relation to Subscriber:Self Name:Jackie Neville Subscriber ID:[id number] Payer ID:[id number] Group ID:Not on file Type:MEDICARE TRADITIONAL Address: [place] [id number] [facility] MEDICARE SUPPLEMENT MEDICARE [facility] Advance Directives For more information, please contact: [phone] * Full Code (Latest Code Status on File) Date Activated Date Inactivated Comments 07/03/2022 6:22 PM 07/05/2022 8:57 PM * Full Code Date Activated Date Inactivated Comments 08/20/2020 11:29 AM 08/22/2020 6:41 PM * Full Code Date Activated Date Inactivated Comments 02/15/2019 1:48 AM 02/16/2019 7:25 PM * Full Code Date Activated Date Inactivated Comments 09/02/2018 8:14 PM 09/06/2018 7:30 PM Care Teams Aerospace Project Engineer Relationship Specialty Start Date End Date Alexandre Smith MD [address] [facility] [address] [place] [address] PCP - General Internal Medicine 09/08/24 Natalio Esparza MD [address] [facility] [address] [place] [address] Referring Physician Surgery 12/23/19
--- OUTSIDE RECORDS SUMMARY | 2025-01-28 07:32 | XMS_ITS | Patient Health Record ---
Author Organization [facility] Address [address] [facility]. [address] [place] [address] Care Team Providers Care Substation Engineer Name Role Phone z(Retired) Jaden ROMERO, [place] [facility] Provi maribel Unavailable Teodoro Doan Unavailable [phone] Reason For Referral No Information Medications Medication [...] Problem Status W/U Status Risk Notes Problem 847830740 Diverticulosis o f large intestine without perforation or abscess without bleeding (K57.30) Active confirmed Problem 795157542 Personal history of colonic polyps (Z86.010) Active confirmed Problem 287394587 Colon cancer screening (Z12.11) Active confirmed It has been 10 years since his last colonosco py, which by his report was normal. His stools are usually soft or loose. He denies having any blood in the stool. Problem 973824724 History of heart artery stent (Z95.5) Active confirmed Problem 124800293274895 High risk medication use (Z79.899) Active confirmed [...] Coverage End Date Medicare E2 [address] [address] [place] [address] [id number] OscarSanthosh han Self - patient is the insured Blue Access PPO E2 [address] [place] [phone] [id number] OscarSanthosh han Self - patient is the insured Medical (General) History Medical History History ICD Code Restless Leg Syndrome Depression Hypertension Hypercholesterolemia Diabetes Sleep Apnea Hearing Loss Heart Disease Surgical History Surgery Date(Month/Year) Cardiac stents Colonoscopy 2009
[2025-01-28 07:59] LABS: Hematocrit 46.2 % (42.0-52.0); Hemoglobin 15.3 g/dL (14.0-18.0); Immature Granulocyte Percent A 0.1 % (0-0.5); Lymphocytes Absolute Auto 1.41 K/mm3 (0.9-3.2); Mean Corpuscular HGB Conc 33.1 g/dl (32-36); Mean Corpuscular Hemoglobin 30.4 pg (26-34); Mean Corpuscular Volume 91.8 fl (80-100); Nucleated Red Blood Cells Absolute Auto 0.000 K/mm3 (0.0-0.012); Nucleated Red Blood Cells Perc 0.0 % (0.0-0.2); Platelet Count Result 256 k/mm3 (150-375); Red Blood Count 5.03 M/mm3 (4.6-6.20); White Blood Count 6.8 K/mm3 (4.5-10.0)
[2025-01-28 08:18] LABS: Alanine Aminotransferase 18 U/L (6-50); Albumin Level 4.2 g/dL (3.5-5.1); Alkaline Phosphatase 116 U/L (38-126); Anion Gap 16 mmol/L (4-12); Aspartate Amino Transferase 37 U/L (17-59); Bilirubin,Total 0.9 mg/dL (0.2-1.3); Blood Urea Nitrogen 33 mg/dL (9-20); Calcium 9.5 mg/dL (8.4-10.2); Carbon Dioxide 24 mmol/L (22-30); Chloride 101 mmol/L (98-107); Estimated CRCL calculation 28 ml/min; Estimated Glomerular Filt Rate 33; Glucose 95 mg/dL (65-110); Potassium 4.2 mmol/L (3.4-5.0); Sodium 141 mmol/L (137-145); Total Protein 7.7 g/dL (6.3-8.2)
[2025-01-28 08:33] LABS: Add Urine Microscopic? YES; Appearance Urine Clear (Clear); Glucose Urine UA Negative (Negative); Leukocyte Esterase Ur Negative LEU/UL (Negative); Need Manual Microscopic Reviewed; Nitrate Urine Negative (Negative); Non Pathogenic Casts >20; Specific Grav Ur 1.030 (1.001-1.035)
--- NOTE | 2025-01-28 11:23 | ED_ITS ---
HPI - Fall General Chief Complaint: Fall Stated Complaint: BACK PAIN S/P FALL LAST EVENING Time Seen by Provider: 01/28/25 07:13 History of Present Illness HPI Narrative: Pt was seen here for falls on 01/26 and had full work up and was discharged back to home. Pt says he had to have BM and pooped all over himself because he could not make it to [facility] because he could not get up due to wekaness. Pt lives by himself at home. Pt agreeable to placement or admission because is not safe at home. Related Data Home Medications ?Medication ?Instructions ?Recorded ?Confirmed ?Last Taken ?Type apixaban 5 mg tablet (Eliquis) 5 mg PO BID 07/16/22 01/28/25 Unknown History aspirin 81 mg tablet,delayed 81 mg PO DAILY 07/12/23 12/03/24 Unknown History release (Adult Low Dose Aspirin) cholecalciferol (vitamin D3) 25 25 mcg PO DAILY 07/12/23 01/28/25 Unknown History mcg (1,000 unit) capsule fish oil 1,200 mg BYMOUTH DAILY 07/12/23 01/28/25 Unknown History lactobacillus combo no.11 15 1 cap PO DAILY 07/12/23 01/28/25 Unknown History billion cell sprinkle capsule (Probiotic) ferrous sulfate 325 mg (65 mg 325 mg PO BID 02/04/24 01/28/25 Unknown History iron) tablet folic acid 1 mg tablet 1 mg PO DAILY 10/06/24 01/28/25 Unknown History Allergies Allergy/AdvReac Type Severity Reaction Status Date / Time No Known Allergies Allergy Verified 01/28/25 02:41 Review of Systems 2 Review of Systems: All systems reviewed & are unremarkable except as noted in HPI and below [facility] Past Medical History Medical History BMI 29.0-29.9,adult Non-healing wound of right lower extremity BMI 30.0-30.9,adult BMI 31.0-31.9,adult Pedal edema MARIMAR (obstructive sleep apnea) BMI 32.0-32.9,adult Follow up Compression fracture of thoracic spine, non-traumatic Compression fracture of lumbar spine, non-traumatic BMI 33.0-33.9,adult Kyphoscoliosis and scoliosis Impaired functional mobility, balance, gait, and endurance Osteoporosis On long winder tender drug therapy Encounter to establish care Overactive bladder BMI 34.0-34.9,adult Coronary artery disease Hyperlipidemia Myocardial infarction Diabetes mellitus Hypertension Surgical History Surgical History No pertinent past surgical history Social History Social History Social History: Exercises 3x/week Smoking status: Current every day smoker Tobacco type: cigars Second hand tobacco smoke exposure: Yes Additional smoking assessment comments: 3 cigars/day Alcohol intake: never Substance use: never Substance use type: does not use Do You Feel Safe in your Home?: Yes Lack of Transportation: No Lack of Food: Never True Current Housing: I Have Housing Concerned About Future Housing: No Difficulty Paying Gas/Electric Bills: No Difficulty Paying for Meds: No Currently Unemployed: No Education: Bachelor's Degree Difficulty w/ Childcare or Family Care: No Living arrangements: alone Occupation/Education: retired Gender identity (if verbalized by the patient): Male Spiritual care concerns: No Exam 2 Narrative: Pt was unable to get himself up to go to [facility] due to weakness. Pt seen here 2 days ago for fall and work up neg. Pt agreeable to placement. Const: General: cooperative, healthy appearing and no acute distress O rientation/consciousness: patient oriented x3 Limitations: no limitations HENMT: Head: normal to inspection and No palpable skull fracture present M outh: Yes Normal oral and palatal mucosa present Teeth and gingiva: dentition normal Throat: posterior oropharynx normal Neck: Neck: normal visual inspection, no lymphadenopathy and no meningeal signs Resp: Effort & Inspection: normal respiratory effort Auscultation: clear to auscultation bilaterally Cardio: Rate: regular rate Rhythm: regular rhythm GI: Inspection: normal to inspection GI Palp: Yes Soft to palpation and No Tenderness to palpation present (GI) Back/Spine/Pelvis: Back: no CVA tenderness and back tenderness (minima low back midline tenderness.) Skin: General skin exam: normal color Neuro: General: patient oriented x3 Cranial nerves: Yes CN's II-XII intact bilaterally Speech: normal speech Motor exam (neuro): 5/5 motor strength present throughout Extrem: General: normal to inspection, full ROM and no clubbing, cyanosis or edema Psych: Appearance: grossly normal Mental Status: mental status grossly normal Speech and movement: Normal speech and movement present Affect: n ormal affect Attitude: cooperative Thought process: Normal thought process present Insight: Good insight present (Psych) Judgement: Good judgement present (Psych) Course Vital Signs Vital signs: Vital Signs Pulse Rate 73 01/28/25 02:34 Respiratory Rate 17 01/28/25 02:34 Blood Pressure 110/63 01/28/25 02:34 Pulse Oximetry 96 01/28/25 02:34 Oxygen Delivery Room Air 01/28/25 02:34 Pulse Rate 72 01/28/25 13:40 Respiratory Rate 16 01/28/25 13:40 Blood Pressure 152/60 H 01/28/25 13:40 Pulse Oximetry 98 01/28/25 13:40 Oxygen Delivery Room Air 01/28/25 02:34 MDM - Fall MDM Narrative Medical decision making narrative: Pt seen here twod days ago for falls and wekaness. worked up with labs and ct all neg. Pt sent home. Pt not able to get up due to wekaness and soiled self. Pt lives at home alone and is willing to be placed for short time for rehab. pt has some mild renal insufficiency that is near baseline. will contact about admissin to work on placement. discussed with Dr Carl and agrees to admit. Social service said will require admission. Lab Data 01/28/25 07:44 01/28/25 07:44 Labs: Lab Results 01/28/25 Range/Units 07:44 WBC 6.8 (4.5-10.0) K/mm3 RBC 5.03 (4.6-6.20) M/mm3 Hgb 15.3 (14.0-18.0) g/dL Hct 46.2 (42.0-52.0) % MCV 91.8 (80-100) fl MCH 30.4 (26-34) pg MCHC 33.1 (32-36) g/dl RDW 13.5 (11.5-14.5) % Plt Count 256 (150-375) k/mm3 MPV 9.7 (7.4-10.4) fl Immature Gran % (Auto) 0.1 (0-0.5) % Neut % (Auto) 69.8 (45.5-73.1) % Lymph % (Auto) 20.7 (18.3-44.2) % [place] % (Auto) 7.8 (2.6-8.5) % Eos % (Auto) 0.6 (0-4.4) % Baso % (Auto) 1.0 (0.2-1.2) % Lymph # (Auto) 1.41 (0.9-3.2) K/mm3 [place] # (Auto) 0.5 (0.1-0.6) K/mm3 Eos # (Auto) 0.0 (0-0.3) K/mm3 Baso # (Auto) 0.1 (0.0-0.1) K/mm3 Abs Immat Gran (auto) 0.01 (0.00-0.031) K/mm3 Absolute Neuts (auto) 4.8 (1.3-6.7) K/mm3 Absolute Nucleated RBC 0.000 (0.0-0.012) K/mm3 Nucleated RBC % 0.0 (0.0-0.2) % Sodium 141 (137-145) mmol/L Potassium 4.2 (3.4-5.0) mmol/L Chloride 101 (98-107) mmol/L Carbon Dioxide 24 (22-30) mmol/L Anion Gap 16 H (4-12) mmol/L BUN 33 H D (9-20) mg/dL Creatinine 1.94 H (0.7-1.3) mg/dL Estim Creat Clear Calc 28 ml/min Estimated GFR 33 L (59 - ) Glucose 95 (65-110) mg/dL Calcium 9.5 (8.4-10.2) mg/dL Total Bilirubin 0.9 (0.2-1.3) mg/dL AST 37 (17-59) U/L ALT 18 (6-50) U/L Alkaline Phosphatase 116 (38-126) U/L Total Creatine Kinase 444 H (55-170) U/L Total Protein 7.7 (6.3-8.2) g/dL Albumin 4.2 (3.5-5.1) g/dL Urine Color Dark yellow (Yellow) Urine Appearance Clear (Clear) Urine pH 5.0 (5.0-9.0) Ur Specific [place] 1.030 (1.001-1.035) Urine Protein 2+ H (Negative) mg/dL Urine Glucose (UA) Negative (Negative) mg/dL Urine Ketones 1+ H (Negative) mg/dL Ur Blood (Man) Negative (Negative) Urine Nitrate Negative (Negative) Urine Bilirubin 2+ H (Negative) Urine Urobilinogen 1.0 (<2.0) mg/dL Add Ur Microanalysis Reviewed Leukocyte Esterase Rfl Negative (Negative) SOFIYA/UL Urine RBC 0-2 (0-2) /hpf Urine WBC 0-5 (0-3) /hpf Ur Squamous Epith Cells None seen (Few) /hpf Urine Bacteria None seen /hpf Urine Casts >20 Hyaline Casts Present (None) /lpf Discharge Plan Discharge Clinical Impression: Generalized weakness, Frequent falls Patient Disposition: Still a Patient Condition: Guarded Prognosis
--- NOTE | 2025-01-28 11:54 | PC.NURSE ---
Pt frequently yelling out instead of using call light. Pt has been incontinent of bowels.
--- NOTE | 2025-01-28 12:59 | P.HP_ITS ---
H&P: HPI History of Present Illness Date/Time: 01/28/25 12:59 Chief Complaint: Fall Narrative: 79-year-old male past medical history of [place], diabetes, hypertension, and CAD, presents the hospital status post fall. Patient states that he fell yesterday. He has been complaining of progressive weakness over the last several days. He states that today he was so weak he could not get up any had incontinence of st ool. On 01/26/2025 patient was seen in the ED for acute back pain after fall was discharged home after negative workup. Patient states that he was just too weak to be home by himself. Patient denies nausea or vomiting. Lab work in the ED showed CBC within normal limits, anion gap 16, BUN of 33, creatinine of 1.9 for with previous being 1.33, GFR 33, UA dark yellow with 2+ bilirubin, negative for infection. EKG shows sinus rhythm with first-degree AV block. Review of Systems Review of Systems: 12 systems were reviewed and are negativ e except for as per HPI. 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 Encounter to establish care Overactive bladder BMI 34.0-34.9,adult Coronary artery disease Hyperlipidemia Myocardial infarction Diabetes mellitus Hypertension Surgical History Surgical History No pertinent past surgical history Social History Social History Social History: Exercises 3x/week Smoking status: Current every day smoker Tobacco type: cigars Second hand tobacco smoke exposure: Yes Additional smoking assessment comments: 3 cigars/day Alcohol intake: never Substance use: never Substance use type: does not use Do You Feel Safe in your Home?: Yes Lack of Transportation: No Lack of Food: Never True Current Housing: I Have Housing Concerned About Future Housing: No Difficulty Paying Gas/Electric Bills: No Difficulty Paying for Meds: No Currently Unemployed: No Education: Bachelor's Degree Difficulty w/ Childcare or Family Care: No Living arrangements: alone Occupation/Education: retired Gender identity (if verbalized by the patient): Male Spiritual care concerns: No Meds Home Medications and Allergies Home Medications ?Medication ?Instructions ?Recorded ?Confirmed ?Type apixaban 5 mg tablet (Eliquis) 5 mg PO BID 07/16/22 01/28/25 History docusate sodium 100 mg capsule 100 mg PO Q12H PRN Constipation 07/25/22 01/28/25 Rx #30 caps aspirin 81 mg tablet,delayed 81 mg PO DAILY 07/12/23 01/28/25 History release (Adult Low Dose Aspirin) cholecalciferol (vitamin D3) 25 25 mcg PO DAILY 07/12/23 01/28/25 History mcg (1,000 unit) capsule fish oil 1,200 mg BYMOUTH DAILY 07/12/23 01/28/25 History lactobacillus combo no.11 15 1 cap PO DAILY 07/12/23 01/28/25 History billion cell sprinkle capsule (Probiotic) mecobalamin (vitamin B12) 1,000 1,000 mcg sublingual DAILY #90 tabs 07/12/23 01/28/25 Rx mcg disintegrating tablet,sublingual empagliflozin 25 mg tablet 25 mg PO DAILY #90 tabs 12/23/23 01/28/25 Rx (Jardiance) risedronate 35 mg tablet See Rx Instructions .Route 01/21/24 01/28/25 Rx .COMPLEX #12 tabs ferrous sulfate 325 mg (65 mg 325 mg PO BID 02/04/24 01/28/25 History iron) tablet potassium chloride 10 mEq 10 meq PO DAILY #90 caps 05/06/24 01/28/25 Rx capsule,extended release mirabegron 50 mg tablet,extended 50 mg PO DAILY #90 tabs 09/21/24 01/28/25 Rx release 24 hr (Myrbetriq) folic acid 1 mg tablet 1 mg PO DAILY 10/06/24 01/28/25 History pramipexole 1 mg tablet See Rx Instructions .Route 11/12/24 01/28/25 Rx .COMPLEX #180 tabs tizanidine 2 mg tablet 2 mg PO TID PRN muscle spasticity 01/20/25 01/28/25 Rx #30 tabs tramadol 50 mg tablet 50 mg PO Q4-6H PRN pain #35 tabs 01/20/25 01/28/25 Rx acetaminophen 500 mg capsule 1,000 mg (2 x 500 mg) PO Q6H PRN 01/26/25 01/28/25 Rx pain #30 caps lidocaine 4 % topical patch 1 patch topical DAILY PRN pain #10 01/26/25 01/28/25 Rx ea magnesium citrate 150 ml PO DAILY PRN constipation 01/26/25 01/28/25 Rx #296 mL polyethylene glycol 3350 17 17 g PO DAILY #119 grams 01/26/25 01/28/25 Rx gram/dose oral powder (Miralax) psyllium husk 3.4 gram/5.4 gram 1 tbsp PO DAILY #660 grams 01/26/25 01/28/25 Rx oral powder (Metamucil) Allergies Allergy/AdvReac Type Severity Reaction Status Date / Time No Known Allergies Allergy Verified 01/28/25 02:41 Vital Signs Vital Signs - 24 hr 01/28/25 02:34 01/28/25 02:41 01/28/25 05:04 Pulse Rate 73 69 74 Respiratory Rate 17 17 16 Blood Pressure 110/63 110/63 110/56 L Pulse Oximetry 96 100 98 Oxygen Delivery Room Air 01/28/25 07:08 01/28/25 07:15 01/28/25 07:30 Pulse Rate Respiratory Rate Blood Pressure Pulse Oximetry 100 99 98 Oxygen Delivery 01/28/25 07:31 01/28/25 07:45 01/28/25 07:48 Pulse Rate 72 Respiratory Rate Blood Pressure 104/52 L 104/52 L Pulse Oximetry 99 99 99 Oxygen Delivery 01/28/25 08:01 01/28/25 09:31 01/28/25 11:31 Pulse Rate 71 74 Respiratory Rate 16 16 Blood Pressure 117/52 L 106/39 L 111/47 L Pulse Oximetry 99 98 Oxygen Delivery Exam Narrative: General: well appearing, appears stated age. HEENT: normocephalic, atraumatic. Mucous membranes moist. EOMI, PERRLA, bilateral sclera anicteric, no conjunctival injection. Neck supple without JVD, lymphadenopathy, or bruit. Respiratory: clear to ascultation bilaterally. No rales/rhonic/wheezes. Cardiovascular: Regular rate and rhythm, normal S1-S2 upon ascultation. No murmurs, rubs, or clicks. PMI is nondisplaced, capillary refill less than 3 second. Abdomen: Soft, round, no pulsatile masses, nondistended and nontender. No rebound, no guarding. No CVA tenderness, no hepatosplenomegaly. Bowel sounds present to all four quadrants. No high pitch or tinkling sounds, resonant to percussion. Extremities: No cyanosis, clubbing, or edema present. Pulses are palpable 2/2. Active ROM to all four extremities. Neuro: Alert and orientated x 4. PERRLA. Cranial nerves 2-12 intact without focal deficit. Skin: Warm, dry, and intact, without rash, erythema, or lesion. Psych: pleasant, cooperative, normal speech, normal affect, no hallucinations, no dysarthia H&P: Results Labs Labs: Short CBC 01/28/25 Range/Units 07:44 WBC 6.8 (4.5-10.0) K/mm3 Hgb 15.3 (14.0-18.0) g/dL Hct 46.2 (42.0-52.0) % Plt Count 256 (150-375) k/mm3 BMP 01/28/25 07:44 Sodium 141 Potassium 4.2 Chloride 101 Carbon Dioxide 24 BUN 33 H D Creatinine 1.94 H Glucose 95 Calcium 9.5 Liver Function 01/28/25 Range/Units 07:44 Total Bilirubin 0.9 (0.2-1.3) mg/dL AST 37 (17-59) U/L ALT 18 (6-50) U/L Alkaline Phosphatase 116 (38-126) U/L Albumin 4.2 (3.5-5.1) g/dL Urine 01/28/25 Range/Units 07:44 Urine Color Dark yellow (Yellow) Urine Appearance Clear (Clear) Urine pH 5.0 (5.0-9.0) Ur Specific [place] 1.030 (1.001-1.035) Urine Protein 2+ H (Negative) mg/dL Urine Glucose (UA) Negative (Negative) mg/dL Assessment and Plan Assessment and plan (1) Generalized weakness: Code(s): R53.1 - Weakness Status: Acute Assessment and Plan: PT OT evaluate and treat Orthostatic vital signs Treat dehydration Case Management for possible placement (2) Frequent falls: Code(s): R29.6 - Repeated falls Status: Acute Assessment and Plan: See plan above (3) SABAS (acute kidney injury): Code(s): N17.9 - Acute kidney failure, unspecified Status: Acute Assessment and Plan: Baseline being around 1.3, creatinine on admission is 1.94 Fluid bolus then IVF Repeat BMP in the morning Avoid nephrotoxic medications (4) Coronary artery disease: Qualifiers: Associated angina: unspecified whether angina present Coronary Disease- Associated Artery/Lesion type: unspecified vessel or lesion type [place] vs. transplanted heart: [place] heart Qualified Code(s): I25.10 - Atherosclerotic heart disease of [place] coronary artery without angina pectoris Code(s): I25.10 - Atherosclerotic heart disease of [place] coronary artery without angina pectoris Status: Acute Assessment and Plan: Continue Eliquis, aspirin, Jardiance (5) Diabetes mellitus: Qualifiers: Diabetes mellitus complication status: without complication Diabetes mellitus skilled nursing insulin use: without skilled nursing use Diabetes mellitus type: type 2 Qualified Code(s): E11.9 - Type 2 diabetes mellitus without complications Code(s): E11.9 - Type 2 diabetes mellitus without complications Status: Acute Assessment and Plan: Continue Jardiance (6) Hypertension: Qualifiers: Hypertension type: unspecified Qualified Code(s): I10 - Essential (primary) hypertension Code(s): I10 - Essential (primary) hypertension Status: Acute Assessment and Plan: Patient does appear to be on blood pressure meds at home Quality VTE Prophylaxis VTE prophylaxis: mechanical ordered and pharmacologic ordered Hospitalist MIPS Advance Care Plan I have confirmed that the patient's Advanced Care Plan is present, code status is documented, or surrogate decision maker is listed in patient medical record.: Yes Medication Reconciliation I have utilized all available resources to obtain, update and review the patients current medications (includes all prescriptions, OTC, herbals, cannabis, and nutritional supplements).: Yes
[2025-01-28] MEDS: SODIUM CHLORIDE 0.9% IV 1,000 ML 999 ML IV CONT (13:17)
[2025-01-28 13:39] LABS: Creatine Kinase 444 U/L (55-170)
--- NOTE | 2025-01-28 14:08 | PC.NURSE ---
This patient, Santhosh Moore, was admitted to [facility] Surg Room 332-02 at 1408. Patient/family oriented to hospital policies and general routines including ID bracelet, bed and alarms, visiting hours, pain management, procedures, bathroom and other care routines, personal items, smoking policy, room service/diet, and visiting hours. Information on how to activate the Rapid Response Team has been discussed. Patient/Family are encouraged to report perceived risks to care and to ask questions if they do not understand what they are told or what they should do.
[2025-01-28] MEDS: ACETAMINOPHEN 325 MG TABLET 650 MG PO (14:31)
[2025-01-28] MEDS: SODIUM CHLORIDE 0.9% IV 1,000 ML 75 ML IV CONT (14:32)
[2025-01-28] MEDS: PRAMIPEXOLE 1 MG TABLET 2 MG BY MOUTH (23:57)
[2025-01-29] VITALS (7 sets, daily range): BP systolic 144–169; BP diastolic 62–113; PULSE 55–72; RESP 16–18; TEMP 36.4–36.5; O2SAT 100
[2025-01-29] MEDS: traMADol HCL (*CRX) 50 MG TABLET PO (00:25)
[2025-01-29] MEDS: SODIUM CHLORIDE 0.9% IV 1,000 ML 75 ML IV CONT (04:14)
[2025-01-29 06:20] LABS: Hematocrit 38.4 % (42.0-52.0); Hemoglobin 12.7 g/dL (14.0-18.0); Immature Granulocyte Percent A 0.3 % (0-0.5); Lymphocytes Absolute Auto 2.12 K/mm3 (0.9-3.2); Mean Corpuscular HGB Conc 33.1 g/dl (32-36); Mean Corpuscular Hemoglobin 30.6 pg (26-34); Mean Corpuscular Volume 92.5 fl (80-100); Nucleated Red Blood Cells Absolute Auto 0.000 K/mm3 (0.0-0.012); Nucleated Red Blood Cells Perc 0.0 % (0.0-0.2); Platelet Count Result 218 k/mm3 (150-375); Red Blood Count 4.15 M/mm3 (4.6-6.20); White Blood Count 6.5 K/mm3 (4.5-10.0)
[2025-01-29 07:01] LABS: Anion Gap 7 mmol/L (4-12); Blood Urea Nitrogen 39 mg/dL (9-20); Calcium 8.5 mg/dL (8.4-10.2); Carbon Dioxide 23 mmol/L (22-30); Chloride 107 mmol/L (98-107); Estimated CRCL calculation 37 ml/min; Estimated Glomerular Filt Rate 48; Glucose 71 mg/dL (65-110); Potassium 3.5 mmol/L (3.4-5.0); Sodium 137 mmol/L (137-145)
[2025-01-29] MEDS: FERROUS SULFATE 325 MG TABLET DR BY MOUTH ×2 (09:03→17:18)
[2025-01-29] MEDS: ASPIRIN 81 MG ENTERIC TABLET PO (09:03)
[2025-01-29] MEDS: FOLIC ACID 1 MG TABLET PO (09:03)
[2025-01-29] MEDS: MIRABEGRON 50 MG ER TABLET PO (09:03)
[2025-01-29] MEDS: APIXABAN 5 MG TABLET PO ×2 (09:03→17:18)
[2025-01-29] MEDS: EMPAGLIFLOZIN 25 MG TABLET PO (09:03)
--- NOTE | 2025-01-29 13:25 | PM.IMPN ---
Progress Note: A&P Assessment and Plan (1) Generalized weakness: Code(s): R53.1 - Weakness Status: Acute (2) Frequent falls: Code(s): R29.6 - Repeated falls Status: Acute (3) SABAS (acute kidney injury): Code(s): N17.9 - Acute kidney failure, unspecified Status: Acute (4) Coronary artery disease: Qualifiers: Coronary Disease-Associated Artery/Lesion type: unspecified vessel or lesion type [place] vs. 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 Patient states that he fell yesterday. He has been complaining of progressive weakness over the last several days. He states that today he was so weak he could not get up any had incontinence of stool. On 01/26/2025 patient was seen in the ED for acute back pain after fall was discharged home after negative workup. Patient states that he was just too weak to be home by himself. Patient denies nausea or vomiting. Lab work in the ED showed CBC within normal limits, anion gap 16, BUN of 33, creatinine of 1.9 for with previous being 1.33, GFR 33, UA dark yellow with 2+ bilirubin, negative for infection. EKG shows sinus rhythm with first-degree AV block. Recurrent falls Progressive weakness SABAS CKD stage 3 Type 2 diabetes Coronary artery disease Hypertension Hyperlipidemia Compression fractures of the back MARIMAR DVT prophylaxis on apixaban Code status full code Disposition PT OT see likely needs placement Subjective Date/time seen: 01/29/25 13:25 Interval history: No overnight events. No new complaints. Has not gotten out of bed yet. Review of Systems Review of Systems: All systems reviewed & are unremarkable except as noted in HPI and below Exam Narrative: General: well appearing, appears stated age. HEENT: normocephalic, atraumatic. Mucous membranes moist. Respiratory: clear to ascultation bilaterally. No rales/rhonic/wheezes. Cardiovascular: Regular rate and rhythm, normal S1-S2 upon ascultation. Abdomen: Soft, round, no pulsatile masses, nondistended and nontender. Extremities: No cyanosis, clubbing, or edema present. Pulses are palpable 2/2. Active ROM to all four extremities. Neuro: Alert and orientated x 4. PERRLA. Cranial nerves 2-12 intact without focal deficit. Skin: Warm, dry, and intact, without rash, erythema, or lesion. Psych: pleasant, cooperative, normal speech, normal affect, no hallucinations, no dysarthia Objective Data Vital Signs Vital Signs: Vital Signs - 24 hr 01/28/25 13:40 01/28/25 22:00 01/28/25 22:15 Temperature 97.5 F L Pulse Rate 72 70 Respiratory Rate 16 18 Blood Pressure 152/60 H 149/62 H Pulse Oximetry 98 99 Oxygen Delivery Room Air 01/29/25 06:00 01/29/25 10:00 01/29/25 10:05 Temperature 97.7 F Pulse Rate 66 65 Respiratory Rate 16 Blood Pressure 144/65 H 169/69 H 156/113 H Pulse Oximetry 100 Oxygen Delivery 01/29/25 10:10 Temperature Pulse Rate 72 Respiratory Rate Blood Pressure 154/74 H Pulse Oximetry Oxygen Delivery Intake/Output Intake/Output: Intake & Output 01/26/25 01/27/25 01/28/25 01/29/25 23:59 23:59 23:59 23:59 Intake Total 1340 2230 Output Total 400 Balance 1340 1830 Meds/Results Medications: Active Medications Generic Name Dose Route Start Last Admin Trade Name Freq PRN Reason Stop Dose Admin Acetaminophen 650 mg 01/28/25 13:05 01/28/25 14:31 Acetaminophen 325 Mg Tablet PO 650 mg Q4H PRN Administration Mild Pain (1-3) or Fever Apixaban 5 mg 01/29/25 09:00 01/29/25 09:03 Apixaban 5 Mg Tablet PO 5 mg BID JOSE CARLOS Administration Aspirin 81 mg 01/29/25 09:00 01/29/25 09:03 Aspirin 81 Mg Enteric Tablet PO 81 mg DAILY JOSE CARLOS Administration Dextrose 12.5 gm 01/28/25 13:04 Dextrose 50% 25 Gm/50 Ml Syringe IV PUSH PRN PRN Hypoglycemia Protocol Docusate Sodium 100 mg 01/28/25 13:05 Docusate Sodium 100 Mg Capsule PO BID PRN Constipation Empagliflozin 25 mg 01/29/25 09:00 01/29/25 09:03 Empagliflozin 25 Mg Tablet PO 25 mg DAILY JOSE CARLOS Administration Ferrous Sulfate 325 mg 01/29/25 09:00 01/29/25 09:03 Ferrous Sulfate [address] BY MOUTH 325 mg BID JOSE CARLOS Administration Folic Acid 1 mg 01/29/25 09:00 01/29/25 09:03 Folic Acid 1 Mg Tablet PO 1 mg DAILY JOSE CARLOS Administration Glucagon 1 mg 01/28/25 13:04 Glucagon For Inj 1 Mg Vial IM PRN PRN Hypoglycemia Protocol Glucose 15 gm 01/28/25 13:04 Glucose Oral Gel 15 Gm Of Glucse In 37.5 Gm Tube PO PRN PRN Hypoglycemia Protocol Dextrose 1,000 mls @ 100 mls/hr 01/28/25 13:04 Dextrose 5% 1,000 Ml IVPB PRN PRN Hypoglycemia Protocol Sodium Chloride 1,000 mls @ 75 mls/hr 01/28/25 13:05 01/29/25 04:14 Normal Saline Iv IV CONT 75 mls/hr .[id number] JOSE CARLOS Administration Insulin Aspart 2 - 5 units 01/28/25 17:00 01/29/25 12:14 Insulin Aspart (*Bkc) 100 Units/Ml SUB-Q Not Given TIDWM [facility] Protocol Insulin Aspart 1 - 2 units 01/28/25 21:00 01/28/25 22:02 Insulin Aspart (*Bkc) 100 Units/Ml SUB-Q Not Given HS [facility] Protocol Mirabegron 50 mg 01/29/25 09:00 01/29/25 09:03 Mirabegron 50 Mg Er Tablet PO 50 mg DAILY JOSE CARLOS Administration Polyethylene Glycol 17 gm 01/29/25 09:00 01/29/25 09:02 Polyethylene Glycol 3350 17 Gm Powd.Pack PO 17 gm DAILY JOSE CARLOS Administration Pramipexole Dihydrochloride 2 mg 01/28/25 23:25 01/28/25 23:57 Pramipexole 1 Mg Tablet BY MOUTH 2 mg HS JOSE CARLOS Administration Tramadol HCl 50 mg 01/28/25 19:26 01/29/25 00:25 Tramadol Hcl (*Crx) 50 Mg Tablet PO 50 mg Q4-6H PRN Administration pain 4-6 Labs Labs: Laboratory Results - last 24 hr 01/28/25 01/28/25 01/28/25 07:44 17:03 22:01 WBC RBC Hgb Hct MCV MCH MCHC RDW Plt Count MPV Immature Gran % (Auto) Neut % (Auto) Lymph % (Auto) [place] % (Auto) Eos % (Auto) Baso % (Auto) Lymph # (Auto) [place] # (Auto) Eos # (Auto) Baso # (Auto) Abs Immat Gran (auto) Absolute Neuts (auto) Absolute Nucleated RBC Nucleated RBC % Sodium Potassium Chloride Carbon Dioxide Anion Gap BUN Creatinine Estim Creat Clear Calc Estimated GFR Glucose POC Capillary Glucose 140 H 84 Calcium Total Creatine Kinase 444 H 01/29/25 01/29/25 01/29/25 06:07 08:15 11:38 WBC 6.5 RBC 4.15 L Hgb 12.7 L Hct 38.4 L MCV 92.5 MCH 30.6 MCHC 33.1 RDW 13.4 Plt Count 218 MPV 9.7 Immature Gran % (Auto) 0.3 Neut % (Auto) 54.5 Lymph % (Auto) 32.6 [place] % (Auto) 7.2 Eos % (Auto) 4.6 H Baso % (Auto) 0.8 Lymph # (Auto) 2.12 [place] # (Auto) 0.5 Eos # (Auto) 0.3 Baso # (Auto) 0.1 Abs Immat Gran (auto) 0.02 Absolute Neuts (auto) 3.6 Absolute Nucleated RBC 0.000 Nucleated RBC % 0.0 Sodium 137 Potassium 3.5 Chloride 107 Carbon Dioxide 23 Anion Gap 7 BUN 39 H Creatinine 1.43 H Estim Creat Clear Calc 37 Estimated GFR 48 L Glucose 71 POC Capillary Glucose 66 73 Calcium 8.5 Total Creatine Kinase
[2025-01-29] MEDS: PRAMIPEXOLE 1 MG TABLET 2 MG BY MOUTH (20:34)
[2025-01-30 06:00] VITALS: BP 153/64; PULSE 56; RESP 19; TEMP 36.6; O2SAT 99
[2025-01-30 06:36] LABS: Hematocrit 39.6 % (42.0-52.0); Hemoglobin 13.2 g/dL (14.0-18.0); Immature Granulocyte Percent A 0.4 % (0-0.5); Lymphocytes Absolute Auto 1.65 K/mm3 (0.9-3.2); Mean Corpuscular HGB Conc 33.3 g/dl (32-36); Mean Corpuscular Hemoglobin 30.8 pg (26-34); Mean Corpuscular Volume 92.3 fl (80-100); Nucleated Red Blood Cells Absolute Auto 0.000 K/mm3 (0.0-0.012); Nucleated Red Blood Cells Perc 0.0 % (0.0-0.2); Platelet Count Result 208 k/mm3 (150-375); Red Blood Count 4.29 M/mm3 (4.6-6.20); White Blood Count 5.4 K/mm3 (4.5-10.0)
[2025-01-30 07:01] LABS: Alanine Aminotransferase 17 U/L (6-50); Albumin Level 3.1 g/dL (3.5-5.1); Alkaline Phosphatase 95 U/L (38-126); Anion Gap 5 mmol/L (4-12); Aspartate Amino Transferase 32 U/L (17-59); Bilirubin,Total 0.6 mg/dL (0.2-1.3); Blood Urea Nitrogen 25 mg/dL (9-20); Calcium 8.4 mg/dL (8.4-10.2); Carbon Dioxide 25 mmol/L (22-30); Chloride 103 mmol/L (98-107); Estimated CRCL calculation 52 ml/min; Estimated Glomerular Filt Rate > 60; Glucose 80 mg/dL (65-110); Magnesium 2.1 mg/dL (1.6-2.3); Potassium 3.4 mmol/L (3.4-5.0); Sodium 133 mmol/L (137-145); Total Protein 5.9 g/dL (6.3-8.2)
[2025-01-30] MEDS: FOLIC ACID 1 MG TABLET PO (09:24)
[2025-01-30] MEDS: ASPIRIN 81 MG ENTERIC TABLET PO (09:24)
[2025-01-30] MEDS: APIXABAN 5 MG TABLET PO ×2 (09:24→16:39)
[2025-01-30] MEDS: MIRABEGRON 50 MG ER TABLET PO (09:24)
[2025-01-30] MEDS: FERROUS SULFATE 325 MG TABLET DR BY MOUTH ×2 (09:24→16:39)
[2025-01-30] MEDS: EMPAGLIFLOZIN 25 MG TABLET PO (09:24)
--- NOTE | 2025-01-30 11:25 | PM.IMPN ---
Progress Note: A&P Assessment and Plan (1) Generalized weakness: Code(s): R53.1 - Weakness Status: Acute (2) Frequent falls: Code(s): R29.6 - Repeated falls Status: Acute (3) SABAS (acute kidney injury): Code(s): N17.9 - Acute kidney failure, unspecified Status: Acute (4) Coronary artery disease: Qualifiers: Coronary Disease-Associated Artery/Lesion type: unspecified vessel or lesion type [place] vs. 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 Patient states that he fell yesterday. He has been complaining of progressive weakness over the last several days. He states that today he was so weak he could not get up any had incontinence of stool. On 01/26/2025 patient was seen in the ED for acute back pain after fall was discharged home after negative workup. Patient states that he was just too weak to be home by himself. Patient denies nausea or vomiting. Lab work in the ED showed CBC within normal limits, anion gap 16, BUN of 33, creatinine of 1.9 for with previous being 1.33, GFR 33, UA dark yellow with 2+ bilirubin, negative for infection. EKG shows sinus rhythm with first-degree AV block. Recurrent falls Progressive weakness SABAS CKD stage 3 resolved Type 2 diabetes Coronary artery disease Hypertension Hyperlipidemia Compression fractures of the back MARIMAR DVT prophylaxis on apixaban Code status full code Disposition PT OT see likely needs placement Subjective Date/time seen: 01/30/25 11:25 Interval history: no overnight events, doing well. no fever, chlls. worked with therapy. recs SNF Review of Systems Review of Systems: All systems reviewed & are unremarkable except as noted in HPI and below Exam Narrative: General: well appearing, appears stated age. HEENT: normocephalic, atraumatic. Mucous membranes moist. Respiratory: clear to ascultation bilaterally. No rales/rhonic/wheezes. Cardiovascular: Regular rate and rhythm, normal S1-S2 upon ascultation. Abdomen: Soft, round, no pulsatile masses, nondistended and nontender. Extremities: No cyanosis, clubbing, or edema present. Pulses are palpable 2/2. Active ROM to all four extremities. Neuro: Alert and orientated x 4. PERRLA. Cranial nerves 2-12 intact without focal deficit. Skin: Warm, dry, and intact, without rash, erythema, or lesion. Psych: pleasant, cooperative, normal speech, normal affect, no hallucinations, no dysarthia Objective Data Vital Signs Vital Signs: Vital Signs - 24 hr 01/29/25 14:00 01/29/25 15:22 01/29/25 20:12 Temperature 97.7 F Pulse Rate 55 L Respiratory Rate 18 Blood Pressure 169/68 H Pulse Oximetry 100 100 Oxygen Delivery Room Air Room Air 01/29/25 20:34 01/29/25 22:00 01/30/25 06:00 Temperature 97.6 F 97.8 F Pulse Rate 59 L 56 L Respiratory Rate 18 19 Blood Pressure 161/62 H 153/64 H Pulse Oximetry 100 99 Oxygen Delivery Room Air 01/30/25 08:00 Temperature Pulse Rate Respiratory Rate Blood Pressure Pulse Oximetry Oxygen Delivery Room Air Intake/Output Intake/Output: Intake & Output 01/27/25 01/28/25 01/29/25 01/30/25 23:59 23:59 23:59 23:59 Intake Total 1340 4290 980 Output Total 400 800 Balance 1340 3890 180 Meds/Results Medications: Active Medications Generic Name Dose Route Start Last Admin Trade Name Freq PRN Reason Stop Dose Admin Acetaminophen 650 mg 01/28/25 13:05 01/28/25 14:31 Acetaminophen 325 Mg Tablet PO 650 mg Q4H PRN Administration Mild Pain (1-3) or Fever Apixaban 5 mg 01/29/25 09:00 01/30/25 09:24 Apixaban 5 Mg Tablet PO 5 mg BID JOSE CARLOS Administration Aspirin 81 mg 01/29/25 09:00 01/30/25 09:24 Aspirin 81 Mg Enteric Tablet PO 81 mg DAILY JOSE CARLOS Administration Dextrose 12.5 gm 01/28/25 13:04 Dextrose 50% 25 Gm/50 Ml Syringe IV PUSH PRN PRN Hypoglycemia Protocol Docusate Sodium 100 mg 01/28/25 13:05 Docusate Sodium 100 Mg Capsule PO BID PRN Constipation Empagliflozin 25 mg 01/29/25 09:00 01/30/25 09:24 Empagliflozin 25 Mg Tablet PO 25 mg DAILY JOSE CARLOS Administration Ferrous Sulfate 325 mg 01/29/25 09:00 01/30/25 09:24 Ferrous Sulfate [address] BY MOUTH 325 mg BID JOSE CARLOS Administration Folic Acid 1 mg 01/29/25 09:00 01/30/25 09:24 Folic Acid 1 Mg Tablet PO 1 mg DAILY JOSE CARLOS Administration Glucagon 1 mg 01/28/25 13:04 Glucagon For Inj 1 Mg Vial IM PRN PRN Hypoglycemia Protocol Glucose 15 gm 01/28/25 13:04 Glucose Oral Gel 15 Gm Of Glucse In 37.5 Gm Tube PO PRN PRN Hypoglycemia Protocol Dextrose 1,000 mls @ 100 mls/hr 01/28/25 13:04 Dextrose 5% 1,000 Ml IVPB PRN PRN Hypoglycemia Protocol Insulin Aspart 2 - 5 units 01/28/25 17:00 01/30/25 08:33 Insulin Aspart (*Bkc) 100 Units/Ml SUB-Q Not Given TIDWM [facility] Protocol Insulin Aspart 1 - 2 units 01/28/25 21:00 01/29/25 20:38 Insulin Aspart (*Bkc) 100 Units/Ml SUB-Q Not Given HS [facility] Protocol Mirabegron 50 mg 01/29/25 09:00 01/30/25 09:24 Mirabegron 50 Mg Er Tablet PO 50 mg DAILY JOSE CARLOS Administration Polyethylene Glycol 17 gm 01/29/25 09:00 01/30/25 09:24 Polyethylene Glycol 3350 17 Gm Powd.Pack PO 17 gm DAILY JOSE CARLOS Administration Pramipexole Dihydrochloride 2 mg 01/28/25 23:25 01/29/25 20:34 Pramipexole 1 Mg Tablet BY MOUTH 2 mg HS JOSE CARLOS Administration Tramadol HCl 50 mg 01/28/25 19:26 01/29/25 00:25 Tramadol Hcl (*Crx) 50 Mg Tablet PO 50 mg Q4-6H PRN Administration pain 4-6 Labs Labs: Laboratory Results - last 24 hr 01/29/25 01/29/25 01/29/25 11:38 16:55 20:37 WBC RBC Hgb Hct MCV MCH MCHC RDW Plt Count MPV Immature Gran % (Auto) Neut % (Auto) Lymph % (Auto) [place] % (Auto) Eos % (Auto) Baso % (Auto) Lymph # (Auto) [place] # (Auto) Eos # (Auto) Baso # (Auto) Abs Immat Gran (auto) Absolute Neuts (auto) Absolute Nucleated RBC Nucleated RBC % Sodium Potassium Chloride Carbon Dioxide Anion Gap BUN Creatinine Estim Creat Clear Calc Estimated GFR Glucose POC Capillary Glucose 73 84 149 H Calcium Magnesium Total Bilirubin AST ALT Alkaline Phosphatase Total Protein Albumin 01/30/25 01/30/25 06:04 08:04 WBC 5.4 RBC 4.29 L Hgb 13.2 L Hct 39.6 L MCV 92.3 MCH 30.8 MCHC 33.3 RDW 13.2 Plt Count 208 MPV 9.9 Immature Gran % (Auto) 0.4 Neut % (Auto) 51.9 Lymph % (Auto) 30.5 [place] % (Auto) 8.7 H Eos % (Auto) 7.4 H Baso % (Auto) 1.1 Lymph # (Auto) 1.65 [place] # (Auto) 0.5 Eos # (Auto) 0.4 H Baso # (Auto) 0.1 Abs Immat Gran (auto) 0.02 Absolute Neuts (auto) 2.8 Absolute Nucleated RBC 0.000 Nucleated RBC % 0.0 Sodium 133 L Potassium 3.4 Chloride 103 Carbon Dioxide 25 Anion Gap 5 BUN 25 H D Creatinine 1.01 Estim Creat Clear Calc 52 Estimated GFR > 60 Glucose 80 POC Capillary Glucose 76 Calcium 8.4 Magnesium 2.1 Total Bilirubin 0.6 AST 32 ALT 17 Alkaline Phosphatase 95 Total Protein 5.9 L Albumin 3.1 L
[2025-01-30 14:00] VITALS: BP 155/73; PULSE 60; RESP 18; TEMP 36.9; O2SAT 100
[2025-01-30] MEDS: PRAMIPEXOLE 1 MG TABLET 2 MG BY MOUTH (20:34)
[2025-01-30 22:00] VITALS: BP 160/94; PULSE 68; RESP 17; TEMP 36.6; O2SAT 99
[2025-01-30 22:26] VITALS: O2SAT 100
[2025-01-31 06:00] VITALS: BP 149/91; PULSE 62; RESP 16; TEMP 36.6; O2SAT 97
[2025-01-31] MEDS: EMPAGLIFLOZIN 25 MG TABLET PO (08:49)
[2025-01-31] MEDS: APIXABAN 5 MG TABLET PO (08:49)
[2025-01-31] MEDS: MIRABEGRON 50 MG ER TABLET PO (08:49)
[2025-01-31] MEDS: ASPIRIN 81 MG ENTERIC TABLET PO (08:49)
[2025-01-31] MEDS: FOLIC ACID 1 MG TABLET PO (08:49)
[2025-01-31] MEDS: FERROUS SULFATE 325 MG TABLET DR BY MOUTH (08:49)
--- NOTE | 2025-01-31 09:59 | P.DS_ITS ---
DS: Admitting Diagnosis Discharge Date 01/31/2025 Admitting Diagnosis Fall DS: Discharge Diagnosis Discharge Diagnosis (1) Generalized weakness: Code(s): R53.1 - Weakness Status: Acute (2) Frequent falls: Code(s): R29.6 - Repeated falls Status: Acute (3) SABAS (acute kidney injury): Code(s): N17.9 - Acute kidney failure, unspecified Status: Acute (4) Coronary artery disease: Qualifiers: Coronary Disease-Associated Artery/Lesion type: unspecified vessel or lesion type [place] vs. transplanted heart: [place] heart Associated angina: unspecified whether angina present Qualified Code(s): I25.10 - Atherosclerotic heart disease of [place] coronary artery without angina pectoris Code(s): I25.10 - Atherosclerotic heart disease of [place] coronary artery without angina pectoris Status: Acute (5) Diabetes mellitus: Qualifiers: Diabetes mellitus type: type 2 Diabetes mellitus skilled nursing insulin use: without intermodal customer service use Diabetes mellitus complication status: without complication Qualified Code(s): E11.9 - Type 2 diabetes mellitus without complications Code(s): E11.9 - Type 2 diabetes mellitus without complications Status: Acute (6) Hypertension: Qualifiers: Hypertension type: unspecified Qualified Code(s): I10 - Essential (primary) hypertension Code(s): I10 - Essential (primary) hypertension Status: Acute DS: Summary Hospital Course Hospital Course: 79-year-old male past medical history of [place], diabetes, hypertension, and CAD, presents the hospital status post fall. Patient states that he fell yesterday. He has been complaining of progressive weakness over the last several days. He states that today he was so weak he could not get up any had incontinence of stool. On 01/26/2025 patient was seen in the ED for acute back pain after fall was discharged home after negative workup. Patient states that he was just too weak to be home by himself. Patient denies nausea or vomiting. Lab work in the ED showed CBC within normal limits, anion gap 16, BUN of 33, creatinine of 1.9 for with previous being 1.33, GFR 33, UA dark yellow with 2+ bilirubin, negative for infection. EKG shows sinus rhythm with first-degree AV block. Recurrent falls Progressive weakness SABAS CKD stage 3 resolved Type 2 diabetes Coronary artery disease Hypertension Hyperlipidemia Compression fractures of the back MARIMAR DVT prophylaxis on apixaban Code status full code Disposition PT OT see and moving to [facility] for further rehabilitation Time Spent with Patient Time attestation: Total time spent providing and/or coordinating discharge services: 35 minutes Exam Narrative: General: well appearing, appears stated age. HEENT: normocephalic, atraumatic. Mucous membranes moist. Respiratory: clear to ascultation bilaterally. No rales/rhonic/wheezes. Cardiovascular: Regular rate and rhythm, normal S1-S2 upon ascultation. Abdomen: Soft, round, no pulsatile masses, nondistended and nontender. Extremities: No cyanosis, clubbing, or edema present. Pulses are palpable 2/2. Active ROM to all four extremities. Neuro: Alert and orientated x 4. PERRLA. Cranial nerves 2-12 intact without focal deficit. Skin: Warm, dry, and intact, without rash, erythema, or lesion. Psych: pleasant, cooperative, normal speech, normal affect, no hallucinations, no dysarthia DS: Data Data Completed and Pending Labs on day of discharge: Labs from last 24 hours 01/31/25 01/30/25 01/30/25 08:02 20:37 17:17 POC Capillary Glucose 128 H 101 103 01/30/25 11:36 POC Capillary Glucose 114 H Discharge Plan Discharge Attending physician on discharge: Dani Rankin Discharging Clinician: Dani Rankin Anticipated Discharge Date/Time: 01/31/25 10:00 Patient Disposition: SNF Activity: as tolerated Diet: as tolerated and heart healthy Patient Instructions: Apixaban (By mouth), Heart Failure (DC) Patient Language: Vietnamese Stand Alone Forms: General Discharge Information Follow-up/Referrals: Alexandre Smith MD [Primary Care Provider] - 1 Week Discharge Medications: Continued aspirin [Adult Low Dose Aspirin] 81 mg tablet,delayed release (DR/EC) 81 mg PO DAILY cholecalciferol (vitamin D3) 25 mcg (1,000 unit) capsule 25 mcg PO DAILY mecobalamin (vitamin B12) 1,000 mcg tablet,disintegrating 1,000 mcg sublingual DAILY Qty: 90 1RF Rx Instructions: place tablet under tongue and allow to dissolve for at least30 secs before swallowing fish oil 1,200 mg BYMOUTH DAILY Probiotic 15 billion cell capsule, sprinkle 1 cap PO DAILY Rx Instructions: do not crush/chew/cut; swallow whole OR may open and sprinkle in cold drink/food potassium chloride 10 mEq capsule, extended release 10 meq PO DAILY Qty: 90 1RF folic acid 1 mg tablet 1 mg PO DAILY Eliquis 5 mg tablet 5 mg PO BID docusate sodium 100 mg Capsule 100 mg PO Q12H PRN (Reason: Constipation) Qty: 30 0RF acetaminophen 500 mg capsule 1,000 mg PO Q6H PRN (Reason: pain) Qty: 30 0RF lidocaine 4 % adhesive patch,medicated 1 patch topical DAILY PRN (Reason: pain) Qty: 10 0RF Metamucil 3.4 gram/5.4 gram powder 1 tbsp PO DAILY Qty: 660 0RF Rx Instructions: mix into at least 8 oz of water or juice before administering polyethylene glycol 3350 [Miralax] 17 gram/dose powder 17 g PO DAILY Qty: 119 0RF magnesium citrate Solution 150 ml PO DAILY PRN (Reason: constipation) Qty: 296 0RF tramadol 50 mg tablet 50 mg PO Q4-6H PRN (Reason: pain) Qty: 35 0RF Jardiance 25 mg tablet 25 mg PO DAILY Qty: 90 2RF risedronate 35 mg tablet See Rx Instructions .ROUTE .COMPLEX Qty: 12 2RF Dose Instruction: TAKE 1 TABLET BY MOUTH EVERY WEEK. ADMINISTER 30 MINUTES BEFORE FIRST FOOD OR DRINK OTHER THAN WATER Rx Instructions: TAKE 1 TABLET BY MOUTH EVERY WEEK. ADMINISTER 30 MINUTES BEFORE FIRST FOOD OR DRINK OTHER THAN WATER ferrous sulfate 325 mg (65 mg iron) tablet 325 mg PO BID mirabegron [Myrbetriq] 50 mg tablet extended release 24 hr 50 mg PO DAILY Qty: 90 1RF pramipexole 1 mg tablet See Rx Instructions .ROUTE .COMPLEX Qty: 180 0RF Dose Instruction: TAKE 2 TABLETS BY MOUTH EVERY DAY AT BEDTIME Rx Instructions: TAKE 2 TABLETS BY MOUTH EVERY DAY AT BEDTIME tizanidine 2 mg tablet 2 mg PO TID PRN (Reason: muscle spasticity) Qty: 30 0RF Date of admission: 01/28/25 12:07 Primary Care Provider: Alexandre Smith Admitting Provider: Mayur Carl Attending physician on admission: Mayur Carl Condition: Improved
[2025-01-31] MEDS: INSULIN ASPART (*BKC) 100 UNITS/ML SUB-Q (12:52)
== END 2025-01-31 14:45 | DRG 948 ==
LOC: ANHED 12:07 → ANH3MEDSUR 13:38
PROVIDERS: Nurse Practitioner Gerontology; Admitting Provider Internal Medicine; Emergency Provider Emergency Medicine; PCP Internal Medicine; Visit Provider Internal Medicine
DX: R53.1 Weakness (principal); N17.9 Acute kidney failure, unspecified; R29.6 Repeated falls; W19.XXXA Unspecified fall, initial encounter; E11.22 Type 2 diabetes mellitus with diabetic chronic kidney disease; E78.5 Hyperlipidemia, unspecified; F17.210 Nicotine dependence, cigarettes, uncomplicated; G47.33 Obstructive sleep apnea (adult) (pediatric); I25.10 Atherosclerotic heart disease of native coronary artery without angina pectoris; I25.2 Old myocardial infarction; I12.9 Hypertensive chronic kidney disease with stage 1 through stage 4 chronic kidney disease, or unspecified chronic kidney disease; N18.30 Chronic kidney disease, stage 3 unspecified; R15.9 Full incontinence of feces; Z79.82 Long term (current) use of aspirin; Z79.01 Long term (current) use of anticoagulants; Z79.84 Long term (current) use of oral hypoglycemic drugs; Z79.899 Other long term (current) drug therapy
CPT/HCPCS: 36415; 80048; 80053; 81001; 82550; 82948; 83735; 85025; 93005; 97161; 97165; 97535; 99285; A9270; J1815; J7030

== ENCOUNTER 2025-04-21 11:49 | Outpatient (CLI) | payer MEDICARE, SELFPAY ==
[2025-04-21 12:44] LABS: Hemoglobin A1C 5.5 % (<5.7)
[2025-04-21 12:53] LABS: Alanine Aminotransferase 11 U/L (6-50); Albumin Level 3.8 g/dL (3.5-5.1); Alkaline Phosphatase 101 U/L (38-126); Anion Gap 8 mmol/L (4-12); Aspartate Amino Transferase 19 U/L (17-59); Bilirubin,Total 0.4 mg/dL (0.2-1.3); Blood Urea Nitrogen 18 mg/dL (9-20); Calcium 8.9 mg/dL (8.4-10.2); Carbon Dioxide 28 mmol/L (22-30); Chloride 105 mmol/L (98-107); Cholesterol 147 mg/dL (0-200); Estimated Glomerular Filt Rate > 60; Glucose 163 mg/dL (65-110); HDL Direct 52 mg/dL; Potassium 3.8 mmol/L (3.4-5.0); Sodium 141 mmol/L (137-145); Total Protein 6.7 g/dL (6.3-8.2); Triglycerides 143 mg/dL (<150)
[2025-04-21 13:09] LABS: Free T4 Free Thyroxine 1.39 ng/dL (0.78-2.19)
[2025-04-21 13:28] LABS: Thyroid Stimulating Hormone 1.440 uIU/mL (0.465-4.680)
== END 2025-04-21 11:50 | disposition home or self-care (01) ==
LOC: ANHLAB 11:52
PROVIDERS: PCP Internal Medicine; Visit Provider Internal Medicine
DX: E78.5 Hyperlipidemia, unspecified (principal); I10 Essential (primary) hypertension; E11.9 Type 2 diabetes mellitus without complications; Z79.899 Other long term (current) drug therapy; Z13.29 Encounter for screening for other suspected endocrine disorder
CPT/HCPCS: 36415; 80053; 80061; 83036; 84439; 84443

== ENCOUNTER 2025-05-01 04:14 | Inpatient (IN) | payer MEDICARE, SELFPAY ==
--- OUTSIDE RECORDS SUMMARY | 2015-03-10 10:09 | XMS_ITS | Continuity of Care Document ---
Author Organization [facility] Address [address] [facility] [address] [place] [address] Phone Care Team Providers Care County Bailiff Name Role Phone Faustino Carvajal MD Unavailable Unavailable Allergies, Adverse Reactions, Alerts Substance Reaction Status Criticality No Known Allergies Active No Inform ation Medications Medication Instructions Dosage Effective Dates (start - stop) Status Comments TRICOR (unknown strength) Not Available - Active LIPITOR (unknown strength) Not Available - Active METFORMIN HCL (unknown strength) Not Available - Active GLIMEPIRIDE (unknown strength) Not Available - Active LOSARTAN POTASSIUM (unknown strength) Not Available - Active Procedures Procedure Date OFFICE/OUTPATIENT VISIT [facility] Advance Directives Directive Yes / No Effective Date File Name No Information Encounters Encounter Description Practice Location Reason(s) For Visit Diagnoses Date Provider Providers Copied on Encounter [facility], [address] [place] [address], [address], tel:[phone] [facility] No Information Sep-0 3 5 Alena Harmon. [address] [place], [place], [id number] . tel: [phone] OFFICE/OUTPAT IENT VISIT [facility], [address] [place] [address] [address], [place], [address], tel:[phone] [facility] Primary localized osteoarthros is, lower leg Sep-0 3-201 5 Alena Rodarte. [address] [facility] [address], [place], [place], [id number] . tel: [phone] Family History Family Member Type Diagnosis Age At Onset Daughter Problem (finding) Alive and well Payers Payer name Insurance type Covered libertarian ID Authoriza tion(s) No Information Social History Type Description Quantity Date Captured Comments Alcohol Use Details Unknown Caffeine Use Details Unknown Tobacco Use Status No Information Smoking Status No Information Sex Male Chief Complaint And Reason For Visit No Information Reason For Referral Reason For Referral No Information Plan Of Treatment Date Type Action Status Referral Ordered: RADEX KNE COMPL 4/MORE VIEWS RT ordered History Of Present Illness Encounter Date Complaint History Of Prese nt Illness No Information Functional Status Date Functional Assessmen t No Information Instructions Date Instruction Additional Infor mation Activity as tolerated. Related t o Primary localized osteoarthrosis, lower leg Apply ice as instructed. Related to Primary localized osteoarthrosis, lower leg Assessments Type Assessment Date No Information Patient Care Teams Name Effective Dates (start - stop) Status Members No Information
--- OUTSIDE RECORDS SUMMARY | 2015-03-10 10:09 | XMS_ITS | Continuity of Care Document ---
Author Organization [facility] Address [address] [place] [address] Phone Care Team Providers Care Printing Bindery Assistant Name Role Phone Faustino Carvajal MD Unavailable [...] - Active Procedures Procedure Date OFFICE/OUTPATIENT VISIT [facility] Advance Directives Directive Yes / No Effective Date File Name No Information Encounters Encounter Description Practice Location Reason(s) For Visit Diagnoses Date Provider Providers Copied on Encounter [facility], [address] [place] [address], [address], tel:[phone] [facility] No Information Sep-0 3 5 Alena Harmon. [address] [place], [place], [id number] . tel: [phone] OFFICE/OUTPAT IENT VISIT [facility], [address] [place] [address] [address], [place], [address], tel:[phone] [facility] Primary localized osteoarthros is, lower leg Sep-0 3-201 5 Alena Rodarte. [address] [facility] [address], [place], [place], [id number] . tel: [phone] Family History Family Member Type Diagnosis Age At Onset Daughter Problem (finding) Alive and well Payers Payer name Insurance type Covered green party ID Authoriza tion(s) No Information Social History [...]
[2025-05-01] VITALS (7 sets, daily range): BP systolic 100–192; BP diastolic 45–89; PULSE 58–77; RESP 14–17; TEMP 36.6–36.9; O2SAT 95–100; BMI 26.2
--- NOTE | ~2025-05-01 | XR_ITS ---
EXAMINATION: XR hip BI 2V w AP pelvis, 05/01/2025 16:45 CDT HISTORY: trauma COMPARISON: No comparisons available. Findings: No acute fracture or malalignment. Moderate bilateral degenerative changes Soft tissues unremarkable. Impression: No acute fracture or malalignment. Reviewed, dictated and finalized at location P. Impression: No acute fracture or malalignment.
--- NOTE | ~2025-05-01 | XR_ITS ---
Examination: XR shoulder RT min 2V Clinical History: fall Comparison: None Technique: 4 views right shoulder Findings/impression: 1. Impacted subcapital fracture right humerus. Reviewed, dictated and finalized at location R.
--- NOTE | ~2025-05-01 | XR_ITS ---
Examination: XR elbow RT 2V Clinical History: fall, right elbow pain Comparison: None Technique: 3 views left elbow Findings/impression: 1. No fracture or dislocation identified. Reviewed, dictated and finalized at location R.
--- NOTE | 2025-05-01 04:57 | ED.FALL ---
HPI - Fall General Chief Complaint: Fall Stated Complaint: glf Time Seen by Provider: 05/01/25 04:54 Source: patient and EMS Mode of arrival: EMS Limitations: no limitations History of Present Illness HPI Narrative: This is an 79-year-old male with history of dementia, scoliosis, hyperlipidemia, CAD who presents to the ED for a fall. Patient states that he was in his bathroom working on the sink when he lost his balance and fell backwards 2 steps before falling directly onto his right shoulder. Denies hitting his head, lost consciousness. He has pain to the right shoulder and right elbow at this time. Denies numbness, tingling. Related Data Home Medications ?Medication ?Instructions ?Recorded ?Confirmed ?Last Taken ?Type apixaban 5 mg tablet (Eliquis) 5 mg PO BID 07/16/22 04/15/25 Unknown History aspirin 81 mg tablet,delayed 81 mg PO DAILY 07/12/23 04/15/25 Unknown History release (Adult Low Dose Aspirin) cholecalciferol (vitamin D3) 25 25 mcg PO DAILY 07/12/23 04/15/25 Unknown History mcg (1,000 unit) capsule fish oil 1,200 mg BYMOUTH DAILY 07/12/23 04/15/25 Unknown History lactobacillus combo no.11 15 1 cap PO DAILY 07/12/23 04/15/25 Unknown History billion cell sprinkle capsule (Probiotic) ferrous sulfate 325 mg (65 mg 325 mg PO BID 02/04/24 04/15/25 Unknown History iron) tablet folic acid 1 mg tablet 1 mg PO DAILY 10/06/24 04/15/25 Unknown History Allergies Allergy/AdvReac Type Severity Reaction Status Date / Time No Known Allergies Allergy Verified 01/28/25 02:41 Review of Systems Review of Systems: Gen.: Denies fevers or chills Eyes: Denies eye pain or visual change ENT: Denies congestion Respiratory: Denies shortness of breath or cough CV: Denies chest pain or palpitations GI: Denies abdominal pain nausea, emesis or diarrhea denies burning, urgency, frequency or hematuria Musculoskeletal: As per HPI Neuro: Denies numbness, tingling, weakness or focal weakness Skin: Denies rash Except as documented, all other systems reviewed and negative PMFSH Past Medical History Medical History Dementia BMI 29.0-29.9,adult Non-healing wound of right lower extremity BMI 30.0-30.9,adult BMI 31.0-31.9,adult Pedal edema MARIMAR (obstructive sleep apnea) BMI 32.0-32.9,adult Follow up Compression fracture of thoracic spine, non-traumatic Compression fracture of lumbar spine, non-traumatic BMI 33.0-33.9,adult Kyphoscoliosis and scoliosis Impaired functional mobility, balance, gait, and endurance Osteoporosis 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 Encounter to establish care Overactive bladder BMI 34.0-34.9,adult Coronary artery disease Hyperlipidemia Myocardial infarction Diabetes mellitus Hypertension Surgical History Surgical History No pertinent past surgical history Social History Social History Social History: Exercises 3x/week Smoking status: Current every day smoker Tobacco type: cigars Second hand tobacco smoke exposure: Yes Additional smoking assessment comments: 3 cigars/day Alcohol intake: never Substance use: never Substance use type: does not use Do You Feel Safe in your Home?: Yes Lack of Transportation: No Lack of Food: Never True Current Housing: I Have Housing Concerned About Future Housing: No Difficulty Paying Gas/Electric Bills: No Difficulty Paying for Meds: No Currently Unemployed: No Education: Bachelor's Degree Difficulty w/ Childcare or Family Care: No Living arrangements: alone Occupation/Education: retired Gender identity (if verbalized by the patient): Male Spiritual care concerns: No Exam Narrative: APPEARANCE: No acute distress, nontoxic, resting in bed EYES: EOMI HEENT: Normocephalic, atraumatic, OMM RESPIRATORY: No respiratory distress Clear to auscultation bilaterally with no rhonchi wheezing or rales. CARDIOVASCULAR: Regular rate and rhythm without murmurs rubs or gallops. ABDOMINAL: Soft, nontender, nondistended, no rebound or guarding MUSCULOSKELETAl: Right upper extremity in a sling. Tenderness over the right glenohumeral joint and to the proximal right humerus with associated swelling. Tenderness over the distal right humerus. NEURO: Awake and alert. Following commands, speech normal, no focal deficits SKIN:: Warm, dry. No rashes lesions or abrasions PSYCHIATRIC: Normal affect/mood, Course Vital Signs Vital signs: Vital Signs Temperature 98 F 05/01/25 04:14 Pulse Rate 77 05/01/25 04:14 Respiratory Rate 17 05/01/25 04:14 Blood Pressure 192/78 H 05/01/25 04:14 Pulse Oximetry 100 05/01/25 04:14 Oxygen Delivery Room Air 05/01/25 04:14 Temperature 98 F 05/01/25 04:14 Pulse Rate 61 05/01/25 07:25 Respiratory Rate 15 05/01/25 07:25 Blood Pressure 114/67 05/01/25 07:25 Pulse Oximetry 100 05/01/25 07:25 Oxygen Delivery Room Air 05/01/25 04:14 MDM - Fall MDM Narrative Medical decision making narrative: Year old male presenting for fall onto right shoulder. On initial evaluation, patient was in no acute distress, afebrile, hemodynamically stable. He did have deformity tenderness over the right shoulder. Neurovascularly intact distally. X-ray right shoulder did reveal a proximal humerus fracture. I discussed the case with Dr. Schilling, ortho surgery, reported that this would likely need a shoulder replacement but this could be done as an outpatient. After further discussion the patient, he is walker dependent and I do not think that he would get adequate care at home. I did discuss the possibility of rehab while he is awaiting surgery and patient is agreeable to this plan. Case was discussed with hospitalist who will admit the patient. Differential Diagnosis Differential diagnosis: Likely syncope, dislocation of shoulder region and other (Shoulder fracture, elbow fracture, sprain, strain, contusion) Medical Records Attestation: I reviewed the patient's medical records. Imaging Data Attestation: I personally reviewed and interpreted this imaging study as follows: My impression: X-ray humerus right: Displaced proximal humerus fracture Discharge Plan Discharge Clinical Impression: Fall Qualifiers: Encounter type: initial encounter Qualified Code(s): W19.XXXA - Unspecified fall, initial encounter Fracture, humerus closed Qualifiers: Encounter type: initial encounter Humerus Location: proximal Fracture morphology: unspecified fracture morphology Laterality: right Qualified Code(s): S42.201A - Unspecified fracture of upper end of right humerus, initial encounter for closed fracture Patient Disposition: Still a Patient Condition: Stable
--- OUTSIDE RECORDS SUMMARY | 2025-05-01 05:26 | XMS_ITS | Encounter Summary ---
Author Organization [facility] Healthcare Address [address] [place] [address] Care Team Providers Care Proof Machine Operator Name Role Phone Rod Ann MD Unavailable [phone] Fabián Stanley MD Primary Care Provider Natalio Esparza MD Unavailable [phone] Yvan George MD Primary Care Provider [phone] Fabián Stanley MD Primary Care Provider Alexandre Smith MD Primary Care Provider [phone] Jim Benitez Unavailable Unavailable Encounter Details Date Type Department Care Team (Late st Contact Info) Description 04/21/2021 Documentation [facility] OP Physical Therapy [address] [address] Cayden Jacobo, PT Social History Tobacco Use [...] on file Legal Sex Male 8:15 PM ART SPECIALIST Gender Identity Male 04/18/2019 11:33 AM CDT Sexual Orientation Straight 04/18/2019 11 :33 AM CDT documented as of this encounter Plan of Treatment Not on file documented as of this encounter Visit Diagnoses Not on filedocumented in this encounter Additional Health Concerns Infection Onset Date Last Indicated Resolved Time COVID: Suspected 07/03/2022 07/03/2022 07/03/2022 2:45 PM ART SPECIALIST documented as of this encounter Care Teams Proof Machine Operator Relationship Specialty Start Date End Date Fabián Stanley MD [address] [place] [address] [address] [place] [address] PCP - General 10/08/17 09/30/22 Yvan George MD [address] [place] [address] PCP - General Family Medicine 10/01/22 12/26/22 Fabián Stanley MD [address] [place] [address] [address] [facility] [place] [address] PCP - General Internal Medicine 12/27/22 09/07/24 Alexandre Smith MD [address] [place] [address] PCP - General Internal Medicine 09/08/24 Rod Ann MD 12/25/16 06/26/22 Natalio Esparza MD [address] [place] [address] [address] [place] [address] Referring Physician Surgery 12/23/19 Jim Benitez Primary Mobile Homes Repairer 03/25/25 documented as of this encounter
--- OUTSIDE RECORDS SUMMARY | 2025-05-01 05:26 | XMS_ITS | Clinical Summary ---
Author Organization [facility] Address [address] [place] [address] Care Team Providers Care Table Worker Name Role Phone Natalio Esparza MD Unavailable [phone] Alexandre Smith MD Primary Care Provider [phone] Jim Benitez Unavailable Unavailable Allergies No known active allergies Medications nitroglycerin [...] s:Vitamin deficiencies Take 1 capsule by mouth cupola repairer before breakfast Active vit D3-vit G-yrofdznxv-tadh [id number] kpdu-neh-ci-mg tabletIndications :Vitamin Deficiency Prevention Take 1 tablet [...] 07/03/2022 Assessment & Plan (07/05/2022 11:02 AM GM/SVP GLOBAL PUBLISHER [employer]): -PT/OT -pain control -MRI with new compression fracture, severe neuroforaminal narrowing - pain management consult for possible injection/procedure given that pain isn't controlled with conservative management Assessment & Plan (07/04/2022 11:32 AM GM/SVP GLOBAL PUBLISHER [employer]): -PT/OT -pain control -I d/w NSGY DIRECTOR OF SUPPLY CHAIN whom patient was supposed to see today. Will order L-spine MRI Assessment & Plan (07/03/2022 5:40 PM GM/SVP GLOBAL PUBLISHER [employer]): -PT/OT -pain control -Consider MRI while here -f/u neurosurgery Diverticular disease of colon 04/19/2022 Presence of coronary angioplasty implant and gra ft 04/19/2022 Sleep related eating disorder 09/21/2020 Inadequate sleep hygiene 09/21/2020 Chest pain 08/20/2020 Assessment & Plan (08/21/2020 11:17 AM GM/SVP GLOBAL PUBLISHER [employer]): History of CAD with multiple PCI and medical non-compliance. -NSTEMI -Initial ECG not diagnostic for an acute ischemic event -troponin continues to uptrend: 04476->87114->27816->67297 -c/o some chest discomfort and shortness of breath this AM; BP dropped to 70 when sitting at side of bed -serial EKGs without acute changes -plan for [facility] today -continue heparin drip -continue nitroglycerin drip -continue irbesartan -continue aspirin/brillinta Unstable angina pectoris 08/20/2020 Overview (08/21/2020): Added automatically from request for surgery [id number] Diastolic heart failure 12/08/2019 Assessment & Plan (07/05/2022 11:03 AM GM/[employer] PUBL[employer]): -chronic diastolic heart failure -euvolemic -holding ARB, diuretics for SABAS Assessment & Plan (07/04/2022 11:31 AM GM/[employer] G[employer] PUBL[employer]): -chronic diastolic heart failure -euvolemic -holding ARB, diuretics for SABAS Insufficient treatment with nasal CPAP 9 Circadian rhythm sleep disorder, 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 Chronic systolic congestive heart failure 2018 Ischemic cardiomyopathy 03/23/2019 Cardiogenic shock 09/02/2018 Assessment & Plan (09/03/2018 4:56 PM GM/[employer]P [employer] PUBL[employer]ER [employer]): 2/2 junctional bradycardia P/w BP 82/49, HR 35-41, lactate 2.7, Cr 1.9 from baseline 0.8 -improved to 100s/50s with IVF in ED -lactate 2.7->2.5->2.1 -IVF Symptomatic bradycardia 09/02/2018 Assessment & Plan (09/03/2018 4:51 PM GM/[employer]P [employer] PUBLISHER [employer]): P/w dizziness, unsteadiness EKG with junctional bradycardia HR 40, CT head with no ICH Unsure if he took both metoprolol and carvedilol -hold home antihypertensives and beta blockers -tele -EP c/s if kavya does not self resolve -09/03 HR improved to 80s Paroxysmal A-fib 09/02/2018 Assessment & Plan (08/21/2020 11:02 AM GM/[employer]P [employer] PUBLISH[employer]): -currently in sinus rhythm -holing Eliquis for [facility] -continue heparin gtt Assessment & Plan (09/02/2018 4:22 PM GM/SVP GLOBAL PUBLISHER [employer]): Per records -not seen on prior EKG -hold home Eliquis 5 b.i.d. -tele SABAS (acute kidney injury) 09/02/2018 Assessment & Plan (09/02/2018 4:25 PM GM/SVP GLO[employer] PUBLISHER [employer]): b/l 0.8, presents with Cr 1.9, likely [...] needed Assessment & Plan (07/05/2022 11:03 AM GM/[employer]P G[employer] PUBLISHER [employer]): -type 2 diabetes, on lantus 45 BID, Jardiance at home -Received only 35 units last night with hypoglycemia overnight despite improving SABAS -Hold insulin for now; will likely need much lower lantus dose Assessment & Plan (07/04/2022 11:32 AM GM/[employer] PUBL[employer]): -type 2 diabetes, on lantus 45 BID, Jardiance at home -Dose reduced insulin here to 45 units daily + SSI Assessment & Plan (07/03/2022 5:43 PM GM/[employer]P [employer] PUBLISH[employer]): -type 2 diabetes, on lantus 45 BID, Jardiance at home -Dose reduced insulin here given SABAS Assessment & Plan (08/21/2020 11:04 AM GM/SVP GLO[employer] PUBLISHER [employer]): Hgb A1C 8.4; home regimen lantus 45u BID -continue reduced dose lantus 20u BID -cont lispro SSI -consistent carb diet Assessment & Plan (09/05/2018 6:40 PM GM/[employer]P G[employer] PUBLISHER [employer]): a1c-12.5 -glucose at 563 at presentation improved [...] daily Assessment & Plan (08/21/2020 11:07 AM GM/[employer]P G[employer] PUBLISHER [employer]): Recently seen in CHF clinic and multiple medications (norvasc, lasix, coreg) had been recently stopped for orthostasis. At that clinic visit, his irbesartan was reduced from 300mg to 150mg. -BP 191/107 on presentation to ED -currently controlled with nitro gtt -continue irbesartan -plan to resume previous anti-HTN meds as BP allows Assessment & Plan (09/02/2018 4:26 PM GM/SVP GLO[employer] PUBLISHER [employer]): -hold home antihypertensives for symptomatic kavya CAD (coronary artery disease) 12/30/2014 Overview (10/11/2016): Coronary heart disease Assessment & Plan (07/05/2022 11:03 AM GM/[employer]P GLO[employer] PUBLISHER [employer]): -continue ASA, statin -stable Assessment & Plan (07/04/2022 11:32 AM GM/SVP GLO[employer] PUBLISHER [employer]): -continue ASA, statin -stable Assessment & Plan (07/03/2022 5:41 PM GM/[employer]P GLO[employer] PUBLISHER [employer]): -continue ASA, statin -stable Assessment & Plan (09/02/2018 4:21 PM GM/[employer]P G[employer] PUBLISHER [employer]): C 05/19/2013 and 05/27/2013, showed 99% subtotal [...] obstructive Assessment & Plan (09/02/2018 4:23 PM GM/[employer]P [employer] PUBL[employer]ER [employer]): Sleep study 05/2015 recommended CPAP nightly with [...] daily Assessment & Plan (09/03/2018 12:19 AM GM/[employer] PUBL[employer]): -hold home rosuvastatin 10 Acute congestive heart failure Shortness of breath Status post insertion of drug eluting coronary a rtery stent SABAS (acute kidney injury) Assessment & Plan (10/16/2022 9:03 AM CDT): Stable, continue to monitor, check CMP to evaluate current renal function Continue to monitor PTH and vitamin-D level Assessment & Plan (07/05/2022 11:01 AM GM/[employer] PUBL[employer]): -suspect related to high doses of ibuprofen over the last week -Cr trending down Assessment & Plan (07/04/2022 11:31 AM GM/[employer] PUBL[employer]): -suspect related to high doses of ibuprofen over the last week -check UA -Gentle IVF -Renal US if not improving Assessment & Plan (07/03/2022 5:42 PM GM/[employer] PUBL[employer]): -suspect related to high doses of ibuprofen over the last week -check UA -Gentle IVF -Renal US if not improving Resolved Problems Problem Noted Date Diagnosed Date Resolved Date 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/06/2021 TIA (transient ischemic attack) 09/03/2018 03/23/2019 Assessment & Plan (09/03/2018 4:53 PM GM/[employer] PUBL[employer]): Hx of several TIA in the past, [...] History Date Comments Type 2 diabetes mellitus Diabete s type 2; Comments: [facility] 09/20/2014 - Hypertension Hypertension Restless legs syndrome Restless legs syndrome Adiposity Obesity CAD (coronary artery disease) Hyperlipidemia hyperlipidemia; Comments: [facility] 09/20/2014 - Hypothyroidism hypothyroidism; Comments: [facility] 09/20/2014 - Memory loss memory difficult ies; Comments: [facility] 09/20/2014 - Ear problems Scoliosis Family [...] on file Legal Sex Male 8:15 PM GM/[employer]P [employer] PUBL[employer] Gender Identity Male 04/18/2019 11:33 AM CDT [...] (169 lb 14.4 oz) 09/08/2024 2:12 PM GM[employer] Height 154.9 cm (5' 1) 09/08/2024 2:12 PM GM/[employer] PUBL[employer] Body Mass Index 32.1 09/08/2024 2:12 PM GM/[employer] PUBL[employer] Plan of Treatment Health Maintenance Due Date [...] as needed Medical Devices Implanted Type Area Aquatic Director Device Identifier Shelf Expiration Date Model / Serial / Lot [employer] FX/St [employer]ya [employer] [id number] Angio-Seal Evolution 6fr .035in Guidewire Bypass Tube Suture - [id number] Implanted:Qty: 1 on 08/21/2020 by Wale Maria MD at [facility] Collagen [employer] [place] 05/07/2021 [id number] / / [id number] [employer] [id number] Resolute [place] 2mm 26mm 140cm Rapid Exchange Delivery System - [id number] Implanted:Qty: 1 on 08/21/2020 by Wale Maria MD at [facility] Stent [employer] Inc 12/22/2021 [id number] / / [id number] Cardiac Stent X 3 Heart Procedures Procedure Name Priority Date/Time Associated Diagnosis Comments EGFR Routine 09/08/2024 4:35 PM GM/[employer]P [employer] PUBLISH[employer] Osteoporosis, unspecified osteoporosis type, unspecified pathological fracture presence HEMOGLOBIN A1C Routine 07/04/2022 4:51 AM GM/[employer] PUBL[employer] LIPID PANEL Routine 06/05/2022 12:02 PM GM/[employer] PUBL[employer]ER [employer] Chronic systolic congestive heart failure (HCC) Moderate mixed hyperlipidemia not requiring statin therapy from Last 3 Months or Most Recently Relevant to Health Maintenance Results * (ABNORMAL) eGFR (09/08/2024 4:35 PM GM/[employer] PUBL[employer]) eGFR 59(L) >=60 mL/min/1. 73 m2 Comment: [...] last reviewed 2021. Blood 09/08/2024 4:35 PM GM/[employer] PUBL[employer] 09/08/2024 4:42 PM GM/[employer] PUBLISH[employer] us Bola Craft MD LAB BLOOD ORDERABLES Final Resul t Performing Organization Address City/[facility]/ZIP Co de Phone Number [facility] [address] [address] [facility] [address] * Hemoglobin A1c (07/04/2022 4:51 AM GM/[employer] GLO[employer] PUBLISHER [employer]) Hgb A1C 5.5 4.0 - 5.6 % [facility] Estimated Average Glucose 111 mg/dL [facility] Comment: The ADA recommends reporting an estimated Average Glucose (eAG) with all Hemoglobin A1c results using the equation derived from a study of 507 normal and diabetic adults. Minority populations were underrepresented and children were not included. (Diabetes Care 2020; 43(S1): S66-S76). The eAG is not equivalent to a fasting glucose. Blood 07/04/2022 4:51 AM GM/[employer] PUBL[employer] 07/04/2022 5:04 AM GM/[employer] PUBL[employer] us Eva Landeros MD LAB BLOOD ORDERABLES Leyda l Result Performing Organization Address [facility] Co de Phone Number [facility] Department [place] [address] * Lipid panel (06/05/2022 12:02 PM GM/SVP GLO[employer] PUBL[employer]ER [employer]) Cholesterol 96 30 - 199 mg/dL [facility] Comment: Interpretive Data Ages < [...] revised on 2018. Triglycerides 98 <=149 mg/dL [facility] Comment: Interpretive Data Ages < [...] on 2018. HDL 49 >=40 mg/dL [facility] Comment: Interpretive Data Ages < or [...] 2018. LDL, calculated 27 <=129 mg/dL [facility] Comment: Interpretive Data Ages < or [...] [facility] Blood 06/05/2022 12:0 2 PM GM/[employer] PUBL[employer] 06/05/2022 12:37 PM GM/[employer] PUBL[employer]ER [employer] us Dylan Beal MD LAB BLOOD ORDERABLES Final R esult [facility] Department [place] [address] from Last 3 Months or Most Recently Relevant to Health Maintenance Insurance MEDICARE [facility] MEDICARE Member Subscriber Plan / Payer ( fective 2009-Present) Name:JACKIE NEVILLE Member ID:[id number] Relation to Subscriber:Self Name:Jackie Neville Subscriber ID:[id number] Payer ID:[id number] Group ID:Not on file Type:MEDICARE TRADITIONAL Address: [place] [phone] [facility] MEDICARE SUPPLEMENT MEDICARE Member Subscriber Plan / Payer ( fective 2009-Present) Name:Jackie Neville Member ID:[id number] Relation to Subscriber:Self Name:Jackie Neville Subscriber ID:[id number] Payer ID:[id number] Group ID:Not on file Type:MEDICARE TRADITIONAL Address: [place] [id number] MEDICARE BLUE CROSS MEDICARE SUPPLEMENT MEDICARE [facility] Advance Directives For more information, please contact: [phone] * Full Code (Latest Code Status on File) Date Activated Date Inactivated Comments 07/03/2022 6:22 PM 07/05/2022 8:57 PM * Full Code Date Activated Date Inactivated Comments 08/20/2020 11:29 AM 08/22/2020 6:41 PM * Full Code Date Activated Date Inactivated Comments 02/15/2019 1:48 AM 02/16/2019 7:25 PM * Full Code Date Activated Date Inactivated Comments 09/02/2018 8:14 PM 09/06/2018 7:30 PM Care Teams Table Worker Relationship Specialty Start Date End Date Alexandre Smith MD [address], [place] [address] PCP - General Internal Medicine 09/08/24 Natalio Esparza MD [address], [place] [address] Referring Physician Surgery 12/23/19 Jim Benitez Primary Dispatcher Service Or Work 03/25/25
--- OUTSIDE RECORDS SUMMARY | 2025-05-01 05:26 | XMS_ITS | Encounter Summary ---
Author Organization [facility] Healthcare Address [address] [place] [address] Care Team Providers Care Soft Tile Setter Name Role Phone Rod Ann MD Unavailable Fabián Stanley MD Primary Care Provider Natalio Esparza MD Unavailable [phone] Yvan George MD Primary Care Provider [phone] Fabián Stanley MD Primary Care Provider Alexandre Smith MD Primary Care Provider [phone] Jim Benitez Unavailable Unavailable Encounter Details Date Type Department Care Team (Late st Contact Info) Description 08/04/2021 Telephone [facility] [address] [place] [address] [address] [place] [address] Sanket Griffiths MD [address] [place] [address] [address] [place] [address] Social History Tobacco Use Types [...] on file Legal Sex Male 8:15 PM FLIGHT ENGINEER PERFORMANCE QUALIFIED Gender Identity Male 04/18/2019 11:33 AM CDT [...] COVID: Suspected 07/03/2022 07/03/2022 07/03/2022 2:45 PM FLIGHT ENGINEER PERFORMANCE QUALIFIED documented as of this encounter Care Teams Soft Tile Setter Relationship Specialty Start Date End Date Fabián Stanley MD [address] [place] [address] [address] [place] [address] PCP - General 10/08/17 09/30/22 [place] [address] PCP - General Family Medicine 10/01/22 12/26/22 Fabián Stanley MD [address] [place] [address] [address] [place] [address] PCP - General Internal Medicine 12/27/22 09/07/24 Alexandre Smith MD [address] [place] [address] PCP - General Internal Medicine 09/08/24 Rod Ann MD 12/25/16 06/26/22 Natalio Esparza MD [address] [place] [address] [address] [place] [address] Referring Physician Surgery 12/23/19 Jim Benitez Primary Sealant Mixer 03/25/25 documented as of this encounter
--- OUTSIDE RECORDS SUMMARY | 2025-05-01 05:26 | XMS_ITS | Encounter Summary ---
Author Organization [facility] Address [address] [place] [address] Phone Care Team Providers Care Internal Medicine Veterinary Technician Name Role Phone Rod Ann MD Unavailable [phone] Fabián Stanley MD Primary Care Provider Natalio Esparza MD Unavailable [phone] Yvan George MD Primary Care Provider [phone] Fabián Stanley MD Primary Care Provider Alexandre Smith MD Primary Care Provider [phone] Jim Benitez Unavailable Unavailable Encounter Details Date Type Department Care Team (Late st Contact Info) Description 05/18/2021 Telephone [facility] Medicine Otolaryngology [address] [facility] [address] [place] [address] Radha Culver Au.D. [address] [facility] [address] [place] [address] Social History Tobacco Use Types [...] on file Legal Sex Male 8:15 PM BLASTING HELPER Gender Identity Male 04/18/2019 11:33 AM CDT Sexual Orientation Straight 04/18/2019 11 :33 AM CDT documented as of this encounter Plan of Treatment Not on file documented as of this encounter Visit Diagnoses Not on filedocumented in this encounter Additional Health Concerns Infection Onset Date Last Indicated Resolved Time COVID: Suspected 07/03/2022 07/03/2022 07/03/2022 2:45 PM BLASTING HELPER documented as of this encounter Care Teams Internal Medicine Veterinary Technician Relationship Specialty Start Date End Date Fabián Stanley MD [address] [place] [address] [address] [place] [address] PCP - General 10/08/17 09/30/22 Yvan George MD [address] [place] [address] PCP - General Family Medicine 10/01/22 12/26/22 Fabián Stanley MD [address] [place] [address] [address] [place] [address] PCP - General Internal Medicine 12/27/22 09/07/24 Alexandre Smith MD [address] [place] [address] PCP - General Internal Medicine 09/08/24 Rod Ann MD 12/25/16 06/26/22 Natalio Esparza MD [address] [place] [address] [address] [place] [address] Referring Physician Surgery 12/23/19 Jim Benitez Primary Logger 03/25/25 documented as of this encounter
--- OUTSIDE RECORDS SUMMARY | 2025-05-01 05:26 | XMS_ITS | Patient Health Record ---
Author Organization [employer] Address [address] [facility]. [address] [place] [address] Care Team Providers Care Predatory Hunter Name Role Phone Fabián Stanley MD Primary Care Provider Unavail able Teodoro Doan Unavailable [phone] Reason For Referral No Information Medications Medication [...] Problem Status W/U Status Risk Notes Problem Diverticular disease of colon (412223397) Diverticulosis of large intestine without perforation or abscess without bleeding (K57.30) Active confirmed Problem History of polyp of colon (situation) (825912693) Personal history of colonic polyps (Z86.010) Active confirmed Problem Colon cancer screening (733824692) Colon cancer screening (Z12.11) Active confirmed It has been 10 years since his last colonosco py, which by his report was normal. His stools are usually soft or loose. He denies having any blood in the stool. Problem History of placement of stent for coronary artery disease (situation) (453292565) History of heart artery stent (Z95.5) Active confirmed Problem H/O: high risk medication (892308645) High risk medication use (Z79.899) Active confirmed [...] Coverage End Date Medicare E2 [address] [address] [place] [address] [id number] Oscar, Santhosh Self - patient is the insured Blue Access PPO E2 [address] [place] [address] [id number] Santhosh Moore Self - patient is the insured Medical (General) History Medical History History ICD Code Restless Leg Syndrome Depression Hypertension Hypercholesterolemia Diabetes Sleep Apnea Hearing Loss Heart Disease Surgical History Surgery Date(Month/Year) Cardiac stents Colonoscopy 2009
--- OUTSIDE RECORDS SUMMARY | 2025-05-01 05:26 | XMS_ITS | Encounter Summary ---
Author Organization [facility] Healthcare Address [address] [place] [address] Care Team Providers Care Product Applications Scientist Name Role Phone Rod Ann MD Unavailable Fabián Stanley MD Primary Care Provider Natalio Esparza MD Unavailable [phone] Yvan George MD Primary Care Provider [phone] Fabián Stanley MD Primary Care Provider Alexandre Smith MD Primary Care Provider [phone] Jim Benitez Unavailable Unavailable Encounter Details Date Type Department Care Team (Late st Contact Info) Description 09/08/2020 Documentation [facility] [address] [place] [address] Belle Treadwell, RN Social History Tobacco Use Types Packs/Day [...] on file Legal Sex Male 8:15 PM RECREATION PROGRAMMER Gender Identity Male 04/18/2019 11:33 AM CDT Sexual Orientation Straight 04/18/2019 11 :33 AM CDT documented as of this encounter Plan of Treatment Not on file documented as of this encounter Visit Diagnoses Not on filedocumented in this encounter Additional Health Concerns Infection Onset Date Last Indicated Resolved Time COVID: Suspected 07/03/2022 07/03/2022 07/03/2022 2:45 PM RECREATION PROGRAMMER documented as of this encounter Care Teams Product Applications Scientist Relationship Specialty Start Date End Date Fabián Stanley MD [address] [place] [address] [address] [place] [address] PCP - General 10/08/17 09/30/22 Yvan George MD [address] [place] [address] PCP - General Family Medicine 10/01/22 12/26/22 Fabián Stanley MD [address] [place] [address] [address] [place] [address] PCP - General Internal Medicine 12/27/22 09/07/24 Alexandre Smith MD [address] [place] [address] PCP - General Internal Medicine 09/08/24 Rod Ann MD 12/25/16 06/26/22 Natalio Esparza MD [address] [place] [address] [address] [place] [address] Referring Physician Surgery 12/23/19 Jim Benitez Primary Computer Scientist 03/25/25 documented as of this encounter
[2025-05-01] MEDS: ONDANSETRON INJ 4 MG/2 ML VIAL IV PUSH (06:29)
[2025-05-01] MEDS: MORPHINE SULFATE (*CRX) 4 MG/ML INJ IV PUSH (06:29)
--- NOTE | 2025-05-01 07:12 | PM.IMHP ---
H&P: HPI History of Present Illness Date/Time: 05/01/25 07:12 Chief Complaint: fall Narrative: Patient is an 79-year-old male with a past medical history of CAD, two stents, severe scoliosis, and diabetes who presented to the ED due to a fall. The patient was previously hospitalized in January with the same presentation and was discharged to an SNF. After the rehab, the patient returned home and was living by himself. I spoke with his daughter, who provided the history. The patient has a history of decreased hearing, and due to severe scoliosis, the patient never uses his left hand. Most of his balance and actions are with his right hand. POA was unaware that the patient was in the hospital. As per the patient, he slipped in the bathroom and hit his right side, but denies any head injury. Patient was on Eliquis 5 mg p.o. b.i.d., but unable to verify the reason for taking it. In the ED, a patient presented with an impacted subcapital fracture of the right humerus, and Orthopedics was consulted, who recommended medical management and possible shoulder replacement as OP. Patient is admitted in the setting of placing him in rehab. According to his daughter, the plan is to put him in an [facility] permanently. Review of Systems Review of Systems: Gen.: Denies fevers or chills Eyes: Denies eye pain or visual change ENT: Denies congestion Respiratory: Denies shortness of breath or cough CV: Denies chest pain or palpitations GI: Denies abdominal pain nausea, emesis or diarrhea denies burning, urgency, frequency or hematuria Musculoskeletal: As per HPI Neuro: Denies numbness, tingling, weakness or focal weakness Skin: Denies rash Except as documented, all other systems reviewed and negative [facility] Past Medical History Medical History Dementia BMI 29.0-29.9,adult Non-healing wound of right lower extremity BMI 30.0-30.9,adult BMI 31.0-31.9,adult Pedal edema MARIMAR (obstructive sleep apnea) BMI 32.0-32.9,adult Follow up Compression fracture of thoracic spine, non-traumatic Compression fracture of lumbar spine, non-traumatic BMI 33.0-33.9,adult Kyphoscoliosis and scoliosis Impaired functional mobility, balance, gait, and endurance Osteoporosis On termite treater drug therapy Encounter to establish care Overactive bladder BMI 34.0-34.9,adult Coronary artery disease Hyperlipidemia Myocardial infarction Diabetes mellitus Hypertension Surgical History Surgical History No pertinent past surgical history Social History Social History Social History: Exercises 3x/week Smoking status: Current every day smoker Tobacco type: cigars Second hand tobacco smoke exposure: Yes Additional smoking assessment comments: 3 cigars/day Alcohol intake: never Substance use: never Substance use type: does not use Do You Feel Safe in your Home?: Yes Lack of Transportation: No Lack of Food: Never True Current Housing: I Have Housing Concerned About Future Housing: No Difficulty Paying Gas/Electric Bills: No Difficulty Paying for Meds: No Currently Unemployed: No Education: Bachelor's Degree Difficulty w/ Childcare or Family Care: No Living arrangements: alone Occupation/Education: retired Gender identity (if verbalized by the patient): Male Spiritual care concerns: No Meds Home Medications and Allergies Home Medications ?Medication ?Instructions ?Recorded ?Confirmed ?Type apixaban 5 mg tablet (Eliquis) 5 mg PO BID 07/16/22 05/01/25 History docusate sodium 100 mg capsule 100 mg PO Q12H PRN Constipation 07/25/22 05/01/25 Rx #30 caps aspirin 81 mg tablet,delayed 81 mg PO DAILY 07/12/23 05/01/25 History release (Adult Low Dose Aspirin) cholecalciferol (vitamin D3) 25 25 mcg PO DAILY 07/12/23 05/01/25 History mcg (1,000 unit) capsule fish oil 1,200 mg BYMOUTH DAILY 07/12/23 05/01/25 History lactobacillus combo no.11 15 1 cap PO DAILY 07/12/23 05/01/25 History billion cell sprinkle capsule (Probiotic) mecobalamin (vitamin B12) 1,000 1,000 mcg sublingual DAILY #90 tabs 07/12/23 05/01/25 Rx mcg disintegrating tablet,sublingual empagliflozin 25 mg tablet 25 mg PO DAILY #90 tabs 12/23/23 05/01/25 Rx (Jardiance) ferrous sulfate 325 mg (65 mg 325 mg PO BID 02/04/24 05/01/25 History iron) tablet mirabegron 50 mg tablet,extended 50 mg PO DAILY #90 tabs 09/21/24 05/01/25 Rx release 24 hr (Myrbetriq) folic acid 1 mg tablet 1 mg PO DAILY 10/06/24 05/01/25 History tizanidine 2 mg tablet 2 mg PO TID PRN muscle spasticity 01/20/25 05/01/25 Rx #30 tabs acetaminophen 500 mg capsule 1,000 mg (2 x 500 mg) PO Q6H PRN 01/26/25 05/01/25 Rx pain #30 caps lidocaine 4 % topical patch 1 patch topical DAILY PRN pain #10 01/26/25 05/01/25 Rx ea magnesium citrate 150 ml PO DAILY PRN constipation 01/26/25 05/01/25 Rx #296 mL polyethylene glycol 3350 17 17 g PO DAILY #119 grams 01/26/25 05/01/25 Rx gram/dose oral powder (Miralax) psyllium husk 3.4 gram/5.4 gram 1 tbsp PO DAILY #660 grams 01/26/25 05/01/25 Rx oral powder (Metamucil) tramadol 50 mg tablet 50 mg PO Q4-6H PRN pain #35 tabs 01/31/25 05/01/25 Rx potassium chloride 10 mEq 10 meq PO DAILY #90 caps 02/11/25 05/01/25 Rx capsule,extended release pramipexole 1 mg tablet See Rx Instructions .Route 02/26/25 05/01/25 Rx .COMPLEX #180 tabs risedronate 35 mg tablet See Rx Instructions .Route 03/22/25 05/01/25 Rx .COMPLEX #12 tabs rosuvastatin 20 mg tablet 20 mg PO DAILY #90 tabs 04/15/25 05/01/25 Rx Allergies Allergy/AdvReac Type Severity Reaction Status Date / Time No Known Allergies Allergy Verified 05/01/25 09:02 Vital Signs Vital Signs - 24 hr 05/01/25 04:14 05/01/25 06:38 Temperature 98 F Pulse Rate 77 62 Respiratory Rate 17 15 Blood Pressure 192/78 H 154/89 H Pulse Oximetry 100 97 Oxygen Delivery Room Air Exam Narrative: APPEARANCE: No acute distress, nontoxic, resting in bed EYES: EOMI HEENT: Normocephalic, atraumatic, OMM RESPIRATORY: No respiratory distress Clear to auscultation bilaterally with no rhonchi wheezing or rales. CARDIOVASCULAR: Regular rate and rhythm without murmurs rubs or gallops. ABDOMINAL: Soft, nontender, nondistended, no rebound or guarding MUSCULOSKELETAl: Right upper extremity in a sling. Tenderness over the right glenohumeral joint and to the proximal right humerus with associated swelling. Tenderness over the distal right humerus. NEURO: Awake and alert. Following commands, speech normal, no focal deficits SKIN:: Warm, dry. No rashes lesions or abrasions PSYCHIATRIC: Normal affect/mood, Assessment and Plan Assessment and plan (1) Fracture, humerus closed: Qualifiers: Encounter type: initial encounter Fracture morphology: unspecified fracture morphology Humerus Location: proximal Laterality: right Qualified Code(s): S42.201A - Unspecified fracture of upper end of right humerus, initial encounter for closed fracture Code(s): S42.309A - Unspecified fracture of shaft of humerus, unspecified arm, initial encounter for closed fracture Status: Acute Assessment and Plan: -X-ray right shoulder reveal a proximal humerus fracture -ortho recommends shoulder replacement as outpatient -medications were reviewed -evaluate for incidence of hypoglycemia -avoid any sedatives or anxiolytic -mechanical fall -head CT scan not performed in ED, if any change in mentation please consider -physical therapy for balance, gait and strength training -rehab, follow-up with [facility] placement -care coordination consult (2) Frequent falls: Code(s): R29.6 - Repeated falls Status: Acute Assessment and Plan: Same as above (3) Diabetes mellitus: Qualifiers: Diabetes mellitus type: type 2 Diabetes mellitus termite treater insulin use: without detention use Diabetes mellitus complication status: without complication Qualified Code(s): E11.9 - Type 2 diabetes mellitus without complications Code(s): E11.9 - Type 2 diabetes mellitus without complications Status: Acute Assessment and Plan: Order HbA1c Ordered low-dose sliding scale Titrate as needed (4) Coronary artery disease: Qualifiers: Coronary Disease-Associated Artery/Lesion type: unspecified vessel or lesion type [place] vs. transplanted heart: [place] heart Associated angina: unspecified whether angina present Qualified Code(s): I25.10 - Atherosclerotic heart disease of [place] coronary artery without angina pectoris Code(s): I25.10 - Atherosclerotic heart disease of [place] coronary artery without angina pectoris Status: Acute Assessment and Plan: Continue home medication Continue Eliquis 5 mg p.o. b.i.d. (5) Hyperlipidemia: Qualifiers: Hyperlipidemia type: unspecified Qualified Code(s): E78.5 - Hyperlipidemia, unspecified Code(s): E78.5 - Hyperlipidemia, unspecified Status: Acute Assessment and Plan: Continue atorvastatin Plan Code status: Full code DVT prophylaxis: Eliquis 5 mg p.o. b.i.d. Hospitalist MIPS Advance Care Plan I have confirmed that the patient's Advanced Care Plan is present, code status is documented, or surrogate decision maker is listed in patient medical record.: Yes Medication Reconciliation I have utilized all available resources to obtain, update and review the patients current medications (includes all prescriptions, OTC, herbals, cannabis, and nutritional supplements).: Yes
--- OUTSIDE RECORDS SUMMARY | 2025-05-01 08:04 | XMS_ITS | Encounter Summary ---
Author Organization [facility] Healthcare Address [address] [place] [address] Care Team Providers Care Branch Operations Manager Name Role Phone Rod Ann MD Unavailable Fabián Stanley MD Primary Care Provider Natalio Esparza MD Unavailable [phone] Yvan George MD Primary Care Provider [phone] Fabián Stanley MD Primary Care Provider Alexandre Smith MD Primary Care Provider [phone] Jim Benitez Unavailable Unavailable Encounter Details Date Type Department Care Team (Late st Contact Info) Description 08/04/2021 Telephone [facility] [address] [place] [address] [address] [place] [address] Sanket Griffiths MD [address] [place] [address] [address] [place] [address] Social History Tobacco Use Types [...] on file Legal Sex Male 8:15 PM COMPUTER TECHNICAL SUPPORT SPECIALIST Gender Identity Male 04/18/2019 11:33 AM [...] COVID: Suspected 07/03/2022 07/03/2022 07/03/2022 2:45 PM COMPUTER TECHNICAL SUPPORT SPECIALIST documented as of this encounter Care Teams Branch Operations Manager Relationship Specialty Start Date End Date Fabián Stanley MD [address] [place] [address] [address] [place] [address] PCP - General 10/08/17 09/30/22 Y[place] [address] PCP - General Family Medicine 10/01/22 12/26/22 Fabián Stanley MD [address] [place] [address] [address] [place] [address] PCP - General Internal Medicine 12/27/22 09/07/24 Alexandre Smith MD [address] [place] [address] PCP - General Internal Medicine 09/08/24 Rod Ann MD 12/25/16 06/26/22 Natalio Esparza MD [address] [place] [address] [address] [place] [address] Referring Physician Surgery 12/23/19 Jim Benitez Primary Dishwashing Machine Operator 03/25/25 documented as of this encounter
--- OUTSIDE RECORDS SUMMARY | 2025-05-01 08:05 | XMS_ITS | Encounter Summary ---
Author Organization [facility] Healthcare Address [address] [place] [address] Care Team Providers Care Electric Organ Inspector And Repairer Name Role Phone Rod Ann MD Unavailable Fabián Stanley MD Primary Care Provider Natalio Esparza MD Unavailable [phone] Yvan George MD Primary Care Provider [phone] Fabián Stanley MD Primary Care Provider Alexandre Smith MD Primary Care Provider [phone] Jim Benitez Unavailable Unavailable Encounter Details Date Type Department Care Team (Late st Contact Info) Description 09/08/2020 Documentation [facility] [address] [place] [address] Belle Treadwell, RN Social History Tobacco Use [...] file Legal Sex Male 8:15 PM MANAGER SUPPORT SERVICES Gender Identity Male 04/18/2019 11:33 AM CDT Sexual Orientation Straight 04/18/2019 11 :33 AM CDT documented as of this encounter Plan of Treatment Not on file documented as of this encounter Visit Diagnoses Not on filedocumented in this encounter Additional Health Concerns Infection Onset Date Last Indicated Resolved Time COVID: Suspected 07/03/2022 07/03/2022 07/03/2022 2:45 PM MANAGER SUPPORT SERVICES documented as of this encounter Care Teams Electric Organ Inspector And Repairer Relationship Specialty Start Date End Date Fabián Stanley MD [address] [place] [address] [address] [place] [address] PCP - General 10/08/17 09/30/22 Yvan George MD [address] [place] [address] PCP - General Family Medicine 10/01/22 12/26/22 Fabián Stanley MD [address] [place] [address] [address] [place] [address] PCP - General Internal Medicine 12/27/22 09/07/24 Alexandre Smith MD [address] [place] [address] PCP - General Internal Medicine 09/08/24 Rod Ann MD 12/25/16 06/26/22 Natalio Esparza MD [address] [place] [address] [address] [place] [address] Referring Physician Surgery 12/23/19 Jim Benitez Primary Director Of Web Marketing 03/25/25 documented as of this encounter
--- OUTSIDE RECORDS SUMMARY | 2025-05-01 08:06 | XMS_ITS | Encounter Summary ---
Author Organization [facility] Address [address] [place] [address] Phone Care Team Providers Care Tub Washer Name Role Phone Rod Ann MD Unavailable [phone] Fabián Stanley MD Primary Care Provider Natalio Esparza MD Unavailable [phone] Yvan George MD Primary Care Provider [phone] Fabián Stanley MD Primary Care Provider Alexandre Smith MD Primary Care Provider [phone] Jim Benitez Unavailable Unavailable Encounter Details Date Type Department Care Team (Late st Contact Info) Description 05/18/2021 Telephone [facility] Medicine Otolaryngology [address] [facility] Medical Office Building [address] [place] [address] Radha Culver Au.D. [address] [facility] [address] [place] [address] Social History Tobacco Use Types [...] on file Legal Sex Male 8:15 PM SWITCHBOARD WIRER Gender Identity Male 04/18/2019 11:33 AM CDT Sexual Orientation Straight 04/18/2019 11 :33 AM CDT documented as of this encounter Plan of Treatment Not on file documented as of this encounter Visit Diagnoses Not on filedocumented in this encounter Additional Health Concerns Infection Onset Date Last Indicated Resolved Time COVID: Suspected 07/03/2022 07/03/2022 07/03/2022 2:45 PM SWITCHBOARD WIRER documented as of this encounter Care Teams Tub Washer Relationship Specialty Start Date End Date Fabián Stanley MD [address] [place] [address] [address] [place] [address] PCP - General 10/08/17 09/30/22 Yvan George MD [address] [place] [address] PCP - General Family Medicine 10/01/22 12/26/22 Fbaián Stanley MD [address] [place] [address] [address] [place] [address] PCP - General Internal Medicine 12/27/22 09/07/24 Alexandre Smith MD [address] [place] [address] PCP - General Internal Medicine 09/08/24 Rod Ann MD 12/25/16 06/26/22 Natalio Esparza MD [address] [place] [address] [address] [place] [address] Referring Physician Surgery 12/23/19 Jim Benitez Primary Slurry Plant Operator 03/25/25 documented as of this encounter
--- OUTSIDE RECORDS SUMMARY | 2025-05-01 08:07 | XMS_ITS | Encounter Summary ---
Author Organization [facility] Healthcare Address [address] [place] [address] Care Team Providers Care Silver Wrapper Name Role Phone Rdo Ann MD Unavailable Fabián Stanley MD Primary Care Provider Natalio Esparza MD Unavailable [phone] Yvan George MD Primary Care Provider [phone] Fabián Stanley MD Primary Care Provider Alexandre Smith MD Primary Care Provider [phone] Jim Benitez Unavailable Unavailable Encounter Details Date Type Department Care Team (Late st Contact Info) Description 04/21/2021 Documentation [facility] OP Physical Therapy [address] [address] Cayden Jacobo, PT Social History Tobacco Use [...] on file Legal Sex Male 8:15 PM BREAKER MACHINE TENDER Gender Identity Male 04/18/2019 11:33 AM CDT Sexual Orientation Straight 04/18/2019 11 :33 AM CDT documented as of this encounter Plan of Treatment Not on file documented as of this encounter Visit Diagnoses Not on filedocumented in this encounter Additional Health Concerns Infection Onset Date Last Indicated Resolved Time COVID: Suspected 07/03/2022 07/03/2022 07/03/2022 2:45 PM BREAKER MACHINE TENDER documented as of this encounter Care Teams Silver Wrapper Relationship Specialty Start Date End Date Fabián Stanley MD [address] [place] [address] [address] [place] [address] PCP - General 10/08/17 09/30/22 Yvan George MD [address] [place] [address] PCP - General Family Medicine 10/01/22 12/26/22 Fabián Stanley MD [address] [place] [address] [address] [facility] [place] [address] PCP - General Internal Medicine 12/27/22 09/07/24 Alexandre Smith MD [address] [place] [address] PCP - General Internal Medicine 09/08/24 Rod Ann MD 12/25/16 06/26/22 Natalio Esparza MD [address] [place] [address] [place] [address] Referring Physician Surgery 12/23/19 Jim Benitez Primary Autotransfusionist 03/25/25 documented as of this encounter
--- OUTSIDE RECORDS SUMMARY | 2025-05-01 08:08 | XMS_ITS | Clinical Summary ---
Author Organization [facility] Address [address] [place] [address] Care Team Providers Care Casting Machine Service Operator Name Role Phone Natalio Esparza MD Unavailable [phone] Alexandre Smith MD Primary Care Provider [phone] Jim Benitez Unavailable Unavailable Allergies No known [...] s:Vitamin deficiencies Take 1 capsule by mouth alarm technician before breakfast Active vit D3-vit E-gqxdxszhr-ekwu [phone] wewg-fzo-it-mg tabletIndications :Vitamin Deficiency Prevention Take 1 tablet [...] 07/03/2022 Assessment & Plan (07/05/2022 11:02 AM DISPENSARY CLERK): -PT/OT -pain control -MRI with new compression fracture, severe neuroforaminal narrowing - pain management consult for possible injection/procedure given that pain isn't controlled with conservative management Assessment & Plan (07/04/2022 11:32 AM DISPENSARY CLERK): -PT/OT -pain control -I d/w NSGY REPAIR ARMATURE WINDER HELPER whom patient was supposed to see today. Will order L-spine MRI Assessment & Plan (07/03/2022 5:40 PM DISPENSARY CLERK): -PT/OT -pain control -Consider MRI while here -f/u neurosurgery Diverticular disease of colon 04/19/2022 Presence of coronary angioplasty implant and gra ft 04/19/2022 Sleep related eating disorder 09/21/2020 Inadequate sleep hygiene 09/21/2020 Chest pain 08/20/2020 Assessment & Plan (08/21/2020 11:17 AM DISPENSARY CLERK): History of CAD with multiple PCI and medical non-compliance. -NSTEMI -Initial ECG not diagnostic for an acute ischemic event -troponin continues to uptrend: [id number]->[id number]->[id number]->[id number] -c/o some chest discomfort and shortness of breath this AM; BP dropped to 70 when sitting at side of bed -serial EKGs without acute changes -plan for [facility] today -continue heparin drip -continue nitroglycerin drip -continue irbesartan -continue aspirin/brillinta Unstable angina pectoris 08/20/2020 Overview (08/21/2020): Added automatically from request for surgery [id number] Diastolic heart failure 12/08/2019 Assessment & Plan (07/05/2022 11:03 AM DISPENSARY CLERK): -chronic diastolic heart failure -euvolemic -holding ARB, diuretics for SABAS Assessment & Plan (07/04/2022 11:31 AM DISPENSARY CLERK): -chronic diastolic heart failure -euvolemic -holding ARB, diuretics for SABAS Insufficient treatment with nasal CPAP 9 Circadian rhythm sleep disorder, 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 Chronic systolic congestive heart failure 2018 Ischemic cardiomyopathy 03/23/2019 Cardiogenic shock 09/02/2018 Assessment & Plan (09/03/2018 4:56 PM DISPENSARY CLERK): 2/2 junctional bradycardia P/w BP 82/49, HR 35-41, lactate 2.7, Cr 1.9 from baseline 0.8 -improved to 100s/50s with IVF in ED -lactate 2.7->2.5->2.1 -IVF Symptomatic bradycardia 09/02/2018 Assessment & Plan (09/03/2018 4:51 PM DISPENSARY CLERK): P/w dizziness, unsteadiness EKG with junctional bradycardia HR 40, CT head with no ICH Unsure if he took both metoprolol and carvedilol -hold home antihypertensives and beta blockers -tele -EP c/s if kavya does not self resolve -09/03 HR improved to 80s Paroxysmal A-fib 09/02/2018 Assessment & Plan (08/21/2020 11:02 AM DISPENSARY CLERK): -currently in sinus rhythm -holing Eliquis for [facility] -continue heparin gtt Assessment & Plan (09/02/2018 4:22 PM DISPENSARY CLERK): Per records -not seen on prior EKG -hold home Eliquis 5 b.i.d. -tele SABAS (acute kidney injury) 09/02/2018 Assessment & Plan (09/02/2018 4:25 PM DISPENSARY CLERK): b/l 0.8, presents with Cr 1.9, likely [...] needed Assessment & Plan (07/05/2022 11:03 AM DISPENSARY CLERK): -type 2 diabetes, on lantus 45 BID, Jardiance at home -Received only 35 units last night with hypoglycemia overnight despite improving SABAS -Hold insulin for now; will likely need much lower lantus dose Assessment & Plan (07/04/2022 11:32 AM DISPENSARY CLERK): -type 2 diabetes, on lantus 45 BID, Jardiance at home -Dose reduced insulin here to 45 units daily + SSI Assessment & Plan (07/03/2022 5:43 PM DISPENSARY CLERK): -type 2 diabetes, on lantus 45 BID, Jardiance at home -Dose reduced insulin here given SABAS Assessment & Plan (08/21/2020 11:04 AM DISPENSARY CLERK): Hgb A1C 8.4; home regimen lantus 45u BID -continue reduced dose lantus 20u BID -cont lispro SSI -consistent carb diet Assessment & Plan (09/05/2018 6:40 PM DISPENSARY CLERK): a1c-12.5 -glucose at 563 at presentation improved [...] daily Assessment & Plan (08/21/2020 11:07 AM DISPENSARY CLERK): Recently seen in CHF clinic and multiple medications (norvasc, lasix, coreg) had been recently stopped for orthostasis. At that clinic visit, his irbesartan was reduced from 300mg to 150mg. -BP 191/107 on presentation to ED -currently controlled with nitro gtt -continue irbesartan -plan to resume previous anti-HTN meds as BP allows Assessment & Plan (09/02/2018 4:26 PM DISPENSARY CLERK): -hold home antihypertensives for symptomatic kavya CAD (coronary artery disease) 12/30/2014 Overview (10/11/2016): Coronary heart disease Assessment & Plan (07/05/2022 11:03 AM DISPENSARY CLERK): -continue ASA, statin -stable Assessment & Plan (07/04/2022 11:32 AM DISPENSARY CLERK): -continue ASA, statin -stable Assessment & Plan (07/03/2022 5:41 PM DISPENSARY CLERK): -continue ASA, statin -stable Assessment & Plan (09/02/2018 4:21 PM DISPENSARY CLERK): C 05/19/2013 and 05/27/2013, showed 99% subtotal [...] obstructive Assessment & Plan (09/02/2018 4:23 PM DISPENSARY CLERK): Sleep study 05/2015 recommended CPAP nightly with [...] daily Assessment & Plan (09/03/2018 12:19 AM DISPENSARY CLERK): -hold home rosuvastatin 10 Acute congestive heart failure Shortness of breath Status post insertion of drug eluting coronary a rtery stent SABAS (acute kidney injury) Assessment & Plan (10/16/2022 9:03 AM CDT): Stable, continue to monitor, check CMP to evaluate current renal function Continue to monitor PTH and vitamin-D level Assessment & Plan (07/05/2022 11:01 AM DISPENSARY CLERK): -suspect related to high doses of ibuprofen over the last week -Cr trending down Assessment & Plan (07/04/2022 11:31 AM DISPENSARY CLERK): -suspect related to high doses of ibuprofen over the last week -check UA -Gentle IVF -Renal US if not improving Assessment & Plan (07/03/2022 5:42 PM DISPENSARY CLERK): -suspect related to high doses of ibuprofen over the last week -check UA -Gentle IVF -Renal US if not improving Resolved Problems Problem Noted Date Diagnosed Date Resolved Date 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/06/2021 TIA (transient ischemic attack) 09/03/2018 03/23/2019 Assessment & Plan (09/03/2018 4:53 PM DISPENSARY CLERK): Hx of several TIA in the past, [...] diabetes mellitus Diabete s type 2; Comments: [facility] 09/20/2014 - Hypertension Hypertension Restless legs syndrome Restless legs syndrome Adiposity Obesity CAD (coronary artery disease) Hyperlipidemia hyperlipidemia; Comments: [facility] 09/20/2014 - Hypothyroidism hypothyroidism; Comments: [facility] 09/20/2014 - Memory loss memory difficult ies; Comments: [facility] 09/20/2014 - Ear problems Scoliosis Family History [...] on file Legal Sex Male 8:15 PM DISPENSARY CLERK Gender Identity Male 04/18/2019 11:33 AM [...] (169 lb 14.4 oz) 09/08/2024 2:12 PM DISPENSARY CLERK Height 154.9 cm (5' 1) 09/08/2024 2:12 PM DISPENSARY CLERK Body Mass Index 32.1 09/08/2024 2:12 PM DISPENSARY CLERK Plan of Treatment Health Maintenance Due Date [...] as needed Medical Devices Implanted Type Area Vocational Rehabilitation Consultant Device Identifier Shelf Expiration Date Model / Serial / Lot [employer] [id number] Angio-Seal Evolution 6fr .035in Guidewire Bypass Tube Suture - [id number] Implanted:Qty: 1 on 08/21/2020 by Wale Maria MD at [facility] Collagen [employer] [place] 05/07/2021 [id number] / / [id number] [employer] [id number] Resolute [place] 2mm 26mm 140cm Rapid Exchange Delivery System - [id number] Implanted:Qty: 1 on 08/21/2020 by Wale Maria MD at [facility] Stent [employer] 12/22/2021 [id number] / / [id number] Cardiac Stent X 3 Heart Procedures Procedure Name Priority Date/Time Associated Diagnosis Comments EGFR Routine 09/08/2024 4:35 PM DISPENSARY CLERK Osteoporosis, unspecified osteoporosis type, unspecified pathological fracture presence HEMOGLOBIN A1C Routine 07/04/2022 4:51 AM DISPENSARY CLERK LIPID PANEL Routine 06/05/2022 12:02 PM DISPENSARY CLERK Chronic systolic congestive heart failure (HCC) Moderate mixed hyperlipidemia not requiring statin therapy from Last 3 Months or Most Recently Relevant to Health Maintenance Results * (ABNORMAL) eGFR (09/08/2024 4:35 PM DISPENSARY CLERK) eGFR 59(L) >=60 mL/min/1. 73 m2 Comment: [...] last reviewed 2021. Blood 09/08/2024 4:35 PM DISPENSARY CLERK 09/08/2024 4:42 PM DISPENSARY CLERK us Bola Cratf MD LAB BLOOD ORDERABLES Final Resul t Performing Organization Address City/[facility]/ZIP Co de Phone Number [facility] [address] [facility] [facility]. Department [place] [address] * Hemoglobin A1c (07/04/2022 4:51 AM DISPENSARY CLERK) Hgb A1C 5.5 4.0 - 5.6 % [facility] Estimated Average Glucose 111 mg/dL [facility] Comment: The ADA recommends reporting an estimated Average Glucose (eAG) with all Hemoglobin A1c results using the equation derived from a study of 507 normal and diabetic adults. Minority populations were underrepresented and children were not included. (Diabetes Care 2020; 43(S1): S66-S76). The eAG is not equivalent to a fasting glucose. Blood 07/04/2022 4:51 AM DISPENSARY CLERK 07/04/2022 5:04 AM DISPENSARY CLERK us Eva Landeros MD LAB BLOOD ORDERABLES Leyda l Result Performing Organization Address [facility] Co de Phone Number [facility] Department [place] [address] * Lipid panel (06/05/2022 12:02 PM DISPENSARY CLERK) Cholesterol 96 30 - 199 mg/dL [facility] Comment: Interpretive Data Ages < [...] revised on 2018. Triglycerides 98 <=149 mg/dL [facility] Comment: Interpretive Data Ages < [...] on 2018. HDL 49 >=40 mg/dL [facility] Comment: Interpretive Data Ages < or [...] 2018. LDL, calculated 27 <=129 mg/dL [facility] Comment: Interpretive Data Ages < or [...] [facility] Blood 06/05/2022 12:0 2 PM DISPENSARY CLERK 06/05/2022 12:37 PM DISPENSARY CLERK us Dylan Beal MD LAB BLOOD ORDERABLES Final R esult [facility] Department [place] [address] from Last 3 Months or Most Recently Relevant to Health Maintenance Insurance MEDICARE [facility] MEDICARE Member Subscriber Plan / Payer ( fective 2009-Present) Name:JACKIE NEVILLE Member ID:[id number] Relation to Subscriber:Self Name:Jackie Neville Subscriber ID:[id number] Payer ID:[id number] Group ID:Not on file Type:MEDICARE TRADITIONAL Address: [place] [id number] [facility] MEDICARE SUPPLEMENT MEDICARE Member Subscriber Plan / Payer ( fective 2009-Present) Name:Jackie Neville Member ID:[id number] Relation to Subscriber:Self Name:Jackie Neville Subscriber ID:[id number] Payer ID:[id number] Group ID:Not on file Type:MEDICARE TRADITIONAL Address: [place] [id number] MEDICARE BLUE CROSS MEDICARE SUPPLEMENT MEDICARE [facility] Advance Directives For more information, please contact: [phone] * Full Code (Latest Code Status on File) Date Activated Date Inactivated Comments 07/03/2022 6:22 PM 07/05/2022 8:57 PM * Full Code Date Activated Date Inactivated Comments 08/20/2020 11:29 AM 08/22/2020 6:41 PM * Full Code Date Activated Date Inactivated Comments 02/15/2019 1:48 AM 02/16/2019 7:25 PM * Full Code Date Activated Date Inactivated Comments 09/02/2018 8:14 PM 09/06/2018 7:30 PM Care Teams Casting Machine Service Operator Relationship Specialty Start Date End Date Alexandre Smith MD [address] [place] [address] PCP - General Internal Medicine 09/08/24 Natalio Esparza MD [address] [address] Referring Physician Surgery 12/23/19 Jim Benitez Primary Power Reactor Supervisor 03/25/25
--- NOTE | 2025-05-01 08:40 | ADMGEN ---
This patient, Santhosh Moore, was admitted to Medical Room 255-01. Patient/family oriented to hospital policies and general routines including ID bracelet, bed and alarms, visiting hours, pain management, procedures, bathroom and other care routines, personal items, smoking policy, room service/diet, and visiting hours. Information on how to activate the Rapid Response Team has been discussed. Patient/Family are encouraged to report perceived risks to care and to ask questions if they do not understand what they are told or what they should do.
--- NOTE | 2025-05-01 15:38 | PM.CNOR ---
Assessment and Plan Assessment and plan (1) Closed fracture of right proximal humerus: Code(s): S42.201A - Unspecified fracture of upper end of right humerus, initial encounter for closed fracture Status: Acute Plan The patient is a 79-year-old igvdh-zbwa-danhrptu male presents today with a comminuted displaced angulated right proximal humerus fracture after a fall at home trying to maneuver in his bathroom. He reports no lightheadedness he just tripped fell backwards and landed onto his right shoulder. He reports no pain into the elbow or into the extremities. He normally ambulates with a walker with severe scoliosis and back pain. He lives alone at home by himself and has a daughter who [facility] in [facility]. Did not want us to contact her at this point in time as he will do that when he feels that he is ready to inform her of his injury. For now we will plan on rehabilitation evaluation he will continue wearing his sling and it is his worst that he does not want to have surgery with a clear understanding of posttraumatic arthritis and diminished range of motion of this right shoulder. I would recommend a sling for about 2 weeks I will see him in my office about a week after discharge. He can be weight-bearing as tolerated on the right upper extremity for use with a walker. This will not affect the ultimate outcome of the right shoulder fracture. History of Present Illness HPI Consult date: 05/01/25 Chief complaint: glf Narrative: Patient states that he was in his bathroom working on the sink when he lost his balance and fell backwards 2 steps before falling directly onto his right shoulder. The patient reports pain to his arms pain to his right wrist or the shoulder he reports no head trauma PMFSH Past Medical History Medical History Dementia BMI 29.0-29.9,adult Non-healing wound of right lower extremity BMI 30.0-30.9,adult BMI 31.0-31.9,adult Pedal edema MARIMAR (obstructive sleep apnea) BMI 32.0-32.9,adult Follow up Compression fracture of thoracic spine, non-traumatic Compression fracture of lumbar spine, non-traumatic BMI 33.0-33.9,adult Kyphoscoliosis and scoliosis Impaired functional mobility, balance, gait, and endurance Osteoporosis On longterm drug therapy Encounter to establish care Overactive bladder BMI 34.0-34.9,adult Coronary artery disease Hyperlipidemia Myocardial infarction Diabetes mellitus Hypertension Surgical History Surgical History No pertinent past surgical history Social History Social History Social History: Exercises 3x/week Smoking status: Current every day smoker Tobacco type: cigars Second hand tobacco smoke exposure: Yes Additional smoking assessment comments: 3 cigars/day Alcohol intake: never Substance use: never Substance use type: does not use Do You Feel Safe in your Home?: Yes Lack of Transportation: No Lack of Food: Never True Current Housing: I Have Housing Concerned About Future Housing: No Difficulty Paying Gas/Electric Bills: No Difficulty Paying for Meds: No Currently Unemployed: No Education: Bachelor's Degree Difficulty w/ Childcare or Family Care: No Living arrangements: alone Occupation/Education: retired Gender identity (if verbalized by the patient): Male Spiritual care concerns: No Meds Home Medications and Allergies Home Medications ?Medication ?Instructions ?Recorded ?Confirmed ?Type apixaban 5 mg tablet (Eliquis) 5 mg PO BID 07/16/22 05/01/25 History docusate sodium 100 mg capsule 100 mg PO Q12H PRN Constipation 07/25/22 05/01/25 Rx #30 caps aspirin 81 mg tablet,delayed 81 mg PO DAILY 07/12/23 05/01/25 History release (Adult Low Dose Aspirin) cholecalciferol (vitamin D3) 25 25 mcg PO DAILY 07/12/23 05/01/25 History mcg (1,000 unit) capsule fish oil 1,200 mg BYMOUTH DAILY 07/12/23 05/01/25 History lactobacillus combo no.11 15 1 cap PO DAILY 07/12/23 05/01/25 History billion cell sprinkle capsule (Probiotic) mecobalamin (vitamin B12) 1,000 1,000 mcg sublingual DAILY #90 tabs 07/12/23 05/01/25 Rx mcg disintegrating tablet,sublingual empagliflozin 25 mg tablet 25 mg PO DAILY #90 tabs 12/23/23 05/01/25 Rx (Jardiance) ferrous sulfate 325 mg (65 mg 325 mg PO BID 02/04/24 05/01/25 History iron) tablet mirabegron 50 mg tablet,extended 50 mg PO DAILY #90 tabs 09/21/24 05/01/25 Rx release 24 hr (Myrbetriq) folic acid 1 mg tablet 1 mg PO DAILY 10/06/24 05/01/25 History tizanidine 2 mg tablet 2 mg PO TID PRN muscle spasticity 01/20/25 05/01/25 Rx #30 tabs acetaminophen 500 mg capsule 1,000 mg (2 x 500 mg) PO Q6H PRN 01/26/25 05/01/25 Rx pain #30 caps lidocaine 4 % topical patch 1 patch topical DAILY PRN pain #10 01/26/25 05/01/25 Rx ea magnesium citrate 150 ml PO DAILY PRN constipation 01/26/25 05/01/25 Rx #296 mL polyethylene glycol 3350 17 17 g PO DAILY #119 grams 01/26/25 05/01/25 Rx gram/dose oral powder (Miralax) psyllium husk 3.4 gram/5.4 gram 1 tbsp PO DAILY #660 grams 01/26/25 05/01/25 Rx oral powder (Metamucil) tramadol 50 mg tablet 50 mg PO Q4-6H PRN pain #35 tabs 01/31/25 05/01/25 Rx potassium chloride 10 mEq 10 meq PO DAILY #90 caps 02/11/25 05/01/25 Rx capsule,extended release pramipexole 1 mg tablet See Rx Instructions .Route 02/26/25 05/01/25 Rx .COMPLEX #180 tabs risedronate 35 mg tablet See Rx Instructions .Route 03/22/25 05/01/25 Rx .COMPLEX #12 tabs rosuvastatin 20 mg tablet 20 mg PO DAILY #90 tabs 04/15/25 05/01/25 Rx Allergies Allergy/AdvReac Type Severity Reaction Status Date / Time No Known Allergies Allergy Verified 05/01/25 09:02 Vital Signs Vital Signs - 24 hr 05/01/25 04:14 05/01/25 06:38 05/01/25 07:25 Temperature 36.6 C Pulse Rate 77 62 61 Respiratory Rate 17 15 15 Blood Pressure 192/78 H 154/89 H 114/67 Pulse Oximetry 100 97 100 Oxygen Delivery Room Air 05/01/25 08:25 05/01/25 08:45 10/25/25 11:59 Temperature 36.6 C Pulse Rate 58 L 64 Respiratory Rate 14 16 Blood Pressure 102/61 106/48 L Pulse Oximetry 100 99 Oxygen Delivery Room Air Exam Narrative: Examination of the patient's right upper extremity shows that he is currently in a sling he has a good radial pulse good sensation to his digits he has his finger nails painted with the local of his high school as he recently had a high school reunion. He has no swelling tenderness or deformity at the wrist or at the elbow. He has significant swelling and tenderness over the proximal humerus. He has no swelling tenderness or deformity bilateral lower extremities. No pain with range of motion of either hip. Const: General: cooperative, comfortable, well developed and alert Nutritional Appearance: average body habitus Orientation/consciousness: oriented to person and oriented to place HENMT: Head: normal to inspection Face/Nose/Sinus: Normal external nose present Results Labs Labs: All other labs normal.
[2025-05-01] MEDS: MORPHINE SULFATE (*CRX) 4 MG/ML INJ 2 MG IV PUSH ×2 (15:52→21:23)
[2025-05-01] MEDS: PRAMIPEXOLE 1 MG TABLET 2 MG PO (21:22)
[2025-05-01] MEDS: APIXABAN 5 MG TABLET PO (21:22)
[2025-05-02 04:45] LABS: Hematocrit 31.0 % (42.0-52.0); Hemoglobin 10.2 g/dL (14.0-18.0); Mean Corpuscular HGB Conc 32.9 g/dl (32-36); Mean Corpuscular Hemoglobin 30.8 pg (26-34); Mean Corpuscular Volume 93.7 fl (80-100); Platelet Count Result 162 k/mm3 (150-375); Red Blood Count 3.31 M/mm3 (4.6-6.20); White Blood Count 4.6 K/mm3 (4.5-10.0)
[2025-05-02 04:54] LABS: Hemoglobin A1C 5.2 % (<5.7)
[2025-05-02] MEDS: MORPHINE SULFATE (*CRX) 4 MG/ML INJ 2 MG IV PUSH ×2 (05:00→14:52)
[2025-05-02 05:02] LABS: Alanine Aminotransferase 8 U/L (6-50); Albumin Level 2.7 g/dL (3.5-5.1); Alkaline Phosphatase 81 U/L (38-126); Anion Gap 3 mmol/L (4-12); Aspartate Amino Transferase 15 U/L (17-59); Bilirubin,Total 0.7 mg/dL (0.2-1.3); Blood Urea Nitrogen 19 mg/dL (9-20); Calcium 7.8 mg/dL (8.4-10.2); Carbon Dioxide 27 mmol/L (22-30); Chloride 106 mmol/L (98-107); Estimated CRCL calculation 38 ml/min; Estimated Glomerular Filt Rate 59; Glucose 93 mg/dL (65-110); Potassium 3.5 mmol/L (3.4-5.0); Sodium 136 mmol/L (137-145); Total Protein 5.3 g/dL (6.3-8.2)
[2025-05-02 05:33] VITALS: BP 121/50; PULSE 60; RESP 16; TEMP 36.8; O2SAT 93
[2025-05-02 07:56] VITALS: BP 108/41; PULSE 57; RESP 14; TEMP 36.7; O2SAT 94
[2025-05-02 08:05] VITALS: O2SAT 92
[2025-05-02 08:31] VITALS: O2SAT 96
[2025-05-02] MEDS: POTASSIUM CHLORIDE 10 MEQ ER TABLET PO (08:31)
[2025-05-02] MEDS: ROSUVASTATIN 20 MG TABLET PO (08:31)
[2025-05-02] MEDS: MIRABEGRON 50 MG ER TABLET PO (08:31)
[2025-05-02] MEDS: ASPIRIN 81 MG ENTERIC TABLET PO (08:31)
[2025-05-02] MEDS: APIXABAN 5 MG TABLET PO ×2 (08:31→21:31)
[2025-05-02 11:44] VITALS: BP 119/55; PULSE 55; RESP 14; O2SAT 97
--- NOTE | 2025-05-02 12:07 | PM.IMPN ---
Progress Note: A&P Assessment and Plan (1) Fracture, humerus closed: Qualifiers: Encounter type: initial encounter Fracture morphology: unspecified fracture morphology Humerus Location: proximal Laterality: right Qualified Code(s): S42.201A - Unspecified fracture of upper end of right humerus, initial encounter for closed fracture Code(s): S42.309A - Unspecified fracture of shaft of humerus, unspecified arm, initial encounter for closed fracture Status: Acute Assessment and Plan: -X-ray right shoulder reveal a proximal humerus fracture -ortho recommends shoulder replacement as outpatient -medications were reviewed -evaluate for incidence of hypoglycemia -avoid any sedatives or anxiolytic -mechanical fall -head CT scan not performed in ED, if any change in mentation please consider -physical therapy for balance, gait and strength training -rehab, follow-up with [facility] placement -care coordination consult (2) Frequent falls: Code(s): R29.6 - Repeated falls Status: Acute Assessment and Plan: Same as above (3) Diabetes mellitus: Qualifiers: Diabetes mellitus type: type 2 Diabetes mellitus fci insulin use: without fci use Diabetes mellitus complication status: without complication Qualified Code(s): E11.9 - Type 2 diabetes mellitus without complications Code(s): E11.9 - Type 2 diabetes mellitus without complications Status: Acute Assessment and Plan: Order HbA1c Ordered low-dose sliding scale Titrate as needed (4) Coronary artery disease: Qualifiers: Coronary Disease-Associated Artery/Lesion type: unspecified vessel or lesion type [place] vs. transplanted heart: [place] heart Associated angina: unspecified whether angina present Qualified Code(s): I25.10 - Atherosclerotic heart disease of [place] coronary artery without angina pectoris Code(s): I25.10 - Atherosclerotic heart disease of [place] coronary artery without angina pectoris Status: Acute Assessment and Plan: Continue home medication Continue Eliquis 5 mg p.o. b.i.d. (5) Hyperlipidemia: Qualifiers: Hyperlipidemia type: unspecified Qualified Code(s): E78.5 - Hyperlipidemia, unspecified Code(s): E78.5 - Hyperlipidemia, unspecified Status: Acute Assessment and Plan: Continue atorvastatin Plan Patient is 79 y/o stats while in his bathroom close to a sink, he lost his balance and fell on his right shoulder, and is found to have an impacted subcapital fracture of the right humerus, patient stats pain is worse when he moves his shoulder, patient was seen by the orthopedic, patient does not want any surgical intervention, understands resulting osteoarthritis with injured arm, patient is wearing sling, will have PT/OT evaluate the patient, patient will benefit going to rehab. will monitor and plan. Code status: Full code DVT prophylaxis: Eliquis 5 mg p.o. b.i.d. Subjective Date/time seen: 05/02/25 12:07 Interval history: fall H&P-Narrative: Patient is an 79-year-old male with a past medical history of CAD, two stents, severe scoliosis, and diabetes who presented to the ED due to a fall. The patient was previously hospitalized in January with the same presentation and was discharged to an SNF. After the rehab, the patient returned home and was living by himself. I spoke with his daughter, who provided the history. The patient has a history of decreased hearing, and due to severe scoliosis, the patient never uses his left hand. Most of his balance and actions are with his right hand. POA was unaware that the patient was in the hospital. As per the patient, he slipped in the bathroom and hit his right side, but denies any head injury. Patient was on Eliquis 5 mg p.o. b.i.d., but unable to verify the reason for taking it. In the ED, a patient presented with an impacted subcapital fracture of the right humerus, and Orthopedics was consulted, who recommended medical management and possible shoulder replacement as OP. Patient is admitted in the setting of placing him in rehab. According to his daughter, the plan is to put him in an [facility] permanently. Patient is 79 y/o stats while in his bathroom close to a sink, he lost his balance and fell on his right shoulder, and is found to have an impacted subcapital fracture of the right humerus, patient stats pain is worse when he moves his shoulder, patient was seen by the orthopedic, patient does not want any surgical intervention, understands resulting osteoarthritis with injured arm, patient is wearing sling, will have PT/OT evaluate the patient, patient will benefit going to rehab. will monitor and plan. Review of Systems Review of Systems: Gen.: Denies fevers or chills Eyes: Denies eye pain or visual change ENT: Denies congestion Respiratory: Denies shortness of breath or cough CV: Denies chest pain or palpitations GI: Denies abdominal pain nausea, emesis or diarrhea denies burning, urgency, frequency or hematuria Musculoskeletal: As per HPI Neuro: Denies numbness, tingling, weakness or focal weakness Skin: Denies rash Except as documented, all other systems reviewed and negative Exam Narrative: Patient is comfortable, NAD HEENT: eyes are clear and none icteric LUNGS:CTA HEART: RR S1S2 ABD: BS+, Soft and nontender Lower extremities: no edema MS: right are in sling. SKIN: nonjaundiced Neuro: grossly intact. Objective Data Vital Signs Vital Signs: Vital Signs - 24 hr 05/01/25 16:00 05/01/25 20:00 05/01/25 21:04 Temperature 36.9 C 36.9 C Pulse Rate 64 67 Respiratory Rate 16 16 Blood Pressure 103/45 L 100/48 L Pulse Oximetry 98 95 Oxygen Delivery Room Air 05/02/25 05:33 05/02/25 07:56 05/02/25 08:05 Temperature 36.8 C 36.7 C Pulse Rate 60 57 L Respiratory Rate 16 14 Blood Pressure 121/50 L 108/41 L Pulse Oximetry 93 94 92 Oxygen Delivery Room Air 05/02/25 08:31 05/02/25 11:44 Temperature Pulse Rate 55 L Respiratory Rate 14 Blood Pressure 119/55 L Pulse Oximetry 96 97 Oxygen Delivery Room Air Intake/Output Intake/Output: Intake & Output 04/29/25 04/30/25 05/01/25 05/02/25 23:59 23:59 23:59 23:59 Intake Total 545 540 Output Total 850 400 Balance -305 140 Meds/Results Medications: Active Medications Generic Name Dose Route Start Last Admin Trade Name Freq PRN Reason Stop Dose Admin Acetaminophen 1,000 mg 05/01/25 15:27 Acetaminophen 500 Mg Tablet PO Q6H PRN PAIN RATED 1-3 Apixaban 5 mg 05/01/25 21:00 05/02/25 08:31 Apixaban 5 Mg Tablet PO 5 mg Q12HR JOSE CARLOS Administration Aspirin 81 mg 05/02/25 09:00 05/02/25 08:31 Aspirin 81 Mg Enteric Tablet PO 81 mg DAILY JOSE CARLOS Administration Dextrose 12.5 gm 05/01/25 15:38 Dextrose 50% 25 Gm/50 Ml Syringe IV PUSH PRN PRN Hypoglycemia Protocol Docusate Sodium 100 mg 05/01/25 15:27 Docusate Sodium 100 Mg Capsule PO Q12H PRN Constipation Glucagon 1 mg 05/01/25 15:38 Glucagon For Inj 1 Mg Vial IM PRN PRN Hypoglycemia Protocol Glucose 15 gm 05/01/25 15:38 Glucose Oral Gel 15 Gm Of Glucse In 37.5 Gm Tube PO PRN PRN Hypoglycemia Protocol Dextrose 1,000 mls @ 100 mls/hr 05/01/25 15:38 Dextrose 5% 1,000 Ml IVPB PRN PRN Hypoglycemia Protocol Insulin Aspart 2 - 5 units 05/01/25 17:00 05/02/25 11:58 Insulin Aspart (*Bkc) 100 Units/Ml SUB-Q Not Given TIDWM JOSE CARLOS Protocol Insulin Aspart 1 - 2 units 05/01/25 21:00 05/01/25 21:19 Insulin Aspart (*Bkc) 100 Units/Ml SUB-Q Not Given HS JOSE CARLOS Protocol Mirabegron 50 mg 05/02/25 09:00 05/02/25 08:31 Mirabegron 50 Mg Er Tablet PO 50 mg DAILY JOSE CARLOS Administration Morphine Sulfate 2 mg 05/01/25 15:28 05/02/25 05:00 Morphine Sulfate (*Crx) 4 Mg/Ml Inj IV PUSH 2 mg Q4H PRN Administration Pain Rated 7-10 Polyethylene Glycol 17 gm 05/02/25 09:00 05/02/25 08:31 Polyethylene Glycol 3350 17 Gm Powd.Pack PO 17 gm DAILY JOSE CARLOS Administration Potassium Chloride 10 meq 05/02/25 09:00 05/02/25 08:31 Potassium Chloride 10 Meq Er Tablet PO 10 meq DAILY JOSE CARLOS Administration Pramipexole Dihydrochloride 2 mg 05/01/25 21:00 05/01/25 21:22 Pramipexole 1 Mg Tablet PO 2 mg HS JOSE CARLOS Administration Rosuvastatin Calcium 20 mg 05/02/25 09:00 05/02/25 08:31 Rosuvastatin 20 Mg Tablet PO 20 mg DAILY JOSE CARLOS Administration Radiology Results: ITS Impressions Hip/Pelvis X-Ray 05/01/25 17:18 Impression: No acute fracture or malalignment. Labs Labs: Laboratory Results - last 24 hr 05/01/25 05/01/25 05/02/25 17:13 21:07 04:25 WBC 4.6 RBC 3.31 L Hgb 10.2 L D Hct 31.0 L MCV 93.7 MCH 30.8 MCHC 32.9 RDW 13.2 Plt Count 162 MPV 10.1 Sodium 136 L Potassium 3.5 Chloride 106 Carbon Dioxide 27 Anion Gap 3 L BUN 19 Creatinine 1.19 Estim Creat Clear Calc 38 Estimated GFR 59 Glucose 93 POC Capillary Glucose 175 H 140 H Hemoglobin A1c 5.2 Calcium 7.8 L Total Bilirubin 0.7 AST 15 L ALT 8 Alkaline Phosphatase 81 Total Protein 5.3 L Albumin 2.7 L 05/02/25 05/02/25 07:37 11:43 WBC RBC Hgb Hct MCV MCH MCHC RDW Plt Count MPV Sodium Potassium Chloride Carbon Dioxide Anion Gap BUN Creatinine Estim Creat Clear Calc Estimated GFR Glucose POC Capillary Glucose 117 H 116 H Hemoglobin A1c Calcium Total Bilirubin AST ALT Alkaline Phosphatase Total Protein Albumin
[2025-05-02] MEDS: PRAMIPEXOLE 1 MG TABLET 2 MG PO (21:31)
[2025-05-02 21:33] VITALS: BP 104/47; PULSE 62; RESP 16; TEMP 36.7; O2SAT 96
[2025-05-03] MEDS: MORPHINE SULFATE (*CRX) 4 MG/ML INJ 2 MG IV PUSH ×4 (03:20→20:17)
[2025-05-03] MEDS: ACETAMINOPHEN 500 MG TABLET 1000 MG PO ×2 (05:15→23:08)
[2025-05-03 05:17] VITALS: BP 159/67; PULSE 60; RESP 18; TEMP 36.4; O2SAT 98
[2025-05-03 08:02] VITALS: O2SAT 99
[2025-05-03] MEDS: MIRABEGRON 50 MG ER TABLET PO (08:02)
[2025-05-03] MEDS: APIXABAN 5 MG TABLET PO ×2 (08:02→20:17)
[2025-05-03] MEDS: POTASSIUM CHLORIDE 10 MEQ ER TABLET PO (08:02)
[2025-05-03] MEDS: ASPIRIN 81 MG ENTERIC TABLET PO (08:02)
[2025-05-03] MEDS: ROSUVASTATIN 20 MG TABLET PO (08:02)
[2025-05-03 14:00] VITALS: BP 91/47; PULSE 64; RESP 14; TEMP 36.5; O2SAT 95
[2025-05-03 14:45] VITALS: BMI 26.2
--- NOTE | 2025-05-03 15:27 | PM.IMPN ---
Progress Note: A&P Assessment and Plan (1) Fracture, humerus closed: Qualifiers: Encounter type: initial encounter Fracture morphology: unspecified fracture morphology Humerus Location: proximal Laterality: right Qualified Code(s): S42.201A - Unspecified fracture of upper end of right humerus, initial encounter for closed fracture Code(s): S42.309A - Unspecified fracture of shaft of humerus, unspecified arm, initial encounter for closed fracture Status: Acute Assessment and Plan: -X-ray right shoulder reveal a proximal humerus fracture -ortho recommends shoulder replacement as outpatient -medications were reviewed -evaluate for incidence of hypoglycemia -avoid any sedatives or anxiolytic -mechanical fall -head CT scan not performed in ED, if any change in mentation please consider -physical therapy for balance, gait and strength training -rehab, follow-up with [facility] placement -care coordination consult (2) Frequent falls: Code(s): R29.6 - Repeated falls Status: Acute Assessment and Plan: Same as above (3) Diabetes mellitus: Qualifiers: Diabetes mellitus type: type 2 Diabetes mellitus senior living insulin use: without senior living use Diabetes mellitus complication status: without complication Qualified Code(s): E11.9 - Type 2 diabetes mellitus without complications Code(s): E11.9 - Type 2 diabetes mellitus without complications Status: Acute Assessment and Plan: Order HbA1c Ordered low-dose sliding scale Titrate as needed (4) Coronary artery disease: Qualifiers: Coronary Disease-Associated Artery/Lesion type: unspecified vessel or lesion type [place] vs. transplanted heart: [place] heart Associated angina: unspecified whether angina present Qualified Code(s): I25.10 - Atherosclerotic heart disease of [place] coronary artery without angina pectoris Code(s): I25.10 - Atherosclerotic heart disease of [place] coronary artery without angina pectoris Status: Acute Assessment and Plan: Continue home medication Continue Eliquis 5 mg p.o. b.i.d. (5) Hyperlipidemia: Qualifiers: Hyperlipidemia type: unspecified Qualified Code(s): E78.5 - Hyperlipidemia, unspecified Code(s): E78.5 - Hyperlipidemia, unspecified Status: Acute Assessment and Plan: Continue atorvastatin Plan Patient is 79 y/o stats while in his bathroom close to a sink, he lost his balance and fell on his right shoulder, and is found to have an impacted subcapital fracture of the right humerus, patient stats pain is worse when he moves his shoulder, patient was seen by the orthopedic, patient does not want any surgical intervention, understands resulting osteoarthritis with injured arm, patient is wearing sling, will have PT/OT evaluate the patient, patient will benefit going to rehab. will monitor and plan. Today patient stats pain in his right shoulder is worsening, will apply 2 Lidocaine patches and reconsult ortho for further recommendation. patient will participate in PT., will monitor. Code status: Full code DVT prophylaxis: Eliquis 5 mg p.o. b.i.d. Subjective Date/time seen: 05/03/25 15:27 Interval history: fall H&P-Narrative: Patient is an 79-year-old male with a past medical history of CAD, two stents, severe scoliosis, and diabetes who presented to the ED due to a fall. The patient was previously hospitalized in January with the same presentation and was discharged to an SNF. After the rehab, the patient returned home and was living by himself. I spoke with his daughter, who provided the history. The patient has a history of decreased hearing, and due to severe scoliosis, the patient never uses his left hand. Most of his balance and actions are with his right hand. POA was unaware that the patient was in the hospital. As per the patient, he slipped in the bathroom and hit his right side, but denies any head injury. Patient was on Eliquis 5 mg p.o. b.i.d., but unable to verify the reason for taking it. In the ED, a patient presented with an impacted subcapital fracture of the right humerus, and Orthopedics was consulted, who recommended medical management and possible shoulder replacement as OP. Patient is admitted in the setting of placing him in rehab. According to his daughter, the plan is to put him in an [facility] permanently. Patient is 79 y/o stats while in his bathroom close to a sink, he lost his balance and fell on his right shoulder, and is found to have an impacted subcapital fracture of the right humerus, patient stats pain is worse when he moves his shoulder, patient was seen by the orthopedic, patient does not want any surgical intervention, understands resulting osteoarthritis with injured arm, patient is wearing sling, will have PT/OT evaluate the patient, patient will benefit going to rehab. will monitor and plan. Today patient stats pain in his right shoulder is worsening, will apply 2 Lidocaine patches and reconsult ortho for further recommendation. patient will participate in PT., will monitor. Review of Systems Review of Systems: Gen.: Denies fevers or chills Eyes: Denies eye pain or visual change ENT: Denies congestion Respiratory: Denies shortness of breath or cough CV: Denies chest pain or palpitations GI: Denies abdominal pain nausea, emesis or diarrhea denies burning, urgency, frequency or hematuria Musculoskeletal: As per HPI Neuro: Denies numbness, tingling, weakness or focal weakness Skin: Denies rash Except as documented, all other systems reviewed and negative Exam Narrative: Patient is comfortable, NAD HEENT: eyes are clear and none icteric LUNGS:CTA HEART: RR S1S2 ABD: BS+, Soft and nontender Lower extremities: no edema MS: right are in sling. SKIN: nonjaundiced Neuro: grossly intact. Objective Data Vital Signs Vital Signs: Vital Signs - 24 hr 05/02/25 20:00 05/02/25 21:33 05/03/25 05:17 Temperature 36.7 C 36.4 C L Pulse Rate 62 60 Respiratory Rate 16 18 Blood Pressure 104/47 L 159/67 H Pulse Oximetry 96 98 Oxygen Delivery Room Air 05/03/25 08:02 05/03/25 14:00 Temperature 36.5 C Pulse Rate 64 Respiratory Rate 14 Blood Pressure 91/47 L Pulse Oximetry 99 95 Oxygen Delivery Room Air Intake/Output Intake/Output: Intake & Output 04/30/25 05/01/25 05/02/25 05/03/25 23:59 23:59 23:59 23:59 Intake Total 545 1560 840 Output Total 850 1000 500 Balance -305 560 340 Meds/Results Medications: Active Medications Generic Name Dose Route Start Last Admin Trade Name Freq PRN Reason Stop Dose Admin Acetaminophen 1,000 mg 05/01/25 15:27 05/03/25 05:15 Acetaminophen 500 Mg Tablet PO 1,000 mg Q6H PRN Administration PAIN RATED 1-3 Apixaban 5 mg 05/01/25 21:00 05/03/25 08:02 Apixaban 5 Mg Tablet PO 5 mg Q12HR JOSE CARLOS Administration Aspirin 81 mg 05/02/25 09:00 05/03/25 08:02 Aspirin 81 Mg Enteric Tablet PO 81 mg DAILY JOSE CARLOS Administration Dextrose 12.5 gm 05/01/25 15:38 Dextrose 50% 25 Gm/50 Ml Syringe IV PUSH PRN PRN Hypoglycemia Protocol Docusate Sodium 100 mg 05/01/25 15:27 Docusate Sodium 100 Mg Capsule PO Q12H PRN Constipation Glucagon 1 mg 05/01/25 15:38 Glucagon For Inj 1 Mg Vial IM PRN PRN Hypoglycemia Protocol Glucose 15 gm 05/01/25 15:38 Glucose Oral Gel 15 Gm Of Glucse In 37.5 Gm Tube PO PRN PRN Hypoglycemia Protocol Dextrose 1,000 mls @ 100 mls/hr 05/01/25 15:38 Dextrose 5% 1,000 Ml IVPB PRN PRN Hypoglycemia Protocol Insulin Aspart 2 - 5 units 05/01/25 17:00 05/03/25 12:06 Insulin Aspart (*Bkc) 100 Units/Ml SUB-Q Not Given TIDWM JOSE CARLOS Protocol Insulin Aspart 1 - 2 units 05/01/25 21:00 05/02/25 21:34 Insulin Aspart (*Bkc) 100 Units/Ml SUB-Q Not Given HS [facility] Protocol Lidocaine 2 patch 05/03/25 09:00 Lidocaine 5% Patch TRANSDERM DAILY JOSE CARLOS Mirabegron 50 mg 05/02/25 09:00 05/03/25 08:02 Mirabegron 50 Mg Er Tablet PO 50 mg DAILY JOSE CARLOS Administration Morphine Sulfate 2 mg 05/01/25 15:28 05/03/25 11:10 Morphine Sulfate (*Crx) 4 Mg/Ml Inj IV PUSH 2 mg Q4H PRN Administration Pain Rated 7-10 Polyethylene Glycol 17 gm 05/02/25 09:00 05/03/25 08:03 Polyethylene Glycol 3350 17 Gm Powd.Pack PO 17 gm DAILY JOSE CARLOS Administration Potassium Chloride 10 meq 05/02/25 09:00 05/03/25 08:02 Potassium Chloride 10 Meq Er Tablet PO 10 meq DAILY JOSE CARLOS Administration Pramipexole Dihydrochloride 2 mg 05/01/25 21:00 05/02/25 21:31 Pramipexole 1 Mg Tablet PO 2 mg HS JOSE CARLOS Administration Rosuvastatin Calcium 20 mg 05/02/25 09:00 05/03/25 08:02 Rosuvastatin 20 Mg Tablet PO 20 mg DAILY JOSE CARLOS Administration Radiology Results: ITS Impressions Hip/Pelvis X-Ray 05/01/25 17:18 Impression: No acute fracture or malalignment. Labs Labs: Laboratory Results - last 24 hr 05/02/25 05/02/25 05/03/25 16:55 21:32 07:56 POC Capillary Glucose 163 H 175 H 162 H 05/03/25 11:48 POC Capillary Glucose 109 H
[2025-05-03] MEDS: LIDOCAINE 5% PATCH 2 PATCH TRANSDERM (16:26)
[2025-05-03] MEDS: PRAMIPEXOLE 1 MG TABLET 2 MG PO (20:17)
[2025-05-03 22:00] VITALS: BP 147/45; PULSE 60; RESP 18; TEMP 36.4; O2SAT 91
[2025-05-04] MEDS: MORPHINE SULFATE (*CRX) 4 MG/ML INJ 2 MG IV PUSH ×2 (03:48→12:33)
[2025-05-04] MEDS: ACETAMINOPHEN 500 MG TABLET 1000 MG PO (06:34)
[2025-05-04 06:42] VITALS: BP 138/58; PULSE 58; RESP 16; TEMP 36.6; O2SAT 93
[2025-05-04 08:45] VITALS: PULSE 58; RESP 16; O2SAT 93
[2025-05-04] MEDS: ROSUVASTATIN 20 MG TABLET PO (08:45)
[2025-05-04] MEDS: POTASSIUM CHLORIDE 10 MEQ ER TABLET PO (08:45)
[2025-05-04] MEDS: APIXABAN 5 MG TABLET PO ×2 (08:45→21:12)
[2025-05-04] MEDS: MIRABEGRON 50 MG ER TABLET PO (08:46)
[2025-05-04] MEDS: ASPIRIN 81 MG ENTERIC TABLET PO (08:46)
[2025-05-04] MEDS: LIDOCAINE 5% PATCH 2 PATCH TRANSDERM (08:46)
--- NOTE | 2025-05-04 12:40 | P.PNIM_ITS ---
Progress Note: A&P Assessment and Plan (1) Fracture, humerus closed: Qualifiers: Encounter type: initial encounter Fracture morphology: unspecified fracture morphology Humerus Location: proximal Laterality: right Qualified Code(s): S42.201A - Unspecified fracture of upper end of right humerus, initial encounter for closed fracture Code(s): S42.309A - Unspecified fracture of shaft of humerus, unspecified arm, initial encounter for closed fracture Status: Acute Assessment and Plan: -X-ray right shoulder reveal a proximal humerus fracture -ortho recommends shoulder replacement as outpatient -medications were reviewed -evaluate for incidence of hypoglycemia -avoid any sedatives or anxiolytic -mechanical fall -head CT scan not performed in ED, if any change in mentation please consider -physical therapy for balance, gait and strength training -rehab, follow-up with [facility] placement -care coordination consult (2) Frequent falls: Code(s): R29.6 - Repeated falls Status: Acute Assessment and Plan: Same as above (3) Diabetes mellitus: Qualifiers: Diabetes mellitus type: type 2 Diabetes mellitus correction insulin use: without correction use Diabetes mellitus complication status: without complication Qualified Code(s): E11.9 - Type 2 diabetes mellitus without complications Code(s): E11.9 - Type 2 diabetes mellitus without complications Status: Acute Assessment and Plan: Order HbA1c Ordered low-dose sliding scale Titrate as needed (4) Coronary artery disease: Qualifiers: Coronary Disease-Associated Artery/Lesion type: unspecified vessel or lesion type [place] vs. transplanted heart: [place] heart Associated angina: unspecified whether angina present Qualified Code(s): I25.10 - Atherosclerotic heart disease of [place] coronary artery without angina pectoris Code(s): I25.10 - Atherosclerotic heart disease of [place] coronary artery without angina pectoris Status: Acute Assessment and Plan: Continue home medication Continue Eliquis 5 mg p.o. b.i.d. (5) Hyperlipidemia: Qualifiers: Hyperlipidemia type: unspecified Qualified Code(s): E78.5 - Hyperlipidemia, unspecified Code(s): E78.5 - Hyperlipidemia, unspecified Status: Acute Assessment and Plan: Continue atorvastatin Plan Patient is 79 y/o stats while in his bathroom close to a sink, he lost his balance and fell on his right shoulder, and is found to have an impacted subcapital fracture of the right humerus, patient stats pain is worse when he moves his shoulder, patient was seen by the orthopedic, patient does not want any surgical intervention, understands resulting osteoarthritis with injured arm, patient is wearing sling, will have PT/OT evaluate the patient, patient will benefit going to rehab. will monitor and plan. patient stats pain in his right shoulder is worsening, will apply 2 Lidocaine patches and reconsult ortho for further recommendation. patient will participate in PT., will monitor. patient stats Lidocaine patches are helping with pain, patient was seen by the orthopedic surgeon does not recommend any surgical intervention, will have PT evaluate the patient and further recommendation to follow. patient lives alone and may not be able to return back to his place, will need NH before discharging home. Code status: Full code DVT prophylaxis: Eliquis 5 mg p.o. b.i.d. Subjective Date/time seen: 05/04/25 12:40 Interval history: fall H&P-Narrative: Patient is an 79-year-old male with a past medical history of CAD, two stents, severe scoliosis, and diabetes who presented to the ED due to a fall. The patient was previously hospitalized in January with the same presentation and was discharged to an SNF. After the rehab, the patient returned home and was living by himself. I spoke with his daughter, who provided the history. The patient has a history of decreased hearing, and due to severe scoliosis, the patient never uses his left hand. Most of his balance and actions are with his right hand. POA was unaware that the patient was in the hospital. As per the patient, he slipped in the bathroom and hit his right side, but denies any head injury. Patient was on Eliquis 5 mg p.o. b.i.d., but unable to verify the reason for taking it. In the ED, a patient presented with an impacted subcapital fracture of the right humerus, and Orthopedics was consulted, who recommended medical management and possible shoulder replacement as OP. Patient is admitted in the setting of placing him in rehab. According to his daughter, the plan is to put him in an [facility] permanently. Patient is 79 y/o stats while in his bathroom close to a sink, he lost his balance and fell on his right shoulder, and is found to have an impacted subcapital fracture of the right humerus, patient stats pain is worse when he moves his shoulder, patient was seen by the orthopedic, patient does not want any surgical intervention, understands resulting osteoarthritis with injured arm, patient is wearing sling, will have PT/OT evaluate the patient, patient will benefit going to rehab. will monitor and plan. patient stats pain in his right shoulder is worsening, will apply 2 Lidocaine patches and reconsult ortho for further recommendation. patient will participate in PT., will monitor. patient stats Lidocaine patches are helping with pain, patient was seen by the orthopedic surgeon does not recommend any surgical intervention, will have PT evaluate the patient and further recommendation to follow. patient lives alone and may not be able to return back to his place, will need NH before discharging home. Review of Systems Review of Systems: Gen.: Denies fevers or chills Eyes: Denies eye pain or visual change ENT: Denies congestion Respiratory: Denies shortness of breath or cough CV: Denies chest pain or palpitations GI: Denies abdominal pain nausea, emesis or diarrhea denies burning, urgency, frequency or hematuria Musculoskeletal: As per HPI Neuro: Denies numbness, tingling, weakness or focal weakness Skin: Denies rash Except as documented, all other systems reviewed and negative Exam Narrative: Patient is comfortable, NAD HEENT: eyes are clear and none icteric LUNGS:CTA HEART: RR S1S2 ABD: BS+, Soft and nontender Lower extremities: no edema MS: right are in sling. SKIN: nonjaundiced Neuro: grossly intact. Objective Data Vital Signs Vital Signs: Vital Signs - 24 hr 05/03/25 14:00 05/03/25 20:27 05/03/25 22:00 Temperature 36.5 C 36.4 C Pulse Rate 64 60 Respiratory Rate 14 18 Blood Pressure 91/47 L 147/45 H Pulse Oximetry 95 91 Oxygen Delivery Room Air 05/04/25 06:42 05/04/25 08:45 Temperature 36.6 C Pulse Rate 58 L 58 L Respiratory Rate 16 16 Blood Pressure 138/58 L Pulse Oximetry 93 93 Oxygen Delivery Room Air Intake/Output Intake/Output: Intake & Output 05/01/25 05/02/25 05/03/25 05/04/25 23:59 23:59 23:59 23:59 Intake Total 545 1560 1320 420 Output Total 850 1000 850 400 Balance -305 560 470 20 Meds/Results Medications: Active Medications Generic Name Dose Route Start Last Admin Trade Name Freq PRN Reason Stop Dose Admin Acetaminophen 1,000 mg 05/01/25 15:27 05/04/25 06:34 Acetaminophen 500 Mg Tablet PO 1,000 mg Q6H PRN Administration PAIN RATED 1-3 Apixaban 5 mg 05/01/25 21:00 05/04/25 08:45 Apixaban 5 Mg Tablet PO 5 mg Q12HR JOSE CARLOS Administration Aspirin 81 mg 05/02/25 09:00 05/04/25 08:46 Aspirin 81 Mg Enteric Tablet PO 81 mg DAILY JOSE CARLOS Administration Dextrose 12.5 gm 05/01/25 15:38 Dextrose 50% 25 Gm/50 Ml Syringe IV PUSH PRN PRN Hypoglycemia Protocol Docusate Sodium 100 mg 05/01/25 15:27 Docusate Sodium 100 Mg Capsule PO Q12H PRN Constipation Glucagon 1 mg 05/01/25 15:38 Glucagon For Inj 1 Mg Vial IM PRN PRN Hypoglycemia Protocol Glucose 15 gm 05/01/25 15:38 Glucose Oral Gel 15 Gm Of Glucse In 37.5 Gm Tube PO PRN PRN Hypoglycemia Protocol Dextrose 1,000 mls @ 100 mls/hr 05/01/25 15:38 Dextrose 5% 1,000 Ml IVPB PRN PRN Hypoglycemia Protocol Insulin Aspart 2 - 5 units 05/01/25 17:00 05/04/25 11:55 Insulin Aspart (*Bkc) 100 Units/Ml SUB-Q Not Given TIDWM [facility] Protocol Insulin Aspart 1 - 2 units 05/01/25 21:00 05/03/25 23:35 Insulin Aspart (*Bkc) 100 Units/Ml SUB-Q Not Given HS [facility] Protocol Lidocaine 2 patch 05/03/25 09:00 05/04/25 08:46 Lidocaine 5% Patch TRANSDERM 2 patch DAILY JOSE CARLOS Administration Mirabegron 50 mg 05/02/25 09:00 05/04/25 08:46 Mirabegron 50 Mg Er Tablet PO 50 mg DAILY JOSE CARLOS Administration Morphine Sulfate 2 mg 05/01/25 15:28 05/04/25 12:33 Morphine Sulfate (*Crx) 4 Mg/Ml Inj IV PUSH 2 mg Q4H PRN Administration Pain Rated 7-10 Polyethylene Glycol 17 gm 05/02/25 09:00 05/04/25 08:46 Polyethylene Glycol 3350 17 Gm Powd.Pack PO 17 gm DAILY JOSE CARLOS Administration Potassium Chloride 10 meq 05/02/25 09:00 05/04/25 08:45 Potassium Chloride 10 Meq Er Tablet PO 10 meq DAILY JOSE CARLOS Administration Pramipexole Dihydrochloride 2 mg 05/01/25 21:00 05/03/25 20:17 Pramipexole 1 Mg Tablet PO 2 mg HS JOSE CARLOS Administration Rosuvastatin Calcium 20 mg 05/02/25 09:00 05/04/25 08:45 Rosuvastatin 20 Mg Tablet PO 20 mg DAILY JOSE CARLOS Administration Radiology Results: ITS Impressions Hip/Pelvis X-Ray 05/01/25 17:18 Impression: No acute fracture or malalignment. Labs Labs: Laboratory Results - last 24 hr 05/03/25 05/03/25 05/04/25 16:47 23:17 07:58 POC Capillary Glucose 152 H 135 H 103 05/04/25 11:44 POC Capillary Glucose 124 H
[2025-05-04 14:00] VITALS: BP 127/51; PULSE 55; RESP 28; TEMP 36.5; O2SAT 95
[2025-05-04 20:19] VITALS: BP 118/46; PULSE 69; RESP 18; TEMP 36.7; O2SAT 95
[2025-05-04] MEDS: PRAMIPEXOLE 1 MG TABLET 2 MG PO (21:12)
[2025-05-05] MEDS: ACETAMINOPHEN 500 MG TABLET 1000 MG PO ×2 (02:59→17:29)
[2025-05-05 04:30] VITALS: BP 143/50; PULSE 56; RESP 18; TEMP 36.9; O2SAT 95
[2025-05-05 05:07] LABS: Hematocrit 34.0 % (42.0-52.0); Hemoglobin 11.2 g/dL (14.0-18.0); Mean Corpuscular HGB Conc 32.9 g/dl (32-36); Mean Corpuscular Hemoglobin 30.5 pg (26-34); Mean Corpuscular Volume 92.6 fl (80-100); Platelet Count Result 219 k/mm3 (150-375); Red Blood Count 3.67 M/mm3 (4.6-6.20); White Blood Count 6.3 K/mm3 (4.5-10.0)
[2025-05-05 05:22] LABS: Anion Gap 3 mmol/L (4-12); Blood Urea Nitrogen 22 mg/dL (9-20); Calcium 7.9 mg/dL (8.4-10.2); Carbon Dioxide 28 mmol/L (22-30); Chloride 103 mmol/L (98-107); Estimated CRCL calculation 44 ml/min; Estimated Glomerular Filt Rate > 60; Glucose 98 mg/dL (65-110); Magnesium 2.1 mg/dL (1.6-2.3); Potassium 4.3 mmol/L (3.4-5.0); Sodium 134 mmol/L (137-145)
[2025-05-05] MEDS: POTASSIUM CHLORIDE 10 MEQ ER TABLET PO (09:37)
[2025-05-05] MEDS: MIRABEGRON 50 MG ER TABLET PO (09:37)
[2025-05-05] MEDS: ASPIRIN 81 MG ENTERIC TABLET PO (09:37)
[2025-05-05] MEDS: ROSUVASTATIN 20 MG TABLET PO (09:37)
[2025-05-05] MEDS: APIXABAN 5 MG TABLET PO ×2 (09:37→20:28)
[2025-05-05] MEDS: LIDOCAINE 5% PATCH 2 PATCH TRANSDERM (09:38)
--- NOTE | 2025-05-05 12:12 | PM.IMPN ---
Progress Note: A&P Assessment and Plan (1) Fracture, humerus closed: Qualifiers: Encounter type: initial encounter Fracture morphology: unspecified fracture morphology Humerus Location: proximal Laterality: right Qualified Code(s): S42.201A - Unspecified fracture of upper end of right humerus, initial encounter for closed fracture Code(s): S42.309A - Unspecified fracture of shaft of humerus, unspecified arm, initial encounter for closed fracture Status: Acute Assessment and Plan: -X-ray right shoulder reveal a proximal humerus fracture -ortho recommends shoulder replacement as outpatient -medications were reviewed -evaluate for incidence of hypoglycemia -avoid any sedatives or anxiolytic -mechanical fall -head CT scan not performed in ED, if any change in mentation please consider -physical therapy for balance, gait and strength training -rehab, follow-up with [facility] -care coordination consult (2) Frequent falls: Code(s): R29.6 - Repeated falls Status: Acute Assessment and Plan: Same as above (3) Diabetes mellitus: Qualifiers: Diabetes mellitus type: type 2 Diabetes mellitus intermediate accountant insulin use: without skilled nursing use Diabetes mellitus complication status: without complication Qualified Code(s): E11.9 - Type 2 diabetes mellitus without complications Code(s): E11.9 - Type 2 diabetes mellitus without complications Status: Acute Assessment and Plan: Order HbA1c Ordered low-dose sliding scale Titrate as needed (4) Coronary artery disease: Qualifiers: Coronary Disease-Associated Artery/Lesion type: unspecified vessel or lesion type [place] vs. transplanted heart: [place] heart Associated angina: unspecified whether angina present Qualified Code(s): I25.10 - Atherosclerotic heart disease of [place] coronary artery without angina pectoris Code(s): I25.10 - Atherosclerotic heart disease of [place] coronary artery without angina pectoris Status: Acute Assessment and Plan: Continue home medication Continue Eliquis 5 mg p.o. b.i.d. (5) Hyperlipidemia: Qualifiers: Hyperlipidemia type: unspecified Qualified Code(s): E78.5 - Hyperlipidemia, unspecified Code(s): E78.5 - Hyperlipidemia, unspecified Status: Acute Assessment and Plan: Continue atorvastatin Plan Patient is 79 y/o stats while in his bathroom close to a sink, he lost his balance and fell on his right shoulder, and is found to have an impacted subcapital fracture of the right humerus, patient stats pain is worse when he moves his shoulder, patient was seen by the orthopedic, patient does not want any surgical intervention, understands resulting osteoarthritis with injured arm, patient is wearing sling, will have PT/OT evaluate the patient, patient will benefit going to rehab. will monitor and plan. patient stats pain in his right shoulder is worsening, will apply 2 Lidocaine patches and reconsult ortho for further recommendation. patient will participate in PT., will monitor. patient stats Lidocaine patches are helping with pain, patient was seen by the orthopedic surgeon does not recommend any surgical intervention, today patient spoke with college and career counselor and has agree to go to rehab before going home, will have PT evaluate the patient and further recommendation to follow. patient lives alone and may not be able to return back to his place, may need NH before discharging home. Code status: Full code DVT prophylaxis: Eliquis 5 mg p.o. b.i.d. Subjective Date/time seen: 05/05/25 12:12 Interval history: fall H&P-Narrative: Patient is an 79-year-old male with a past medical history of CAD, two stents, severe scoliosis, and diabetes who presented to the ED due to a fall. The patient was previously hospitalized in January with the same presentation and was discharged to an SNF. After the rehab, the patient returned home and was living by himself. I spoke with his daughter, who provided the history. The patient has a history of decreased hearing, and due to severe scoliosis, the patient never uses his left hand. Most of his balance and actions are with his right hand. POA was unaware that the patient was in the hospital. As per the patient, he slipped in the bathroom and hit his right side, but denies any head injury. Patient was on Eliquis 5 mg p.o. b.i.d., but unable to verify the reason for taking it. In the ED, a patient presented with an impacted subcapital fracture of the right humerus, and Orthopedics was consulted, who recommended medical management and possible shoulder replacement as OP. Patient is admitted in the setting of placing him in rehab. According to his daughter, the plan is to put him in an [facility] permanently. Patient is 79 y/o stats while in his bathroom close to a sink, he lost his balance and fell on his right shoulder, and is found to have an impacted subcapital fracture of the right humerus, patient stats pain is worse when he moves his shoulder, patient was seen by the orthopedic, patient does not want any surgical intervention, understands resulting osteoarthritis with injured arm, patient is wearing sling, will have PT/OT evaluate the patient, patient will benefit going to rehab. will monitor and plan. patient stats pain in his right shoulder is worsening, will apply 2 Lidocaine patches and reconsult ortho for further recommendation. patient will participate in PT., will monitor. patient stats Lidocaine patches are helping with pain, patient was seen by the orthopedic surgeon does not recommend any surgical intervention, today patient spoke with college and career counselor and has agree to go to rehab before going home, will have PT evaluate the patient and further recommendation to follow. patient lives alone and may not be able to return back to his place, may need NH before discharging home. Review of Systems Review of Systems: Gen.: Denies fevers or chills Eyes: Denies eye pain or visual change ENT: Denies congestion Respiratory: Denies shortness of breath or cough CV: Denies chest pain or palpitations GI: Denies abdominal pain nausea, emesis or diarrhea denies burning, urgency, frequency or hematuria Musculoskeletal: As per HPI Neuro: Denies numbness, tingling, weakness or focal weakness Skin: Denies rash Except as documented, all other systems reviewed and negative Exam Narrative: Patient is comfortable, NAD HEENT: eyes are clear and none icteric LUNGS:CTA HEART: RR S1S2 ABD: BS+, Soft and nontender Lower extremities: no edema MS: right are in sling. SKIN: nonjaundiced Neuro: grossly intact. Objective Data Vital Signs Vital Signs: Vital Signs - 24 hr 05/04/25 14:00 05/04/25 20:19 05/05/25 04:30 Temperature 36.5 C 36.7 C 36.9 C Pulse Rate 55 L 69 56 L Respiratory Rate 28 H 18 18 Blood Pressure 127/51 L 118/46 L 143/50 H Pulse Oximetry 95 95 95 Intake/Output Intake/Output: Intake & Output 05/02/25 05/03/25 05/04/25 05/05/25 23:59 23:59 23:59 23:59 Intake Total 1560 1320 750 370 Output Total 5610 276 0439 1000 Balance 560 622 -570 -705 Meds/Results Medications: Active Medications Generic Name Dose Route Start Last Admin Trade Name Freq PRN Reason Stop Dose Admin Acetaminophen 1,000 mg 05/01/25 15:27 05/05/25 02:59 Acetaminophen 500 Mg Tablet PO 1,000 mg Q6H PRN Administration PAIN RATED 1-3 Apixaban 5 mg 05/01/25 21:00 05/05/25 09:37 Apixaban 5 Mg Tablet PO 5 mg Q12HR JOSE CARLOS Administration Aspirin 81 mg 05/02/25 09:00 05/05/25 09:37 Aspirin 81 Mg Enteric Tablet PO 81 mg DAILY JOSE CARLOS Administration Dextrose 12.5 gm 05/01/25 15:38 Dextrose 50% 25 Gm/50 Ml Syringe IV PUSH PRN PRN Hypoglycemia Protocol Docusate Sodium 100 mg 05/01/25 15:27 Docusate Sodium 100 Mg Capsule PO Q12H PRN Constipation Glucagon 1 mg 05/01/25 15:38 Glucagon For Inj 1 Mg Vial IM PRN PRN Hypoglycemia Protocol Glucose 15 gm 05/01/25 15:38 Glucose Oral Gel 15 Gm Of Glucse In 37.5 Gm Tube PO PRN PRN Hypoglycemia Protocol Dextrose 1,000 mls @ 100 mls/hr 05/01/25 15:38 Dextrose 5% 1,000 Ml IVPB PRN PRN Hypoglycemia Protocol Insulin Aspart 2 - 5 units 05/01/25 17:00 05/05/25 11:42 Insulin Aspart (*Bkc) 100 Units/Ml SUB-Q Not Given TIDWM [facility] Protocol Insulin Aspart 1 - 2 units 05/01/25 21:00 05/04/25 21:11 Insulin Aspart (*Bkc) 100 Units/Ml SUB-Q Not Given HS [facility] Protocol Lidocaine 2 patch 05/03/25 09:00 05/05/25 09:38 Lidocaine 5% Patch TRANSDERM 2 patch DAILY JOSE CARLOS Administration Mirabegron 50 mg 05/02/25 09:00 05/05/25 09:37 Mirabegron 50 Mg Er Tablet PO 50 mg DAILY JOSE CARLOS Administration Morphine Sulfate 2 mg 05/01/25 15:28 05/04/25 12:33 Morphine Sulfate (*Crx) 4 Mg/Ml Inj IV PUSH 2 mg Q4H PRN Administration Pain Rated 7-10 Polyethylene Glycol 17 gm 05/02/25 09:00 05/05/25 09:37 Polyethylene Glycol 3350 17 Gm Powd.Pack PO 17 gm DAILY JOSE CARLOS Administration Potassium Chloride 10 meq 05/02/25 09:00 05/05/25 09:37 Potassium Chloride 10 Meq Er Tablet PO 10 meq DAILY JOSE CARLOS Administration Pramipexole Dihydrochloride 2 mg 05/01/25 21:00 05/04/25 21:12 Pramipexole 1 Mg Tablet PO 2 mg HS JOSE CARLOS Administration Rosuvastatin Calcium 20 mg 05/02/25 09:00 05/05/25 09:37 Rosuvastatin 20 Mg Tablet PO 20 mg DAILY JOSE CARLOS Administration Radiology Results: ITS Impressions Hip/Pelvis X-Ray 05/01/25 17:18 Impression: No acute fracture or malalignment. Labs Labs: Laboratory Results - last 24 hr 05/04/25 05/04/25 05/05/25 16:17 19:54 04:40 WBC 6.3 RBC 3.67 L Hgb 11.2 L Hct 34.0 L MCV 92.6 MCH 30.5 MCHC 32.9 RDW 12.7 Plt Count 219 MPV 9.9 Sodium 134 L Potassium 4.3 Chloride 103 Carbon Dioxide 28 Anion Gap 3 L BUN 22 H Creatinine 1.02 Estim Creat Clear Calc 44 Estimated GFR > 60 Glucose 98 POC Capillary Glucose 143 H 140 H Calcium 7.9 L Magnesium 2.1 05/05/25 05/05/25 07:44 11:30 WBC RBC Hgb Hct MCV MCH MCHC RDW Plt Count MPV Sodium Potassium Chloride Carbon Dioxide Anion Gap BUN Creatinine Estim Creat Clear Calc Estimated GFR Glucose POC Capillary Glucose 138 H 118 H Calcium Magnesium
[2025-05-05 14:00] VITALS: BP 121/66; PULSE 60; RESP 17; TEMP 36.6; O2SAT 99
[2025-05-05 20:22] VITALS: BP 129/55; PULSE 58; RESP 18; TEMP 36.4; O2SAT 98
[2025-05-05] MEDS: PRAMIPEXOLE 1 MG TABLET 2 MG PO (20:28)
[2025-05-06 04:48] LABS: Hematocrit 33.8 % (42.0-52.0); Hemoglobin 11.2 g/dL (14.0-18.0); Mean Corpuscular HGB Conc 33.1 g/dl (32-36); Mean Corpuscular Hemoglobin 30.4 pg (26-34); Mean Corpuscular Volume 91.8 fl (80-100); Platelet Count Result 241 k/mm3 (150-375); Red Blood Count 3.68 M/mm3 (4.6-6.20); White Blood Count 6.1 K/mm3 (4.5-10.0)
[2025-05-06 04:58] VITALS: BP 131/67; PULSE 53; RESP 16; TEMP 36.5; O2SAT 97
[2025-05-06 05:15] LABS: Anion Gap 4 mmol/L (4-12); Blood Urea Nitrogen 22 mg/dL (9-20); Calcium 8.3 mg/dL (8.4-10.2); Carbon Dioxide 28 mmol/L (22-30); Chloride 101 mmol/L (98-107); Estimated CRCL calculation 46 ml/min; Estimated Glomerular Filt Rate > 60; Glucose 95 mg/dL (65-110); Magnesium 2.1 mg/dL (1.6-2.3); Potassium 4.4 mmol/L (3.4-5.0); Sodium 133 mmol/L (137-145)
[2025-05-06] MEDS: LIDOCAINE 5% PATCH 2 PATCH TRANSDERM (08:23)
[2025-05-06] MEDS: MIRABEGRON 50 MG ER TABLET PO (08:24)
[2025-05-06] MEDS: ROSUVASTATIN 20 MG TABLET PO (08:24)
[2025-05-06] MEDS: ASPIRIN 81 MG ENTERIC TABLET PO (08:24)
[2025-05-06] MEDS: POTASSIUM CHLORIDE 10 MEQ ER TABLET PO (08:24)
[2025-05-06] MEDS: APIXABAN 5 MG TABLET PO (08:24)
--- NOTE | 2025-05-06 11:13 | P.DS_ITS ---
DS: Admitting Diagnosis Discharge Date 05/06/25 Admitting Diagnosis fall DS: Discharge Diagnosis Discharge Diagnosis (1) Fracture, humerus closed: Qualifiers: Encounter type: initial encounter Fracture morphology: unspecified fracture morphology Humerus Location: proximal Laterality: right Qualified Code(s): S42.201A - Unspecified fracture of upper end of right humerus, initial encounter for closed fracture Code(s): S42.309A - Unspecified fracture of shaft of humerus, unspecified arm, initial encounter for closed fracture Status: Acute Assessment and Plan: -X-ray right shoulder reveal a proximal humerus fracture -ortho recommends shoulder replacement as outpatient -medications were reviewed -evaluate for incidence of hypoglycemia -avoid any sedatives or anxiolytic -mechanical fall -head CT scan not performed in ED, if any change in mentation please consider -physical therapy for balance, gait and strength training -rehab, follow-up with [facility] placement -care coordination consult (2) Frequent falls: Code(s): R29.6 - Repeated falls Status: Acute Assessment and Plan: Same as above (3) Diabetes mellitus: Qualifiers: Diabetes mellitus type: type 2 Diabetes mellitus technician terminal and repeater insulin use: without technician terminal and repeater use Diabetes mellitus complication status: without complication Qualified Code(s): E11.9 - Type 2 diabetes mellitus without complications Code(s): E11.9 - Type 2 diabetes mellitus without complications Status: Acute Assessment and Plan: Order HbA1c Ordered low-dose sliding scale Titrate as needed (4) Coronary artery disease: Qualifiers: Coronary Disease-Associated Artery/Lesion type: unspecified vessel or lesion type [place] vs. transplanted heart: [place] heart Associated angina: unspecified whether angina present Qualified Code(s): I25.10 - Atherosclerotic heart disease of [place] coronary artery without angina pectoris Code(s): I25.10 - Atherosclerotic heart disease of [place] coronary artery without angina pectoris Status: Acute Assessment and Plan: Continue home medication Continue Eliquis 5 mg p.o. b.i.d. (5) Hyperlipidemia: Qualifiers: Hyperlipidemia type: unspecified Qualified Code(s): E78.5 - Hyperlipidemia, unspecified Code(s): E78.5 - Hyperlipidemia, unspecified Status: Acute Assessment and Plan: Continue atorvastatin Plan Patient is 79 y/o stats while in his bathroom close to a sink, he lost his balance and fell on his right shoulder, and is found to have an impacted subcapital fracture of the right humerus, patient stats pain is worse when he moves his shoulder, patient was seen by the orthopedic, patient does not want any surgical intervention, understands resulting osteoarthritis with injured arm, patient is wearing sling, will have PT/OT evaluate the patient, patient will benefit going to rehab. will monitor and plan. patient stats pain in his right shoulder is worsening, will apply 2 Lidocaine patches and reconsult ortho for further recommendation. patient will participate in PT., will monitor. patient stats Lidocaine patches are helping with pain, patient was seen by the orthopedic surgeon does not recommend any surgical intervention, today patient spoke with physician primary care sports medicine and has agree to go to rehab before going home, will have PT evaluate the patient and further recommendation to follow. patient lives alone and may not be able to return back to his place, may need NH before discharging home. Code status: Full code DVT prophylaxis: Eliquis 5 mg p.o. b.i.d. DS: Summary Hospital Course Hospital Course: Patient is 79 y/o stats while in his bathroom close to a sink, he lost his balance and fell on his right shoulder, and is found to have an impacted subcapital fracture of the right humerus, patient stats pain is worse when he moves his shoulder, patient was seen by the orthopedic, patient does not want any surgical intervention, understands resulting osteoarthritis with injured arm, patient is wearing sling, will have PT/OT evaluate the patient, patient will benefit going to rehab. will monitor and plan. patient stats pain in his right shoulder is worsening, will apply 2 Lidocaine patches and reconsult ortho for further recommendation. patient will participate in PT., will monitor. patient stats Lidocaine patches are helping with pain, patient was seen by the orthopedic surgeon does not recommend any surgical intervention, today patient spoke with physician primary care sports medicine and has agree to go to rehab before going home, will have PT evaluate the patient and further recommendation to follow. patient lives alone and may not be able to return back to his place, may need NH before discharging home. today patient has a bed availble at [facility] for rehab. Time Spent with Patient Time attestation: Total time spent providing and/or coordinating discharge services: Exam Narrative: Patient is comfortable, NAD HEENT: eyes are clear and none icteric LUNGS:CTA HEART: RR S1S2 ABD: BS+, Soft and nontender Lower extremities: no edema MS: right are in sling. SKIN: nonjaundiced Neuro: grossly intact. DS: Data Data Completed and Pending Labs on day of discharge: Labs from last 24 hours 05/06/25 05/06/25 05/05/25 08:03 04:32 20:19 WBC 6.1 RBC 3.68 L Hgb 11.2 L Hct 33.8 L MCV 91.8 MCH 30.4 MCHC 33.1 RDW 12.5 Plt Count 241 MPV 9.9 Sodium 133 L Potassium 4.4 Chloride 101 Carbon Dioxide 28 Anion Gap 4 BUN 22 H Creatinine 0.99 Estim Creat Clear Calc 46 Estimated GFR > 60 Glucose 95 POC Capillary Glucose 91 152 H Calcium 8.3 L Magnesium 2.1 05/05/25 05/05/25 16:43 11:30 WBC RBC Hgb Hct MCV MCH MCHC RDW Plt Count MPV Sodium Potassium Chloride Carbon Dioxide Anion Gap BUN Creatinine Estim Creat Clear Calc Estimated GFR Glucose POC Capillary Glucose 114 H 118 H Calcium Magnesium Discharge Plan Discharge Attending physician on discharge: Miguel Oviedo Consulting providers: Rogerio Schilling Discharging Clinician: Fercho Nava Patient Disposition: Home Activity: as tolerated Diet: heart healthy Discharge Instructions: patient to follow up with his surgeon and primary care provider as scheduled. Patient Instructions: Antibiotic Form, Apixaban (By mouth) Patient Language: Tamaz[place] Stand Alone Forms: General Discharge Information Follow-up/Referrals: Alexandre Smith MD [Primary Care Provider, Internal Medicine] Rogerio Schilling MD [Physician, Orthopedics] Discharge Medications: New lidocaine [Lidoderm] 5 % Adhesive Patch,Medicated 2 patch transdermal DAILY Qty: 15 0RF Continued aspirin [Adult Low Dose Aspirin] 81 mg tablet,delayed release (DR/EC) 81 mg PO DAILY cholecalciferol (vitamin D3) 25 mcg (1,000 unit) capsule 25 mcg PO DAILY mecobalamin (vitamin B12) 1,000 mcg tablet,disintegrating 1,000 mcg sublingual DAILY Qty: 90 1RF Rx Instructions: place tablet under tongue and allow to dissolve for at least30 secs before swallowing fish oil 1,200 mg BYMOUTH DAILY Probiotic 15 billion cell capsule, sprinkle 1 cap PO DAILY Rx Instructions: do not crush/chew/cut; swallow whole OR may open and sprinkle in cold drink/food folic acid 1 mg tablet 1 mg PO DAILY rosuvastatin 20 mg tablet 20 mg PO DAILY Qty: 90 1RF Eliquis 5 mg tablet 5 mg PO BID docusate sodium 100 mg Capsule 100 mg PO Q12H PRN (Reason: Constipation) Qty: 30 0RF acetaminophen 500 mg capsule 1,000 mg PO Q6H PRN (Reason: pain) Qty: 30 0RF lidocaine 4 % adhesive patch,medicated 1 patch topical DAILY PRN (Reason: pain) Qty: 10 0RF Metamucil 3.4 gram/5.4 gram powder 1 tbsp PO DAILY Qty: 660 0RF Rx Instructions: mix into at least 8 oz of water or juice before administering polyethylene glycol 3350 [Miralax] 17 gram/dose powder 17 g PO DAILY Qty: 119 0RF magnesium citrate Solution 150 ml PO DAILY PRN (Reason: constipation) Qty: 296 0RF Jardiance 25 mg tablet 25 mg PO DAILY Qty: 90 2RF ferrous sulfate 325 mg (65 mg iron) tablet 325 mg PO BID mirabegron [Myrbetriq] 50 mg tablet extended release 24 hr 50 mg PO DAILY Qty: 90 1RF tizanidine 2 mg tablet 2 mg PO TID PRN (Reason: muscle spasticity) Qty: 30 0RF potassium chloride 10 mEq capsule, extended release 10 meq PO DAILY Qty: 90 1RF pramipexole 1 mg tablet See Rx Instructions .ROUTE .COMPLEX Qty: 180 0RF Dose Instruction: TAKE 2 TABLETS BY MOUTH EVERY DAY AT BEDTIME Rx Instructions: TAKE 2 TABLETS BY MOUTH EVERY DAY AT BEDTIME risedronate 35 mg tablet See Rx Instructions .ROUTE .COMPLEX Qty: 12 0RF Dose Instruction: TAKE 1 TABLET BY MOUTH EVERY WEEK. ADMINISTER 30 MINUTES BEFORE FIRST FOOD OR DRINK OTHER THAN WATER Rx Instructions: TAKE 1 TABLET BY MOUTH EVERY WEEK. ADMINISTER 30 MINUTES BEFORE FIRST FOOD OR DRINK OTHER THAN WATER Discontinued tramadol 50 mg tablet 50 mg PO Q4-6H PRN (Reason: pain) Qty: 35 0RF Date of admission: 05/01/25 07:59 Primary Care Provider: Alexandre Smith Admitting Provider: Miguel Oviedo Attending physician on admission: Miguel Oviedo Condition: Stable
[2025-05-06] MEDS: INFLUENZA VACCINE HIGH DOSE (>64) 180 MCG/0.5 ML SYRINGE IM (13:34)
[2025-05-06 14:00] VITALS: BP 126/64; PULSE 64; RESP 18; TEMP 36.7; O2SAT 97
[2025-05-06] MEDS: HYDROcodone/acetaminophen (*CRX) 5-325 MG TABLET 1 TAB PO (14:28)
== END 2025-05-06 16:29 | disposition swing bed (61) | DRG 563 ==
LOC: ANHED 05:24 → ANH2MED 07:59
PROVIDERS: Admitting Provider General Practice; Emergency Provider Student in an Organized Health Care Education/Training Program; PCP Internal Medicine; Visit Provider Family Medicine
DX: S42.291A Other displaced fracture of upper end of right humerus, initial encounter for closed fracture (principal); M41.80 Other forms of scoliosis, site unspecified; Z74.09 Other reduced mobility; H91.90 Unspecified hearing loss, unspecified ear; I10 Essential (primary) hypertension; E78.5 Hyperlipidemia, unspecified; I25.10 Atherosclerotic heart disease of native coronary artery without angina pectoris; E11.9 Type 2 diabetes mellitus without complications; G47.33 Obstructive sleep apnea (adult) (pediatric); M81.0 Age-related osteoporosis without current pathological fracture; N32.81 Overactive bladder; F03.90 Unspecified dementia, unspecified severity, without behavioral disturbance, psychotic disturbance, mood disturbance, and anxiety; F17.290 Nicotine dependence, other tobacco product, uncomplicated; W18.39XA Other fall on same level, initial encounter; Z91.81 History of falling; I25.2 Old myocardial infarction; Z95.1 Presence of aortocoronary bypass graft; Z79.82 Long term (current) use of aspirin; Z79.01 Long term (current) use of anticoagulants; Z23 Encounter for immunization
CPT/HCPCS: 36415; 73030; 73070; 73521; 80048; 80053; 82948; 83036; 83735; 85027; 90471; 90662; 96374; 96375; 97162; 97166; 97530; 97535; 99285; A9270; G0008; J2270; J2405

== ENCOUNTER 2025-05-06 16:43 | Inpatient (IN) | payer MEDICARE, SELFPAY ==
--- OUTSIDE RECORDS SUMMARY | 2015-03-10 10:09 | XMS_ITS | Continuity of Care Document ---
Author Organization [facility] Address [address] [place] [address] Phone Care Team Providers Care Fashion Photographer Name Role Phone Faustino Carvajal MD Unavailable Unavailable Allergies, Adverse Reactions, Alerts Substance Reaction Status Criticality No Known Allergies Active No Inform ation Medications Medication Instructions Dosage Effective Dates (start - stop) Status Comments LOSARTAN POTASSIUM (unknown strength) Not Available - Active GLIMEPIRIDE (unknown strength) Not Available - Active METFORMIN HCL (unknown strength) Not Available - Active LIPITOR (unknown strength) Not Available - Active TRICOR (unknown strength) Not Available - Active Procedures Procedure Date OFFICE/OUTPATIENT VISIT [facility] Advance Directives Directive Yes / No Effective Date File Name No Information Encounters Encounter Description Practice Location Reason(s) For Visit Diagnoses Date Provider Providers Copied on Encounter [facility], [address] [place] [address], [address], tel:[phone] [facility] No Information Sep-0 3 5 Alena Harmon. [address] [place], [place], [id number] . tel: [phone] OFFICE/OUTPAT IENT VISIT [facility], [address] [place] [address] [address], [place], [address], tel:[phone] [facility] Primary localized osteoarthros is, lower leg Sep-0 3-201 5 Alena Rodarte. [address] [facility] [address], [place], [place], [id number] . tel: [phone] Family History Family Member Type Diagnosis Age At Onset Daughter Problem (finding) Alive and well Payers Payer name Insurance type Covered republican ID Authoriza tion(s) No Information Social History [...]
--- NOTE | 2025-05-06 16:45 | ADMGEN ---
This patient, Santhosh Moore, was admitted to 2nd Floor Room 204-1. Patient/family oriented to hospital policies and general routines including ID bracelet, bed and alarms, visiting hours, pain management, procedures, bathroom and other care routines, personal items, smoking policy, room service/diet, and visiting hours. Information on how to activate the Rapid Response Team has been discussed. Patient/Family are encouraged to report perceived risks to care and to ask questions if they do not understand what they are told or what they should do.
--- OUTSIDE RECORDS SUMMARY | 2025-05-06 16:48 | XMS_ITS | Encounter Summary ---
Author Organization [facility] Healthcare Address [address] [place] [address] Care Team Providers Care Stock Repairer Name Role Phone Rod Ann MD Unavailable [phone] Fabián Stanley MD Primary Care Provider Natalio Esparza MD Unavailable [phone] Yvan George MD Primary Care Provider [phone] Fabián Stanley MD Primary Care Provider Alexandre Smith MD Primary Care Provider [phone] Jim Benitez Unavailable Unavailable Encounter Details Date Type Department Care Team (Late st Contact Info) Description 04/21/2021 Documentation [facility] OP Physical Therapy [address] [address] Cayden Jacobo, PT Social History Tobacco Use [...] on file 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 Gender Identity Male 04/18/2019 11:33 AM CDT Sexual Orientation Straight 04/18/2019 11 :33 AM CDT documented as of this encounter Plan of Treatment Not on file documented as of this encounter Visit Diagnoses Not on filedocumented in this encounter Additional Health Concerns Infection Onset Date Last Indicated Resolved Time COVID: Suspected 07/03/2022 07/03/2022 07/03/2022 2:45 PM 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 documented as of this encounter Care Teams Stock Repairer Relationship Specialty Start Date End Date Fabián Stanley MD [address] [place] [address] [address] [place] [address] PCP - General 10/08/17 09/30/22 Yvan George MD [address] [place] [address] PCP - General Family Medicine 10/01/22 12/26/22 Fabián Stanley MD [address] [place] [address] [address] [facility] [place] [address] PCP - General Internal Medicine 12/27/22 09/07/24 Alexandre Smith MD [address] [place] [address] PCP - General Internal Medicine 09/08/24 Rod Ann MD 12/25/16 06/26/22 Natalio Esparza MD [address] [place] [address] [address] [place] [address] Referring Physician Surgery 12/23/19 Jim Benitez Primary Pumping Station Supervisor 03/25/25 documented as of this encounter
--- OUTSIDE RECORDS SUMMARY | 2025-05-06 16:48 | XMS_ITS | Encounter Summary ---
Author Organization [facility] Healthcare Address [address] [place] [address] Care Team Providers Care Buckle Attaching Machine Operator Name Role Phone Rod Ann MD Unavailable [phone] Fabián Stanley MD Primary Care Provider Natalio Esparza MD Unavailable [phone] Yvan George MD Primary Care Provider [phone] Fabián Stanley MD Primary Care Provider Alexandre Smith MD Primary Care Provider [phone] Jim Benitez Unavailable Unavailable Encounter Details Date Type Department Care Team (Late st Contact Info) Description 09/08/2020 Documentation [facility] [address] [place] [address] Belle Treadwell, RN Social History Tobacco Use [...] on file 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 Gender Identity Male 04/18/2019 11:33 AM CDT Sexual Orientation Straight 04/18/2019 11 :33 AM CDT documented as of this encounter Plan of Treatment Not on file documented as of this encounter Visit Diagnoses Not on filedocumented in this encounter Additional Health Concerns Infection Onset Date Last Indicated Resolved Time COVID: Suspected 07/03/2022 07/03/2022 07/03/2022 2:45 PM EQUAL OPPORTUNITY OFFICER documented as of this encounter Care Teams Buckle Attaching Machine Operator Relationship Specialty Start Date End Date Fabián Stanley MD [address] [place] [address] [address] [place] [address] PCP - General 10/08/17 09/30/22 Yvan George MD [address] [place] [address] PCP - General Family Medicine 10/01/22 12/26/22 Fabián Stanley MD [address] [place] [address] [address] [place] [address] PCP - General Internal Medicine 12/27/22 09/07/24 Alexandre Smith MD [address] [place] [address] PCP - General Internal Medicine 09/08/24 Rod Ann MD 12/25/16 06/26/22 Natalio Esparza MD [address] [place] [address] [address] [place] [address] Referring Physician Surgery 12/23/19 Jim Benitez Primary Display Trimmer 03/25/25 documented as of this encounter
--- OUTSIDE RECORDS SUMMARY | 2025-05-06 16:48 | XMS_ITS | Encounter Summary ---
Author Organization [facility] Healthcare Address [address] [place] [address] Care Team Providers Care Dragline Operator Helper Name Role Phone Rod Ann MD Unavailable Fabián Stanley MD Primary Care Provider Natalio Esparza MD Unavailable [phone] Yvan George MD Primary Care Provider [phone] Fabián Stanley MD Primary Care Provider Alexandre Smith MD Primary Care Provider [phone] Jim Benitez Unavailable Unavailable Encounter Details Date Type Department Care Team (Late st Contact Info) Description 08/04/2021 Telephone [facility] [address] [place] [address] [address] [place] [address] Sanket Griffiths MD [address] [place] [address] [address] [place] [address] Social History Tobacco Use Types [...] on file 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 Gender Identity Male 04/18/2019 11:33 AM CDT [...] COVID: Suspected 07/03/2022 07/03/2022 07/03/2022 2:45 PM ENTRY PROCESSOR documented as of this encounter Care Teams Dragline Operator Helper Relationship Specialty Start Date End Date Fabián Stanley MD [address] [place] [address] [address] [place] [address] PCP - General 10/08/17 09/30/22 [place] [address] PCP - General Family Medicine 10/01/22 12/26/22 Fabián Stanley MD [address] [place] [address] [address] [place] [address] PCP - General Internal Medicine 12/27/22 09/07/24 Alexandre Smith MD [address] [place] [address] PCP - General Internal Medicine 09/08/24 Rod Ann MD 12/25/16 06/26/22 Natalio Esparza MD [address] [place] [address] [address] [place] [address] Referring Physician Surgery 12/23/19 Jim Benitez Primary Syrup Shed Supervisor 03/25/25 documented as of this encounter
--- OUTSIDE RECORDS SUMMARY | 2025-05-06 16:48 | XMS_ITS | Clinical Summary ---
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 Will order L-spine MRI Assessment & Plan (07/03/2022 5:40 PM RECORD TESTER): -PT/OT -pain control -Consider MRI while here -f/u neurosurgery Diverticular disease of colon 04/19/2022 Presence of coronary angioplasty implant and gra ft 04/19/2022 Sleep related eating disorder 09/21/2020 Inadequate sleep hygiene 09/21/2020 Chest pain 08/20/2020 Assessment & Plan (08/21/2020 11:17 AM RECORD TESTER): History of CAD with multiple PCI and medical non-compliance. -NSTEMI -Initial ECG not diagnostic for an acute ischemic event -troponin continues to uptrend: 21850->16431->20257->19711 -c/o some chest discomfort and shortness of breath this AM; BP dropped to 70 when sitting at side of bed -serial EKGs without acute changes -plan for [facility] today -continue heparin drip -continue nitroglycerin drip -continue irbesartan -continue aspirin/brillinta Unstable angina pectoris 08/20/2020 Overview (08/21/2020): Added automatically from request for surgery [id number] Diastolic heart failure 12/08/2019 Assessment & Plan (07/05/2022 11:03 AM RECORD TESTER): -chronic diastolic heart failure -euvolemic -holding ARB, diuretics for SABAS Assessment & Plan (07/04/2022 11:31 AM RECORD TESTER): -chronic diastolic heart failure -euvolemic -holding ARB, diuretics for SABAS Insufficient treatment with nasal CPAP 9 Circadian rhythm sleep disorder, 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 Chronic systolic congestive heart failure 2018 Ischemic cardiomyopathy 03/23/2019 Cardiogenic shock 09/02/2018 Assessment & Plan (09/03/2018 4:56 PM RECORD TESTER): 2/2 junctional bradycardia P/w BP 82/49, HR 35-41, lactate 2.7, Cr 1.9 from baseline 0.8 -improved to 100s/50s with IVF in ED -lactate 2.7->2.5->2.1 -IVF Symptomatic bradycardia 09/02/2018 Assessment & Plan (09/03/2018 4:51 PM RECORD TESTER): P/w dizziness, unsteadiness EKG with junctional bradycardia HR 40, CT head with no ICH Unsure if he took both metoprolol and carvedilol -hold home antihypertensives and beta blockers -tele -EP c/s if kavya does not self resolve -09/03 HR improved to 80s Paroxysmal A-fib 09/02/2018 Assessment & Plan (08/21/2020 11:02 AM RECORD TESTER): -currently in sinus rhythm -holing Eliquis for [facility] -continue heparin gtt Assessment & Plan (09/02/2018 4:22 PM RECORD TESTER): Per records -not seen on prior EKG -hold home Eliquis 5 b.i.d. -tele SABAS (acute kidney injury) 09/02/2018 Assessment & Plan (09/02/2018 4:25 PM RECORD TESTER): b/l 0.8, presents with Cr 1.9, likely [...] needed Assessment & Plan (07/05/2022 11:03 AM RECORD TESTER): -type 2 diabetes, on lantus 45 BID, Jardiance at home -Received only 35 units last night with hypoglycemia overnight despite improving SABAS -Hold insulin for now; will likely need much lower lantus dose Assessment & Plan (07/04/2022 11:32 AM RECORD TESTER): -type 2 diabetes, on lantus 45 BID, Jardiance at home -Dose reduced insulin here to 45 units daily + SSI Assessment & Plan (07/03/2022 5:43 PM RECORD TESTER): -type 2 diabetes, on lantus 45 BID, Jardiance at home -Dose reduced insulin here given SABAS Assessment & Plan (08/21/2020 11:04 AM RECORD TESTER): Hgb A1C 8.4; home regimen lantus 45u BID -continue reduced dose lantus 20u BID -cont lispro SSI -consistent carb diet Assessment & Plan (09/05/2018 6:40 PM RECORD TESTER): a1c-12.5 -glucose at 563 at presentation improved [...] daily Assessment & Plan (08/21/2020 11:07 AM RECORD TESTER): Recently seen in CHF clinic and multiple medications (norvasc, lasix, coreg) had been recently stopped for orthostasis. At that clinic visit, his irbesartan was reduced from 300mg to 150mg. -BP 191/107 on presentation to ED -currently controlled with nitro gtt -continue irbesartan -plan to resume previous anti-HTN meds as BP allows Assessment & Plan (09/02/2018 4:26 PM RECORD TESTER): -hold home antihypertensives for symptomatic kavya CAD (coronary artery disease) 12/30/2014 Overview (10/11/2016): Coronary heart disease Assessment & Plan (07/05/2022 11:03 AM RECORD TESTER): -continue ASA, statin -stable Assessment & Plan (07/04/2022 11:32 AM RECORD TESTER): -continue ASA, statin -stable Assessment & Plan (07/03/2022 5:41 PM RECORD TESTER): -continue ASA, statin -stable Assessment & Plan (09/02/2018 4:21 PM RECORD TESTER): C 05/19/2013 and 05/27/2013, showed 99% subtotal [...] obstructive Assessment & Plan (09/02/2018 4:23 PM RECORD TESTER): Sleep study 05/2015 recommended CPAP nightly with [...] daily Assessment & Plan (09/03/2018 12:19 AM RECORD TESTER): -hold home rosuvastatin 10 Acute congestive heart failure Shortness of breath Status post insertion of drug eluting coronary a rtery stent SABAS (acute kidney injury) Assessment & Plan (10/16/2022 9:03 AM CDT): Stable, continue to monitor, check CMP to evaluate current renal function Continue to monitor PTH and vitamin-D level Assessment & Plan (07/05/2022 11:01 AM RECORD TESTER): -suspect related to high doses of ibuprofen over the last week -Cr trending down Assessment & Plan (07/04/2022 11:31 AM RECORD TESTER): -suspect related to high doses of ibuprofen over the last week -check UA -Gentle IVF -Renal US if not improving Assessment & Plan (07/03/2022 5:42 PM RECORD TESTER): -suspect related to high doses of ibuprofen over the last week -check UA -Gentle IVF -Renal US if not improving Resolved Problems Problem Noted Date Diagnosed Date Resolved Date 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/06/2021 TIA (transient ischemic attack) 09/03/2018 03/23/2019 Assessment & Plan (09/03/2018 4:53 PM RECORD TESTER): Hx of several TIA in the past, [...] diabetes mellitus Diabete s type 2; Comments: [facility] 09/20/2014 - Hypertension Hypertension Restless legs syndrome Restless legs syndrome Adiposity Obesity CAD (coronary artery disease) Hyperlipidemia hyperlipidemia; Comments: [facility] 09/20/2014 - Hypothyroidism hypothyroidism; Comments: [facility] 09/20/2014 - Memory loss memory difficult ies; Comments: [facility] 09/20/2014 - Ear problems Scoliosis Family History [...] on file Legal Sex Male 8:15 PM RECORD TESTER Gender Identity Male 04/18/2019 11:33 AM CDT [...] (169 lb 14.4 oz) 09/08/2024 2:12 PM RECORD TESTER Height 154.9 cm (5' 1) 09/08/2024 2:12 PM RECORD TESTER Body Mass Index 32.1 09/08/2024 2:12 PM RECORD TESTER Plan of Treatment Health Maintenance Due Date [...] as needed Medical Devices Implanted Type Area Finished Metal Repairer Device Identifier Shelf Expiration Date Model / Serial / Lot ScentAir/St [employer]ya [employer] [id number] Angio-Seal Evolution 6fr .035in Guidewire Bypass Tube Suture - [id number] Implanted:Qty: 1 on 08/21/2020 by Wale Maria MD at [facility] Collagen [employer] [place] 05/07/2021 [id number] / / [id number] [employer] [id number] Resolute [place] 2mm 26mm 140cm Rapid Exchange Delivery System - [id number] Implanted:Qty: 1 on 08/21/2020 by Wale Maria MD at [facility] Stent [employer] 12/22/2021 [id number] / / [id number] Cardiac Stent X 3 Heart Procedures Procedure Name Priority Date/Time Associated Diagnosis Comments EGFR Routine 09/08/2024 4:35 PM RECORD TESTER Osteoporosis, unspecified osteoporosis type, unspecified pathological fracture presence HEMOGLOBIN A1C Routine 07/04/2022 4:51 AM RECORD TESTER LIPID PANEL Routine 06/05/2022 12:02 PM RECORD TESTER Chronic systolic congestive heart failure (HCC) Moderate mixed hyperlipidemia not requiring statin therapy from Last 3 Months or Most Recently Relevant to Health Maintenance Results * (ABNORMAL) eGFR (09/08/2024 4:35 PM RECORD TESTER) eGFR 59(L) >=60 mL/min/1. 73 m2 Comment: [...] last reviewed 2021. Blood 09/08/2024 4:35 PM RECORD TESTER 09/08/2024 4:42 PM RECORD TESTER us Bola Craft MD LAB BLOOD ORDERABLES Final Resul t Performing Organization Address City/[facility]/ZIP Co de Phone Number [facility] [address] [facility]. Department [place] [address] * Hemoglobin A1c (07/04/2022 4:51 AM RECORD TESTER) Hgb A1C 5.5 4.0 - 5.6 % [facility] Estimated Average Glucose 111 mg/dL [facility] Comment: The ADA recommends reporting an estimated Average Glucose (eAG) with all Hemoglobin A1c results using the equation derived from a study of 507 normal and diabetic adults. Minority populations were underrepresented and children were not included. (Diabetes Care 2020; 43(S1): S66-S76). The eAG is not equivalent to a fasting glucose. Blood 07/04/2022 4:51 AM RECORD TESTER 07/04/2022 5:04 AM RECORD TESTER us Eva Landeros MD LAB BLOOD ORDERABLES Leyda l Result Performing Organization Address [facility] Co de Phone Number [facility] Department [place] [address] * Lipid panel (06/05/2022 12:02 PM RECORD TESTER) Cholesterol 96 30 - 199 mg/dL [facility] Comment: Interpretive Data Ages < [...] revised on 2018. Triglycerides 98 <=149 mg/dL [facility] Comment: Interpretive Data Ages < [...] on 2018. HDL 49 >=40 mg/dL [facility] Comment: Interpretive Data Ages < or [...] 2018. LDL, calculated 27 <=129 mg/dL [facility] Comment: Interpretive Data Ages < or [...] [facility] Blood 06/05/2022 12:0 2 PM RECORD TESTER 06/05/2022 12:37 PM RECORD TESTER us Dylan Beal MD LAB BLOOD ORDERABLES Final R esult [facility] Department [place] [address] from Last 3 Months or Most Recently Relevant to Health Maintenance Insurance MEDICARE [facility] MEDICARE Member Subscriber Plan / Payer ( fective 2009-Present) Name:JACKIE NEVILLE Member ID:[id number] Relation to Subscriber:Self Name:Jackie Neville Subscriber ID:[id number] Payer ID:[id number] Group ID:Not on file Type:MEDICARE TRADITIONAL Address: [place] [phone] [facility] MEDICARE SUPPLEMENT MEDICARE Member Subscriber Plan / Payer ( fective 2009-Present) Name:Jackie Neville Member ID:[id number] Relation to Subscriber:Self Name:Jackie Neville Subscriber ID:[id number] Payer ID:[id number] Group ID:Not on file Type:MEDICARE TRADITIONAL Address: [place] [id number] MEDICARE BLUE CROSS MEDICARE SUPPLEMENT MEDICARE [facility] Advance Directives For more information, please contact: [phone] * Full Code (Latest Code Status on File) Date Activated Date Inactivated Comments 07/03/2022 6:22 PM 07/05/2022 8:57 PM * Full Code Date Activated Date Inactivated Comments 08/20/2020 11:29 AM 08/22/2020 6:41 PM * Full Code Date Activated Date Inactivated Comments 02/15/2019 1:48 AM 02/16/2019 7:25 PM * Full Code Date Activated Date Inactivated Comments 09/02/2018 8:14 PM 09/06/2018 7:30 PM Care Teams Automatic Buffer Relationship Specialty Start Date End Date Alexandre Smith MD [address] [place] [address] PCP - General Internal Medicine 09/08/24 Natalio Esparza MD [address] [place], [place] [address] Referring Physician Surgery 12/23/19 Jim Benitez Primary Home Appraiser 03/25/25
--- OUTSIDE RECORDS SUMMARY | 2025-05-06 16:48 | XMS_ITS | Patient Health Record ---
Author Organization [facility] Address [address] [facility] [address]. [address] [place] [address] Care Team Providers Care Weekend Caregiver Name Role Phone Fabián Stanley MD Primary Care Provider Unavail able Teodoro Doan Unavailable [phone] Reason For Referral No Information Medications Medication [...] Risk Notes Problem Diverticular disease of colon (127891275) Diverticulosis of large intestine without perforation or abscess without bleeding (K57.30) Active confirmed Problem History of polyp of colon (situation) (553368022) Personal history of colonic polyps (Z86.010) Active confirmed Problem Colon cancer screening (735837789) Colon cancer screening (Z12.11) Active confirmed It has been 10 years since his last colonosco py, which by his report was normal. His stools are usually soft or loose. He denies having any blood in the stool. Problem History of placement of stent for coronary artery disease (situation) (907906138) History of heart artery stent (Z95.5) Active confirmed Problem H/O: high risk medication (109713133) High risk medication use (Z79.899) Active confirmed [...] Coverage End Date Medicare E2 [address] [address] [place] [address] [id number] Oscar, Santhosh Self - patient is the insured Blue Access PPO E2 [address] [place] [address] [id number] Santhosh Moore Self - patient is the insured Medical (General) History Medical History History ICD Code Restless Leg Syndrome Depression Hypertension Hypercholesterolemia Diabetes Sleep Apnea Hearing Loss Heart Disease Surgical History Surgery Date(Month/Year) Cardiac stents Colonoscopy 2009
--- OUTSIDE RECORDS SUMMARY | 2025-05-06 16:48 | XMS_ITS | Encounter Summary ---
Author Organization [facility] Address [address] [place] [address] Phone Care Team Providers Care Skiver Blockers Name Role Phone Rod Ann MD Unavailable Fabián Stanley MD Primary Care Provider Natalio Esparza MD Unavailable [phone] Yvan George MD Primary Care Provider [phone] Fabián Stanley MD Primary Care Provider Alexandre Smith MD Primary Care Provider Jim Benitez Unavailable Unavailable Encounter Details Date Type Department Care Team (Late st Contact Info) Description 05/18/2021 Telephone [facility] Medicine Otolaryngology [address] [place] [address] Radha Culver Au.D. 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 Gender Identity Male 04/18/2019 11:33 AM CDT Sexual Orientation Straight 04/18/2019 11 :33 AM CDT documented as of this encounter Plan of Treatment Not on file documented as of this encounter Visit Diagnoses Not on filedocumented in this encounter Additional Health Concerns Infection Onset Date Last Indicated Resolved Time COVID: Suspected 07/03/2022 07/03/2022 07/03/2022 2:45 PM ANILINE PRESS WORKER documented as of this encounter Care Teams Skiver Blockers Relationship Specialty Start Date End Date Fabián Stanley MD [address] [place] [address] [address] [place] [address] PCP - General 10/08/17 09/30/22 Yvan George MD [address] [place] [address] PCP - General Family Medicine 10/01/22 12/26/22 Fabián Stanley MD [address] [place] [address] [address] [place] [address] PCP - General Internal Medicine 12/27/22 09/07/24 Alexandre Smith MD [address] [place] [address] PCP - General Internal Medicine 09/08/24 Rod Ann MD 12/25/16 06/26/22 Natalio Esparza MD [address] [place] [address] [address] [place] [address] Referring Physician Surgery 12/23/19 Jim Benitez Primary Commercial Energy Rater 03/25/25 documented as of this encounter
[2025-05-06 17:38] VITALS: BMI 26.1
[2025-05-06 20:00] VITALS: PULSE 58; RESP 16; O2SAT 95
[2025-05-06] MEDS: APIXABAN 2.5 MG TABLET 5 MG BY MOUTH (20:10)
[2025-05-06] MEDS: TIZANIDINE HCL 2 MG TABLET PO (20:10)
[2025-05-06] MEDS: PRAMIPEXOLE 1 MG TABLET 2 MG BY MOUTH (20:10)
[2025-05-06] MEDS: traMADol HCL (*CRX) 50 MG TABLET PO (20:10)
[2025-05-07] VITALS: BP 122/55; PULSE 58; RESP 16; TEMP 36.8; O2SAT 95
[2025-05-07 08:00] VITALS: BP 138/66; PULSE 65; RESP 18; TEMP 36.6; O2SAT 97
[2025-05-07] MEDS: traMADol HCL (*CRX) 50 MG TABLET PO (08:04)
[2025-05-07] MEDS: TIZANIDINE HCL 2 MG TABLET PO ×3 (08:04→21:21)
[2025-05-07] MEDS: LIDOCAINE 5% PATCH 2 PATCH TRANSDERM (09:46)
[2025-05-07] MEDS: PSYLLIUM POWDER PACKET 1 PACKET PO (09:46)
[2025-05-07] MEDS: CHOLECALCIFEROL (VITAMIN D3) 25 MCG (1,000 UNITS) TABLET PO (09:47)
[2025-05-07] MEDS: ACIDOPHILUS/BULGARICUS CHEWABLE TABLET 1 TABLET BY MOUTH (09:47)
[2025-05-07] MEDS: MIRABEGRON 25 MG ER TABLET 50 MG PO (09:47)
[2025-05-07] MEDS: OMEGA 3 POLYUNSAT FATTY ACIDS 1 GM CAP PO (09:47)
[2025-05-07] MEDS: APIXABAN 2.5 MG TABLET 5 MG BY MOUTH ×2 (09:48→21:22)
[2025-05-07] MEDS: HYDROcodone/acetaminophen (*CRX) 5-325 MG TABLET 1 TAB PO ×2 (09:48→21:21)
[2025-05-07] MEDS: ROSUVASTATIN 10 MG TABLET 20 MG PO (09:48)
[2025-05-07] MEDS: FERROUS SULFATE 325 MG TABLET BY MOUTH ×2 (09:48→19:25)
[2025-05-07] MEDS: ASPIRIN 81 MG ENTERIC TABLET PO (09:49)
[2025-05-07] MEDS: FOLIC ACID 1 MG TABLET PO (09:49)
[2025-05-07] MEDS: EMPAGLIFLOZIN 25 MG TABLET PO (09:50)
[2025-05-07] MEDS: POTASSIUM CHLORIDE 10 MEQ ER TABLET PO (09:50)
--- NOTE | 2025-05-07 11:34 | PM.IMHP ---
H&P: HPI History of Present Illness Date/Time: 05/07/25 11:34 Chief Complaint: right humerus fracture Narrative: patient is a 79-year-old male with past medical history of CAD s/p stents, severe scoliosis, osteoporosis, hyperlipidemia, DM, hypertension, history of ID and OAB. Patient was admitted at [facility] from 05/01/2025 to 05/06/2025 after a fall at home which resulted in an impacted subcapital fracture of the right humerus. Orthopedic surgery was consulted and recommended medical management with possible shoulder replacement as an outpatient. Patient was admitted for pain control and PT OT as patient lives at home alone. Patient was discharged to our facility for rehab. Patient reports that his pain is not controlled in the left arm with the lidocaine patches and tramadol. We will change tramadol to [place] as needed. Patient will be evaluated by PT and OT. Patient was admitted to [facility] for rehab. Review of Systems Review of Systems: All systems reviewed & are unremarkable except as noted in HPI and below PMFSH Past Medical History Medical History Dementia BMI 29.0-29.9,adult Non-healing wound of right lower extremity BMI 30.0-30.9,adult BMI 31.0-31.9,adult Pedal edema MARIMAR (obstructive sleep apnea) BMI 32.0-32.9,adult Follow up Compression fracture of thoracic spine, non-traumatic Compression fracture of lumbar spine, non-traumatic BMI 33.0-33.9,adult Kyphoscoliosis and scoliosis Impaired functional mobility, balance, gait, and endurance Osteoporosis On termite control representative drug therapy Encounter to establish care Overactive bladder BMI 34.0-34.9,adult Coronary artery disease Hyperlipidemia Myocardial infarction Diabetes mellitus Hypertension Surgical History Surgical History No pertinent past surgical history Social History Social History Social History: Exercises 3x/week Smoking status: Current every day smoker Tobacco type: pipe and cigars Second hand tobacco smoke exposure: Yes Additional smoking assessment comments: 3 cigars/day Alcohol intake: never Substance use: never Substance use type: does not use Do You Feel Safe in your Home?: Yes Lack of Transportation: No Lack of Food: Never True Current Housing: I Have Housing Concerned About Future Housing: No Difficulty Paying Gas/Electric Bills: No Difficulty Paying for Meds: No Currently Unemployed: No Education: Associate Degree Difficulty w/ Childcare or Family Care: No Living arrangements: alone Occupation/Education: retired Gender identity (if verbalized by the patient): Male Spiritual care concerns: No Meds Home Medications and Allergies Home Medications ?Medication ?Instructions ?Recorded ?Confirmed ?Type apixaban 5 mg tablet (Eliquis) 5 mg PO BID 07/16/22 05/06/25 History docusate sodium 100 mg capsule 100 mg PO Q12H PRN Constipation 07/25/22 05/06/25 Rx #30 caps aspirin 81 mg tablet,delayed 81 mg PO DAILY 07/12/23 05/06/25 History release (Adult Low Dose Aspirin) cholecalciferol (vitamin D3) 25 25 mcg PO DAILY 07/12/23 05/06/25 History mcg (1,000 unit) capsule fish oil 1,200 mg BYMOUTH DAILY 07/12/23 05/06/25 History lactobacillus combo no.11 15 1 cap PO DAILY 07/12/23 05/06/25 History billion cell sprinkle capsule (Probiotic) mecobalamin (vitamin B12) 1,000 1,000 mcg sublingual DAILY #90 tabs 07/12/23 05/06/25 Rx mcg disintegrating tablet,sublingual empagliflozin 25 mg tablet 25 mg PO DAILY #90 tabs 12/23/23 05/06/25 Rx (Jardiance) ferrous sulfate 325 mg (65 mg 325 mg PO BID 02/04/24 05/06/25 History iron) tablet mirabegron 50 mg tablet,extended 50 mg PO DAILY #90 tabs 09/21/24 05/06/25 Rx release 24 hr (Myrbetriq) folic acid 1 mg tablet 1 mg PO DAILY 10/06/24 05/06/25 History tizanidine 2 mg tablet 2 mg PO TID PRN muscle spasticity 01/20/25 05/06/25 Rx #30 tabs acetaminophen 500 mg capsule 1,000 mg (2 x 500 mg) PO Q6H PRN 01/26/25 05/06/25 Rx pain #30 caps magnesium citrate 150 ml PO DAILY PRN constipation 01/26/25 05/06/25 Rx #296 mL polyethylene glycol 3350 17 17 g PO DAILY #119 grams 01/26/25 05/06/25 Rx gram/dose oral powder (Miralax) psyllium husk 3.4 gram/5.4 gram 1 tbsp PO DAILY #660 grams 01/26/25 05/06/25 Rx oral powder (Metamucil) potassium chloride 10 mEq 10 meq PO DAILY #90 caps 02/11/25 05/06/25 Rx capsule,extended release pramipexole 1 mg tablet See Rx Instructions .Route 02/26/25 05/06/25 Rx .COMPLEX #180 tabs risedronate 35 mg tablet See Rx Instructions .Route 03/22/25 05/07/25 Rx .COMPLEX #12 tabs rosuvastatin 20 mg tablet 20 mg PO DAILY #90 tabs 04/15/25 05/06/25 Rx lidocaine 5 % topical patch 2 patch transdermal DAILY #15 ea 05/06/25 05/06/25 Rx (Lidoderm) Allergies Allergy/AdvReac Type Severity Reaction Status Date / Time No Known Allergies Allergy Verified 05/06/25 18:30 Vital Signs Vital Signs - 24 hr 05/06/25 20:00 05/07/25 00:00 05/07/25 08:00 Temperature 98.2 F 97.8 F Pulse Rate 58 L 58 L 65 Respiratory Rate 16 16 18 Blood Pressure 122/55 L 138/66 Pulse Oximetry 95 95 97 Oxygen Delivery Room Air Room Air Room Air Exam Const: General: comfortable and no acute distress HENMT: Face/Nose/Sinus: Normal nares present Mouth: Yes moist mucous membranes Eyes: General: appearance normal, both eyes and all related structures Sclera: sclerae normal Neck: Neck: supple Resp: Effort & Inspection: normal respiratory effort Auscultation: clear to auscultation bilaterally Cardio: Rate: regular rate Rhythm: regular rhythm GI: GI Palp: Yes Soft to palpation Auscultation: normal bowel sounds Skin: General skin exam: normal color and no rashes or lesions noted Neuro: Speech: normal speech Sensory Exam: normal sensation Extrem: General: normal exam except as noted Other: RUE with edema due to fracture Psych: Mental Status: mental status grossly normal Affect: normal affect Assessment and Plan Assessment and plan (1) Closed fracture of right proximal humerus: Code(s): S42.201A - Unspecified fracture of upper end of right humerus, initial encounter for closed fracture Status: Acute Assessment and Plan: s/p x-ray right shoulder showed proximal humerus fracture orthopedic surgery recommends shoulder replacement as an outpatient sling to RUE pain control, change Tramadol to [place] as patient reports his pain is 10/10 despite being given tylenol and tramadol this morning admission for rehab, PT/OT (2) Fall: Qualifiers: Encounter type: initial encounter Qualified Code(s): W19.XXXA - Unspecified fall, initial encounter Code(s): W19.XXXA - Unspecified fall, initial encounter Status: Acute Assessment and Plan: status post mechanical fall fall precautions admission for rehab, PT/OT (3) Hypertension: Qualifiers: Hypertension type: unspecified Qualified Code(s): I10 - Essential (primary) hypertension Code(s): I10 - Essential (primary) hypertension Status: Acute Assessment and Plan: not on BP medications at home monitor BP and treat if indicated (4) Diabetes mellitus: Qualifiers: Diabetes mellitus complication status: without complication Diabetes mellitus termite control representative insulin use: without mcc use Diabetes mellitus type: type 2 Qualified Code(s): E11.9 - Type 2 diabetes mellitus without complications Code(s): E11.9 - Type 2 diabetes mellitus without complications Status: Acute Assessment and Plan: accu checks avoid hypoglycemia continue Jardiance (5) Hyperlipidemia: Qualifiers: Hyperlipidemia type: unspecified Qualified Code(s): E78.5 - Hyperlipidemia, unspecified Code(s): E78.5 - Hyperlipidemia, unspecified Status: Acute Assessment and Plan: continue rosuvastatin (6) Coronary artery disease: Qualifiers: Associated angina: unspecified whether angina present Coronary Disease-Associated Artery/Lesion type: unspecified vessel or lesion type [place] vs. transplanted heart: [place] heart Qualified Code(s): I25.10 - Atherosclerotic heart disease of [place] coronary artery without angina pectoris Code(s): I25.10 - Atherosclerotic heart disease of [place] coronary artery without angina pectoris Status: Acute Assessment and Plan: denies chest pain continue rosuvastatin continue aspirin continue Eliquis (7) Osteoporosis: Qualifiers: Encounter type: initial encounter Osteoporosis type: unspecified Presence of current pathological fracture: with current pathological fracture Qualified Code(s): M80.00XA - Age-related osteoporosis with current pathological fracture, unspecified site, initial encounter for fracture Code(s): M81.0 - Age-related osteoporosis without current pathological fracture Status: Acute Assessment and Plan: continue risedronate Quality VTE Prophylaxis VTE prophylaxis: pharmacologic ordered
[2025-05-07 16:00] VITALS: BP 122/58; PULSE 66; RESP 18; TEMP 36.1; O2SAT 97
[2025-05-07 20:00] VITALS: PULSE 56; RESP 18; O2SAT 98
[2025-05-07] MEDS: PRAMIPEXOLE 1 MG TABLET 2 MG BY MOUTH (21:22)
[2025-05-08] VITALS: BP 148/57; PULSE 56; RESP 18; TEMP 36.4; O2SAT 98
[2025-05-08] MEDS: HYDROcodone/acetaminophen (*CRX) 5-325 MG TABLET 1 TAB PO ×3 (03:21→16:08)
[2025-05-08] MEDS: TIZANIDINE HCL 2 MG TABLET PO ×2 (03:22→20:22)
[2025-05-08 08:00] VITALS: BP 136/68; PULSE 56; RESP 16; TEMP 36.6; O2SAT 99
[2025-05-08] MEDS: MIRABEGRON 25 MG ER TABLET 50 MG PO (10:20)
[2025-05-08] MEDS: PSYLLIUM POWDER PACKET 1 PACKET PO (10:20)
[2025-05-08] MEDS: POTASSIUM CHLORIDE 10 MEQ ER TABLET PO (10:21)
[2025-05-08] MEDS: CYANOCOBALAMIN 1,000 MCG TABLET 1000 MCG PO (10:21)
[2025-05-08] MEDS: ACIDOPHILUS/BULGARICUS CHEWABLE TABLET 1 TABLET BY MOUTH (10:21)
[2025-05-08] MEDS: ROSUVASTATIN 10 MG TABLET 20 MG PO (10:21)
[2025-05-08] MEDS: CHOLECALCIFEROL (VITAMIN D3) 25 MCG (1,000 UNITS) TABLET PO (10:21)
[2025-05-08] MEDS: ASPIRIN 81 MG ENTERIC TABLET PO (10:22)
[2025-05-08] MEDS: APIXABAN 2.5 MG TABLET 5 MG BY MOUTH ×2 (10:22→20:23)
[2025-05-08] MEDS: OMEGA 3 POLYUNSAT FATTY ACIDS 1 GM CAP PO (10:22)
[2025-05-08] MEDS: EMPAGLIFLOZIN 25 MG TABLET PO (10:22)
[2025-05-08] MEDS: FERROUS SULFATE 325 MG TABLET BY MOUTH ×2 (10:22→16:08)
[2025-05-08] MEDS: FOLIC ACID 1 MG TABLET PO (10:22)
[2025-05-08] MEDS: LIDOCAINE 5% PATCH 2 PATCH TRANSDERM (10:23)
[2025-05-08 16:00] VITALS: PULSE 62; RESP 18; TEMP 35.7; O2SAT 96
[2025-05-08] MEDS: PRAMIPEXOLE 1 MG TABLET 2 MG BY MOUTH (20:23)
[2025-05-09] VITALS: BP 155/61; PULSE 58; RESP 16; TEMP 36.7; O2SAT 96
[2025-05-09] MEDS: HYDROcodone/acetaminophen (*CRX) 5-325 MG TABLET 1 TAB PO ×3 (00:36→17:03)
[2025-05-09 08:00] VITALS: BP 150/64; PULSE 64; RESP 18; TEMP 36.6; O2SAT 96
[2025-05-09] MEDS: PSYLLIUM POWDER PACKET 1 PACKET PO (08:20)
[2025-05-09] MEDS: LIDOCAINE 5% PATCH 2 PATCH TRANSDERM (08:22)
[2025-05-09] MEDS: APIXABAN 2.5 MG TABLET 5 MG BY MOUTH ×2 (08:22→21:48)
[2025-05-09] MEDS: OMEGA 3 POLYUNSAT FATTY ACIDS 1 GM CAP PO (08:22)
[2025-05-09] MEDS: MIRABEGRON 25 MG ER TABLET 50 MG PO (08:23)
[2025-05-09] MEDS: ACIDOPHILUS/BULGARICUS CHEWABLE TABLET 1 TABLET BY MOUTH (08:23)
[2025-05-09] MEDS: CHOLECALCIFEROL (VITAMIN D3) 25 MCG (1,000 UNITS) TABLET PO (08:23)
[2025-05-09] MEDS: ROSUVASTATIN 10 MG TABLET 20 MG PO (08:23)
[2025-05-09] MEDS: EMPAGLIFLOZIN 25 MG TABLET PO (08:23)
[2025-05-09] MEDS: FERROUS SULFATE 325 MG TABLET BY MOUTH ×2 (08:23→17:04)
[2025-05-09] MEDS: CYANOCOBALAMIN 1,000 MCG TABLET 1000 MCG PO (08:23)
[2025-05-09] MEDS: ASPIRIN 81 MG ENTERIC TABLET PO (08:23)
[2025-05-09] MEDS: POTASSIUM CHLORIDE 10 MEQ ER TABLET PO (08:24)
[2025-05-09] MEDS: FOLIC ACID 1 MG TABLET PO (08:24)
[2025-05-09 16:00] VITALS: BP 119/61; PULSE 69; RESP 16; TEMP 36.3; O2SAT 100
[2025-05-09] MEDS: TIZANIDINE HCL 2 MG TABLET PO (21:48)
[2025-05-09] MEDS: PRAMIPEXOLE 1 MG TABLET 2 MG BY MOUTH (21:48)
[2025-05-10] VITALS: BP 135/67; PULSE 64; RESP 18; TEMP 36.7; O2SAT 98
[2025-05-10] MEDS: HYDROcodone/acetaminophen (*CRX) 5-325 MG TABLET 1 TAB PO ×4 (00:34→21:00)
[2025-05-10 08:00] VITALS: BP 138/51; PULSE 58; RESP 20; TEMP 36.6; O2SAT 98
[2025-05-10] MEDS: MIRABEGRON 25 MG ER TABLET 50 MG PO (08:55)
[2025-05-10] MEDS: ACIDOPHILUS/BULGARICUS CHEWABLE TABLET 1 TABLET BY MOUTH (08:55)
[2025-05-10] MEDS: EMPAGLIFLOZIN 25 MG TABLET PO (08:55)
[2025-05-10] MEDS: FOLIC ACID 1 MG TABLET PO (08:55)
[2025-05-10] MEDS: POTASSIUM CHLORIDE 10 MEQ ER TABLET PO (08:55)
[2025-05-10] MEDS: CHOLECALCIFEROL (VITAMIN D3) 25 MCG (1,000 UNITS) TABLET PO (08:55)
[2025-05-10] MEDS: LIDOCAINE 5% PATCH 2 PATCH TRANSDERM (08:56)
[2025-05-10] MEDS: PSYLLIUM POWDER PACKET 1 PACKET PO (08:56)
[2025-05-10] MEDS: ASPIRIN 81 MG ENTERIC TABLET PO (08:56)
[2025-05-10] MEDS: CYANOCOBALAMIN 1,000 MCG TABLET 1000 MCG PO (08:56)
[2025-05-10] MEDS: APIXABAN 2.5 MG TABLET 5 MG BY MOUTH ×2 (08:56→21:00)
[2025-05-10] MEDS: ROSUVASTATIN 10 MG TABLET 20 MG PO (08:56)
[2025-05-10] MEDS: FERROUS SULFATE 325 MG TABLET BY MOUTH ×2 (08:56→17:07)
[2025-05-10] MEDS: OMEGA 3 POLYUNSAT FATTY ACIDS 1 GM CAP PO (08:56)
--- NOTE | 2025-05-10 14:07 | PM.IMPN ---
Progress Note: A&P Assessment and Plan (1) Closed fracture of right proximal humerus: Code(s): S42.201A - Unspecified fracture of upper end of right humerus, initial encounter for closed fracture Status: Acute Assessment and Plan: s/p x-ray right shoulder showed proximal humerus fracture orthopedic surgery recommends shoulder replacement as an outpatient sling to RUE pain control, Continue [place] as needed admission for rehab, PT/OT patient did not participate with rehab over the weekend, discussed with patient his need to participate in rehab so he is not discharged (2) Fall: Qualifiers: Encounter type: initial encounter Qualified Code(s): W19.XXXA - Unspecified fall, initial encounter Code(s): W19.XXXA - Unspecified fall, initial encounter Status: Acute Assessment and Plan: status post mechanical fall fall precautions admission for rehab, PT/OT (3) Hypertension: Qualifiers: Hypertension type: unspecified Qualified Code(s): I10 - Essential (primary) hypertension Code(s): I10 - Essential (primary) hypertension Status: Acute Assessment and Plan: not on BP medications at home monitor BP and treat if indicated (4) Diabetes mellitus: Qualifiers: Diabetes mellitus complication status: without complication Diabetes mellitus ocean transportation intermediary insulin use: without ocean transportation intermediary use Diabetes mellitus type: type 2 Qualified Code(s): E11.9 - Type 2 diabetes mellitus without complications Code(s): E11.9 - Type 2 diabetes mellitus without complications Status: Acute Assessment and Plan: accu checks avoid hypoglycemia continue Jardiance blood sugars reviewed and appear stable (5) Hyperlipidemia: Qualifiers: Hyperlipidemia type: unspecified Qualified Code(s): E78.5 - Hyperlipidemia, unspecified Code(s): E78.5 - Hyperlipidemia, unspecified Status: Acute Assessment and Plan: continue rosuvastatin (6) Coronary artery disease: Qualifiers: Associated angina: unspecified whether angina present Coronary Disease-Associated Artery/Lesion type: unspecified vessel or lesion type [place] vs. transplanted heart: [place] heart Qualified Code(s): I25.10 - Atherosclerotic heart disease of [place] coronary artery without angina pectoris Code(s): I25.10 - Atherosclerotic heart disease of [place] coronary artery without angina pectoris Status: Acute Assessment and Plan: denies chest pain continue rosuvastatin continue aspirin continue Eliquis (7) Osteoporosis: Qualifiers: Encounter type: initial encounter Osteoporosis type: unspecified Presence of current pathological fracture: with current pathological fracture Qualified Code(s): M80.00XA - Age-related osteoporosis with current pathological fracture, unspecified site, initial encounter for fracture Code(s): M81.0 - Age-related osteoporosis without current pathological fracture Status: Acute Assessment and Plan: continue risedronate Subjective Date/time seen: 05/10/25 14:07 Interval history: patient seen for a follow-up visit. Patient is sitting up in the chair, in no signs of acute distress. Patient reports that his pain has been better controlled since changing to [place] as needed on admission. Patient reports that An ice pack also helps for his pain this is being encouraged by the nurse. patient was refusing physical therapy over the weekend, this was discussed with him and explained that if he continues to refuse he will be discharged. Patient denies any other acute complaints. Plan for discharge is for patient to discharge to a new assisted living facility. Review of Systems Review of Systems: All systems reviewed & are unremarkable except as noted in HPI and below Exam Const: General: comfortable and no acute distress HENMT: Face/Nose/Sinus: Normal nares present Mouth: Yes moist mucous membranes Eyes: General: appearance normal, both eyes and all related structures Sclera: sclerae normal Neck: Neck: supple Resp: Effort & Inspection: normal respiratory effort Auscultation: clear to auscultation bilaterally Cardio: Rate: regular rate Rhythm: regular rhythm GI: Auscultation: normal bowel sounds Skin: General skin exam: normal color and no rashes or lesions noted Neuro: Speech: normal speech Sensory Exam: normal sensation Extrem: General: normal exam except as noted Other: RUE with edema due to fracture Psych: Mental Status: mental status grossly normal Affect: normal affect Objective Data Vital Signs Vital Signs: Vital Signs - 24 hr 05/09/25 16:00 05/10/25 00:00 05/10/25 08:00 Temperature 97.3 F L 98.1 F 97.8 F Pulse Rate 69 64 58 L Respiratory Rate 16 18 20 Blood Pressure 119/61 135/67 138/51 L Pulse Oximetry 100 98 98 Oxygen Delivery Room Air Room Air Room Air Intake/Output Intake/Output: Intake & Output 05/07/25 05/08/25 05/09/25 05/10/25 23:59 23:59 22:59 23:59 Intake Total 1330 1680 2650 730 Output Total 400 1240 3250 625 Balance 930 440 -600 105 Meds/Results Medications: Active Medications Generic Name Dose Route Start Last Admin Trade Name Freq PRN Reason Stop Dose Admin Acetaminophen 1,000 mg 05/06/25 17:29 Acetaminophen 500 Mg Tablet PO Q6H PRN Pain Hydrocodone Bitart/Acetaminophen 1 tab 05/07/25 08:42 05/10/25 06:32 Hydrocodone/Acetaminophen (*Crx) 5-325 Mg Tablet PO 1 tab Q6H PRN Administration Pain Rated 4-6 Apixaban 5 mg 05/06/25 21:00 05/10/25 08:56 Apixaban 2.5 Mg Tablet BY MOUTH 5 mg Q12HR JOSE CARLOS Administration Aspirin 81 mg 05/07/25 09:00 05/10/25 08:56 Aspirin 81 Mg Enteric Tablet PO 81 mg DAILY JOSE CARLOS Administration Cyanocobalamin 1,000 mcg 05/08/25 09:00 05/10/25 08:56 Cyanocobalamin 1,000 Mcg Tablet PO 1,000 mcg QAM JOSE CARLOS Administration Docusate Sodium 100 mg 05/06/25 17:29 Docusate Sodium 100 Mg Capsule PO Q12H PRN Constipation Empagliflozin 25 mg 05/07/25 09:00 05/10/25 08:55 Empagliflozin 25 Mg Tablet PO 25 mg DAILY JOSE CARLOS Administration Ferrous Sulfate 325 mg 05/07/25 09:00 05/10/25 08:56 Ferrous Sulfate 325 Mg Tablet BY MOUTH 325 mg BID JOSE CARLOS Administration Fish Oil 1 gm 05/07/25 09:00 05/10/25 08:56 [place] 3 Polyunsat Fatty Acids 1 Gm Cap PO 1 gm QAM JOSE CARLOS Administration Folic Acid 1 mg 05/07/25 09:00 05/10/25 08:55 Folic Acid 1 Mg Tablet PO 1 mg DAILY JOSE CARLOS Administration Lactobacillus Acidophilus 1 tablet 05/07/25 09:00 05/10/25 08:55 Acidophilus/[place] Chewable Tablet BY MOUTH 1 tablet DAILY JOSE CARLOS Administration Lidocaine 2 patch 05/07/25 09:00 05/10/25 08:56 Lidocaine 5% Patch TRANSDERM 2 patch DAILY JOSE CARLOS Administration Magnesium Citrate 150 ml 05/06/25 17:29 Magnesium Citrate 300 Ml Btl PO DAILY PRN Constipation Mirabegron 50 mg 05/07/25 09:00 05/10/25 08:55 Mirabegron 25 Mg Er Tablet PO 50 mg DAILY JOSE CARLOS Administration Miscellaneous Information 1 each 05/06/25 00:01 05/10/25 00:55 Need Order Of Usage For Stool Softeners And Laxatives. Colace, Metamucil, Miralax, Mag Cit XX 06/05/25 00:00 Not Given [facility] Miscellaneous Information 1 each 05/06/25 00:01 05/10/25 00:55 Nonformulary Drug (Risedronate 35 Mg Tablet) Need Day Of Week Due And Can Patient Use From XX 06/05/25 00:00 Not Given [facility] Non-Formulary Medication 0 mg 05/06/25 17:30 Risedronate PO 06/05/25 17:29 .COMPLEX JOSE CARLOS Polyethylene Glycol 17 gm 05/06/25 17:16 Polyethylene Glycol 3350 17 Gm Powd.Pack PO QAM PRN Constipation Polyethylene Glycol 17 gm 05/07/25 09:00 05/10/25 08:56 Polyethylene Glycol 3350 17 Gm Powd.Pack PO 17 gm DAILY JOSE CARLOS Administration Potassium Chloride 10 meq 05/07/25 09:00 05/10/25 08:55 Potassium Chloride 10 Meq Er Tablet PO 10 meq DAILY JOSE CARLOS Administration Pramipexole Dihydrochloride 2 mg 05/06/25 21:00 05/09/25 21:48 Pramipexole 1 Mg Tablet BY MOUTH 2 mg HS JOSE CARLOS Administration Psyllium Hydrophilic Mucilloid 1 packet 05/07/25 09:00 05/10/25 08:56 Psyllium Powder Packet PO 1 packet DAILY JOSE CARLOS Administration Rosuvastatin Calcium 20 mg 05/07/25 09:00 05/10/25 08:56 Rosuvastatin 10 Mg Tablet PO 20 mg DAILY JOSE CARLOS Administration Tizanidine HCl 2 mg 05/06/25 17:29 05/09/25 21:48 Tizanidine Hcl 2 Mg Tablet PO 2 mg TID PRN Administration Muscle Spasticity Vitamin D 25 mcg 05/07/25 09:00 05/10/25 08:55 Cholecalciferol (Vitamin D3) 25 Mcg (1,000 Units) Tablet PO 25 mcg DAILY JOSE CARLOS Administration Quality VTE Prophylaxis VTE prophylaxis: pharmacologic ordered
[2025-05-10 16:00] VITALS: BP 108/60; PULSE 58; RESP 18; TEMP 36.7; O2SAT 97
[2025-05-10 20:00] VITALS: PULSE 58; RESP 18; O2SAT 97
[2025-05-10] MEDS: PRAMIPEXOLE 1 MG TABLET 2 MG BY MOUTH (21:00)
[2025-05-10] MEDS: TIZANIDINE HCL 2 MG TABLET PO (21:00)
[2025-05-11] VITALS: BP 124/56; PULSE 65; RESP 17; TEMP 36.4; O2SAT 100
[2025-05-11 08:00] VITALS: BP 152/75; PULSE 65; RESP 18; TEMP 36.7; O2SAT 98
[2025-05-11] MEDS: PSYLLIUM POWDER PACKET 1 PACKET PO (08:01)
[2025-05-11] MEDS: HYDROcodone/acetaminophen (*CRX) 5-325 MG TABLET 1 TAB PO ×2 (08:02→20:05)
[2025-05-11] MEDS: ROSUVASTATIN 10 MG TABLET 20 MG PO (08:03)
[2025-05-11] MEDS: ASPIRIN 81 MG ENTERIC TABLET PO (08:03)
[2025-05-11] MEDS: OMEGA 3 POLYUNSAT FATTY ACIDS 1 GM CAP PO (08:03)
[2025-05-11] MEDS: FERROUS SULFATE 325 MG TABLET BY MOUTH ×2 (08:03→17:09)
[2025-05-11] MEDS: POTASSIUM CHLORIDE 10 MEQ ER TABLET PO (08:03)
[2025-05-11] MEDS: APIXABAN 2.5 MG TABLET 5 MG BY MOUTH ×2 (08:03→20:05)
[2025-05-11] MEDS: CYANOCOBALAMIN 1,000 MCG TABLET 1000 MCG PO (08:03)
[2025-05-11] MEDS: ACIDOPHILUS/BULGARICUS CHEWABLE TABLET 1 TABLET BY MOUTH (08:04)
[2025-05-11] MEDS: EMPAGLIFLOZIN 25 MG TABLET PO (08:04)
[2025-05-11] MEDS: CHOLECALCIFEROL (VITAMIN D3) 25 MCG (1,000 UNITS) TABLET PO (08:04)
[2025-05-11] MEDS: MIRABEGRON 25 MG ER TABLET 50 MG PO (08:04)
[2025-05-11] MEDS: LIDOCAINE 5% PATCH 2 PATCH TRANSDERM (08:04)
[2025-05-11] MEDS: FOLIC ACID 1 MG TABLET PO (08:04)
[2025-05-11 16:00] VITALS: BP 100/55; PULSE 60; RESP 16; TEMP 36.6; O2SAT 96
[2025-05-11 20:00] VITALS: PULSE 60; RESP 16; O2SAT 96
[2025-05-11] MEDS: TIZANIDINE HCL 2 MG TABLET PO (20:05)
[2025-05-11] MEDS: PRAMIPEXOLE 1 MG TABLET 2 MG BY MOUTH (20:05)
[2025-05-11] MEDS: ACETAMINOPHEN 500 MG TABLET 1000 MG PO (23:26)
[2025-05-12] VITALS: BP 127/67; PULSE 69; RESP 18; TEMP 36.4; O2SAT 95
[2025-05-12] MEDS: HYDROcodone/acetaminophen (*CRX) 5-325 MG TABLET 1 TAB PO ×3 (02:25→17:22)
[2025-05-12 08:00] VITALS: BP 168/75; PULSE 53; RESP 18; TEMP 36.6; O2SAT 99
[2025-05-12] MEDS: LIDOCAINE 5% PATCH 2 PATCH TRANSDERM (08:33)
[2025-05-12] MEDS: OMEGA 3 POLYUNSAT FATTY ACIDS 1 GM CAP PO (08:34)
[2025-05-12] MEDS: ROSUVASTATIN 10 MG TABLET 20 MG PO (08:34)
[2025-05-12] MEDS: PSYLLIUM POWDER PACKET 1 PACKET PO (08:34)
[2025-05-12] MEDS: MIRABEGRON 25 MG ER TABLET 50 MG PO (08:34)
[2025-05-12] MEDS: CHOLECALCIFEROL (VITAMIN D3) 25 MCG (1,000 UNITS) TABLET PO (08:35)
[2025-05-12] MEDS: ACIDOPHILUS/BULGARICUS CHEWABLE TABLET 1 TABLET BY MOUTH (08:35)
[2025-05-12] MEDS: EMPAGLIFLOZIN 25 MG TABLET PO (08:35)
[2025-05-12] MEDS: FOLIC ACID 1 MG TABLET PO (08:35)
[2025-05-12] MEDS: ASPIRIN 81 MG ENTERIC TABLET PO (08:35)
[2025-05-12] MEDS: APIXABAN 2.5 MG TABLET 5 MG BY MOUTH ×2 (08:35→21:26)
[2025-05-12] MEDS: FERROUS SULFATE 325 MG TABLET BY MOUTH ×2 (08:35→16:48)
[2025-05-12] MEDS: CYANOCOBALAMIN 1,000 MCG TABLET 1000 MCG PO (08:35)
[2025-05-12] MEDS: POTASSIUM CHLORIDE 10 MEQ ER TABLET PO (08:35)
[2025-05-12] MEDS: ACETAMINOPHEN 500 MG TABLET 1000 MG PO (08:38)
[2025-05-12 16:00] VITALS: BP 118/61; PULSE 62; RESP 18; TEMP 36.6; O2SAT 97
[2025-05-12 20:00] VITALS: PULSE 70; RESP 18; O2SAT 98
[2025-05-12] MEDS: PRAMIPEXOLE 1 MG TABLET 2 MG BY MOUTH (21:26)
[2025-05-12] MEDS: TIZANIDINE HCL 2 MG TABLET PO (21:26)
[2025-05-13] VITALS: BP 167/87; PULSE 70; RESP 18; TEMP 36.7; O2SAT 98
[2025-05-13] MEDS: HYDROcodone/acetaminophen (*CRX) 5-325 MG TABLET 1 TAB PO ×3 (00:30→21:04)
[2025-05-13 08:00] VITALS: BP 169/60; PULSE 84; RESP 16; TEMP 36.7; O2SAT 99
[2025-05-13] MEDS: APIXABAN 2.5 MG TABLET 5 MG BY MOUTH ×2 (09:16→21:04)
[2025-05-13] MEDS: OMEGA 3 POLYUNSAT FATTY ACIDS 1 GM CAP PO (09:16)
[2025-05-13] MEDS: LIDOCAINE 5% PATCH 2 PATCH TRANSDERM (09:16)
[2025-05-13] MEDS: PSYLLIUM POWDER PACKET 1 PACKET PO (09:16)
[2025-05-13] MEDS: ACIDOPHILUS/BULGARICUS CHEWABLE TABLET 1 TABLET BY MOUTH (09:16)
[2025-05-13] MEDS: FERROUS SULFATE 325 MG TABLET BY MOUTH ×2 (09:17→17:00)
[2025-05-13] MEDS: FOLIC ACID 1 MG TABLET PO (09:17)
[2025-05-13] MEDS: POTASSIUM CHLORIDE 10 MEQ ER TABLET PO (09:17)
[2025-05-13] MEDS: ASPIRIN 81 MG ENTERIC TABLET PO (09:17)
[2025-05-13] MEDS: CHOLECALCIFEROL (VITAMIN D3) 25 MCG (1,000 UNITS) TABLET PO (09:17)
[2025-05-13] MEDS: CYANOCOBALAMIN 1,000 MCG TABLET 1000 MCG PO (09:17)
[2025-05-13] MEDS: ROSUVASTATIN 10 MG TABLET 20 MG PO (09:17)
[2025-05-13] MEDS: MIRABEGRON 25 MG ER TABLET 50 MG PO (09:17)
[2025-05-13] MEDS: EMPAGLIFLOZIN 25 MG TABLET PO (09:17)
[2025-05-13 16:00] VITALS: BP 126/73; PULSE 70; RESP 18; TEMP 36.8; O2SAT 96
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
[2025-05-13 20:00] VITALS: PULSE 76; RESP 16; O2SAT 98
[2025-05-13] MEDS: TIZANIDINE HCL 2 MG TABLET PO (21:04)
[2025-05-13] MEDS: PRAMIPEXOLE 1 MG TABLET 2 MG BY MOUTH (21:04)
[2025-05-14] VITALS: BP 118/57; PULSE 74; RESP 16; TEMP 36.5; O2SAT 98
[2025-05-14] MEDS: HYDROcodone/acetaminophen (*CRX) 5-325 MG TABLET 1 TAB PO ×2 (05:57→21:04)
[2025-05-14 08:00] VITALS: BP 118/59; PULSE 96; RESP 16; TEMP 36.7; O2SAT 98
[2025-05-14] MEDS: PSYLLIUM POWDER PACKET 1 PACKET PO (08:27)
[2025-05-14] MEDS: MIRABEGRON 25 MG ER TABLET 50 MG PO (08:27)
[2025-05-14] MEDS: APIXABAN 2.5 MG TABLET 5 MG BY MOUTH ×2 (08:27→20:57)
[2025-05-14] MEDS: OMEGA 3 POLYUNSAT FATTY ACIDS 1 GM CAP PO (08:27)
[2025-05-14] MEDS: ROSUVASTATIN 10 MG TABLET 20 MG PO (08:27)
[2025-05-14] MEDS: CHOLECALCIFEROL (VITAMIN D3) 25 MCG (1,000 UNITS) TABLET PO (08:27)
[2025-05-14] MEDS: ACIDOPHILUS/BULGARICUS CHEWABLE TABLET 1 TABLET BY MOUTH (08:28)
[2025-05-14] MEDS: EMPAGLIFLOZIN 25 MG TABLET PO (08:28)
[2025-05-14] MEDS: ASPIRIN 81 MG ENTERIC TABLET PO (08:28)
[2025-05-14] MEDS: FERROUS SULFATE 325 MG TABLET BY MOUTH ×2 (08:28→16:07)
[2025-05-14] MEDS: FOLIC ACID 1 MG TABLET PO (08:28)
[2025-05-14] MEDS: LIDOCAINE 5% PATCH 2 PATCH TRANSDERM (08:28)
[2025-05-14] MEDS: CYANOCOBALAMIN 1,000 MCG TABLET 1000 MCG PO (08:28)
[2025-05-14] MEDS: POTASSIUM CHLORIDE 10 MEQ ER TABLET PO (08:28)
[2025-05-14 16:00] VITALS: BP 117/65; PULSE 57; RESP 18; TEMP 36.7; O2SAT 95
[2025-05-14] MEDS: PRAMIPEXOLE 1 MG TABLET 2 MG BY MOUTH (20:57)
[2025-05-15] VITALS: BP 136/66; PULSE 62; RESP 18; TEMP 37; O2SAT 97
[2025-05-15 08:00] VITALS: BP 140/64; PULSE 55; RESP 17; RESP 18; TEMP 36.7; O2SAT 98
[2025-05-15] MEDS: LIDOCAINE 5% PATCH 2 PATCH TRANSDERM (08:17)
[2025-05-15] MEDS: PSYLLIUM POWDER PACKET 1 PACKET PO (08:17)
[2025-05-15] MEDS: ACIDOPHILUS/BULGARICUS CHEWABLE TABLET 1 TABLET BY MOUTH (08:18)
[2025-05-15] MEDS: FERROUS SULFATE 325 MG TABLET BY MOUTH ×2 (08:18→16:51)
[2025-05-15] MEDS: ROSUVASTATIN 10 MG TABLET 20 MG PO (08:18)
[2025-05-15] MEDS: MIRABEGRON 25 MG ER TABLET 50 MG PO (08:18)
[2025-05-15] MEDS: ASPIRIN 81 MG ENTERIC TABLET PO (08:18)
[2025-05-15] MEDS: POTASSIUM CHLORIDE 10 MEQ ER TABLET PO (08:19)
[2025-05-15] MEDS: EMPAGLIFLOZIN 25 MG TABLET PO (08:19)
[2025-05-15] MEDS: CHOLECALCIFEROL (VITAMIN D3) 25 MCG (1,000 UNITS) TABLET PO (08:19)
[2025-05-15] MEDS: FOLIC ACID 1 MG TABLET PO (08:19)
[2025-05-15] MEDS: OMEGA 3 POLYUNSAT FATTY ACIDS 1 GM CAP PO (08:19)
[2025-05-15] MEDS: CYANOCOBALAMIN 1,000 MCG TABLET 1000 MCG PO (08:19)
[2025-05-15] MEDS: APIXABAN 2.5 MG TABLET 5 MG BY MOUTH ×2 (08:19→21:09)
[2025-05-15] MEDS: HYDROcodone/acetaminophen (*CRX) 5-325 MG TABLET 1 TAB PO ×2 (13:58→21:08)
[2025-05-15 16:00] VITALS: BP 97/48; PULSE 68; RESP 17; TEMP 36.3; O2SAT 96
[2025-05-15 20:00] VITALS: PULSE 68; RESP 18; O2SAT 96
[2025-05-15] MEDS: TIZANIDINE HCL 2 MG TABLET PO (21:09)
[2025-05-15] MEDS: PRAMIPEXOLE 1 MG TABLET 2 MG BY MOUTH (21:09)
[2025-05-16] VITALS: BP 112/76; PULSE 68; RESP 18; TEMP 36.6; O2SAT 96
[2025-05-16 08:00] VITALS: BP 125/55; PULSE 61; PULSE 68; RESP 17; RESP 18; TEMP 36.8; O2SAT 96
[2025-05-16] MEDS: TIZANIDINE HCL 2 MG TABLET PO ×2 (08:11→20:11)
[2025-05-16] MEDS: PSYLLIUM POWDER PACKET 1 PACKET PO (08:11)
[2025-05-16] MEDS: ROSUVASTATIN 10 MG TABLET 20 MG PO (08:11)
[2025-05-16] MEDS: OMEGA 3 POLYUNSAT FATTY ACIDS 1 GM CAP PO (08:11)
[2025-05-16] MEDS: MIRABEGRON 25 MG ER TABLET 50 MG PO (08:11)
[2025-05-16] MEDS: CHOLECALCIFEROL (VITAMIN D3) 25 MCG (1,000 UNITS) TABLET PO (08:11)
[2025-05-16] MEDS: FERROUS SULFATE 325 MG TABLET BY MOUTH ×2 (08:12→16:05)
[2025-05-16] MEDS: EMPAGLIFLOZIN 25 MG TABLET PO (08:12)
[2025-05-16] MEDS: ASPIRIN 81 MG ENTERIC TABLET PO (08:12)
[2025-05-16] MEDS: POTASSIUM CHLORIDE 10 MEQ ER TABLET PO (08:12)
[2025-05-16] MEDS: CYANOCOBALAMIN 1,000 MCG TABLET 1000 MCG PO (08:12)
[2025-05-16] MEDS: ACIDOPHILUS/BULGARICUS CHEWABLE TABLET 1 TABLET BY MOUTH (08:12)
[2025-05-16] MEDS: FOLIC ACID 1 MG TABLET PO (08:12)
[2025-05-16] MEDS: APIXABAN 2.5 MG TABLET 5 MG BY MOUTH ×2 (08:12→20:11)
[2025-05-16] MEDS: LIDOCAINE 5% PATCH 2 PATCH TRANSDERM (08:13)
[2025-05-16 16:00] VITALS: BP 139/66; PULSE 60; RESP 17; TEMP 36.5; O2SAT 97
[2025-05-16 20:00] VITALS: PULSE 60; RESP 17; O2SAT 97
[2025-05-16] MEDS: PRAMIPEXOLE 1 MG TABLET 2 MG BY MOUTH (20:11)
[2025-05-16] MEDS: HYDROcodone/acetaminophen (*CRX) 5-325 MG TABLET 1 TAB PO (20:12)
[2025-05-17] VITALS: BP 133/65; PULSE 61; RESP 17; TEMP 36.4; O2SAT 97
[2025-05-17 05:59] LABS: Hematocrit 35.1 % (37.0-46.0); Hemoglobin 11.5 g/dL (12.4-15.3); Mean Corpuscular HGB Conc 32.8 g/dL (32-36); Mean Corpuscular Hemoglobin 30.8 pg (27.0-31.0); Mean Corpuscular Volume 94.1 fL (78.0-102.0); Platelet Count Result 435 K/mm3 (150-420); Red Blood Count 3.73 M/mm3 (4.70-6.10); White Blood Count 6.4 K/mm3 (4.8-10.8)
[2025-05-17 06:15] LABS: Alanine Aminotransferase 16 U/L (6-50); Albumin Level 3.9 g/dL (3.5-5.1); Alkaline Phosphatase 162 U/L (38-126); Anion Gap 6 mmol/L (4-12); Aspartate Amino Transferase 25 U/L (17-59); Bilirubin,Total 1.1 mg/dL (0.2-1.3); Blood Urea Nitrogen 48 mg/dL (9-20); Calcium 8.6 mg/dL (8.4-10.2); Carbon Dioxide 25 mmol/L (22-30); Chloride 109 mmol/L (98-107); Estimated CRCL calculation 38 ml/min; Estimated Glomerular Filt Rate 57; Glucose 87 mg/dL (65-110); Magnesium 2.6 mg/dL (1.6-2.3); Osmolality Calculated 301 mOsm/kg (285-295); Potassium 4.5 mmol/L (3.4-5.0); Sodium 140 mmol/L (137-145); Total Protein 6.9 g/dL (6.3-8.2)
[2025-05-17] MEDS: HYDROcodone/acetaminophen (*CRX) 5-325 MG TABLET 1 TAB PO ×2 (07:56→20:45)
[2025-05-17] MEDS: PSYLLIUM POWDER PACKET 1 PACKET PO (07:59)
[2025-05-17] MEDS: FERROUS SULFATE 325 MG TABLET BY MOUTH ×2 (07:59→16:40)
[2025-05-17 08:00] VITALS: BP 131/65; PULSE 55; RESP 17; TEMP 36.8; O2SAT 97
[2025-05-17] MEDS: APIXABAN 2.5 MG TABLET 5 MG BY MOUTH ×2 (08:00→20:45)
[2025-05-17] MEDS: MIRABEGRON 25 MG ER TABLET 50 MG PO (08:00)
[2025-05-17] MEDS: ACIDOPHILUS/BULGARICUS CHEWABLE TABLET 1 TABLET BY MOUTH (08:00)
[2025-05-17] MEDS: LIDOCAINE 5% PATCH 2 PATCH TRANSDERM (08:00)
[2025-05-17] MEDS: ASPIRIN 81 MG ENTERIC TABLET PO (08:00)
[2025-05-17] MEDS: ROSUVASTATIN 10 MG TABLET 20 MG PO (08:00)
[2025-05-17] MEDS: POTASSIUM CHLORIDE 10 MEQ ER TABLET PO (08:00)
[2025-05-17] MEDS: OMEGA 3 POLYUNSAT FATTY ACIDS 1 GM CAP PO (08:00)
[2025-05-17] MEDS: EMPAGLIFLOZIN 25 MG TABLET PO (08:00)
[2025-05-17] MEDS: CHOLECALCIFEROL (VITAMIN D3) 25 MCG (1,000 UNITS) TABLET PO (08:01)
[2025-05-17] MEDS: CYANOCOBALAMIN 1,000 MCG TABLET 1000 MCG PO (08:01)
[2025-05-17] MEDS: FOLIC ACID 1 MG TABLET PO (08:01)
--- NOTE | 2025-05-17 10:25 | P.PNIM_ITS ---
Progress Note: A&P Assessment and Plan (1) Closed fracture of right proximal humerus: Code(s): S42.201A - Unspecified fracture of upper end of right humerus, initial encounter for closed fracture Status: Acute Assessment and Plan: s/p x-ray right shoulder showed proximal humerus fracture, orthopedic surgery recommends shoulder replacement as an outpatient * sling to RUE * pain control with PO [place] PRN added norco for breakthrough pain * PT/OT * F/U ortho appt 05/17/2025 (2) Fall: Qualifiers: Encounter type: initial encounter Qualified Code(s): W19.XXXA - Unspecified fall, initial encounter Code(s): W19.XXXA - Unspecified fall, initial encounter Status: Acute Assessment and Plan: status post mechanical fall * fall precautions * PT/OT (3) Diabetes mellitus: Qualifiers: Diabetes mellitus type: type 2 Diabetes mellitus exterminator termite insulin use: without exterminator termite use Diabetes mellitus complication status: without complication Qualified Code(s): E11.9 - Type 2 diabetes mellitus without complications Code(s): E11.9 - Type 2 diabetes mellitus without complications Status: Acute Assessment and Plan: * accu checks * hypoglycemic protocol * continue Jardiance (4) Hyperlipidemia: Qualifiers: Hyperlipidemia type: unspecified Qualified Code(s): E78.5 - Hyperlipidemia, unspecified Code(s): E78.5 - Hyperlipidemia, unspecified Status: Acute Assessment and Plan: * continue rosuvastatin (5) Coronary artery disease: Qualifiers: Coronary Disease-Associated Artery/Lesion type: unspecified vessel or lesion type [place] vs. transplanted heart: [place] heart Associated angina: unspecified whether angina present Qualified Code(s): I25.10 - Atherosclerotic heart disease of [place] coronary artery without angina pectoris Code(s): I25.10 - Atherosclerotic heart disease of [place] coronary artery without angina pectoris Status: Acute Assessment and Plan: * continue rosuvastatin, ASA, Eliquis, and fish oil (6) Osteoporosis: Qualifiers: Osteoporosis type: unspecified Presence of current pathological fracture: with current pathological fracture Encounter type: initial encounter Qualified Code(s): M80.00XA - Age-related osteoporosis with current pathological fracture, unspecified site, initial encounter for fracture Code(s): M81.0 - Age-related osteoporosis without current pathological fracture Status: Acute Assessment and Plan: * continue risedronate and vitamin D3 tablets Plan Code status: Full code per patient DVT prophylaxis: SCD Stress ulcer prophylaxis: NA PT/OT notes: SWING BED Disposition: Patient admitted to [facility] continues to progress with physical and occupational therapy improving as expected plan for discharge to assisted living when stable. Time Spent With Patient Time with patient: 15 - 25 minutes Subjective Date/time seen: 05/17/25 10:25 Interval history: Patient is 79-year-old male who was admitted to [facility] after a fall at home which resulted in a impacted subcapital fracture of the right humerus for physical and occupational therapy. 05/17/2025: Assumed care Patient up in chair comfortable but did report he has intermittent breakthrough pain when working with therapy. patient denied chest pain, shortness a breath, nausea vomiting good appetite and no difficulty with urination or defecation. He continues to progress well with physical and occupational therapy with plans to discharge to assisted living facility. labs reviewed and unremarkable vital stable. Review of Systems Review of Systems: All systems reviewed & are unremarkable except as noted in HPI and below Exam Const: General: comfortable and no acute distress Other: pleasant male up in chair HENMT: Face/Nose/Sinus: Normal nares present Mouth: Yes moist mucous membranes Eyes: General: appearance normal, both eyes and all related structures Sclera: sclerae normal Pupils: Equal, round and reactive pupils present Neck: Neck: supple and no JVD Resp: Effort & Inspection: normal respiratory effort Auscultation: clear to auscultation bilaterally Cardio: Rate: regular rate Rhythm: regular rhythm GI: GI Palp: Yes Soft to palpation Auscultation: normal bowel sounds Skin: General skin exam: normal color and no rashes or lesions noted Wounds: no wounds Other: deep tissue bruising Neuro: Speech: normal speech Motor exam (neuro): Motor abnormalites present Other: LUE in orthopedic sling Extrem: General: normal to inspection Psych: Mental Status: mental status grossly normal Affect: normal affect Objective Data Vital Signs Vital Signs: Vital Signs - 24 hr 05/16/25 16:00 05/16/25 20:00 05/17/25 00:00 Temperature 97.7 F 97.6 F Pulse Rate 60 60 61 Respiratory Rate 17 17 17 Blood Pressure 139/66 133/65 Pulse Oximetry 97 97 97 Oxygen Delivery Room Air Room Air Room Air 05/17/25 08:00 05/17/25 08:00 Temperature 98.2 F Pulse Rate 55 L 55 L Respiratory Rate 17 17 Blood Pressure 131/65 Pulse Oximetry 97 97 Oxygen Delivery Room Air Room Air Intake/Output Intake/Output: Intake & Output 05/14/25 05/15/25 05/16/25 05/17/25 23:59 23:59 23:59 23:59 Intake Total 2447 2207 2170 600 Output Total 1 601 1151 Balance 2446 1606 1019 600 Meds/Results Medications: Active Medications Generic Name Dose Route Start Last Admin Trade Name Freq PRN Reason Stop Dose Admin Acetaminophen 1,000 mg 05/06/25 17:29 05/12/25 08:38 Acetaminophen 500 Mg Tablet PO 1,000 mg Q6H PRN Administration Pain Hydrocodone Bitart/Acetaminophen 1 tab 05/07/25 08:42 05/17/25 07:56 Hydrocodone/Acetaminophen (*Crx) 5-325 Mg Tablet PO 1 tab Q6H PRN Administration Pain Rated 4-6 Hydrocodone Bitart/Acetaminophen 1 tab 05/17/25 09:30 Hydrocodone/Acetaminophen (*Crx) 10-325 Mg Tablet PO Q4H PRN Pain Rated 7-10 Apixaban 5 mg 05/06/25 21:00 05/17/25 08:00 Apixaban 2.5 Mg Tablet BY MOUTH 5 mg Q12HR JOSE CARLOS Administration Aspirin 81 mg 05/07/25 09:00 05/17/25 08:00 Aspirin 81 Mg Enteric Tablet PO 81 mg DAILY JOSE CARLOS Administration Cyanocobalamin 1,000 mcg 05/08/25 09:00 05/17/25 08:01 Cyanocobalamin 1,000 Mcg Tablet PO 1,000 mcg QAM JOSE CARLOS Administration Docusate Sodium 100 mg 05/06/25 17:29 Docusate Sodium 100 Mg Capsule PO Q12H PRN Constipation Empagliflozin 25 mg 05/07/25 09:00 05/17/25 08:00 Empagliflozin 25 Mg Tablet PO 25 mg DAILY JOSE CARLOS Administration Ferrous Sulfate 325 mg 05/07/25 09:00 05/17/25 07:59 Ferrous Sulfate 325 Mg Tablet BY MOUTH 325 mg BID JOSE CARLOS Administration Fish Oil 1 gm 05/07/25 09:00 05/17/25 08:00 [place] 3 Polyunsat Fatty Acids 1 Gm Cap PO 1 gm QAM JOSE CARLOS Administration Folic Acid 1 mg 05/07/25 09:00 05/17/25 08:01 Folic Acid 1 Mg Tablet PO 1 mg DAILY JOSE CARLOS Administration Lactobacillus Acidophilus 1 tablet 05/07/25 09:00 05/17/25 08:00 Acidophilus/[place] Chewable Tablet BY MOUTH 1 tablet DAILY JOSE CARLOS Administration Lidocaine 2 patch 05/07/25 09:00 05/17/25 08:00 Lidocaine 5% Patch TRANSDERM 2 patch DAILY JOSE CARLOS Administration Magnesium Citrate 150 ml 05/06/25 17:29 Magnesium Citrate 300 Ml Btl PO DAILY PRN Constipation Mirabegron 50 mg 05/07/25 09:00 05/17/25 08:00 Mirabegron 25 Mg Er Tablet PO 50 mg DAILY JOSE CARLOS Administration Non-Formulary Medication 35 mg 05/14/25 06:30 05/14/25 05:57 Risedronate PO 06/13/25 06:29 35 mg WEEKLY@0630 JOSE CARLOS Administration Ondansetron HCl 4 mg 05/12/25 09:33 Ondansetron Hcl Odt 4 Mg Tablet PO Q6H PRN Nausea And Vomiting Polyethylene Glycol 17 gm 05/14/25 09:22 Polyethylene Glycol 3350 17 Gm Powd.Pack PO DAILY PRN constipation Potassium Chloride 10 meq 05/07/25 09:00 05/17/25 08:00 Potassium Chloride 10 Meq Er Tablet PO 10 meq DAILY JOSE CARLOS Administration Pramipexole Dihydrochloride 2 mg 05/06/25 21:00 05/16/25 20:11 Pramipexole 1 Mg Tablet BY MOUTH 2 mg HS JOSE CARLOS Administration Psyllium Hydrophilic Mucilloid 1 packet 05/07/25 09:00 05/17/25 07:59 Psyllium Powder Packet PO 1 packet DAILY JOSE CARLOS Administration Rosuvastatin Calcium 20 mg 05/07/25 09:00 05/17/25 08:00 Rosuvastatin 10 Mg Tablet PO 20 mg DAILY JOSE CARLOS Administration Tizanidine HCl 2 mg 05/06/25 17:29 05/16/25 20:11 Tizanidine Hcl 2 Mg Tablet PO 2 mg TID PRN Administration Muscle Spasticity Vitamin D 25 mcg 05/07/25 09:00 05/17/25 08:01 Cholecalciferol (Vitamin D3) 25 Mcg (1,000 Units) Tablet PO 25 mcg DAILY JOSE CARLOS Administration Labs Labs: Laboratory Results - last 24 hr 05/17/25 05:30 WBC 6.4 RBC 3.73 L Hgb 11.5 L Hct 35.1 L MCV 94.1 MCH 30.8 MCHC 32.8 RDW 13.0 Plt Count 435 H MPV 9.4 Sodium 140 Potassium 4.5 Chloride 109 H Carbon Dioxide 25 Anion Gap 6 BUN 48 H D Creatinine 1.22 Estim Creat Clear Calc 38 Estimated GFR 57 L Glucose 87 Calculated Osmolality 301 H Calcium 8.6 Magnesium 2.6 H Total Bilirubin 1.1 AST 25 ALT 16 Alkaline Phosphatase 162 H Total Protein 6.9 Albumin 3.9 Quality VTE Prophylaxis VTE prophylaxis: pharmacologic ordered -Patient's previous records reviewed on admission -ER notes reviewed in detail on admission -discussed all findings and current treatment plan with patient/Family/POA -Consultations reviewed for recommendations -Patient's disposition for safe discharge discussed with telephonic case manager -radiology imaging, EKG and test results I have personally reviewed and interpreted unless otherwise specified Dictation performed by [employer] direct speech recognition software, therefore utilities equipment repairer variants and typographical errors may occur. Hospitalist [facility] Advance Care Plan I have confirmed that the patient's Advanced Care Plan is present, code status is documented, or surrogate decision maker is listed in patient medical record.: Yes Medication Reconciliation I have utilized all available resources to obtain, update and review the patients current medications (includes all prescriptions, OTC, herbals, cannabis, and nutritional supplements).: Yes The patient is not eligible for med reconciliation; the patient is in a emergent medical situation where delaying treatment would jeopardize the patients health.: No
--- NOTE | 2025-05-17 12:03 | PC.NURSE ---
Patient left facility for MD appointment, transported by friend via personal vehicle, left in stable condition.
--- NOTE | 2025-05-17 15:15 | PC.NURSE ---
Patient returned from MD appointment with Dr. Schilling with new sling to right arm. Has next follow up appointment 06/15/25. Transported by friend via personal vehicle, stable condition upon return.
[2025-05-17 16:00] VITALS: BP 121/65; PULSE 78; RESP 17; TEMP 36.6; O2SAT 97
[2025-05-17 19:00] VITALS: BP 125/60; PULSE 68; RESP 16; TEMP 36.4; O2SAT 97
[2025-05-17] MEDS: PRAMIPEXOLE 1 MG TABLET 2 MG BY MOUTH (20:45)
[2025-05-18] VITALS: BP 103/52; PULSE 56; RESP 20; TEMP 36.6; O2SAT 96
--- NOTE | 2025-05-18 00:10 | PC.NURSE ---
Pt assisted with getting ready for bed
--- NOTE | 2025-05-18 02:26 | PC.NURSE ---
Pt asleep and no signs of discomfort noted.
--- NOTE | 2025-05-18 04:05 | PC.NURSE ---
Pt asleep and no signs of discomfort noted.
--- NOTE | 2025-05-18 06:00 | PC.NURSE ---
400 ml of clear, molly urine emptied from urinal.
--- NOTE | 2025-05-18 06:03 | PC.NURSE ---
Pt resting quietly in bed and doesnt voice any c/o discomfort.
[2025-05-18] MEDS: HYDROcodone/acetaminophen (*CRX) 10-325 MG TABLET 1 TAB PO ×3 (07:58→21:25)
[2025-05-18] MEDS: MIRABEGRON 25 MG ER TABLET 50 MG PO (07:59)
[2025-05-18] MEDS: ACIDOPHILUS/BULGARICUS CHEWABLE TABLET 1 TABLET BY MOUTH (07:59)
[2025-05-18] MEDS: CHOLECALCIFEROL (VITAMIN D3) 25 MCG (1,000 UNITS) TABLET PO (07:59)
[2025-05-18] MEDS: OMEGA 3 POLYUNSAT FATTY ACIDS 1 GM CAP PO (07:59)
[2025-05-18] MEDS: FERROUS SULFATE 325 MG TABLET BY MOUTH ×2 (07:59→16:55)
[2025-05-18 08:00] VITALS: BP 148/89; PULSE 64; RESP 17; TEMP 36.6; O2SAT 96
[2025-05-18] MEDS: CYANOCOBALAMIN 1,000 MCG TABLET 1000 MCG PO (08:00)
[2025-05-18] MEDS: ASPIRIN 81 MG ENTERIC TABLET PO (08:00)
[2025-05-18] MEDS: APIXABAN 2.5 MG TABLET 5 MG BY MOUTH ×2 (08:00→21:25)
[2025-05-18] MEDS: ROSUVASTATIN 10 MG TABLET 20 MG PO (08:00)
[2025-05-18] MEDS: POTASSIUM CHLORIDE 10 MEQ ER TABLET PO (08:00)
[2025-05-18] MEDS: EMPAGLIFLOZIN 25 MG TABLET PO (08:00)
[2025-05-18] MEDS: FOLIC ACID 1 MG TABLET PO (08:01)
[2025-05-18] MEDS: LIDOCAINE 5% PATCH 2 PATCH TRANSDERM (08:01)
[2025-05-18] MEDS: PSYLLIUM POWDER PACKET 1 PACKET PO (08:01)
[2025-05-18 16:35] VITALS: BP 97/47; PULSE 60; RESP 16; TEMP 36.8; O2SAT 97
[2025-05-18] MEDS: PRAMIPEXOLE 1 MG TABLET 2 MG BY MOUTH (21:26)
[2025-05-18 23:57] VITALS: BP 135/89; PULSE 70; RESP 16; TEMP 36.8; O2SAT 97
[2025-05-19] MEDS: HYDROcodone/acetaminophen (*CRX) 5-325 MG TABLET 1 TAB PO (07:39)
[2025-05-19 08:00] VITALS: BP 135/68; PULSE 55; RESP 18; TEMP 37.3; O2SAT 96
[2025-05-19] MEDS: ASPIRIN 81 MG ENTERIC TABLET PO (08:08)
[2025-05-19] MEDS: MIRABEGRON 25 MG ER TABLET 50 MG PO (08:08)
[2025-05-19] MEDS: CYANOCOBALAMIN 1,000 MCG TABLET 1000 MCG PO (08:08)
[2025-05-19] MEDS: EMPAGLIFLOZIN 25 MG TABLET PO (08:08)
[2025-05-19] MEDS: FOLIC ACID 1 MG TABLET PO (08:08)
[2025-05-19] MEDS: APIXABAN 2.5 MG TABLET 5 MG BY MOUTH ×2 (08:09→20:43)
[2025-05-19] MEDS: ACIDOPHILUS/BULGARICUS CHEWABLE TABLET 1 TABLET BY MOUTH (08:09)
[2025-05-19] MEDS: POTASSIUM CHLORIDE 10 MEQ ER TABLET PO (08:09)
[2025-05-19] MEDS: ROSUVASTATIN 10 MG TABLET 20 MG PO (08:09)
[2025-05-19] MEDS: OMEGA 3 POLYUNSAT FATTY ACIDS 1 GM CAP PO (08:09)
[2025-05-19] MEDS: FERROUS SULFATE 325 MG TABLET BY MOUTH ×2 (08:09→18:12)
[2025-05-19] MEDS: CHOLECALCIFEROL (VITAMIN D3) 25 MCG (1,000 UNITS) TABLET PO (08:09)
[2025-05-19] MEDS: LIDOCAINE 5% PATCH 2 PATCH TRANSDERM (09:00)
[2025-05-19 16:00] VITALS: BP 125/70; PULSE 63; RESP 18; TEMP 36.6; O2SAT 97
[2025-05-19] MEDS: PRAMIPEXOLE 1 MG TABLET 2 MG BY MOUTH (20:43)
[2025-05-19] MEDS: HYDROcodone/acetaminophen (*CRX) 10-325 MG TABLET 1 TAB PO (20:43)
[2025-05-19 23:58] VITALS: BP 160/58; PULSE 58; RESP 18; TEMP 36.7; O2SAT 99
[2025-05-20 08:00] VITALS: BP 126/80; PULSE 65; RESP 18; TEMP 36.7; O2SAT 96
[2025-05-20] MEDS: HYDROcodone/acetaminophen (*CRX) 10-325 MG TABLET 1 TAB PO ×2 (08:19→16:39)
[2025-05-20] MEDS: LIDOCAINE 5% PATCH 2 PATCH TRANSDERM (09:34)
[2025-05-20] MEDS: MIRABEGRON 25 MG ER TABLET 50 MG PO (09:35)
[2025-05-20] MEDS: PSYLLIUM POWDER PACKET 1 PACKET PO (09:35)
[2025-05-20] MEDS: OMEGA 3 POLYUNSAT FATTY ACIDS 1 GM CAP PO (09:36)
[2025-05-20] MEDS: CYANOCOBALAMIN 1,000 MCG TABLET 1000 MCG PO (09:36)
[2025-05-20] MEDS: APIXABAN 2.5 MG TABLET 5 MG BY MOUTH ×2 (09:36→20:35)
[2025-05-20] MEDS: EMPAGLIFLOZIN 25 MG TABLET PO (09:36)
[2025-05-20] MEDS: ASPIRIN 81 MG ENTERIC TABLET PO (09:36)
[2025-05-20] MEDS: FERROUS SULFATE 325 MG TABLET BY MOUTH ×2 (09:36→16:40)
[2025-05-20] MEDS: CHOLECALCIFEROL (VITAMIN D3) 25 MCG (1,000 UNITS) TABLET PO (09:36)
[2025-05-20] MEDS: POTASSIUM CHLORIDE 10 MEQ ER TABLET PO (09:37)
[2025-05-20] MEDS: FOLIC ACID 1 MG TABLET PO (09:37)
[2025-05-20] MEDS: ROSUVASTATIN 10 MG TABLET 20 MG PO (09:37)
[2025-05-20] MEDS: ACIDOPHILUS/BULGARICUS CHEWABLE TABLET 1 TABLET BY MOUTH (09:37)
[2025-05-20 16:00] VITALS: BP 166/87; PULSE 68; RESP 20; TEMP 36.8; O2SAT 99
[2025-05-20 17:00] VITALS: BP 102/56
[2025-05-20] MEDS: PRAMIPEXOLE 1 MG TABLET 2 MG BY MOUTH (20:35)
[2025-05-20 23:45] VITALS: BP 117/60; PULSE 62; RESP 18; TEMP 37; O2SAT 97
[2025-05-21 08:00] VITALS: BP 143/71; PULSE 64; RESP 20; TEMP 36.6; O2SAT 96
[2025-05-21] MEDS: MIRABEGRON 25 MG ER TABLET 50 MG PO (09:40)
[2025-05-21] MEDS: ACIDOPHILUS/BULGARICUS CHEWABLE TABLET 1 TABLET BY MOUTH (09:40)
[2025-05-21] MEDS: OMEGA 3 POLYUNSAT FATTY ACIDS 1 GM CAP PO (09:40)
[2025-05-21] MEDS: LIDOCAINE 5% PATCH 2 PATCH TRANSDERM (09:40)
[2025-05-21] MEDS: APIXABAN 2.5 MG TABLET 5 MG BY MOUTH (09:40)
[2025-05-21] MEDS: CHOLECALCIFEROL (VITAMIN D3) 25 MCG (1,000 UNITS) TABLET PO (09:41)
[2025-05-21] MEDS: FERROUS SULFATE 325 MG TABLET BY MOUTH (09:41)
[2025-05-21] MEDS: CYANOCOBALAMIN 1,000 MCG TABLET 1000 MCG PO (09:41)
[2025-05-21] MEDS: EMPAGLIFLOZIN 25 MG TABLET PO (09:41)
[2025-05-21] MEDS: ASPIRIN 81 MG ENTERIC TABLET PO (09:41)
[2025-05-21] MEDS: POTASSIUM CHLORIDE 10 MEQ ER TABLET PO (09:41)
[2025-05-21] MEDS: ROSUVASTATIN 10 MG TABLET 20 MG PO (09:41)
[2025-05-21] MEDS: FOLIC ACID 1 MG TABLET PO (09:41)
[2025-05-21] MEDS: HYDROcodone/acetaminophen (*CRX) 10-325 MG TABLET 1 TAB PO (11:02)
--- NOTE | 2025-05-21 11:24 | P.DS_ITS ---
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 HLD CAD osetoporosis DS: Discharge Diagnosis Discharge Diagnosis (1) Closed fracture of right proximal humerus: Code(s): S42.201A - Unspecified fracture of upper end of right humerus, initial encounter for closed fracture Status: Acute Assessment and Plan: s/p x-ray right shoulder showed proximal humerus fracture, orthopedic surgery recommends shoulder replacement as an outpatient * sling to RUE * pain control with PO [place] PRN * PT/OT * F/U ortho appt 06/15/2025, this was provided on his discharge instructions * patient discharging to [facility] today with will continue outpatient PT/OT (2) Fall: Qualifiers: Encounter type: initial encounter Qualified Code(s): W19.XXXA - Unspecified fall, initial encounter Code(s): W19.XXXA - Unspecified fall, initial encounter Status: Acute Assessment and Plan: status post mechanical fall * fall precautions * PT/OT (3) Diabetes mellitus: Qualifiers: Diabetes mellitus complication status: without complication Diabetes mellitus correction insulin use: without correction use Diabetes mellitus type: type 2 Qualified Code(s): E11.9 - Type 2 diabetes mellitus without complications Code(s): E11.9 - Type 2 diabetes mellitus without complications Status: Acute Assessment and Plan: * accu checks * hypoglycemic protocol * continue Jardiance (4) Hyperlipidemia: Qualifiers: Hyperlipidemia type: unspecified Qualified Code(s): E78.5 - Hyperlipidemia, unspecified Code(s): E78.5 - Hyperlipidemia, unspecified Status: Acute Assessment and Plan: * continue rosuvastatin (5) Coronary artery disease: Qualifiers: Associated angina: unspecified whether angina present Coronary Disease- Associated Artery/Lesion type: unspecified vessel or lesion type [place] vs. transplanted heart: [place] heart Qualified Code(s): I25.10 - Atherosclerotic heart disease of [place] coronary artery without angina pectoris Code(s): I25.10 - Atherosclerotic heart disease of [place] coronary artery without angina pectoris Status: Acute Assessment and Plan: * continue rosuvastatin, ASA, Eliquis, and fish oil (6) Osteoporosis: Qualifiers: Encounter type: initial encounter Osteoporosis type: unspecified Presence of current pathological fracture: with current pathological fracture Qualified Code(s): M80.00XA - Age-related osteoporosis with current pathological fracture, unspecified site, initial encounter for fracture Code(s): M81.0 - Age-related osteoporosis without current pathological fracture Status: Acute Assessment and Plan: * continue risedronate and vitamin D3 tablets DS: Summary Hospital Course Reason for hospitalization: right humerus fracture Hospital Course: Patient is a 79 year old male with PMH of CAD s/p stents, severe scoliosis, osteoporosis, HLD, DM, HTN, history of [place] and OAB. Patient was admitted to [facility] from 05/01/2025 to 05/06/2025 after a fall at home which resulted in an impacted subcapital fracture of the right humerus. Orthopedic surgery was consulted and recommended medical management with possible shoulder replacement as an outpatient. Patient was then admitted at [facility] for continued rehabilitation. Patient lived at home alone and it was felt he needed more therapy before discharging. Patient's pain was not controlled on arrival and adjustments were made to his pain medications. Patient participated with PT and OT. Patient made progress using a juan m cane. Arrangements were made for patient to discharge to [facility] living instead of returning home alone. Patient will be discharged to [facility] today and will continue PT/OT as an outpatient at the facility. Patient will follow up with orthopedic surgery again on 06/15/2025 and this information was included on his discharge orders. Time Spent with Patient Time attestation: Total time spent providing and/or coordinating discharge services: 35 Minutes Exam Const: General: comfortable and no acute distress Other: pleasant male up in chair HENMT: Face/Nose/Sinus: Normal nares present Mouth: Yes moist mucous membranes Eyes: General: appearance normal, both eyes and all related structures Sclera: sclerae normal Pupils: Equal, round and reactive pupils present Neck: Neck: supple and no JVD Resp: Effort & Inspection: normal respiratory effort Auscultation: clear to auscultation bilaterally Cardio: Rate: regular rate Rhythm: regular rhythm GI: Auscultation: normal bowel sounds Skin: General skin exam: normal color and no rashes or lesions noted Wounds: no wounds Other: deep tissue bruising Neuro: Cranial nerves: Yes Equal, round and reactive pupils present Speech: normal speech Motor exam (neuro): Motor abnormalites present Sensory Exam: normal sensation Other: LUE in orthopedic sling Extrem: General: normal to inspection and normal exam except as noted Other: RUE with edema due to fracture Psych: Mental Status: mental status grossly normal Affect: normal affect Discharge Plan Discharge Attending physician on discharge: Julien De Paz Consulting providers: Mahnaz Paz Discharging Clinician: Tiarra Perales Patient Disposition: [place] Residential/Asst Living Activity: as tolerated and other - see discharge instructions Diet: as tolerated Discharge Instructions: Patient to use sling to right upper extremity when out of bed. Patient is to be non-weight bearing to the RUE. Patient Instructions: Antibiotic Form, Hydrocodone/Acetaminophen (By mouth), Arm Fracture in Adults (DC), Fall Prevention for Older Adults (DC), Weakness (DC) Patient Language: Icelandic Stand Alone Forms: General Discharge Information Follow-up/Referrals: Alexandre Smith MD [Primary Care Provider, Internal Medicine] Referral Note: Please call for an appointment to be seen within 1-2 weeks of discharge. Rogerio Schilling MD [Physician, Orthopedics] - 06/15/25 2:00 pm Discharge Medications: New hydrocodone-acetaminophen 10-325 mg tablet 1 tablet PO Q6H PRN (Reason: pain) Qty: 30 0RF Continued pramipexole 1 mg tablet See Rx Instructions .ROUTE .COMPLEX Qty: 60 0RF Dose Instruction: TAKE 2 TABLETS BY MOUTH EVERY DAY AT BEDTIME Rx Instructions: TAKE 2 TABLETS BY MOUTH EVERY DAY AT BEDTIME potassium chloride 10 mEq capsule, extended release 10 meq PO DAILY Qty: 30 0RF tizanidine 2 mg tablet 2 mg PO TID PRN (Reason: muscle spasticity) Qty: 30 0RF aspirin [Adult Low Dose Aspirin] 81 mg tablet,delayed release (DR/EC) 81 mg PO DAILY Qty: 30 0RF ferrous sulfate 325 mg (65 mg iron) tablet 325 mg PO BID Qty: 60 0RF lidocaine [Lidoderm] 5 % Adhesive Patch,Medicated 2 patch transdermal DAILY Qty: 60 0RF docusate sodium 100 mg Capsule 100 mg PO Q12H PRN (Reason: Constipation) Qty: 60 0RF magnesium citrate Solution 150 ml PO DAILY PRN (Reason: constipation) Qty: 296 0RF folic acid 1 mg tablet 1 mg PO DAILY Qty: 30 0RF polyethylene glycol 3350 17 gram/dose powder 17 g PO DAILY 30 Days Qty: 510 0RF acetaminophen 500 mg capsule 1,000 mg PO Q6H PRN (Reason: pain) Qty: 180 0RF cholecalciferol (vitamin D3) 25 mcg (1,000 unit) capsule 25 mcg PO DAILY Qty: 30 0RF risedronate 35 mg tablet See Rx Instructions .ROUTE .COMPLEX Qty: 4 0RF Dose Instruction: TAKE 1 TABLET BY MOUTH EVERY WEEK. ADMINISTER 30 MINUTES BEFORE FIRST FOOD OR DRINK OTHER THAN WATER Patient Comments: Pt takes on Fridays as of 04/30/25 Rx Instructions: TAKE 1 TABLET BY MOUTH EVERY WEEK. ADMINISTER 30 MINUTES BEFORE FIRST FOOD OR DRINK OTHER THAN WATER rosuvastatin 20 mg tablet 20 mg PO DAILY Qty: 30 0RF mirabegron [Myrbetriq] 50 mg tablet extended release 24 hr 50 mg PO DAILY Qty: 30 0RF Eliquis 5 mg tablet 5 mg PO BID Qty: 60 0RF Probiotic 15 billion cell capsule, sprinkle 1 cap PO DAILY Qty: 30 0RF Rx Instructions: do not crush/chew/cut; swallow whole OR may open and sprinkle in cold drink/food mecobalamin (vitamin B12) 1,000 mcg tablet,disintegrating 1,000 mcg sublingual DAILY Qty: 30 0RF Rx Instructions: place tablet under tongue and allow to dissolve for at least30 secs before swallowing Jardiance 25 mg tablet 25 mg PO DAILY Qty: 30 0RF Metamucil 3.4 gram/5.4 gram powder 1 tbsp PO DAILY Qty: 660 0RF Rx Instructions: mix into at least 8 oz of water or juice before administering Discontinued fish oil 1,200 mg BYMOUTH DAILY Date of admission: 05/06/25 16:43 Primary Care Provider: Alexandre Smith Admitting Provider: Julien De Paz Attending physician on admission: Julien De Paz Condition: Stable Quality VTE Prophylaxis VTE prophylaxis: pharmacologic ordered
--- NOTE | 2025-05-21 15:53 | PC.NURSE ---
[facility] called back to verify that scripts were sent on pt due to family picking up meds and state several are missing. [facility] notified that printed home med list and all scripts were sent to [facility] and verified at [phone] and paperwork was sent with pt living OTC meds as well.
--- NOTE | 2025-05-24 10:33 | PC.NURSE ---
Discharge call back attempted, no answer
--- NOTE | 2025-05-25 09:15 | PC.NURSE ---
Unable to reach for dc call back.
== END 2025-05-21 11:10 | DRG 561 ==
PROVIDERS: Nurse Practitioner Family; Admitting Provider Internal Medicine; PCP Internal Medicine; Visit Provider Internal Medicine
DX: S42.201D Unspecified fracture of upper end of right humerus, subsequent encounter for fracture with routine healing (principal); W19.XXXD Unspecified fall, subsequent encounter; E78.5 Hyperlipidemia, unspecified; E11.9 Type 2 diabetes mellitus without complications; F17.290 Nicotine dependence, other tobacco product, uncomplicated; G47.33 Obstructive sleep apnea (adult) (pediatric); I25.10 Atherosclerotic heart disease of native coronary artery without angina pectoris; I10 Essential (primary) hypertension; I25.2 Old myocardial infarction; M81.0 Age-related osteoporosis without current pathological fracture; M41.9 Scoliosis, unspecified; N32.81 Overactive bladder; Z95.5 Presence of coronary angioplasty implant and graft; Z79.899 Other long term (current) drug therapy; Z79.01 Long term (current) use of anticoagulants; Z79.82 Long term (current) use of aspirin; Z79.84 Long term (current) use of oral hypoglycemic drugs
CPT/HCPCS: 36415; 80053; 82948; 83735; 85027; 97110; 97162; 97165; 97530; 97535; A9270